=== PATIENT | female | born 1945 | race African-American/Black ===

== ENCOUNTER 2018-03-30 22:26 | Inpatient (IN) | payer MEDICAID, MEDICARE ==
[~2018-03-30] VITALS: Ht 160 cm; Wt 79.9 kg
[~2018-03-30 22:26] MED LIST: ATOR20TA58 PO; CELE200C PO; CITA40TA12 PO; CLON0.2T PO; CLOP75TA PO; COLC0.6T34 PO; FERR325C PO; FLUT1DIS3 IH; FURO20TA3 PO; GABA600T2 PO; LORA1TAB PO; METO25TA4 PO; OMEP40CA5 PO; POTA20TA4 PO; TRIA15CR3 TP; VERA120T5 PO
[2018-03-30] MEDS ORDERED: DEXTROSE ORAL GEL 15 GM TUBE. ONE (23:05)
[2018-03-30] MEDS ORDERED: DEXTROSE 50% 25 GM / 50ML DISP.SYRIN. IV ONE ×2 (23:05→23:30)
--- NOTE | 2018-03-30 23:27 | EKG ---
[facility] [address] [place] [address] Test Date: 2018-03-30 Test Time: 22:57:32 Pat Name: ELMIRA PERZE Department: Room: Gender: F Director Retirement: JONATAN : 1945 Requested By: KARLOS BERNAL Order Number: [id number] Reading MD: Trevor Moore Measurements Intervals [place] Rate: 76 P: -128 [place]: 122 QRS: -46 QRSD: 168 T: 124 QT: 468 QTc: 532 Interpretive Statements SINUS RHYTHM ABNORMAL LEFT AXIS DEVIATION RIGHT BUNDLE BRANCH BLOCK QRS(T) CONTOUR ABNORMALITY CONSISTENT WITH ANTEROLATERAL INFARCT PROBABLY OLD ABNORMAL ECG Electronically Signed On 04-04-2018 11:54:17 CDT by Trevor Moore
[2018-03-30] MEDS ORDERED: DEXTROSE ORAL GEL 15 GM TUBE. PO ONE (23:30)
[2018-03-30] MEDS ORDERED: ONDANSETRON PF 4 MG/2 ML VIAL. IV ONE (23:30)
[2018-03-30] MEDS ORDERED: ASPIRIN 325 MG TABLET PO ONE (23:30)
[2018-03-30] MEDS ORDERED: fentaNYL PF VIAL 100 MCG/2 ML VIAL IV ONE (23:30)
--- NOTE | 2018-03-30 23:31 | PHYS DOC ---
Past Medical History Past Medical History: CHF, Hypertension, GA Additional Past Surgical Histo: pacemaker Alcohol Use: None Drug Use: None Adult General Chief Complaint Chief Complaint: SHORTNESS OF BREATH HPI HPI Patient is a 72 year old female with a pacemaker and a PMH of GA, CHF, and hypertension who presents to the ED with shortness of breath and lethargy. EMS notes that patient reports she has had nausea, vomiting, and diarrhea for the past few days and also reports chest pain. She states the pain is dull and she rates it as an 8/10. She has not received or taken any medication for it. Patient notes that she is usually on O2, but has been without O2 for several days. EMS notes her SaO2 was found to be in the low 80s. Patient denies any recent loss of consciousness or falls. She denies cough or fevers. Review of Systems Review of Systems Constitutional: Notes lethargy; Denies fever or chills Eyes: Denies change in visual acuity, redness, or eye pain HENT: Denies nasal congestion or sore throat Respiratory: Notes shortness of breath; Denies cough Cardiovascular: Notes chest pain; Denies heart palpitations GI: Notes nausea, vomiting, diarrhea; Denies abdominal pain : Denies dysuria or hematuria Musculoskeletal: Denies back pain or joint pain Integument: Denies rash or skin lesions Neurologic: Notes generalized weakness; Denies headache or sensory changes Complete systems were reviewed and found to be within normal limits, except as documented in this note. Family History Family History Noncontributory Current Medications Current Medications Current Medications Medications (Trade) Dose Ordered Sig/[facility] Start Time Stop Time Status Last Admin Dose Admin Aspirin (Karen Aspirin) 325 mg 1X ONCE 03/30/18 23:30 03/30/18 23:31 DC 03/31/18 01:16 325 MG Dextrose (Dextrose 50%-Water Syringe) 12.5 gm PRN Q15MIN PRN 03/31/18 00:45 Fentanyl Citrate (Fentanyl 2ml Vial) 50 mcg 1X ONCE 03/30/18 23:30 03/30/18 23:31 DC Glucose (Insta-Glucose) 15 gm 1X ONCE 03/30/18 23:30 03/30/18 23:31 DC 03/30/18 23:07 15 GM Ondansetron HCl (Zofran) 4 mg PRN Q8HRS PRN 03/31/18 00:45 04/01/18 00:44 Allergies Allergies Allergies Coded Allergies Type Severity Reaction Last Updated Verified iodine Allergy Severe 03/30/18 Yes Sulfa (Sulfonamide Antibiotics) Allergy Intermediate 03/30/18 Yes doxycycline Allergy Intermediate 03/30/18 Yes quinine Allergy Intermediate 03/30/18 Yes Physical Exam Physical Exam Constitutional: Well developed, well nourished, appears lethargic HENT: Normocephalic, atraumatic, oropharynx dry Eyes: PERRL, EOMI, conjunctiva normal, no discharge Neck: Normal range of motion, no tenderness, supple, no meningeal signs Cardiovascular: Heart rate regular rhythm, no murmur Lungs & Thorax: Diffuse wet crackles in bilateral lungs Abdomen: Soft, nontender Skin: Warm, dry, no erythema Back: No tenderness, no CVA tenderness Extremities: No tenderness, ROM intact, BLE 2+ edema Neurologic: Slightly decreased motor function, normal sensory function, alert and oriented x 2 Psychologic: Affect normal, judgement normal, mood normal Current Patient Data Vital Signs Vital Signs Date Time Temp Pulse Resp B/P (MAP) Pulse Ox O2 Delivery O2 Flow Rate FiO2 03/31/18 00:30 80 18 143/85 (104) 92 Nasal Cannula 3.0 03/30/18 22:26 97.9 97.9 Lab Values Laboratory Tests Test 03/30/18 23:04 03/30/18 23:30 03/30/18 23:58 03/31/18 00:04 Glucose (Fingerstick) 26 mg/dL (70-99) *L 93 mg/dL (70-99) 106 mg/dL (70-99) H White Blood Count 5.5 x10^3/uL (4.0-11.0) Red Blood Count 3.20 x10^6/uL (3.50-5.40) L Hemoglobin 9.6 g/dL (12.0-15.5) L Hematocrit 28.8 % (36.0-47.0) L Mean Corpuscular Volume 90 fL (79-100) Mean Corpuscular Hemoglobin 30 pg (25-35) Mean Corpuscular Hemoglobin Concent 34 g/dL (31-37) Red Cell Distribution Width 28.7 % (11.5-14.5) H Platelet Count 149 x10^3/uL (140-400) Neutrophils (%) (Auto) 29 % (31-73) L Lymphocytes (%) (Auto) 68 % (24-48) H Monocytes (%) (Auto) 2 % (0-9) Eosinophils (%) (Auto) 0 % (0-3) Basophils (%) (Auto) 1 % (0-3) Neutrophils # (Auto) 1.6 x10^3uL (1.8-7.7) L Lymphocytes # (Auto) 3.7 x10^3/uL (1.0-4.8) Monocytes # (Auto) 0.1 x10^3/uL (0.0-1.1) Eosinophils # (Auto) 0.0 x10^3/uL (0.0-0.7) Basophils # (Auto) 0.1 x10^3/uL (0.0-0.2) Segmented Neutrophils % 83 % (35-66) H Band Neutrophils % 3 % (0-9) Lymphocytes % 13 % (24-48) L Monocytes % 1 % (0-10) Nucleated Red Blood Cells 2 Platelet Estimate Adequate (ADEQUATE) Polychromasia Slight Anisocytosis Mod Target Cells Mod Jackson Cells Few Crenated Cell Present Prothrombin Time 24.4 SEC (11.7-14.0) H Prothrombin Time INR 2.3 (0.8-1.1) H Sodium Level 141 mmol/L (136-145) Potassium Level 3.9 mmol/L (3.5-5.1) Chloride Level 101 mmol/L (98-107) Carbon Dioxide Level 19 mmol/L (21-32) L Anion Gap 21 (6-14) H Blood Urea Nitrogen 29 mg/dL (7-20) H Creatinine 2.5 mg/dL (0.6-1.0) H Estimated GFR (Cockcroft-Gault) 23.0 BUN/Creatinine Ratio 12 (6-20) Glucose Level 116 mg/dL (70-99) H Lactic Acid Level 8.2 mmol/L (0.4-2.0) *H Calcium Level 9.1 mg/dL (8.5-10.1) Magnesium Level 1.7 mg/dL (1.8-2.4) L Total Bilirubin 2.7 mg/dL (0.2-1.0) H Aspartate Amino Transferase (AST) 72 U/L (15-37) H Alanine Aminotransferase (ALT) 42 U/L (14-59) Alkaline Phosphatase 125 U/L (46-116) H Creatine Kinase 502 U/L (26-192) H Troponin I Quantitative 0.242 ng/mL (0.000-0.055) GK-Urs-Y-Type Natriuretic Peptide > 26588 pg/mL (0-124) H Total Protein 7.7 g/dL (6.4-8.2) Albumin 3.3 g/dL (3.4-5.0) L Albumin/Globulin Ratio 0.8 (1.0-1.7) L Lipase 38 U/L (73-393) L Laboratory Tests 03/30/18 23:58 Laboratory Tests 03/30/18 23:58 EKG EKG @ 22:57, normal sinus rhythm at 76 bpm, appears to be a paced rhythm Interpretation Time: @ 22:59 Radiology/Procedures Radiology/Procedures 1) PROCEDURE: CHEST AP ONLY Indication:difficulty breathing TECHNIQUE:Portable AP chest X-ray COMPARISON:12/27/2012 FINDINGS: Left chest wall cardiac pacer is seen images leads projecting over the heart. Patient is rotated to the left side limiting optimal evaluation. Heart is s moderate to severely enlarged in size. Diffuse bilateral interstitial opacities are seen. Evaluation of bilateral lung bases is limited due to overlapping soft tissue shadows. No pneumothorax. Visualized bony thorax within normal limits. IMPRESSION: 1. Moderate to severe cardiomegaly. 2. Interstitial pulmonary edema. 3. Evaluation of lung bases limited due to overlapping soft tissues. 2) CXR s/p RIJ central line placement (preliminary interpretation by ED physician) Interval RIJ placement with good positioning. NO pneumothorax. Continued interstitial pulmonary edema. Course & Med Decision Making Course & Med Decision Making Patient is a 72 year old female with a pacemaker and a PMH of GA, CHF, and hypertension who presents to the ED with shortness of breath and lethargy. Pertinent labs and imaging studies were obtained and reviewed (see chart for details). Her blood glucose level was found to be 26. She was given IV dextrose as well as dextrose gel. She was also given fentanyl, nitroglycerin , and aspirin for her pain and Zofran for her nausea. Chest x-ray showed moderate to severe cardiomegaly with interstitial pulmonary edema. Patient's BNP was significantly elevated at >[address]31 and her lactic acid was elevated at 8.2. She was given Bumex for diuresis. Highly suspect acute CHF exacerbation. She did not meet any of the requirements for SIRS criteria. Vital signs are stable and her WBC is normal. EKG @ 22:57 showed normal sinus rhythm at 76 bpm and appeared to be a paced rhythm. Troponin elevated at 0.242 likely secondary to heart strain. Patient requiring admission for further evaluation and treatment of her acute CHF exacerbation, hypoglycemia, elevated troponin level, and lactic acidosis. Decision to place SCVO2 central line under bedside ultrasound guidance given patient's critical state. Blood cultures also obtained. Patient tolerated procedure well and without difficulty. Repeat CXR with good positioning of line without signs of pneumothorax. Discussed with Dr. Conte (hospitalist) who is in agreement with admission. Discussed findings and plan with patient, who acknowledges understanding and agreement. Dragon Disclaimer Dragon Disclaimer This electronic medical record was generated, in whole or in part, using a voice recognition dictation system. Departure Departure Impression: Primary Impression: Acute exacerbation of CHF (congestive heart failure) Additional Impressions: Hypoglycemia Elevated troponin I level Lactic acidosis Renal insufficiency Hypoxia Disposition: 09 ADMITTED INPATIENT Condition: GUARDED Referrals: SANDOVAL COLEMAN MD (PCP) Critical Care Time Critical care time was 30 minutes which includes time at bedside, spent in discussion of patient's care with specialists and/or family members, with interpretation of laboratory and/or radiological studies and is exclusive of procedures. Central Line Central Line : Central Line Lumen: triple (SVCO2) Central Line Procedure: sterile drapes applied, sterile dressing applied Central Line Postion: internal jugular (R) Anesthesia: Lidocaine (2% without) cc's of anesthesia: 3 Complications: none Central Line Post Position: sutured, good blood return, position confirmed w / CXR Progress Written consent obtained. Time out performed. ChloraPrep utilized. Hand hygiene and sterile attire utilized. Bedside ultrasound guidance also performed. Patient tolerated procedure well and without difficulty. Problem Qualifiers Primary Impression: Acute exacerbation of CHF (congestive heart failure) Heart failure type: unspecified Qualified Codes: I50.9 - Heart failure, unspecified KARLOS BERNAL DO Mar 30, 2018 23:31
[2018-03-31] VITALS (22 sets, daily range): BP systolic 96–151; BP diastolic 62–92
[2018-03-31 00:14] LABS: BASO # 0.1 x10^3/uL (0.0-0.2); BASO % 1 % (0-3); EOS % 0 % (0-3); HEMATOCRIT 28.8 % (36.0-47.0); HEMOGLOBIN 9.6 g/dL (12.0-15.5); LYMPH # 3.7 x10^3/uL (1.0-4.8); LYMPH % 68 % (24-48); MEAN CORPUSCULAR HEMOGLOBIN 30 pg (25-35); MEAN CORPUSCULAR HGB CONC 34 g/dL (31-37); MEAN CORPUSCULAR VOLUME 90 fL (79-100); MONO # 0.1 x10^3/uL (0.0-1.1); MONO % 2 % (0-9); NEUT # 1.6 x10^3uL (1.8-7.7); NEUT % 29 % (31-73); PLATELET COUNT 149 x10^3/uL (140-400); RED CELL DISTRIBUTION WIDTH 28.7 % (11.5-14.5); WHITE BLOOD COUNT 5.5 x10^3/uL (4.0-11.0)
[2018-03-31 00:22] LABS: CALCIUM 9.1 mg/dL (8.5-10.1); CREATININE 2.5 mg/dL (0.6-1.0); POTASSIUM 3.9 mmol/L (3.5-5.1)
[2018-03-31 00:29] LABS: ALBUMIN 3.3 g/dL (3.4-5.0); ALBUMIN/GLOBULIN RATIO 0.8 (1.0-1.7); MAGNESIUM 1.7 mg/dL (1.8-2.4); TOTAL BILIRUBIN 2.7 mg/dL (0.2-1.0); TOTAL PROTEIN 7.7 g/dL (6.4-8.2)
[2018-03-31 00:31] LABS: PROTHROMBIN TIME PATIENT 24.4 SEC (11.7-14.0)
[2018-03-31] MEDS ORDERED: DEXTROSE 50% 25 GM / 50ML DISP.SYRIN. IV PRN (00:45)
[2018-03-31] MEDS ORDERED: ONDANSETRON PF 4 MG/2 ML VIAL. IV PRN (00:45)
[2018-03-31] MEDS ORDERED: BUMETANIDE 1 MG/4 ML VIAL. IV ONE (01:00)
[2018-03-31] MEDS ORDERED: NITROGLYCERIN OINT 1 GM PACKET. TP ONE (01:00)
--- NOTE | 2018-03-31 01:11 | RAD ---
Indication:difficulty breathing TECHNIQUE:Portable AP chest X-ray COMPARISON:12/27/2012 FINDINGS: Left chest wall cardiac pacer is seen images leads projecting over the heart. Patient is rotated to the left side limiting optimal evaluation. Heart is s moderate to severely enlarged in size. Diffuse bilateral interstitial opacities are seen. Evaluation of bilateral lung bases is limited due to overlapping soft tissue shadows. No pneumothorax. Visualized bony thorax within normal limits. IMPRESSION: 1. Moderate to severe cardiomegaly. 2. Interstitial pulmonary edema. 3. Evaluation of lung bases limited due to overlapping soft tissues. Electronically signed by: Long Tucker DO (03/31/2018 1:07 AM) [facility]
[2018-03-31 02:05] LABS: BILIRUBIN,URINE SMALL (NEG); CLARITY,URINE CLEAR; COLOR,URINE AMBER; NITRITE,URINE NEGATIVE (NEG); PH,URINE 5.5; PROTEIN,URINE 100 mg/dL (NEG-TRACE)
[2018-03-31] MEDS ORDERED: LIDOCAINE 2% PF 2ML VIAL. ONE (02:31)
[2018-03-31] MEDS ORDERED: LIDOCAINE 2% 20 ML VIAL. IJ ONE (03:00)
[2018-03-31 03:32] LABS: AMORPHOUS SEDIMENT,UR PRESENT /HPF; BACTERIA,URINE 0 /HPF (0-FEW); HYALINE CASTS, URINE MODERATE /HPF; RBC,URINE OCC /HPF (0-2); SQUAMOUS EPITHELIAL CELL,UR MOD /LPF; WBC,URINE OCC /HPF (0-4)
[2018-03-31 03:53] LABS: % BANDS 3 % (0-9); % LYMPHS 13 % (24-48); % MONOS 1 % (0-10); % SEGS 83 % (35-66); NUCLEATED RBC 2; PLT ESTIMATE ADEQUATE (ADEQUATE)
[2018-03-31 03:54] LABS: ANISOCYTOSIS MOD; BURR CELLS FEW; POLYCHROMASIA SLIGHT; TARGET CELLS MOD
--- NOTE | 2018-03-31 04:28 | RAD ---
Indication: Line placement TECHNIQUE: Portable AP upright chest x-ray COMPARISON: Study from the same day earlier FINDINGS: Stable position of left chest wall cardiac pacer with its leads projecting over the heart. Interval placement of right IJ catheter with its tip in the SVC. Heart is moderately enlarged in size. Diffuse bilateral patchy opacities are seen without interstitial opacities. No pneumothorax. Visualized bony thorax within normal limits. IMPRESSION: Moderate cardiomegaly with diffuse interstitial and patchy opacities which may be from pulmonary edema or multifocal pneumonia. Electronically signed by: Long Tucker DO (03/31/2018 4:24 AM) [facility]
[2018-03-31 09:23] LABS: ALBUMIN/GLOBULIN RATIO 0.7 (1.0-1.7); CALCIUM 8.4 mg/dL (8.5-10.1); CREATININE 2.3 mg/dL (0.6-1.0); GFR 25.3; MAGNESIUM 1.7 mg/dL (1.8-2.4); POTASSIUM 4.1 mmol/L (3.5-5.1); TOTAL BILIRUBIN 1.9 mg/dL (0.2-1.0); TOTAL PROTEIN 7.1 g/dL (6.4-8.2)
--- NOTE | 2018-03-31 09:23 | PDOC2 ---
MIKE DUNHAM ANGLE BENDER 03/31/18 0923: CARDIAC CONSULT DATE OF CONSULT Date of Consult DATE: 03/31/18 TIME: 09:13 REASON FOR CONSULT Reason for Consult: CHF exacerbation, elevated troponin REFERRING PHYSICIAN Referring Physician: Inés SOURCE Source: Chart review HISTORY OF PRESENT ILLNESS HISTORY OF PRESENT ILLNESS 72 year old female admitted through the ER with reported history of nausea, vomiting, diarrhea and CP as well as hypoxia with SpO2 in the 80s on EMS presentation. Patient is barely arousable and provides no information for this consult. Reason for Visit: CHF, NSTEMI PAST MEDICAL HISTORY Cardiovascular: CHF, HTN, [place] (with reported PCI/stents to unknown targets), Other (PPM - brand unknown as diagnosis) Pulmonary: COPD PAST SURGICAL HISTORY Past Surgical History: Pacemaker FAMILY HISTORY Family History: Family History Unknown SOCIAL HISTORY Smoke: <1 pack per day CURRENT MEDICATIONS CURRENT MEDICATIONS Current Medications Medications (Trade) Dose Ordered Sig/Domitila Route PRN Reason Start Time Stop Time Status Last Admin Dose Admin Aspirin (Karen Aspirin) 325 mg 1X ONCE PO 03/30/18 23:30 03/30/18 23:31 DC 03/31/18 01:16 Dextrose (Dextrose 50%-Water Syringe) 25 gm 1X ONCE IV 03/30/18 23:30 03/30/18 23:31 DC 03/30/18 23:10 Ondansetron HCl (Zofran) 4 mg 1X ONCE IV 03/30/18 23:30 03/30/18 23:31 DC 03/31/18 01:18 Glucose (Insta-Glucose) 15 gm 1X ONCE PO 03/30/18 23:30 03/30/18 23:31 DC 03/30/18 23:07 Nitroglycerin (Nitro-Bid Oint) 1 inch 1X ONCE TP 03/31/18 01:00 03/31/18 01:01 DC 03/31/18 01:19 Bumetanide (Bumex) 0.5 mg 1X ONCE IV 03/31/18 01:00 03/31/18 01:01 DC 03/31/18 01:11 Lidocaine HCl 20 ml 1X ONCE IJ 03/31/18 03:00 03/31/18 03:01 DC 03/31/18 03:00 ALLERGIES ALLERGIES: Coded Allergies: iodine (Verified Allergy, Severe, 03/30/18) Sulfa (Sulfonamide Antibiotics) (Verified Allergy, Intermediate, 03/30/18) doxycycline (Verified Allergy, Intermediate, 03/30/18) metronidazole (Verified Allergy, Intermediate, HIVES, 03/31/18) quinine (Verified Allergy, Intermediate, 03/30/18) ROS Review of System unobtainable PHYSICAL EXAM General: No acute distress, Other (minimally arousable, mumbles) HEENT: Atraumatic Lungs: Other (posterior crackles) Heart: Normal S1, Normal S2 Abdomen: Normal bowel sounds (obese abdomen), Soft Extremities: Other (trace edema) Skin: No rashes Neuro: Other (difficulty awakening patient) Psych/Mental Status: Other (unable to evaluate) MUSCULOSKELETAL: No deformity VITALS VITALS Vital Signs Date Time Temp Pulse Resp B/P (MAP) Pulse Ox O2 Delivery O2 Flow Rate FiO2 03/31/18 08:30 Nasal Cannula 3.0 03/31/18 08:00 88 16 133/85 (101) 96 03/31/18 05:15 98.2 98.2 LABS Lab: Laboratory Tests Test 03/30/18 23:04 03/30/18 23:30 03/30/18 23:58 03/31/18 00:04 Glucose (Fingerstick) 26 mg/dL (70-99) 93 mg/dL (70-99) 106 mg/dL (70-99) White Blood Count 5.5 x10^3/uL (4.0-11.0) Red Blood Count 3.20 x10^6/uL (3.50-5.40) Hemoglobin 9.6 g/dL (12.0-15.5) Hematocrit 28.8 % (36.0-47.0) Mean Corpuscular Volume 90 fL (79-100) Mean Corpuscular Hemoglobin 30 pg (25-35) Mean Corpuscular Hemoglobin Concent 34 g/dL (31-37) Red Cell Distribution Width 28.7 % (11.5-14.5) Platelet Count 149 x10^3/uL (140-400) Neutrophils (%) (Auto) 29 % (31-73) Lymphocytes (%) (Auto) 68 % (24-48) Monocytes (%) (Auto) 2 % (0-9) Eosinophils (%) (Auto) 0 % (0-3) Basophils (%) (Auto) 1 % (0-3) Neutrophils # (Auto) 1.6 x10^3uL (1.8-7.7) Lymphocytes # (Auto) 3.7 x10^3/uL (1.0-4.8) Monocytes # (Auto) 0.1 x10^3/uL (0.0-1.1) Eosinophils # (Auto) 0.0 x10^3/uL (0.0-0.7) Basophils # (Auto) 0.1 x10^3/uL (0.0-0.2) Segmented Neutrophils % 83 % (35-66) Band Neutrophils % 3 % (0-9) Lymphocytes % 13 % (24-48) Monocytes % 1 % (0-10) Nucleated Red Blood Cells 2 Platelet Estimate Adequate (ADEQUATE) Polychromasia Slight Anisocytosis Mod Target Cells Mod Melrose Cells Few Crenated Cell Present Prothrombin Time 24.4 SEC (11.7-14.0) Prothromb Time International Ratio 2.3 (0.8-1.1) Sodium Level 141 mmol/L (136-145) Potassium Level 3.9 mmol/L (3.5-5.1) Chloride Level 101 mmol/L (98-107) Carbon Dioxide Level 19 mmol/L (21-32) Anion Gap 21 (6-14) Blood Urea Nitrogen 29 mg/dL (7-20) Creatinine 2.5 mg/dL (0.6-1.0) Estimated GFR (Cockcroft-Gault) 23.0 BUN/Creatinine Ratio 12 (6-20) Glucose Level 116 mg/dL (70-99) Lactic Acid Level 8.2 mmol/L (0.4-2.0) Calcium Level 9.1 mg/dL (8.5-10.1) Magnesium Level 1.7 mg/dL (1.8-2.4) Total Bilirubin 2.7 mg/dL (0.2-1.0) Aspartate Amino Transf (AST/SGOT) 72 U/L (15-37) Alanine Aminotransferase (ALT/SGPT) 42 U/L (14-59) Alkaline Phosphatase 125 U/L (46-116) Creatine Kinase 502 U/L (26-192) Troponin I Quantitative 0.242 ng/mL (0.000-0.055) TA-Hib-F-Type Natriuretic Peptide > 79462 pg/mL (0-124) Total Protein 7.7 g/dL (6.4-8.2) Albumin 3.3 g/dL (3.4-5.0) Albumin/Globulin Ratio 0.8 (1.0-1.7) Lipase 38 U/L (73-393) Test 03/31/18 01:54 03/31/18 04:10 Urine Collection Type Unknown Urine Color Renay Urine Clarity Clear Urine pH 5.5 Urine Specific [place] 1.015 Urine Protein 100 mg/dL (NEG-TRACE) Urine Glucose (UA) Negative mg/dL (NEG) Urine Ketones (Stick) Negative mg/dL (NEG) Urine Blood Negative (NEG) Urine Nitrite Negative (NEG) Urine Bilirubin Small (NEG) Urine Urobilinogen Dipstick 1.0 mg/dL (0.2 mg/dL) Urine Leukocyte Esterase Negative (NEG) Urine RBC Occ /HPF (0-2) Urine WBC Occ /HPF (0-4) Urine Squamous Epithelial Cells Mod /LPF Urine Amorphous Sediment Present /HPF Urine Bacteria 0 /HPF (0-FEW) Urine Hyaline Casts Moderate /HPF Urine Mucus Mod /LPF Glucose (Fingerstick) 94 mg/dL (70-99) Lactic Acid Level 5.3 mmol/L (0.4-2.0) Troponin I Quantitative 0.250 ng/mL (0.000-0.055) IMAGES IMAGES 03/30/2018: CXR: FINDINGS: Left chest wall cardiac pacer is seen images leads projecting over the heart. Patient is rotated to the left side limiting optimal evaluation. Heart is s moderate to severely enlarged in size. Diffuse bilateral interstitial opacities are seen. Evaluation of bilateral lung bases is limited due to overlapping soft tissue shadows. No pneumothorax. Visualized bony thorax within normal limits. IMPRESSION: 1. Moderate to severe cardiomegaly. 2. Interstitial pulmonary edema. 3. Evaluation of lung bases limited due to overlapping soft tissues. EKG EKG V paced ASSESSMENT/PLAN ASSESSMENT/PLAN 1. acute heart failure --NT-proBNP > 35K --treated with 0.5 mg Bumex in ER --renal function prohibits aggressive diuresis; nephrology consult with fluid /diuretic management per neph --TTE pending to evaluate LVEF and assess for WMA 2. NSTEMI --recent chest pain in the setting of nausea/vomiting --suspect demand mediated in the setting of acute heart and renal failure as well as sepsis --TTE to evaluate for WMA --request records from [facility] to determine previous ischemic evaluation; consider ischemic evaluation if not completed recently 3. JAIDEN --Cr 2.5 --consult to nephrology --unclear if this is new or due to recent nausea, vomiting, dehydration 4. sepsis --defer to ID 5. elevated LFTs --recent nausea/vomiting/diarrhea 6. PPM --will interrogate if brand can be determine 7. HTN --controlled 8. anemia --? of chronic disease 9. hypoglycemia --POA --? DM --defer to primary service MARIANA DANIELS MD 04/01/18 1042: CARDIAC CONSULT ASSESSMENT/PLAN ASSESSMENT/PLAN Patient seen and examined 03/31/18 (late entry). Agree with STONE FABRICATOR's assessment and plan. Continue diuresis for acute on chronic systolic heart failure per nephrology team 2-D echo showed LVEF 20% Slight troponin elevation could be demand ischemia but significant CAD needs to be ruled out if patient has not had any recent ischemic workup We will obtain records from primary bus escort office and make further recommendations We will have her pacemaker interrogated to check function Continue management of sepsis per ID Thank you for your consultation MIKE DUNHAM APRN Mar 31, 2018 09:23 MARIANA DANIELS MD Apr 01, 2018 10:42
[2018-03-31 09:24] LABS: RED BLOOD COUNT 4.35 x10^6/uL (3.50-5.40); RED CELL DISTRIBUTION WIDTH 28.7 % (11.5-14.5); WHITE BLOOD COUNT 6.1 x10^3/uL (4.0-11.0)
[2018-03-31 10:34] LABS: CHOLESTEROL/HDL RATIO 2.3
--- NOTE | 2018-03-31 10:40 | PDOC2 ---
GI CONSULT Reason For Consult: Elevated LFTs HPI: HPI: 72 y/o female. History from chart and staff. Apparently evaluated in ER for dyspnea, chest pain, n/v, and diarrhea. Drowsy in ICU this morning making history challenging, RN present for this. Significant labs: glucose was initially 26, Hgb 9.6 (now 13), RDW 28.7, plt 105 , INR 2.3, bili 2.7 (now 1.9), AST 72 (now 83), ALT 42 (now 44), Alk Phos 125 ( now 119), BUN 29 (now 33), Cr 2.5 (now 2.3). Also elevated troponin, lactic acid, and BNP. Has apparently been to [facility] in the past, cardiology records requested. GI asked to see re: LFTs. She is slow to respond and drifts in and out of sleep. She denies h/o liver problems. Tells me she's been sick for 2 months with a cough. GI-garcia, has had diarrhea after eating, so avoids eating. She had a colonoscopy 2 months ago in [place] (?), reportedly normal. Denies reflux. Dysphagia, vomiting, and abd pain history unclear. Denies hematochezia and melena. Has lost weight. Says s/p cholecystectomy for stones. Unclear if had previous EGD. Denies pancreas history. Med list in chart includes omeprazole, Celebrex, Plavix, and iron. PMH: PMH: per chart - CHF, HTN, MS, CAD w/ stent, pacemaker, COPD, anxiety FH: Family History: Other (unable to obtain) Social History: Smoke: <1 pack per day ROS: Per HPI. Vitals: Vitals: Vital Signs Date Time Temp Pulse Resp B/P (MAP) Pulse Ox O2 Delivery O2 Flow Rate FiO2 03/31/18 09:00 98.3 88 16 130/80 (97) 96 Nasal Cannula 3.0 98.3 Labs: Labs: Laboratory Tests Test 03/30/18 23:04 03/30/18 23:30 03/30/18 23:58 03/31/18 00:04 Glucose (Fingerstick) 26 mg/dL (70-99) 93 mg/dL (70-99) 106 mg/dL (70-99) White Blood Count 5.5 x10^3/uL (4.0-11.0) Red Blood Count 3.20 x10^6/uL (3.50-5.40) Hemoglobin 9.6 g/dL (12.0-15.5) Hematocrit 28.8 % (36.0-47.0) Mean Corpuscular Volume 90 fL (79-100) Mean Corpuscular Hemoglobin 30 pg (25-35) Mean Corpuscular Hemoglobin Concent 34 g/dL (31-37) Red Cell Distribution Width 28.7 % (11.5-14.5) Platelet Count 149 x10^3/uL (140-400) Neutrophils (%) (Auto) 29 % (31-73) Lymphocytes (%) (Auto) 68 % (24-48) Monocytes (%) (Auto) 2 % (0-9) Eosinophils (%) (Auto) 0 % (0-3) Basophils (%) (Auto) 1 % (0-3) Neutrophils # (Auto) 1.6 x10^3uL (1.8-7.7) Lymphocytes # (Auto) 3.7 x10^3/uL (1.0-4.8) Monocytes # (Auto) 0.1 x10^3/uL (0.0-1.1) Eosinophils # (Auto) 0.0 x10^3/uL (0.0-0.7) Basophils # (Auto) 0.1 x10^3/uL (0.0-0.2) Segmented Neutrophils % 83 % (35-66) Band Neutrophils % 3 % (0-9) Lymphocytes % 13 % (24-48) Monocytes % 1 % (0-10) Nucleated Red Blood Cells 2 Platelet Estimate Adequate (ADEQUATE) Polychromasia Slight Anisocytosis Mod Target Cells Mod Keeler Cells Few Crenated Cell Present Prothrombin Time 24.4 SEC (11.7-14.0) Prothromb Time International Ratio 2.3 (0.8-1.1) Sodium Level 141 mmol/L (136-145) Potassium Level 3.9 mmol/L (3.5-5.1) Chloride Level 101 mmol/L (98-107) Carbon Dioxide Level 19 mmol/L (21-32) Anion Gap 21 (6-14) Blood Urea Nitrogen 29 mg/dL (7-20) Creatinine 2.5 mg/dL (0.6-1.0) Estimated GFR (Cockcroft-Gault) 23.0 BUN/Creatinine Ratio 12 (6-20) Glucose Level 116 mg/dL (70-99) Lactic Acid Level 8.2 mmol/L (0.4-2.0) Calcium Level 9.1 mg/dL (8.5-10.1) Magnesium Level 1.7 mg/dL (1.8-2.4) Total Bilirubin 2.7 mg/dL (0.2-1.0) Aspartate Amino Transf (AST/SGOT) 72 U/L (15-37) Alanine Aminotransferase (ALT/SGPT) 42 U/L (14-59) Alkaline Phosphatase 125 U/L (46-116) Creatine Kinase 502 U/L (26-192) Troponin I Quantitative 0.242 ng/mL (0.000-0.055) OL-Whx-F-Type Natriuretic Peptide > 97872 pg/mL (0-124) Total Protein 7.7 g/dL (6.4-8.2) Albumin 3.3 g/dL (3.4-5.0) Albumin/Globulin Ratio 0.8 (1.0-1.7) Lipase 38 U/L (73-393) Test 03/31/18 01:54 03/31/18 04:10 03/31/18 08:35 Urine Collection Type Unknown Urine Color Renay Urine Clarity Clear Urine pH 5.5 Urine Specific [place] 1.015 Urine Protein 100 mg/dL (NEG-TRACE) Urine Glucose (UA) Negative mg/dL (NEG) Urine Ketones (Stick) Negative mg/dL (NEG) Urine Blood Negative (NEG) Urine Nitrite Negative (NEG) Urine Bilirubin Small (NEG) Urine Urobilinogen Dipstick 1.0 mg/dL (0.2 mg/dL) Urine Leukocyte Esterase Negative (NEG) Urine RBC Occ /HPF (0-2) Urine WBC Occ /HPF (0-4) Urine Squamous Epithelial Cells Mod /LPF Urine Amorphous Sediment Present /HPF Urine Bacteria 0 /HPF (0-FEW) Urine Hyaline Casts Moderate /HPF Urine Mucus Mod /LPF Glucose (Fingerstick) 94 mg/dL (70-99) Lactic Acid Level 5.3 mmol/L (0.4-2.0) Troponin I Quantitative 0.250 ng/mL (0.000-0.055) 0.220 ng/mL (0.000-0.055) Triglycerides Level 71 mg/dL (0-150) Cholesterol Level 122 mg/dL (0-200) LDL Cholesterol, Calculated 54 mg/dL (0-100) VLDL Cholesterol, Calculated 14 mg/dL (0-40) Non-HDL Cholesterol Calculated 68 mg/dL (0-129) HDL Cholesterol 54 mg/dL (40-60) Cholesterol/HDL Ratio 2.3 White Blood Count 6.1 x10^3/uL (4.0-11.0) Red Blood Count 4.35 x10^6/uL (3.50-5.40) Hemoglobin 13.0 g/dL (12.0-15.5) Hematocrit 40.0 % (36.0-47.0) Mean Corpuscular Volume 92 fL (79-100) Mean Corpuscular Hemoglobin 30 pg (25-35) Mean Corpuscular Hemoglobin Concent 33 g/dL (31-37) Red Cell Distribution Width 28.7 % (11.5-14.5) Platelet Count 105 x10^3/uL (140-400) Sodium Level 142 mmol/L (136-145) Potassium Level 4.1 mmol/L (3.5-5.1) Chloride Level 102 mmol/L (98-107) Carbon Dioxide Level 20 mmol/L (21-32) Anion Gap 20 (6-14) Blood Urea Nitrogen 33 mg/dL (7-20) Creatinine 2.3 mg/dL (0.6-1.0) Estimated GFR (Cockcroft-Gault) 25.3 BUN/Creatinine Ratio 14 (6-20) Glucose Level 70 mg/dL (70-99) Calcium Level 8.4 mg/dL (8.5-10.1) Magnesium Level 1.7 mg/dL (1.8-2.4) Total Bilirubin 1.9 mg/dL (0.2-1.0) Aspartate Amino Transf (AST/SGOT) 83 U/L (15-37) Alanine Aminotransferase (ALT/SGPT) 44 U/L (14-59) Alkaline Phosphatase 119 U/L (46-116) Creatine Kinase 536 U/L (26-192) Total Protein 7.1 g/dL (6.4-8.2) Albumin 3.0 g/dL (3.4-5.0) Albumin/Globulin Ratio 0.7 (1.0-1.7) Thyroid Stimulating Hormone (TSH) 152.713 uIU/mL (0.358-3.74) Allergies: Coded Allergies: iodine (Verified Allergy, Severe, 03/30/18) Sulfa (Sulfonamide Antibiotics) (Verified Allergy, Intermediate, 03/30/18) doxycycline (Verified Allergy, Intermediate, 03/30/18) metronidazole (Verified Allergy, Intermediate, HIVES, 03/31/18) quinine (Verified Allergy, Intermediate, 03/30/18) Medications: Current Medications Medications (Trade) Dose Ordered Sig/Domitila Route PRN Reason Start Time Stop Time Status Last Admin Dose Admin Aspirin (Karen Aspirin) 325 mg 1X ONCE PO 03/30/18 23:30 03/30/18 23:31 DC 03/31/18 01:16 Dextrose (Dextrose 50%-Water Syringe) 25 gm 1X ONCE IV 03/30/18 23:30 03/30/18 23:31 DC 03/30/18 23:10 Ondansetron HCl (Zofran) 4 mg 1X ONCE IV 03/30/18 23:30 03/30/18 23:31 DC 03/31/18 01:18 Glucose (Insta-Glucose) 15 gm 1X ONCE PO 03/30/18 23:30 03/30/18 23:31 DC 03/30/18 23:07 Nitroglycerin (Nitro-Bid Oint) 1 inch 1X ONCE TP 03/31/18 01:00 03/31/18 01:01 DC 03/31/18 01:19 Bumetanide (Bumex) 0.5 mg 1X ONCE IV 03/31/18 01:00 03/31/18 01:01 DC 03/31/18 01:11 Lidocaine HCl 20 ml 1X ONCE IJ 03/31/18 03:00 03/31/18 03:01 DC 03/31/18 03:00 Imaging: Imaging: CXR 03/31/18 IMPRESSION: Moderate cardiomegaly with diffuse interstitial and patchy opacities which may be from pulmonary edema or multifocal pneumonia. PE: GEN: NAD HEENT: Atraumatic, PERRL LUNGS: diminished, NC HEART: RRR ABD: quiet, soft, non-tender EXTREMITY: trace BLE edema SKIN: No rashes, no jaundice NEURO/PSYCH: very drowsy, speaks slowly, more alert at times and able to answer some questions appropriately A/P: A/P: CHF, NSTEMI, JAIDEN, lactic acidosis, hypoglycemia Elevated LFTs ?anemia (Hgb from 9.6 to 12), thrombocytopenia, coagulopathy CRC screen - reports normal colonoscopy in [place] ~2 months ago S/p cholecystectomy -- History difficult, hopefully can gather more information later. Will request records of previous colonoscopy. Re: LFTs - possible related to heart failure, etc. Monitor labs and check abd US. Monitor for vomiting and diarrhea, check stool studies if indicated. NEEL WILLIAMSON Mar 31, 2018 10:40
--- NOTE | 2018-03-31 10:52 | CARD ---
MR#: [id number] Date of Study: 03/31/2018 Ordering Physician: SEAN PELAEZ, Referring Physician: CLEVELAND VICTOR, Tech: Ashly Mckeon APPROVED REPORT EXAM: Two-dimensional and M-mode echocardiogram with Doppler and color Doppler. Other Information Quality : AverageHR: 90bpm INDICATION Dyspnea Congestive Heart Failure 2D DIMENSIONS RVDd4.0 (2.9-3.5cm)Left Atrium(2D)5.1 (1.6-4.0cm) IVSd1.2 (0.7-1.1cm)Aortic Root(2D)2.9 (2.0-3.7cm) LVDd6.0 (3.9-5.9cm)LVOT Diameter2.1 (1.8-2.4cm) PWd1.1 (0.7-1.1cm)LVDs5.1 (2.5-4.0cm) FS (%) 15.2 %SV56.2 ml Aortic Valve AoV Peak Michael.98.2cm/sAoV VTI13.2cm AO Peak GR.3.9mmHgLVOT VTI 7.39cm AO Mean GR.2mmHgAI P 1/2 [id number] TDI Lateral E' P. V8.37cm/sMedial E' P. V7.31cm/s Tricuspid Valve TR P. [id number] [id number] TR Peak [id number] LEFT VENTRICLE The Left Ventricle is moderately dilated. There is borderline concentric left ventricular hypertrophy . The systolic function is severely impaired. The Ejection Fraction is <20%. There is global hypokine sis of the left ventricle. RIGHT VENTRICLE The right ventricle is moderately dilated. Systolic function is moderately reduced. Possible right he art device lead. ATRIA The left atrium is moderately dilated. The right atrium is moderately dilated. AORTIC VALVE The aortic valve is mildly thickened but opens well. Doppler and Color Flow revealed mild aortic regu rgitation. There is no significant aortic valvular stenosis. MITRAL VALVE The mitral valve is moderately thickened. Mitral annular calcification is moderate.derately thickened . Mitral annular calcification is moderate. Doppler and Color-flow revealed trace mitral regurgitatio n. TRICUSPID VALVE The anterior leaflet is thickened. Doppler and Color Flow revealed mild tricuspid regurgitation. PULMONIC VALVE The pulmonic valve is not well visualized. Doppler and Color Flow revealed mild pulmonic valvular reg urgitation. GREAT VESSELS The aortic root is normal in size. The IVC is dilated and collapses <50% with inspiration. PERICARDIAL EFFUSION There is no evidence of significant pericardial effusion. Critical Notification Critical Value: Yes <Conclusion> The Left Ventricle is moderately dilated. The systolic function is severely impaired. The Ejection Fraction is <20%. There is global hypokinesis of the left ventricle. There is borderline concentric left ventricular hypertrophy. The right ventricle is moderately dilated. Systolic function is moderately reduced. There is no significant aortic valvular stenosis. Doppler and Color Flow revealed mild aortic regurgitation. Doppler and Color-flow revealed trace mitral regurgitation. Doppler and Color Flow revealed mild tricuspid regurgitation. Signed by : Shashank Nick MD Electronically Approved : 03/31/2018 10:50:46
--- NOTE | 2018-03-31 11:14 | PDOC2 ---
CONSULT Date of Consult Date of Consult DATE: 03/31/18 TIME: 11:08 Reason for Consult Reason for Consult: Renal failure Identification/Chief Complaint Chief Complaint Unable top Obtain, sleeping , just mumbles Source Source: Chart review History of Present Illness Reason for Visit: 72 y/o AAF - History from chart and staff as Pt drowsy and not answering She was evaluated in ER for dyspnea, chest pain, n/v, and diarrhea. Pertinent labs- glucose initially 26, Hgb 9.6 (now up to 13), elevated BUN/ Cr . Also elevated troponin, CPK, lactic acid, BNP. Very High TSH Has apparently been to [facility] in the past, records requested. She drifts in and out of sleep. Not answering questions. Has [place] with small amt of Concentrated Urine. CxR cw Pulm edema, she recd Bumex x 1 IV in ER Med list in chart includes omeprazole, Celebrex, Plavix, and iron. Past Medical History Cardiovascular: CHF, HTN, MS (with reported PCI/stents to unknown targets), Other (PPM - brand unknown as diagnosis) Pulmonary: COPD Past Surgical History Past Surgical History: Pacemaker Family History Family History: Family History Unknown Social History <1 pack per day Current Problem List Problem List Problems Medical Problems: (1) Acute exacerbation of CHF (congestive heart failure) Status: Acute (2) Elevated troponin I level Status: Acute (3) Hypoglycemia Status: Acute (4) Hypoxia Status: Acute (5) Lactic acidosis Status: Acute (6) Renal insufficiency Status: Acute Current Medications Current Medications Current Medications Aspirin (Karen Aspirin) 325 mg 1X ONCE PO Last administered on 03/31/18at 01:16 ; Start 03/30/18 at 23:30; Stop 03/30/18 at 23:31; Status DC Fentanyl Citrate (Fentanyl 2ml Vial) 50 mcg 1X ONCE IV ; Start 03/30/18 at 23: 30; Stop 03/30/18 at 23:31; Status DC Dextrose (Dextrose 50%-Water Syringe) 25 gm 1X ONCE IV Last administered on at 23:10; Start 03/30/18 at 23:30; Stop 03/30/18 at 23:31; Status DC Dextrose (Dextrose 50%-Water Syringe) 25 gm STK-MED ONCE IV ; Start 03/30/18 at 23:05; Stop 03/30/18 at 23:06; Status DC Glucose (Insta-Glucose) 15 gm STK-MED ONCE .ROUTE ; Start 03/30/18 at 23:05; Stop 03/30/18 at 23:06; Status DC Ondansetron HCl (Zofran) 4 mg 1X ONCE IV Last administered on 03/31/18at 01:18 ; Start 03/30/18 at 23:30; Stop 03/30/18 at 23:31; Status DC Glucose (Insta-Glucose) 15 gm 1X ONCE PO Last administered on 03/30/18at 23:07 ; Start 03/30/18 at 23:30; Stop 03/30/18 at 23:31; Status DC Nitroglycerin (Nitro-Bid Oint) 1 inch 1X ONCE TP Last administered on at 01:19; Start 03/31/18 at 01:00; Stop 03/31/18 at 01:01; Status DC Bumetanide (Bumex) 0.5 mg 1X ONCE IV Last administered on 03/31/18at 01:11; Start 03/31/18 at 01:00; Stop 03/31/18 at 01:01; Status DC Ondansetron HCl (Zofran) 4 mg PRN Q8HRS PRN IV NAUSEA/VOMITING 1ST CHOICE; Start 03/31/18 at 00:45; Stop 04/01/18 at 00:44 Dextrose (Dextrose 50%-Water Syringe) 12.5 gm PRN Q15MIN PRN IV SEE COMMENTS; Start 03/31/18 at 00:45 Lidocaine HCl 20 ml 1X ONCE IJ Last administered on 03/31/18at 03:00; Start at 03:00; Stop 03/31/18 at 03:01; Status DC Lidocaine HCl (Xylocaine-Mpf 2% Vial) 2 ml STK-MED ONCE .ROUTE ; Start 03/31/18 at 02:31; Stop 03/31/18 at 02:33; Status DC Pantoprazole Sodium (Protonix) 40 mg DAILYAC PO ; Start 03/31/18 at 11:30 Active Scripts Active Reported Triamcinolone Acetonide 0.1% Cream (Triamcinolone Acetonide) 15 Gm Cream..g. 15 Gm TP Celexa (Citalopram Hydrobromide) 40 Mg Tablet 40 Mg PO DAILY Gabapentin 600 Mg Tablet 600 Mg PO TID Atorvastatin Calcium 20 Mg Tablet 20 Mg PO DAILY Celebrex (Celecoxib) 200 Mg Capsule 200 Mg PO BID 30 Days Furosemide 20 Mg Tablet 20 Mg PO DAILY Metoprolol Tartrate 25 Mg Tablet 25 Mg PO BID Omeprazole 40 Mg Capsule.dr 40 Mg PO DAILY Clonidine Hcl 0.2 Mg Tablet 0.2 Mg PO BID Colcrys (Colchicine) 0.6 Mg Tablet 0.6 Mg PO Lorazepam 1 Mg Tablet 1 Mg PO BID Klor-Con M20 (Potassium Chloride) 20 Meq Tab.er.prt 20 Meq PO DAILY Verapamil Hcl 120 Mg Tablet 120 Mg PO BID Advair 250-50 Diskus (Fluticasone/Salmeterol) 1 Each Disk.w.dev 1 Inh IH BID Iron (Ferrous Sulfate) 325 Mg Capsule.er 325 Mg PO Clopidogrel (Clopidogrel Bisulfate) 75 Mg Tablet 75 Mg PO DAILY Allergies Allergies: Coded Allergies: iodine (Verified Allergy, Severe, 03/30/18) Sulfa (Sulfonamide Antibiotics) (Verified Allergy, Intermediate, 03/30/18) doxycycline (Verified Allergy, Intermediate, 03/30/18) metronidazole (Verified Allergy, Intermediate, HIVES, 03/31/18) quinine (Verified Allergy, Intermediate, 03/30/18) ROS Review of System Unable to Obtain Physical Exam Physical Exam General: No acute distress, minimally arousable, just mumbles HEENT: OM moist , On o2 by NC Lungs: Some crackles Heart: Normal S1, Normal S2 Abdomen: Normal bowel sounds , soft, obese Extremities: Trace Bilat edema Skin: No rashes Neuro: minimally arousable, just mumbles - [place] + Vital Signs Vital Signs Date Time Temp Pulse Resp B/P (MAP) Pulse Ox O2 Delivery O2 Flow Rate FiO2 03/31/18 11:00 90 16 119/79 (92) 93 Nasal Cannula 2.0 03/31/18 09:00 98.3 98.3 Assessment & Plan JAIDEN -- Pre-renal/ cardiorenal Unknown baseline Repeat lab this am stable E-Lytes stable, UOP not adequate , 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 Currently Start IV Lasix and Monitor Await records from [facility](baseline renal function if available) US abdomen report pending , UA insignificant Acute heart failure- BNP high , recd Iv Bumex in ER IV lasix Drip , Monitor UOP NSTEMI chest , nausea/vomiting Cardiology on board Elevated LFTs GI following PPM Cardiology following HTN- BP controlled Elevated TSH- 152 No known Hx of Hypothyroidism Primary following Discussed A/P at length with RN , no family at bedside Labs Labs Laboratory Tests Test 03/30/18 23:04 03/30/18 23:30 03/30/18 23:58 03/31/18 00:04 Glucose (Fingerstick) 26 mg/dL (70-99) 93 mg/dL (70-99) 106 mg/dL (70-99) White Blood Count 5.5 x10^3/uL (4.0-11.0) Red Blood Count 3.20 x10^6/uL (3.50-5.40) Hemoglobin 9.6 g/dL (12.0-15.5) Hematocrit 28.8 % (36.0-47.0) Mean Corpuscular Volume 90 fL (79-100) Mean Corpuscular Hemoglobin 30 pg (25-35) Mean Corpuscular Hemoglobin Concent 34 g/dL (31-37) Red Cell Distribution Width 28.7 % (11.5-14.5) Platelet Count 149 x10^3/uL (140-400) Neutrophils (%) (Auto) 29 % (31-73) Lymphocytes (%) (Auto) 68 % (24-48) Monocytes (%) (Auto) 2 % (0-9) Eosinophils (%) (Auto) 0 % (0-3) Basophils (%) (Auto) 1 % (0-3) Neutrophils # (Auto) 1.6 x10^3uL (1.8-7.7) Lymphocytes # (Auto) 3.7 x10^3/uL (1.0-4.8) Monocytes # (Auto) 0.1 x10^3/uL (0.0-1.1) Eosinophils # (Auto) 0.0 x10^3/uL (0.0-0.7) Basophils # (Auto) 0.1 x10^3/uL (0.0-0.2) Segmented Neutrophils % 83 % (35-66) Band Neutrophils % 3 % (0-9) Lymphocytes % 13 % (24-48) Monocytes % 1 % (0-10) Nucleated Red Blood Cells 2 Platelet Estimate Adequate (ADEQUATE) Polychromasia Slight Anisocytosis Mod Target Cells Mod Kamaljit Cells Few Crenated Cell Present Prothrombin Time 24.4 SEC (11.7-14.0) Prothromb Time International Ratio 2.3 (0.8-1.1) Sodium Level 141 mmol/L (136-145) Potassium Level 3.9 mmol/L (3.5-5.1) Chloride Level 101 mmol/L (98-107) Carbon Dioxide Level 19 mmol/L (21-32) Anion Gap 21 (6-14) Blood Urea Nitrogen 29 mg/dL (7-20) Creatinine 2.5 mg/dL (0.6-1.0) Estimated GFR (Cockcroft-Gault) 23.0 BUN/Creatinine Ratio 12 (6-20) Glucose Level 116 mg/dL (70-99) Lactic Acid Level 8.2 mmol/L (0.4-2.0) Calcium Level 9.1 mg/dL (8.5-10.1) Magnesium Level 1.7 mg/dL (1.8-2.4) Total Bilirubin 2.7 mg/dL (0.2-1.0) Aspartate Amino Transf (AST/SGOT) 72 U/L (15-37) Alanine Aminotransferase (ALT/SGPT) 42 U/L (14-59) Alkaline Phosphatase 125 U/L (46-116) Creatine Kinase 502 U/L (26-192) Troponin I Quantitative 0.242 ng/mL (0.000-0.055) NG-Qhn-V-Type Natriuretic Peptide > 60465 pg/mL (0-124) Total Protein 7.7 g/dL (6.4-8.2) Albumin 3.3 g/dL (3.4-5.0) Albumin/Globulin Ratio 0.8 (1.0-1.7) Lipase 38 U/L (73-393) Test 03/31/18 01:54 03/31/18 04:10 03/31/18 08:35 Urine Collection Type Unknown Urine Color Renay Urine Clarity Clear Urine pH 5.5 Urine Specific [place] 1.015 Urine Protein 100 mg/dL (NEG-TRACE) Urine Glucose (UA) Negative mg/dL (NEG) Urine Ketones (Stick) Negative mg/dL (NEG) Urine Blood Negative (NEG) Urine Nitrite Negative (NEG) Urine Bilirubin Small (NEG) Urine Urobilinogen Dipstick 1.0 mg/dL (0.2 mg/dL) Urine Leukocyte Esterase Negative (NEG) Urine RBC Occ /HPF (0-2) Urine WBC Occ /HPF (0-4) Urine Squamous Epithelial Cells Mod /LPF Urine Amorphous Sediment Present /HPF Urine Bacteria 0 /HPF (0-FEW) Urine Hyaline Casts Moderate /HPF Urine Mucus Mod /LPF Glucose (Fingerstick) 94 mg/dL (70-99) Lactic Acid Level 5.3 mmol/L (0.4-2.0) Troponin I Quantitative 0.250 ng/mL (0.000-0.055) 0.220 ng/mL (0.000-0.055) Triglycerides Level 71 mg/dL (0-150) Cholesterol Level 122 mg/dL (0-200) LDL Cholesterol, Calculated 54 mg/dL (0-100) VLDL Cholesterol, Calculated 14 mg/dL (0-40) Non-HDL Cholesterol Calculated 68 mg/dL (0-129) HDL Cholesterol 54 mg/dL (40-60) Cholesterol/HDL Ratio 2.3 White Blood Count 6.1 x10^3/uL (4.0-11.0) Red Blood Count 4.35 x10^6/uL (3.50-5.40) Hemoglobin 13.0 g/dL (12.0-15.5) Hematocrit 40.0 % (36.0-47.0) Mean Corpuscular Volume 92 fL (79-100) Mean Corpuscular Hemoglobin 30 pg (25-35) Mean Corpuscular Hemoglobin Concent 33 g/dL (31-37) Red Cell Distribution Width 28.7 % (11.5-14.5) Platelet Count 105 x10^3/uL (140-400) Sodium Level 142 mmol/L (136-145) Potassium Level 4.1 mmol/L (3.5-5.1) Chloride Level 102 mmol/L (98-107) Carbon Dioxide Level 20 mmol/L (21-32) Anion Gap 20 (6-14) Blood Urea Nitrogen 33 mg/dL (7-20) Creatinine 2.3 mg/dL (0.6-1.0) Estimated GFR (Cockcroft-Gault) 25.3 BUN/Creatinine Ratio 14 (6-20) Glucose Level 70 mg/dL (70-99) Calcium Level 8.4 mg/dL (8.5-10.1) Magnesium Level 1.7 mg/dL (1.8-2.4) Total Bilirubin 1.9 mg/dL (0.2-1.0) Aspartate Amino Transf (AST/SGOT) 83 U/L (15-37) Alanine Aminotransferase (ALT/SGPT) 44 U/L (14-59) Alkaline Phosphatase 119 U/L (46-116) Creatine Kinase 536 U/L (26-192) Total Protein 7.1 g/dL (6.4-8.2) Albumin 3.0 g/dL (3.4-5.0) Albumin/Globulin Ratio 0.7 (1.0-1.7) Thyroid Stimulating Hormone (TSH) 152.713 uIU/mL (0.358-3.74) Laboratory Tests Test 03/30/18 23:04 03/30/18 23:30 03/30/18 23:58 03/31/18 00:04 Glucose (Fingerstick) 26 mg/dL (70-99) 93 mg/dL (70-99) 106 mg/dL (70-99) White Blood Count 5.5 x10^3/uL (4.0-11.0) Red Blood Count 3.20 x10^6/uL (3.50-5.40) Hemoglobin 9.6 g/dL (12.0-15.5) Hematocrit 28.8 % (36.0-47.0) Mean Corpuscular Volume 90 fL (79-100) Mean Corpuscular Hemoglobin 30 pg (25-35) Mean Corpuscular Hemoglobin Concent 34 g/dL (31-37) Red Cell Distribution Width 28.7 % (11.5-14.5) Platelet Count 149 x10^3/uL (140-400) Neutrophils (%) (Auto) 29 % (31-73) Lymphocytes (%) (Auto) 68 % (24-48) Monocytes (%) (Auto) 2 % (0-9) Eosinophils (%) (Auto) 0 % (0-3) Basophils (%) (Auto) 1 % (0-3) Neutrophils # (Auto) 1.6 x10^3uL (1.8-7.7) Lymphocytes # (Auto) 3.7 x10^3/uL (1.0-4.8) Monocytes # (Auto) 0.1 x10^3/uL (0.0-1.1) Eosinophils # (Auto) 0.0 x10^3/uL (0.0-0.7) Basophils # (Auto) 0.1 x10^3/uL (0.0-0.2) Segmented Neutrophils % 83 % (35-66) Band Neutrophils % 3 % (0-9) Lymphocytes % 13 % (24-48) Monocytes % 1 % (0-10) Nucleated Red Blood Cells 2 Platelet Estimate Adequate (ADEQUATE) Polychromasia Slight Anisocytosis Mod Target Cells Mod Kamaljit Cells Few Crenated Cell Present Prothrombin Time 24.4 SEC (11.7-14.0) Prothromb Time International Ratio 2.3 (0.8-1.1) Sodium Level 141 mmol/L (136-145) Potassium Level 3.9 mmol/L (3.5-5.1) Chloride Level 101 mmol/L (98-107) Carbon Dioxide Level 19 mmol/L (21-32) Anion Gap 21 (6-14) Blood Urea Nitrogen 29 mg/dL (7-20) Creatinine 2.5 mg/dL (0.6-1.0) Estimated GFR (Cockcroft-Gault) 23.0 BUN/Creatinine Ratio 12 (6-20) Glucose Level 116 mg/dL (70-99) Lactic Acid Level 8.2 mmol/L (0.4-2.0) Calcium Level 9.1 mg/dL (8.5-10.1) Magnesium Level 1.7 mg/dL (1.8-2.4) Total Bilirubin 2.7 mg/dL (0.2-1.0) Aspartate Amino Transf (AST/SGOT) 72 U/L (15-37) Alanine Aminotransferase (ALT/SGPT) 42 U/L (14-59) Alkaline Phosphatase 125 U/L (46-116) Creatine Kinase 502 U/L (26-192) Troponin I Quantitative 0.242 ng/mL (0.000-0.055) RW-Qsh-E-Type Natriuretic Peptide > 62954 pg/mL (0-124) Total Protein 7.7 g/dL (6.4-8.2) Albumin 3.3 g/dL (3.4-5.0) Albumin/Globulin Ratio 0.8 (1.0-1.7) Lipase 38 U/L (73-393) Test 03/31/18 01:54 03/31/18 04:10 03/31/18 08:35 Urine Collection Type Unknown Urine Color Renay Urine Clarity Clear Urine pH 5.5 Urine Specific [place] 1.015 Urine Protein 100 mg/dL (NEG-TRACE) Urine Glucose (UA) Negative mg/dL (NEG) Urine Ketones (Stick) Negative mg/dL (NEG) Urine Blood Negative (NEG) Urine Nitrite Negative (NEG) Urine Bilirubin Small (NEG) Urine Urobilinogen Dipstick 1.0 mg/dL (0.2 mg/dL) Urine Leukocyte Esterase Negative (NEG) Urine RBC Occ /HPF (0-2) Urine WBC Occ /HPF (0-4) Urine Squamous Epithelial Cells Mod /LPF Urine Amorphous Sediment Present /HPF Urine Bacteria 0 /HPF (0-FEW) Urine Hyaline Casts Moderate /HPF Urine Mucus Mod /LPF Glucose (Fingerstick) 94 mg/dL (70-99) Lactic Acid Level 5.3 mmol/L (0.4-2.0) Troponin I Quantitative 0.250 ng/mL (0.000-0.055) 0.220 ng/mL (0.000-0.055) Triglycerides Level 71 mg/dL (0-150) Cholesterol Level 122 mg/dL (0-200) LDL Cholesterol, Calculated 54 mg/dL (0-100) VLDL Cholesterol, Calculated 14 mg/dL (0-40) Non-HDL Cholesterol Calculated 68 mg/dL (0-129) HDL Cholesterol 54 mg/dL (40-60) Cholesterol/HDL Ratio 2.3 White Blood Count 6.1 x10^3/uL (4.0-11.0) Red Blood Count 4.35 x10^6/uL (3.50-5.40) Hemoglobin 13.0 g/dL (12.0-15.5) Hematocrit 40.0 % (36.0-47.0) Mean Corpuscular Volume 92 fL (79-100) Mean Corpuscular Hemoglobin 30 pg (25-35) Mean Corpuscular Hemoglobin Concent 33 g/dL (31-37) Red Cell Distribution Width 28.7 % (11.5-14.5) Platelet Count 105 x10^3/uL (140-400) Sodium Level 142 mmol/L (136-145) Potassium Level 4.1 mmol/L (3.5-5.1) Chloride Level 102 mmol/L (98-107) Carbon Dioxide Level 20 mmol/L (21-32) Anion Gap 20 (6-14) Blood Urea Nitrogen 33 mg/dL (7-20) Creatinine 2.3 mg/dL (0.6-1.0) Estimated GFR (Cockcroft-Gault) 25.3 BUN/Creatinine Ratio 14 (6-20) Glucose Level 70 mg/dL (70-99) Calcium Level 8.4 mg/dL (8.5-10.1) Magnesium Level 1.7 mg/dL (1.8-2.4) Total Bilirubin 1.9 mg/dL (0.2-1.0) Aspartate Amino Transf (AST/SGOT) 83 U/L (15-37) Alanine Aminotransferase (ALT/SGPT) 44 U/L (14-59) Alkaline Phosphatase 119 U/L (46-116) Creatine Kinase 536 U/L (26-192) Total Protein 7.1 g/dL (6.4-8.2) Albumin 3.0 g/dL (3.4-5.0) Albumin/Globulin Ratio 0.7 (1.0-1.7) Thyroid Stimulating Hormone (TSH) 152.713 uIU/mL (0.358-3.74) Review All relevant outside records, renal labs, imaging studies, telemetry/EKG's were reviewed. Images Images CxR-- Moderate cardiomegaly with diffuse interstitial and patchy opacities which may be from pulmonary edema or multifocal pneumonia. SUNIL OROZCO MD Mar 31, 2018 11:14
[2018-03-31] MEDS ORDERED: FUROSEMIDE INJ 100 MG in IV NORMAL SALINE 100ML 100 ML IV PRN ×2 (11:45→22:30)
--- NOTE | 2018-03-31 12:28 | PDOC ---
Infectious Disease Note Vital Sign Vital Signs Vital Signs Date Time Temp Pulse Resp B/P (MAP) Pulse Ox O2 Delivery O2 Flow Rate FiO2 03/31/18 11:00 90 16 119/79 (92) 93 Nasal Cannula 2.0 03/31/18 09:00 98.3 98.3 Labs Lab Laboratory Tests Test 03/30/18 23:04 03/30/18 23:30 03/30/18 23:58 03/31/18 00:04 Glucose (Fingerstick) 26 mg/dL (70-99) 93 mg/dL (70-99) 106 mg/dL (70-99) White Blood Count 5.5 x10^3/uL (4.0-11.0) Red Blood Count 3.20 x10^6/uL (3.50-5.40) Hemoglobin 9.6 g/dL (12.0-15.5) Hematocrit 28.8 % (36.0-47.0) Mean Corpuscular Volume 90 fL (79-100) Mean Corpuscular Hemoglobin 30 pg (25-35) Mean Corpuscular Hemoglobin Concent 34 g/dL (31-37) Red Cell Distribution Width 28.7 % (11.5-14.5) Platelet Count 149 x10^3/uL (140-400) Neutrophils (%) (Auto) 29 % (31-73) Lymphocytes (%) (Auto) 68 % (24-48) Monocytes (%) (Auto) 2 % (0-9) Eosinophils (%) (Auto) 0 % (0-3) Basophils (%) (Auto) 1 % (0-3) Neutrophils # (Auto) 1.6 x10^3uL (1.8-7.7) Lymphocytes # (Auto) 3.7 x10^3/uL (1.0-4.8) Monocytes # (Auto) 0.1 x10^3/uL (0.0-1.1) Eosinophils # (Auto) 0.0 x10^3/uL (0.0-0.7) Basophils # (Auto) 0.1 x10^3/uL (0.0-0.2) Segmented Neutrophils % 83 % (35-66) Band Neutrophils % 3 % (0-9) Lymphocytes % 13 % (24-48) Monocytes % 1 % (0-10) Nucleated Red Blood Cells 2 Platelet Estimate Adequate (ADEQUATE) Polychromasia Slight Anisocytosis Mod Target Cells Mod [place] Cells Few Crenated Cell Present Prothrombin Time 24.4 SEC (11.7-14.0) Prothromb Time International Ratio 2.3 (0.8-1.1) Sodium Level 141 mmol/L (136-145) Potassium Level 3.9 mmol/L (3.5-5.1) Chloride Level 101 mmol/L (98-107) Carbon Dioxide Level 19 mmol/L (21-32) Anion Gap 21 (6-14) Blood Urea Nitrogen 29 mg/dL (7-20) Creatinine 2.5 mg/dL (0.6-1.0) Estimated GFR (Cockcroft-Gault) 23.0 BUN/Creatinine Ratio 12 (6-20) Glucose Level 116 mg/dL (70-99) Lactic Acid Level 8.2 mmol/L (0.4-2.0) Calcium Level 9.1 mg/dL (8.5-10.1) Magnesium Level 1.7 mg/dL (1.8-2.4) Total Bilirubin 2.7 mg/dL (0.2-1.0) Aspartate Amino Transf (AST/SGOT) 72 U/L (15-37) Alanine Aminotransferase (ALT/SGPT) 42 U/L (14-59) Alkaline Phosphatase 125 U/L (46-116) Creatine Kinase 502 U/L (26-192) Troponin I Quantitative 0.242 ng/mL (0.000-0.055) CJ-Zer-X-Type Natriuretic Peptide > 63537 pg/mL (0-124) Total Protein 7.7 g/dL (6.4-8.2) Albumin 3.3 g/dL (3.4-5.0) Albumin/Globulin Ratio 0.8 (1.0-1.7) Lipase 38 U/L (73-393) Test 03/31/18 01:54 03/31/18 04:10 03/31/18 08:35 Urine Collection Type Unknown Urine Color Renay Urine Clarity Clear Urine pH 5.5 Urine Specific [place] 1.015 Urine Protein 100 mg/dL (NEG-TRACE) Urine Glucose (UA) Negative mg/dL (NEG) Urine Ketones (Stick) Negative mg/dL (NEG) Urine Blood Negative (NEG) Urine Nitrite Negative (NEG) Urine Bilirubin Small (NEG) Urine Urobilinogen Dipstick 1.0 mg/dL (0.2 mg/dL) Urine Leukocyte Esterase Negative (NEG) Urine RBC Occ /HPF (0-2) Urine WBC Occ /HPF (0-4) Urine Squamous Epithelial Cells Mod /LPF Urine Amorphous Sediment Present /HPF Urine Bacteria 0 /HPF (0-FEW) Urine Hyaline Casts Moderate /HPF Urine Mucus Mod /LPF Glucose (Fingerstick) 94 mg/dL (70-99) Lactic Acid Level 5.3 mmol/L (0.4-2.0) Troponin I Quantitative 0.250 ng/mL (0.000-0.055) 0.220 ng/mL (0.000-0.055) Triglycerides Level 71 mg/dL (0-150) Cholesterol Level 122 mg/dL (0-200) LDL Cholesterol, Calculated 54 mg/dL (0-100) VLDL Cholesterol, Calculated 14 mg/dL (0-40) Non-HDL Cholesterol Calculated 68 mg/dL (0-129) HDL Cholesterol 54 mg/dL (40-60) Cholesterol/HDL Ratio 2.3 White Blood Count 6.1 x10^3/uL (4.0-11.0) Red Blood Count 4.35 x10^6/uL (3.50-5.40) Hemoglobin 13.0 g/dL (12.0-15.5) Hematocrit 40.0 % (36.0-47.0) Mean Corpuscular Volume 92 fL (79-100) Mean Corpuscular Hemoglobin 30 pg (25-35) Mean Corpuscular Hemoglobin Concent 33 g/dL (31-37) Red Cell Distribution Width 28.7 % (11.5-14.5) Platelet Count 105 x10^3/uL (140-400) Sodium Level 142 mmol/L (136-145) Potassium Level 4.1 mmol/L (3.5-5.1) Chloride Level 102 mmol/L (98-107) Carbon Dioxide Level 20 mmol/L (21-32) Anion Gap 20 (6-14) Blood Urea Nitrogen 33 mg/dL (7-20) Creatinine 2.3 mg/dL (0.6-1.0) Estimated GFR (Cockcroft-Gault) 25.3 BUN/Creatinine Ratio 14 (6-20) Glucose Level 70 mg/dL (70-99) Calcium Level 8.4 mg/dL (8.5-10.1) Magnesium Level 1.7 mg/dL (1.8-2.4) Total Bilirubin 1.9 mg/dL (0.2-1.0) Aspartate Amino Transf (AST/SGOT) 83 U/L (15-37) Alanine Aminotransferase (ALT/SGPT) 44 U/L (14-59) Alkaline Phosphatase 119 U/L (46-116) Creatine Kinase 536 U/L (26-192) Total Protein 7.1 g/dL (6.4-8.2) Albumin 3.0 g/dL (3.4-5.0) Albumin/Globulin Ratio 0.7 (1.0-1.7) Thyroid Stimulating Hormone (TSH) 152.713 uIU/mL (0.358-3.74) Objective Assessment Encephalopathy ? Pneumonia Abx allergies Lactic acidosis Hypothyroidism Transaminitis JAIDEN Plan Plan of Care dose Rocephin/Azithromycin F/u labs and cults/U/S Chart reviewed Thank you # [id number] ANABEL FOLEY MD Mar 31, 2018 12:28
[2018-03-31] MEDS ORDERED: AZITHROMYCIN 500 MG in IV NORMAL SALINE 250ML 250 ML IV ONE (12:30)
[2018-03-31] MEDS: PANTOPRAZOLE 40 MG TABLET.DR. PO SCH (13:04)
[2018-03-31] MEDS: cefTRIAXone SODIUM 2 GM in IV DEXTROSE 5% 100ML 100 ML IV SCH (14:12)
[2018-03-31] MEDS: NORMAL SALINE IVP SCH (14:15)
[2018-03-31] MEDS: LEVOTHYROXINE SODIUM IVP SCH (14:15)
--- NOTE | 2018-03-31 16:01 | RAD ---
Examination: ABDOMEN COMPLETE History: elevated lft's/vomiting/diarrhea Comparison/Correlation: None Findings: Mild fatty infiltration of the liver is noted with slightly high echotexture. Common bile duct diameter 1.7 cm is present. Gallbladder is not definitely identified. No intrahepatic biliary dilatation. Portal venous flow is unremarkable. Right kidney is obscured by bowel gas. Left kidney measures 9 cm x 5 cm and 4.8 cm. By 4 pancreas is normal. Distal pancreas is obscured by bowel gas. Spleen is normal. Abdominal aorta is not well identified due to overlying bowel gas. Impression: Mild fatty infiltration liver. Electronically signed by: Marbin Marshall MD (03/31/2018 3:57 PM) [facility]
--- NOTE | 2018-03-31 16:20 | HP ---
ADMIT DATE: 03/31/2018 CHIEF COMPLAINT: Shortness of breath. HISTORY OF PRESENT ILLNESS: The patient is a pleasant 72-year-old female who presented to the ER with shortness of breath, rated at 10/10, worse with moving, better with sitting still. It has been occurring for several days. She did have some nausea and vomiting and diarrhea for the past few days. While in the ER, she was noted to be in heart failure and her TSH is 152. I suspect she is not compliant with her thyroid medicine. We are going to admit the patient and get her started on Synthroid and get her into the ICU, consult Cardiology. PAST MEDICAL HISTORY: CHF, hypertension, hypothyroidism, probable noncompliance, pacemaker, myocardial infarction. ALLERGIES: SULFA, DOXYCYCLINE, IODINE, METRONIDAZOLE, AND QUININE. FAMILY HISTORY: Coronary artery disease. SOCIAL HISTORY: She does not drink, smoke or take drugs. I think she lives at a facility. MEDICATIONS: Reviewed, please refer to the MRAD. REVIEW OF SYSTEMS: Unobtainable. The patient is too sleepy. PHYSICAL EXAMINATION: VITAL SIGNS: Temperature 98, pulse 82, respirations 18, blood pressure 144/90. GENERAL: She is sleeping. She barely awakes and goes back to sleep. HEART: Normal S1, S2. LUNGS: Bibasilar crackles. ABDOMEN: Soft. EXTREMITIES: No edema. SKIN: No rashes. ENDOCRINE: No thyromegaly. LYMPHATICS: No cervical nodes. HEMATOPOIETIC: No bruising. LABORATORY DATA: Hematology is normal, but her hemoglobin was 9.6 last night, now is 13. Electrolytes: Sodium 142, potassium 4.1, chloride 102, bicarbonate 20, BUN 33, creatinine 2.3 and glucose is 70. Troponin slightly high at 0.22. TSH 152. Chest x-ray shows vascular congestion. ASSESSMENT AND PLAN: Acute on chronic systolic and diastolic heart failure, acute on chronic renal failure, elevated TSH, I suspect she is noncompliant with her thyroid medicine, hypoglycemia, elevated troponin, lactic acidosis, hypoxia, possible pneumonia and encephalopathy. The patient has been admitted to the ICU. Consult Nephrology, GI, Cardiology and Infectious Disease. ICU monitoring, IV fluids, IV antibiotics. I started Synthroid 50 mcg IV q. day until we can clarify what her dose is. I discussed the case with nurse. We reviewed her chart from other facility. We cannot seem to find that she is on Synthroid, but she does carry a diagnosis of hypothyroidism. Frequent labs. LONG-TERM PROGNOSIS: Guarded. RODRÍGUEZ MARCH DO DR: ROHINI/shira JOB#: [id number] / [id number]
--- NOTE | 2018-03-31 19:15 | CONS ---
DATE OF CONSULTATION: 03/31/2018 LOCATION: The patient is in room ICU 10. REQUESTING PHYSICIAN: Dr. Conte. REASON FOR CONSULTATION: Lactic acidosis, questionable sepsis. HISTORY OF PRESENT ILLNESS: The patient is a 72-year-old -[place] female, who is currently encephalopathic, unable to provide any past medical history, history of present illness and review of systems. According to note, she was brought to the Emergency Room on the evening of secondary to shortness of breath and lethargy. Apparently, she had nausea, vomiting and diarrhea for several days and reported to have some chest pain. The pain was initially rated at 8/10. She has been afebrile. Blood pressure has not been low. White blood cell count was 5.5 at the time of presentation with 68% lymphs initially, with 80 segs, 13 lymphs. AST was 83, ALT 44, alkaline phosphatase was 119. Creatinine kinase was 536. Troponin was elevated at 0.22. TSH today this morning 152.713. Urinalysis without bacteria, occasional wbc's, negative leukocyte esterase and nitrite were negative. Chest x-ray was obtained today, which shows moderate cardiomegaly with diffuse interstitial and patchy opacities with may be from pulmonary edema or multifocal pneumonia. Currently, the patient is lying in bed. She appears comfortable, did open her eyes, but essentially nonverbal. PAST MEDICAL HISTORY: Positive for migraine headaches, hypertension, hyperlipidemia, coronary artery disease, atrial fibrillation, diastolic dysfunction, asthma, abdominal aortic aneurysm, depression, peripheral arterial disease, obesity with previous myocardial infarction, questionable COPD. PAST SURGICAL HISTORY: Positive for coronary artery stents, aorta-fem bypass, aneurysm repair, back surgery, pacemaker placement. REVIEW OF SYSTEMS: Unobtainable. SOCIAL HISTORY: She is an ex-smoker. FAMILY HISTORY: Noncontributory. CURRENT MEDICATIONS: Include Lasix drip, Synthroid, aspirin, Bumex, pantoprazole. Other meds are available and reviewed in the chart. PHYSICAL EXAMINATION: VITAL SIGNS: Temperature 98.3, pulse 90, respirations 16, blood pressure ____/79, 93% on 2 liters. CONSTITUTIONAL: She is arousable. HEENT: Pupils appear to have some early cataracts. She has normal conjunctivae. Oral cavity was dry. Her mouth was open while she came in. NECK: Without JVD. There is no tenderness. HEART: S1, S2. Pacemaker without complications. LUNGS: Decreased in the bases. ABDOMEN: Soft, nontender, no guarding. GENITOURINARY: She has a Montague in place. EXTREMITIES: With trace edema. SKIN: Without signs of rash. NEUROLOGIC: She was arousable only. LABORATORY DATA: White count 6.1, hemoglobin of 13, platelets of 149, creatinine 23, glucose of 70. Other labs and radiology reviewed in history of present illness. IMPRESSION: 1. 1. Encephalopathy. 2. 2. Questionable pneumonia. 3. 3. Antibiotic allergies. 4. 4. Lactic acidosis. 5. 5. Hypothyroidism. 6. 6. Transaminitis. 7. 7. Acute kidney injury. RECOMMENDATIONS: We will dose azithromycin and Rocephin. We will follow up labs, cultures and ultrasound. Chart was reviewed. I did review previous [facility] records from the 2011 as well. Thank you for allowing me to participate in this patient's care. Should you have any further questions, please do not hesitate to contact me. ANABEL FOLEY MD DR: SIMONE/shira JOB#: [id number] / [id number]
[2018-04-01] VITALS (15 sets, daily range): BP systolic 87–119; BP diastolic 50–78
[2018-04-01 06:01] LABS: HEMATOCRIT 26.5 % (36.0-47.0); HEMOGLOBIN 8.8 g/dL (12.0-15.5); RED BLOOD COUNT 2.95 x10^6/uL (3.50-5.40); RED CELL DISTRIBUTION WIDTH 27.9 % (11.5-14.5); WHITE BLOOD COUNT 5.1 x10^3/uL (4.0-11.0)
--- NOTE | 2018-04-01 06:58 | PDOC ---
Infectious Disease Note Subjective Subjective Feels some better this am. States she felt ill prior to admit with F/C/S/sinus congestion/sore throat and cough. Denied ill contacts No N/V/D but did have decreased po intake and urine output ROS ROS o/w neg Vital Sign Vital Signs Vital Signs Date Time Temp Pulse Resp B/P (MAP) Pulse Ox O2 Delivery O2 Flow Rate FiO2 04/01/18 06:00 82 12 109/69 (82) 98 Nasal Cannula 2.0 04/01/18 04:00 98.0 98.0 Physical Exam PHYSICAL EXAM CONSTITUTIONAL: She is alert and in NAD. HEENT: Pupils appear to have some early cataracts. She has normal conjunctivae. Oral cavity was dry. NECK: Without JVD. There is no tenderness. HEART: S1, S2. Pacemaker without complications. LUNGS: Decreased in the bases. ABDOMEN: Soft, nontender, no guarding. GENITOURINARY: She has a Montague in place. EXTREMITIES: With trace edema. SKIN: Without signs of rash. NEUROLOGIC: She is alert and oriented to person/place PSYCH: Affect is appropriate IVs: - RIJ - clean Labs Lab Laboratory Tests Test 03/31/18 08:35 03/31/18 12:57 03/31/18 16:25 03/31/18 17:58 White Blood Count 6.1 x10^3/uL (4.0-11.0) Red Blood Count 4.35 x10^6/uL (3.50-5.40) Hemoglobin 13.0 g/dL (12.0-15.5) Hematocrit 40.0 % (36.0-47.0) Mean Corpuscular Volume 92 fL (79-100) Mean Corpuscular Hemoglobin 30 pg (25-35) Mean Corpuscular Hemoglobin Concent 33 g/dL (31-37) Red Cell Distribution Width 28.7 % (11.5-14.5) Platelet Count 105 x10^3/uL (140-400) Sodium Level 142 mmol/L (136-145) Potassium Level 4.1 mmol/L (3.5-5.1) Chloride Level 102 mmol/L (98-107) Carbon Dioxide Level 20 mmol/L (21-32) Anion Gap 20 (6-14) Blood Urea Nitrogen 33 mg/dL (7-20) Creatinine 2.3 mg/dL (0.6-1.0) Estimated GFR (Cockcroft-Gault) 25.3 BUN/Creatinine Ratio 14 (6-20) Glucose Level 70 mg/dL (70-99) Calcium Level 8.4 mg/dL (8.5-10.1) Magnesium Level 1.7 mg/dL (1.8-2.4) Total Bilirubin 1.9 mg/dL (0.2-1.0) Aspartate Amino Transf (AST/SGOT) 83 U/L (15-37) Alanine Aminotransferase (ALT/SGPT) 44 U/L (14-59) Alkaline Phosphatase 119 U/L (46-116) Creatine Kinase 536 U/L (26-192) Troponin I Quantitative 0.220 ng/mL (0.000-0.055) Total Protein 7.1 g/dL (6.4-8.2) Albumin 3.0 g/dL (3.4-5.0) Albumin/Globulin Ratio 0.7 (1.0-1.7) Thyroid Stimulating Hormone (TSH) 152.713 uIU/mL (0.358-3.74) Glucose (Fingerstick) 78 mg/dL (70-99) 96 mg/dL (70-99) Ammonia 22 mcmol/L (11-34) Test 04/01/18 05:45 White Blood Count 5.1 x10^3/uL (4.0-11.0) Red Blood Count 2.95 x10^6/uL (3.50-5.40) Hemoglobin 8.8 g/dL (12.0-15.5) Hematocrit 26.5 % (36.0-47.0) Mean Corpuscular Volume 90 fL (79-100) Mean Corpuscular Hemoglobin 30 pg (25-35) Mean Corpuscular Hemoglobin Concent 33 g/dL (31-37) Red Cell Distribution Width 27.9 % (11.5-14.5) Platelet Count 122 x10^3/uL (140-400) Sodium Level 139 mmol/L (136-145) Potassium Level 3.8 mmol/L (3.5-5.1) Chloride Level 104 mmol/L (98-107) Carbon Dioxide Level 23 mmol/L (21-32) Anion Gap 12 (6-14) Blood Urea Nitrogen 43 mg/dL (7-20) Creatinine 2.9 mg/dL (0.6-1.0) Estimated GFR (Cockcroft-Gault) 19.4 Glucose Level 75 mg/dL (70-99) Calcium Level 8.1 mg/dL (8.5-10.1) Total Bilirubin 0.9 mg/dL (0.2-1.0) Direct Bilirubin 0.7 mg/dL (0.0-0.2) Aspartate Amino Transf (AST/SGOT) 156 U/L (15-37) Alanine Aminotransferase (ALT/SGPT) 82 U/L (14-59) Alkaline Phosphatase 118 U/L (46-116) Total Protein 6.7 g/dL (6.4-8.2) Albumin 2.8 g/dL (3.4-5.0) Micro Microbiology 03/31/18 Blood Culture - Preliminary, Resulted NO GROWTH AFTER 1 DAY Objective Assessment Encephalopathy - better ? Pneumonia Abx allergies Lactic acidosis Hypothyroidism Transaminitis - mild increase - ? reactive JAIDEN - worse - UA no sign of infection Elevated troponin - NSTEMI Plan Plan of Care Cont Rocephin/Azithromycin for now Repeat Lactic acid F/u labs and cults ANABEL FOLEY MD Apr 01, 2018 06:58
[2018-04-01] MEDS: LEVOTHYROXINE SODIUM IVP SCH (07:59)
[2018-04-01] MEDS: PANTOPRAZOLE 40 MG TABLET.DR. PO SCH (07:59)
[2018-04-01] MEDS: NORMAL SALINE IVP SCH (07:59)
[2018-04-01] MEDS ORDERED: LEVOTHYROXINE SODIUM IVP SCH (09:00)
[2018-04-01] MEDS ORDERED: NORMAL SALINE IVP SCH (09:00)
--- NOTE | 2018-04-01 09:26 | PDOC ---
SUBJECTIVE ROS Alert, talkative, eating Breakfast reports saw a Kidney Doctor in [place]- was advised against Ibuprofen was told her kidneys are shutting down. She Moved from [facility] to on 03/13 She was hospitalized at [place]- records requested OBJECTIVE Vital Signs Vital Signs Date Time Temp Pulse Resp B/P (MAP) Pulse Ox O2 Delivery O2 Flow Rate FiO2 04/01/18 06:00 82 12 109/69 (82) 98 Nasal Cannula 2.0 04/01/18 04:00 98.0 98.0 I & 0 Intake and Output 04/01/18 07:00 Intake Total 888 ml Output Total 522 ml Balance 366 ml Intake Oral 450 ml IV Total 438 ml Output Urine Total 522 ml PHYSICAL EXAM Physical Exam General: No acute distress, awake and alert HEENT: OM moist , On o2 by NC Lungs: CTA ant Heart: Normal S1, Normal S2 Abdomen: Normal bowel sounds , soft, obese Extremities: Trace Bilat edema Skin: No rashes Neuro: AXOX3 - Montague + DIAGNOSIS/ASSESSMENT Assessment & Plan JAIDEN -- Cardiorenal Worsening renal function, On IV lasix Drip- improvement in UOP after Dose Increased last nite Consider titrating down if UOP stays stable Reviewed records from 2012([facility]) Creat Normal at 1.0 Awaiting records from [place] E-Lytes stable, No emergent indication fo powder nipper Currently , US reviewed Acute heart failure- BNP high IV lasix Drip NSTEMI Cardiology on board Elevated LFTs GI following PPM Cardiology following HTN- BP controlled Elevated TSH- 152 No known Hx of Hypothyroidism Primary following Discussed A/P at length with RN , no family at bedside US abdomen - Right kidney is obscured by bowel gas. Left kidney measures 9 cm x 5 cm and 4.8 cm. COMMENT/RELEVANT DATA Meds Current Medications Medications (Trade) Dose Ordered Sig/Domitila Start Time Stop Time Status Last Admin Dose Admin Aspirin (Karen Aspirin) 325 mg 1X ONCE 03/30/18 23:30 03/30/18 23:31 DC 03/31/18 01:16 325 MG Azithromycin 500 mg/Sodium Chloride 250 ml @ 250 mls/hr 1X ONCE 03/31/18 12:30 03/31/18 13:29 DC 03/31/18 13:04 250 MLS/HR Bumetanide (Bumex) 0.5 mg 1X ONCE 03/31/18 01:00 03/31/18 01:01 DC 03/31/18 01:11 0.5 MG Ceftriaxone Sodium 2 gm/ Dextrose 100 ml @ 200 mls/hr Q24H 03/31/18 13:00 03/31/18 14:12 200 MLS/HR Dextrose (Dextrose 50%-Water Syringe) 12.5 gm PRN Q15MIN PRN 03/31/18 00:45 Fentanyl Citrate (Fentanyl 2ml Vial) 50 mcg 1X ONCE 03/30/18 23:30 03/30/18 23:31 DC Furosemide 100 mg/ Sodium Chloride 100 ml @ 0 mls/hr CONT PRN 03/31/18 22:30 04/01/18 01:34 10 MLS/HR Glucose (Insta-Glucose) 15 gm 1X ONCE 03/30/18 23:30 03/30/18 23:31 DC 03/30/18 23:07 15 GM Levothyroxine Sodium 100 mcg/ Sodium Chloride 5 ml @ 100 mls/hr DAILY 04/01/18 09:00 UNV Levothyroxine Sodium 50 mcg/ Sodium Chloride 5 ml @ 100 mls/hr DAILY 03/31/18 14:00 04/01/18 07:59 100 MLS/HR Lidocaine HCl (Xylocaine-Mpf 2% Vial) 2 ml STK-MED ONCE 03/31/18 02:31 03/31/18 02:33 DC Nitroglycerin (Nitro-Bid Oint) 1 inch 1X ONCE 03/31/18 01:00 03/31/18 01:01 DC 03/31/18 01:19 1 INCH Ondansetron HCl (Zofran) 4 mg PRN Q8HRS PRN 03/31/18 00:45 04/01/18 00:44 DC Pantoprazole Sodium (Protonix) 40 mg DAILYAC 03/31/18 11:30 04/01/18 07:59 40 MG Lab Laboratory Tests Test 03/31/18 12:57 03/31/18 16:25 03/31/18 17:58 04/01/18 05:45 Glucose (Fingerstick) 78 mg/dL (70-99) 96 mg/dL (70-99) Ammonia 22 mcmol/L (11-34) White Blood Count 5.1 x10^3/uL (4.0-11.0) Red Blood Count 2.95 x10^6/uL (3.50-5.40) Hemoglobin 8.8 g/dL (12.0-15.5) Hematocrit 26.5 % (36.0-47.0) Mean Corpuscular Volume 90 fL (79-100) Mean Corpuscular Hemoglobin 30 pg (25-35) Mean Corpuscular Hemoglobin Concent 33 g/dL (31-37) Red Cell Distribution Width 27.9 % (11.5-14.5) Platelet Count 122 x10^3/uL (140-400) Sodium Level 139 mmol/L (136-145) Potassium Level 3.8 mmol/L (3.5-5.1) Chloride Level 104 mmol/L (98-107) Carbon Dioxide Level 23 mmol/L (21-32) Anion Gap 12 (6-14) Blood Urea Nitrogen 43 mg/dL (7-20) Creatinine 2.9 mg/dL (0.6-1.0) Estimated GFR (Cockcroft-Gault) 19.4 Glucose Level 75 mg/dL (70-99) Calcium Level 8.1 mg/dL (8.5-10.1) Total Bilirubin 0.9 mg/dL (0.2-1.0) Direct Bilirubin 0.7 mg/dL (0.0-0.2) Aspartate Amino Transf (AST/SGOT) 156 U/L (15-37) Alanine Aminotransferase (ALT/SGPT) 82 U/L (14-59) Alkaline Phosphatase 118 U/L (46-116) Total Protein 6.7 g/dL (6.4-8.2) Albumin 2.8 g/dL (3.4-5.0) Test 04/01/18 08:00 Lactic Acid Level 0.6 mmol/L (0.4-2.0) Results All relevant outside records, renal labs, imaging studies, telemetry/EKG's were reviewed. SUNIL OROZCO MD Apr 01, 2018 09:26
--- NOTE | 2018-04-01 09:40 | PDOC ---
Subjective: Subjective: More awake today. Eating some eggs and potatoes and toast. Might have a little abd pain - can't really describe - also mentions had shingles over the summer (says rash was on right flank). I asked about cholecystectomy - she says "gallstones." Objective: Objective: Reviewed records - EGD and colonoscopy in 2012 @ [facility] (Dr. Campbell). Tolerating PO so far, no stools charted. Vital Signs: Vital Signs Date Time Temp Pulse Resp B/P (MAP) Pulse Ox O2 Delivery O2 Flow Rate FiO2 04/01/18 06:00 82 12 109/69 (82) 98 Nasal Cannula 2.0 04/01/18 04:00 98.0 98.0 Labs: Laboratory Tests Test 03/31/18 12:57 03/31/18 16:25 03/31/18 17:58 04/01/18 05:45 Glucose (Fingerstick) 78 mg/dL 96 mg/dL Ammonia 22 mcmol/L White Blood Count 5.1 x10^3/uL Red Blood Count 2.95 x10^6/uL Hemoglobin 8.8 g/dL Hematocrit 26.5 % Mean Corpuscular Volume 90 fL Mean Corpuscular Hemoglobin 30 pg Mean Corpuscular Hemoglobin Concent 33 g/dL Red Cell Distribution Width 27.9 % Platelet Count 122 x10^3/uL Sodium Level 139 mmol/L Potassium Level 3.8 mmol/L Chloride Level 104 mmol/L Carbon Dioxide Level 23 mmol/L Anion Gap 12 Blood Urea Nitrogen 43 mg/dL Creatinine 2.9 mg/dL Estimated GFR (Cockcroft-Gault) 19.4 Glucose Level 75 mg/dL Calcium Level 8.1 mg/dL Total Bilirubin 0.9 mg/dL Direct Bilirubin 0.7 mg/dL Aspartate Amino Transf (AST/SGOT) 156 U/L Alanine Aminotransferase (ALT/SGPT) 82 U/L Alkaline Phosphatase 118 U/L Total Protein 6.7 g/dL Albumin 2.8 g/dL Test 04/01/18 08:00 Lactic Acid Level 0.6 mmol/L Imaging: Abd US Findings: Mild fatty infiltration of the liver is noted with slightly high echotexture. Common bile duct diameter 1.7 cm is present. Gallbladder is not definitely identified. No intrahepatic biliary dilatation. Portal venous flow is unremarkable. Right kidney is obscured by bowel gas. Left kidney measures 9 cm x 5 cm and 4.8 cm. By 4 pancreas is normal. Distal pancreas is obscured by bowel gas. Spleen is normal. Abdominal aorta is not well identified due to overlying bowel gas. Impression: Mild fatty infiltration liver. PE: GEN: NAD, eating breakfast LUNGS: NC HEART: RRR ABD: S/ND/NT NEURO/PSYCH: more alert today A/P: CHF, NSTEMI JAIDEN, hypothyroidism Encephalopathy - better Elevated LFTs (worse) - hepatic steatosis on imaging, s/p cholecystectomy, CBD 1.7cm H/o Duncan's esophagus and erosive gastritis - on PO PPI here CRC screen, h/o polyps Diverticulosis Anemia -- Monitor LFTs, continue PPI. Will check anemia parameters. NEEL WILLIAMSON Apr 01, 2018 09:40
--- NOTE | 2018-04-01 10:06 | PDOC ---
MIKE DUNHAM TRUST ADVISOR 04/01/18 1005: CARDIO Progress Notes Date and Time Date of Service 04/01/18 Time of Evaluation 0954 Subjective Subjective: No Palpitations, No Dizziness, Other (chest pain through chest cavity) Vitals Vitals Vital Signs Date Time Temp Pulse Resp B/P (MAP) Pulse Ox O2 Delivery O2 Flow Rate FiO2 04/01/18 06:00 82 12 109/69 (82) 98 Nasal Cannula 2.0 04/01/18 04:00 98.0 98.0 Weight Weight [ ] Input and Output Intake and Output Intake and Output 04/01/18 07:00 Intake Total 888 ml Output Total 522 ml Balance 366 ml Intake Oral 450 ml IV Total 438 ml Output Urine Total 522 ml Laboratory Labs Laboratory Tests Test 03/31/18 12:57 03/31/18 16:25 03/31/18 17:58 04/01/18 05:45 Glucose (Fingerstick) 78 mg/dL (70-99) 96 mg/dL (70-99) Ammonia 22 mcmol/L (11-34) White Blood Count 5.1 x10^3/uL (4.0-11.0) Red Blood Count 2.95 x10^6/uL (3.50-5.40) Hemoglobin 8.8 g/dL (12.0-15.5) Hematocrit 26.5 % (36.0-47.0) Mean Corpuscular Volume 90 fL (79-100) Mean Corpuscular Hemoglobin 30 pg (25-35) Mean Corpuscular Hemoglobin Concent 33 g/dL (31-37) Red Cell Distribution Width 27.9 % (11.5-14.5) Platelet Count 122 x10^3/uL (140-400) Sodium Level 139 mmol/L (136-145) Potassium Level 3.8 mmol/L (3.5-5.1) Chloride Level 104 mmol/L (98-107) Carbon Dioxide Level 23 mmol/L (21-32) Anion Gap 12 (6-14) Blood Urea Nitrogen 43 mg/dL (7-20) Creatinine 2.9 mg/dL (0.6-1.0) Estimated GFR (Cockcroft-Gault) 19.4 Glucose Level 75 mg/dL (70-99) Calcium Level 8.1 mg/dL (8.5-10.1) Total Bilirubin 0.9 mg/dL (0.2-1.0) Direct Bilirubin 0.7 mg/dL (0.0-0.2) Aspartate Amino Transf (AST/SGOT) 156 U/L (15-37) Alanine Aminotransferase (ALT/SGPT) 82 U/L (14-59) Alkaline Phosphatase 118 U/L (46-116) Total Protein 6.7 g/dL (6.4-8.2) Albumin 2.8 g/dL (3.4-5.0) Test 04/01/18 08:00 Lactic Acid Level 0.6 mmol/L (0.4-2.0) Microbiology Micro Microbiology 03/31/18 Blood Culture - Preliminary, Resulted NO GROWTH AFTER 1 DAY Physical Exam HEENT: Neck Supple W Full Motion Chest: Symmetric LUNGS: Other (diminished in bases) Heart: RRR Abdomen: Soft N/T Extremities: No Edema Neurology: alert, follow commands Diagnostic Tests Echocardiogram: Other (dilated LV & RV; LVEF 20%; global hypokinesis; moderately reduced RV systolic function; mild AR/TR) Assessment Assessment 1. acute on chronic heart failure, bi-ventricular --NT-proBNP > 35K --TTE with depressed LVEF of 20% with moderately reduced RV systolic function ; global hypokinesis --lasix gtt per nephrology 2. ischemic cardiomyopathy --LVEF ~ 20% --has Medtronic ICD for prevention of SCD --interrogate with few episodes of NSVT; no shock --Optival level trending upward since January 3. NSTEMI --recent chest pain in the setting of nausea/vomiting --suspect demand mediated in the setting of acute heart and renal failure as well as sepsis --TTE with global hypokinesis --records from [facility] indicated CAD history with prior PCI to unknown targets; records from 2011 --now awaiting records from [facility] for her most recent information 3. JAIDEN on CKD --Cr 2.9 --now reporting previous evaluation by nephrology 4. sepsis --defer to ID 5. elevated LFTs --recent nausea/vomiting/diarrhea 6. hypothyroidism --TSH of 152.7 --has been started on replacement therapy 7. HTN --controlled 8. anemia --? of chronic disease MARIANA DANIELS MD 04/01/18 1403: CARDIO Progress Notes Assessment Assessment Patient seen and examined. Agree with KEG FILLER's assessment and plan. Acute on chronic systolic heart failure improving with diuresis 2-D echo showed LVEF 20% ICD interrogation showed normal function with few episodes of NSVT. 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
--- NOTE | 2018-04-01 12:05 | PDOC ---
PROGRESS NOTES Chief Complaint Chief Complaint Acute heart failure NSTEMI JAIDEN Sepsis HTN Anemia Hypoglycemia History of Present Illness History of Present Illness Pt seen and examined in the ICU Dw RN Pt awake but tired Vitals Vitals Vital Signs Date Time Temp Pulse Resp B/P (MAP) Pulse Ox O2 Delivery O2 Flow Rate FiO2 04/01/18 10:00 64 14 110/66 (81) 100 Nasal Cannula 2.0 04/01/18 08:00 97.8 97.8 Physical Exam Physical Exam CONSTITUTIONAL: She is alert and in NAD. HEENT: Pupils appear to have some early cataracts. She has normal conjunctivae. Oral cavity was dry. NECK: Without JVD. There is no tenderness. HEART: S1, S2. Pacemaker without complications. LUNGS: Decreased in the bases. ABDOMEN: Soft, nontender, no guarding. GENITOURINARY: She has a Montague in place. EXTREMITIES: With trace edema. SKIN: Without signs of rash. NEUROLOGIC: She is alert and oriented to person/place PSYCH: Affect is appropriate IVs: - RIJ - clean General: No acute distress, Other (minimally arousable, mumbles) Heart: Normal S1, Normal S2 Abdomen: Normal bowel sounds (obese abdomen), Soft Extremities: No clubbing, Other (trace edema) Skin: No rashes, No significant lesion Labs LABS Laboratory Tests Test 03/31/18 12:57 03/31/18 16:25 03/31/18 17:58 04/01/18 05:45 Glucose (Fingerstick) 78 mg/dL (70-99) 96 mg/dL (70-99) Ammonia 22 mcmol/L (11-34) White Blood Count 5.1 x10^3/uL (4.0-11.0) Red Blood Count 2.95 x10^6/uL (3.50-5.40) Hemoglobin 8.8 g/dL (12.0-15.5) Hematocrit 26.5 % (36.0-47.0) Mean Corpuscular Volume 90 fL (79-100) Mean Corpuscular Hemoglobin 30 pg (25-35) Mean Corpuscular Hemoglobin Concent 33 g/dL (31-37) Red Cell Distribution Width 27.9 % (11.5-14.5) Platelet Count 122 x10^3/uL (140-400) Reticulocyte Count (auto) 2.2 % (0.5-2.5) Sodium Level 139 mmol/L (136-145) Potassium Level 3.8 mmol/L (3.5-5.1) Chloride Level 104 mmol/L (98-107) Carbon Dioxide Level 23 mmol/L (21-32) Anion Gap 12 (6-14) Blood Urea Nitrogen 43 mg/dL (7-20) Creatinine 2.9 mg/dL (0.6-1.0) Estimated GFR (Cockcroft-Gault) 19.4 Glucose Level 75 mg/dL (70-99) Calcium Level 8.1 mg/dL (8.5-10.1) Total Bilirubin 0.9 mg/dL (0.2-1.0) Direct Bilirubin 0.7 mg/dL (0.0-0.2) Aspartate Amino Transf (AST/SGOT) 156 U/L (15-37) Alanine Aminotransferase (ALT/SGPT) 82 U/L (14-59) Alkaline Phosphatase 118 U/L (46-116) Total Protein 6.7 g/dL (6.4-8.2) Albumin 2.8 g/dL (3.4-5.0) Test 04/01/18 08:00 Lactic Acid Level 0.6 mmol/L (0.4-2.0) Review of Systems Review of Systems Tired NAD Assessment and Plan Assessmemt and Plan Assessment: Acute heart failure NSTEMI JAIDEN Sepsis HTN Anemia Hypoglycemia Hypoxia Plan: ICU monitoring Ceftriaxone Furosemide Labs Home meds Comment Review of Relevant I have reviewed the following items madeline (where applicable) has been applied. Labs Laboratory Tests Test 03/30/18 23:04 03/30/18 23:30 03/30/18 23:58 03/31/18 00:04 Glucose (Fingerstick) 26 mg/dL (70-99) 93 mg/dL (70-99) 106 mg/dL (70-99) White Blood Count 5.5 x10^3/uL (4.0-11.0) Red Blood Count 3.20 x10^6/uL (3.50-5.40) Hemoglobin 9.6 g/dL (12.0-15.5) Hematocrit 28.8 % (36.0-47.0) Mean Corpuscular Volume 90 fL (79-100) Mean Corpuscular Hemoglobin 30 pg (25-35) Mean Corpuscular Hemoglobin Concent 34 g/dL (31-37) Red Cell Distribution Width 28.7 % (11.5-14.5) Platelet Count 149 x10^3/uL (140-400) Neutrophils (%) (Auto) 29 % (31-73) Lymphocytes (%) (Auto) 68 % (24-48) Monocytes (%) (Auto) 2 % (0-9) Eosinophils (%) (Auto) 0 % (0-3) Basophils (%) (Auto) 1 % (0-3) Neutrophils # (Auto) 1.6 x10^3uL (1.8-7.7) Lymphocytes # (Auto) 3.7 x10^3/uL (1.0-4.8) Monocytes # (Auto) 0.1 x10^3/uL (0.0-1.1) Eosinophils # (Auto) 0.0 x10^3/uL (0.0-0.7) Basophils # (Auto) 0.1 x10^3/uL (0.0-0.2) Segmented Neutrophils % 83 % (35-66) Band Neutrophils % 3 % (0-9) Lymphocytes % 13 % (24-48) Monocytes % 1 % (0-10) Nucleated Red Blood Cells 2 Platelet Estimate Adequate (ADEQUATE) Polychromasia Slight Anisocytosis Mod Target Cells Mod Kamaljit Cells Few Crenated Cell Present Prothrombin Time 24.4 SEC (11.7-14.0) Prothromb Time International Ratio 2.3 (0.8-1.1) Sodium Level 141 mmol/L (136-145) Potassium Level 3.9 mmol/L (3.5-5.1) Chloride Level 101 mmol/L (98-107) Carbon Dioxide Level 19 mmol/L (21-32) Anion Gap 21 (6-14) Blood Urea Nitrogen 29 mg/dL (7-20) Creatinine 2.5 mg/dL (0.6-1.0) Estimated GFR (Cockcroft-Gault) 23.0 BUN/Creatinine Ratio 12 (6-20) Glucose Level 116 mg/dL (70-99) Lactic Acid Level 8.2 mmol/L (0.4-2.0) Calcium Level 9.1 mg/dL (8.5-10.1) Magnesium Level 1.7 mg/dL (1.8-2.4) Total Bilirubin 2.7 mg/dL (0.2-1.0) Aspartate Amino Transf (AST/SGOT) 72 U/L (15-37) Alanine Aminotransferase (ALT/SGPT) 42 U/L (14-59) Alkaline Phosphatase 125 U/L (46-116) Creatine Kinase 502 U/L (26-192) Troponin I Quantitative 0.242 ng/mL (0.000-0.055) MG-Vcy-E-Type Natriuretic Peptide > 59761 pg/mL (0-124) Total Protein 7.7 g/dL (6.4-8.2) Albumin 3.3 g/dL (3.4-5.0) Albumin/Globulin Ratio 0.8 (1.0-1.7) Lipase 38 U/L (73-393) Test 03/31/18 01:54 03/31/18 04:10 03/31/18 08:35 03/31/18 12:57 Urine Collection Type Unknown Urine Color Renay Urine Clarity Clear Urine pH 5.5 Urine Specific [place] 1.015 Urine Protein 100 mg/dL (NEG-TRACE) Urine Glucose (UA) Negative mg/dL (NEG) Urine Ketones (Stick) Negative mg/dL (NEG) Urine Blood Negative (NEG) Urine Nitrite Negative (NEG) Urine Bilirubin Small (NEG) Urine Urobilinogen Dipstick 1.0 mg/dL (0.2 mg/dL) Urine Leukocyte Esterase Negative (NEG) Urine RBC Occ /HPF (0-2) Urine WBC Occ /HPF (0-4) Urine Squamous Epithelial Cells Mod /LPF Urine Amorphous Sediment Present /HPF Urine Bacteria 0 /HPF (0-FEW) Urine Hyaline Casts Moderate /HPF Urine Mucus Mod /LPF Glucose (Fingerstick) 94 mg/dL (70-99) 78 mg/dL (70-99) Lactic Acid Level 5.3 mmol/L (0.4-2.0) Troponin I Quantitative 0.250 ng/mL (0.000-0.055) 0.220 ng/mL (0.000-0.055) Triglycerides Level 71 mg/dL (0-150) Cholesterol Level 122 mg/dL (0-200) LDL Cholesterol, Calculated 54 mg/dL (0-100) VLDL Cholesterol, Calculated 14 mg/dL (0-40) Non-HDL Cholesterol Calculated 68 mg/dL (0-129) HDL Cholesterol 54 mg/dL (40-60) Cholesterol/HDL Ratio 2.3 White Blood Count 6.1 x10^3/uL (4.0-11.0) Red Blood Count 4.35 x10^6/uL (3.50-5.40) Hemoglobin 13.0 g/dL (12.0-15.5) Hematocrit 40.0 % (36.0-47.0) Mean Corpuscular Volume 92 fL (79-100) Mean Corpuscular Hemoglobin 30 pg (25-35) Mean Corpuscular Hemoglobin Concent 33 g/dL (31-37) Red Cell Distribution Width 28.7 % (11.5-14.5) Platelet Count 105 x10^3/uL (140-400) Sodium Level 142 mmol/L (136-145) Potassium Level 4.1 mmol/L (3.5-5.1) Chloride Level 102 mmol/L (98-107) Carbon Dioxide Level 20 mmol/L (21-32) Anion Gap 20 (6-14) Blood Urea Nitrogen 33 mg/dL (7-20) Creatinine 2.3 mg/dL (0.6-1.0) Estimated GFR (Cockcroft-Gault) 25.3 BUN/Creatinine Ratio 14 (6-20) Glucose Level 70 mg/dL (70-99) Calcium Level 8.4 mg/dL (8.5-10.1) Magnesium Level 1.7 mg/dL (1.8-2.4) Total Bilirubin 1.9 mg/dL (0.2-1.0) Aspartate Amino Transf (AST/SGOT) 83 U/L (15-37) Alanine Aminotransferase (ALT/SGPT) 44 U/L (14-59) Alkaline Phosphatase 119 U/L (46-116) Creatine Kinase 536 U/L (26-192) Total Protein 7.1 g/dL (6.4-8.2) Albumin 3.0 g/dL (3.4-5.0) Albumin/Globulin Ratio 0.7 (1.0-1.7) Thyroid Stimulating Hormone (TSH) 152.713 uIU/mL (0.358-3.74) Test 03/31/18 16:25 03/31/18 17:58 04/01/18 05:45 04/01/18 08:00 Ammonia 22 mcmol/L (11-34) Glucose (Fingerstick) 96 mg/dL (70-99) White Blood Count 5.1 x10^3/uL (4.0-11.0) Red Blood Count 2.95 x10^6/uL (3.50-5.40) Hemoglobin 8.8 g/dL (12.0-15.5) Hematocrit 26.5 % (36.0-47.0) Mean Corpuscular Volume 90 fL (79-100) Mean Corpuscular Hemoglobin 30 pg (25-35) Mean Corpuscular Hemoglobin Concent 33 g/dL (31-37) Red Cell Distribution Width 27.9 % (11.5-14.5) Platelet Count 122 x10^3/uL (140-400) Reticulocyte Count (auto) 2.2 % (0.5-2.5) Sodium Level 139 mmol/L (136-145) Potassium Level 3.8 mmol/L (3.5-5.1) Chloride Level 104 mmol/L (98-107) Carbon Dioxide Level 23 mmol/L (21-32) Anion Gap 12 (6-14) Blood Urea Nitrogen 43 mg/dL (7-20) Creatinine 2.9 mg/dL (0.6-1.0) Estimated GFR (Cockcroft-Gault) 19.4 Glucose Level 75 mg/dL (70-99) Calcium Level 8.1 mg/dL (8.5-10.1) Total Bilirubin 0.9 mg/dL (0.2-1.0) Direct Bilirubin 0.7 mg/dL (0.0-0.2) Aspartate Amino Transf (AST/SGOT) 156 U/L (15-37) Alanine Aminotransferase (ALT/SGPT) 82 U/L (14-59) Alkaline Phosphatase 118 U/L (46-116) Total Protein 6.7 g/dL (6.4-8.2) Albumin 2.8 g/dL (3.4-5.0) Lactic Acid Level 0.6 mmol/L (0.4-2.0) Laboratory Tests Test 03/31/18 12:57 03/31/18 16:25 9/27/18 17:58 04/01/18 05:45 Glucose (Fingerstick) 78 mg/dL (70-99) 96 mg/dL (70-99) Ammonia 22 mcmol/L (11-34) White Blood Count 5.1 x10^3/uL (4.0-11.0) Red Blood Count 2.95 x10^6/uL (3.50-5.40) Hemoglobin 8.8 g/dL (12.0-15.5) Hematocrit 26.5 % (36.0-47.0) Mean Corpuscular Volume 90 fL (79-100) Mean Corpuscular Hemoglobin 30 pg (25-35) Mean Corpuscular Hemoglobin Concent 33 g/dL (31-37) Red Cell Distribution Width 27.9 % (11.5-14.5) Platelet Count 122 x10^3/uL (140-400) Reticulocyte Count (auto) 2.2 % (0.5-2.5) Sodium Level 139 mmol/L (136-145) Potassium Level 3.8 mmol/L (3.5-5.1) Chloride Level 104 mmol/L (98-107) Carbon Dioxide Level 23 mmol/L (21-32) Anion Gap 12 (6-14) Blood Urea Nitrogen 43 mg/dL (7-20) Creatinine 2.9 mg/dL (0.6-1.0) Estimated GFR (Cockcroft-Gault) 19.4 Glucose Level 75 mg/dL (70-99) Calcium Level 8.1 mg/dL (8.5-10.1) Total Bilirubin 0.9 mg/dL (0.2-1.0) Direct Bilirubin 0.7 mg/dL (0.0-0.2) Aspartate Amino Transf (AST/SGOT) 156 U/L (15-37) Alanine Aminotransferase (ALT/SGPT) 82 U/L (14-59) Alkaline Phosphatase 118 U/L (46-116) Total Protein 6.7 g/dL (6.4-8.2) Albumin 2.8 g/dL (3.4-5.0) Test 04/01/18 08:00 Lactic Acid Level 0.6 mmol/L (0.4-2.0) Microbiology 03/31/18 Blood Culture - Preliminary, Resulted NO GROWTH AFTER 1 DAY Medications Current Medications Aspirin (Karen Aspirin) 325 mg 1X ONCE PO Last administered on 03/31/18at 01:16 ; Start 03/30/18 at 23:30; Stop 03/30/18 at 23:31; Status DC Fentanyl Citrate (Fentanyl 2ml Vial) 50 mcg 1X ONCE IV ; Start 03/30/18 at 23: 30; Stop 03/30/18 at 23:31; Status DC Dextrose (Dextrose 50%-Water Syringe) 25 gm 1X ONCE IV Last administered on at 23:10; Start 03/30/18 at 23:30; Stop 03/30/18 at 23:31; Status DC Dextrose (Dextrose 50%-Water Syringe) 25 gm STK-MED ONCE IV ; Start 03/30/18 at 23:05; Stop 03/30/18 at 23:06; Status DC Glucose (Insta-Glucose) 15 gm STK-MED ONCE .ROUTE ; Start 03/30/18 at 23:05; Stop 03/30/18 at 23:06; Status DC Ondansetron HCl (Zofran) 4 mg 1X ONCE IV Last administered on 03/31/18at 01:18 ; Start 03/30/18 at 23:30; Stop 03/30/18 at 23:31; Status DC Glucose (Insta-Glucose) 15 gm 1X ONCE PO Last administered on 03/30/18at 23:07 ; Start 03/30/18 at 23:30; Stop 03/30/18 at 23:31; Status DC Nitroglycerin (Nitro-Bid Oint) 1 inch 1X ONCE TP Last administered on at 01:19; Start 03/31/18 at 01:00; Stop 03/31/18 at 01:01; Status DC Bumetanide (Bumex) 0.5 mg 1X ONCE IV Last administered on 03/31/18at 01:11; Start 03/31/18 at 01:00; Stop 03/31/18 at 01:01; Status DC Ondansetron HCl (Zofran) 4 mg PRN Q8HRS PRN IV NAUSEA/VOMITING 1ST CHOICE; Start 03/31/18 at 00:45; Stop 04/01/18 at 00:44; Status DC Dextrose (Dextrose 50%-Water Syringe) 12.5 gm PRN Q15MIN PRN IV SEE COMMENTS; Start 03/31/18 at 00:45 Lidocaine HCl 20 ml 1X ONCE IJ Last administered on 03/31/18at 03:00; Start at 03:00; Stop 03/31/18 at 03:01; Status DC Lidocaine HCl (Xylocaine-Mpf 2% Vial) 2 ml STK-MED ONCE .ROUTE ; Start 03/31/18 at 02:31; Stop 03/31/18 at 02:33; Status DC Pantoprazole Sodium (Protonix) 40 mg DAILYAC PO Last administered on 04/01/18at 07:59; Start 03/31/18 at 11:30 Levothyroxine Sodium 100 mcg/ Sodium Chloride 5 ml @ 100 mls/hr DAILY IVP ; Start 04/01/18 at 09:00; Status UNV Levothyroxine Sodium 50 mcg/ Sodium Chloride 5 ml @ 100 mls/hr DAILY IVP Last administered on 04/01/18at 07:59; Start 03/31/18 at 14:00 Furosemide 100 mg/ Sodium Chloride 100 ml @ 5 mls/hr CONT PRN IV DIURESIS Last administered on 03/31/18at 12:59; Start 03/31/18 at 11:45; Stop 03/31/18 at 22:16 ; Status DC Ceftriaxone Sodium 2 gm/ Dextrose 100 ml @ 200 mls/hr Q24H IV Last administered on 03/31/18at 14:12; Start 03/31/18 at 13:00 Azithromycin 500 mg/Sodium Chloride 250 ml @ 250 mls/hr 1X ONCE IV Last administered on 03/31/18at 13:04; Start 03/31/18 at 12:30; Stop 03/31/18 at 13:29 ; Status DC Furosemide 100 mg/ Sodium Chloride 100 ml @ 0 mls/hr CONT PRN IV DIURESIS Last administered on 04/01/18at 01:34; Start 03/31/18 at 22:30 Active Scripts Active Reported Triamcinolone Acetonide 0.1% Cream (Triamcinolone Acetonide) 15 Gm Cream..g. 15 Gm TP Celexa (Citalopram Hydrobromide) 40 Mg Tablet 40 Mg PO DAILY Gabapentin 600 Mg Tablet 600 Mg PO TID Atorvastatin Calcium 20 Mg Tablet 20 Mg PO DAILY Celebrex (Celecoxib) 200 Mg Capsule 200 Mg PO BID 30 Days Furosemide 20 Mg Tablet 20 Mg PO DAILY Metoprolol Tartrate 25 Mg Tablet 25 Mg PO BID Omeprazole 40 Mg Capsule.dr 40 Mg PO DAILY Clonidine Hcl 0.2 Mg Tablet 0.2 Mg PO BID Colcrys (Colchicine) 0.6 Mg Tablet 0.6 Mg PO Lorazepam 1 Mg Tablet 1 Mg PO BID Klor-Con M20 (Potassium Chloride) 20 Meq Tab.er.prt 20 Meq PO DAILY Verapamil Hcl 120 Mg Tablet 120 Mg PO BID Advair 250-50 Diskus (Fluticasone/Salmeterol) 1 Each Disk.w.dev 1 Inh IH BID Iron (Ferrous Sulfate) 325 Mg Capsule.er 325 Mg PO Clopidogrel (Clopidogrel Bisulfate) 75 Mg Tablet 75 Mg PO DAILY Vitals/I & O Vital Sign - Last 24 Hours 03/31/18 03/31/18 03/31/18 03/31/18 12:00 12:00 13:00 14:00 Temp 98.1 98.1 Pulse 88 87 95 Resp 14 14 14 B/P (MAP) 128/75 (92) 128/82 (97) 96/67 (77) Pulse Ox 99 100 100 O2 Delivery Nasal Cannula Nasal Cannula Nasal Cannula Nasal Cannula O2 Flow Rate 2.0 2.0 2.0 2.0 03/31/18 03/31/18 03/31/18 03/31/18 15:00 16:00 16:00 17:00 Temp 98.2 98.2 Pulse 92 87 86 Resp 14 14 14 B/P (MAP) 102/70 (81) 105/72 (83) 103/67 (79) Pulse Ox 100 100 100 O2 Delivery Nasal Cannula Nasal Cannula Nasal Cannula Nasal Cannula O2 Flow Rate 2.0 2.0 2.0 2.0 03/31/18 03/31/18 03/31/18 03/31/18 18:00 19:00 19:41 20:00 Temp 97.6 97.6 Pulse 93 89 90 Resp 14 15 11 B/P (MAP) 107/70 (82) 101/66 (78) 102/62 (75) Pulse Ox 100 100 100 O2 Delivery Nasal Cannula Nasal Cannula Nasal Cannula Nasal Cannula O2 Flow Rate 2.0 2.0 2.0 2.0 03/31/18 03/31/18 03/31/18 03/31/18 21:00 22:00 23:00 23:59 Pulse 89 99 86 Resp 14 15 14 B/P (MAP) 109/73 (85) 98/69 (79) 112/77 (89) Pulse Ox 100 100 100 O2 Delivery Nasal Cannula Nasal Cannula Nasal Cannula Nasal Cannula O2 Flow Rate 2.0 2.0 2.0 2.0 04/01/18 04/01/18 04/01/18 04/01/18 00:00 01:00 02:00 03:00 Temp 97.8 97.8 Pulse 80 84 66 72 Resp 13 14 12 13 B/P (MAP) 101/63 (76) 119/78 (92) 102/66 (78) 109/68 (82) Pulse Ox 100 100 100 100 O2 Delivery Nasal Cannula Nasal Cannula Nasal Cannula Nasal Cannula O2 Flow Rate 2.0 2.0 2.0 2.0 04/01/18 04/01/18 04/01/18 04/01/18 04:00 04:00 05:00 06:00 Temp 98.0 98.0 Pulse 66 79 82 Resp 13 14 12 B/P (MAP) 99/65 (76) 107/67 (80) 109/69 (82) Pulse Ox 100 99 98 O2 Delivery Nasal Cannula Nasal Cannula Nasal Cannula Nasal Cannula O2 Flow Rate 2.0 2.0 2.0 2.0 04/01/18 04/01/18 04/01/18 04/01/18 07:00 08:00 08:00 09:00 Temp 97.8 97.8 Pulse 84 64 70 Resp 15 14 16 B/P (MAP) 119/73 (88) 107/64 (78) 119/77 (91) Pulse Ox 98 O2 Delivery Nasal Cannula Nasal Cannula Nasal Cannula Nasal Cannula O2 Flow Rate 2.0 2.0 2.0 2.0 04/01/18 10:00 Pulse 64 Resp 14 B/P (MAP) 110/66 (81) Pulse Ox 100 O2 Delivery Nasal Cannula O2 Flow Rate 2.0 Intake and Output 03/31/18 03/31/18 04/01/18 15:00 23:00 07:00 Intake Total 565 ml 268 ml 55 ml Output Total 152 ml 140 ml 230 ml Balance 413 ml 128 ml -175 ml JOAQUIM,NIAL K III DO Apr 01, 2018 12:05
[2018-04-01] MEDS: cefTRIAXone SODIUM 2 GM in IV DEXTROSE 5% 100ML 100 ML IV SCH (13:00)
[2018-04-01 13:33] LABS: ALBUMIN 2.8 g/dL (3.4-5.0); ALBUMIN/GLOBULIN RATIO 0.7 (1.0-1.7); CALCIUM 8.1 mg/dL (8.5-10.1); CREATININE 2.9 mg/dL (0.6-1.0); GFR 19.4; POTASSIUM 3.9 mmol/L (3.5-5.1); TOTAL BILIRUBIN 0.9 mg/dL (0.2-1.0); TOTAL PROTEIN 6.7 g/dL (6.4-8.2)
[2018-04-01 13:42] LABS: DIRECT BILIRUBIN 0.7 mg/dL (0.0-0.2)
[2018-04-01] MEDS: AZITHROMYCIN 500 MG in IV NORMAL SALINE 250ML 250 ML IV SCH (14:52)
[2018-04-01] MEDS: LACTOBACILLUS RHAMNOSUS GG 1 CAPSULE. PO SCH (21:08)
[2018-04-02] VITALS (19 sets, daily range): BP systolic 69–123; BP diastolic 51–74
[2018-04-02 06:21] LABS: BASO # 0.1 x10^3/uL (0.0-0.2); BASO % 3 % (0-3); EOS % 1 % (0-3); HEMATOCRIT 26.9 % (36.0-47.0); LYMPH # 0.5 x10^3/uL (1.0-4.8); LYMPH % 12 % (24-48); MEAN CORPUSCULAR HEMOGLOBIN 30 pg (25-35); MEAN CORPUSCULAR HGB CONC 34 g/dL (31-37); MEAN CORPUSCULAR VOLUME 91 fL (79-100); MONO # 0.5 x10^3/uL (0.0-1.1); MONO % 11 % (0-9); NEUT # 3.1 x10^3uL (1.8-7.7); NEUT % 73 % (31-73); PLATELET COUNT 107 x10^3/uL (140-400); RED BLOOD COUNT 2.97 x10^6/uL (3.50-5.40); RED CELL DISTRIBUTION WIDTH 28.3 % (11.5-14.5); WHITE BLOOD COUNT 4.3 x10^3/uL (4.0-11.0)
[2018-04-02] MEDS: PANTOPRAZOLE 40 MG TABLET.DR. PO SCH (09:16)
[2018-04-02] MEDS: LACTOBACILLUS RHAMNOSUS GG 1 CAPSULE. PO SCH ×2 (09:16→20:15)
[2018-04-02] MEDS: LEVOTHYROXINE SODIUM IVP SCH (09:17)
[2018-04-02] MEDS: NORMAL SALINE IVP SCH (09:17)
--- NOTE | 2018-04-02 11:19 | PDOC ---
Infectious Disease Note Subjective Subjective Comfortable, sleepy this morning Denies SOA/cough/CP/pain/F/C/N/V/D/SOA ROS ROS per HPI otherwise negative Vital Sign Vital Signs Vital Signs Date Time Temp Pulse Resp B/P (MAP) Pulse Ox O2 Delivery O2 Flow Rate FiO2 04/02/18 08:00 97.9 79 107/57 (74) 96 Nasal Cannula 1.0 97.9 04/02/18 04:03 20 Physical Exam PHYSICAL EXAM GENERAL: Sleeping, arouses easily to voice HEENT: Oral cavity pink and moist LUNGS: Decreased in the bases. HEART: S1, S2. Pacemaker without complications. ABDOMEN: Soft, nontender, no guarding. : Montague in place. EXTREMITIES: With trace edema. SKIN: Without signs of rash. NEUROLOGIC: Responds appropriately RIJ clean Labs Lab Laboratory Tests Test 04/01/18 16:14 04/01/18 22:20 04/01/18 22:42 04/02/18 05:30 Glucose (Fingerstick) 95 mg/dL (70-99) 68 mg/dL (70-99) 76 mg/dL (70-99) White Blood Count 4.3 x10^3/uL (4.0-11.0) Red Blood Count 2.97 x10^6/uL (3.50-5.40) Hemoglobin 9.0 g/dL (12.0-15.5) Hematocrit 26.9 % (36.0-47.0) Mean Corpuscular Volume 91 fL (79-100) Mean Corpuscular Hemoglobin 30 pg (25-35) Mean Corpuscular Hemoglobin Concent 34 g/dL (31-37) Red Cell Distribution Width 28.3 % (11.5-14.5) Platelet Count 107 x10^3/uL (140-400) Neutrophils (%) (Auto) 73 % (31-73) Lymphocytes (%) (Auto) 12 % (24-48) Monocytes (%) (Auto) 11 % (0-9) Eosinophils (%) (Auto) 1 % (0-3) Basophils (%) (Auto) 3 % (0-3) Neutrophils # (Auto) 3.1 x10^3uL (1.8-7.7) Lymphocytes # (Auto) 0.5 x10^3/uL (1.0-4.8) Monocytes # (Auto) 0.5 x10^3/uL (0.0-1.1) Eosinophils # (Auto) 0.0 x10^3/uL (0.0-0.7) Basophils # (Auto) 0.1 x10^3/uL (0.0-0.2) Test 04/02/18 07:51 Glucose (Fingerstick) 109 mg/dL (70-99) Micro Microbiology 03/31/18 Blood Culture - Preliminary, Resulted NO GROWTH AFTER 2 DAYS Objective Assessment Encephalopathy - better ? Pneumonia Abx allergies Lactic acidosis - improved Hypothyroidism Transaminitis - mild increase - ? reactive JAIDEN - worse - UA no sign of infection Elevated troponin - NSTEMI Plan Plan of Care Cont Rocephin/Azithromycin for now NGTD Supportive care Patient seen and examined. Chart reviewed in detail. Case discussed with SENIOR BUSINESS OBJECTS DEVELOPER. I agree with the above Plan EDILSON KENDALL APRN Apr 02, 2018 11:19 KRISTA SYED MD Apr 02, 2018 18:12
[2018-04-02 11:35] LABS: % BANDS 4 % (0-9); % LYMPHS 17 % (24-48); % MONOS 6 % (0-10); % SEGS 72 % (35-66); NUCLEATED RBC 1; PLT ESTIMATE DECREASED (ADEQUATE)
[2018-04-02 11:37] LABS: ANISOCYTOSIS MARKED; POIKILOCYTOSIS MOD
[2018-04-02 11:38] LABS: BURR CELLS PRESENT; OVALOCYTES PRESENT; TARGET CELLS PRESENT
--- NOTE | 2018-04-02 11:43 | PDOC ---
G I PROGRESS NOTE Reason for Follow-up Transaminitis/abd pain Subjective More alert Physical Exam Lungs clear CV S1 S2 ABD +BS, soft, nontender Review of Relevant I have reviewed the following items madeline (where applicable) has been applied. Labs Laboratory Tests Test 03/31/18 12:57 03/31/18 16:25 03/31/18 17:58 04/01/18 05:45 Glucose (Fingerstick) 78 mg/dL (70-99) 96 mg/dL (70-99) Ammonia 22 mcmol/L (11-34) White Blood Count 5.1 x10^3/uL (4.0-11.0) Red Blood Count 2.95 x10^6/uL (3.50-5.40) Hemoglobin 8.8 g/dL (12.0-15.5) Hematocrit 26.5 % (36.0-47.0) Mean Corpuscular Volume 90 fL (79-100) Mean Corpuscular Hemoglobin 30 pg (25-35) Mean Corpuscular Hemoglobin Concent 33 g/dL (31-37) Red Cell Distribution Width 27.9 % (11.5-14.5) Platelet Count 122 x10^3/uL (140-400) Reticulocyte Count (auto) 2.2 % (0.5-2.5) Sodium Level 140 mmol/L (136-145) Potassium Level 3.9 mmol/L (3.5-5.1) Chloride Level 102 mmol/L (98-107) Carbon Dioxide Level 21 mmol/L (21-32) Anion Gap 17 (6-14) Blood Urea Nitrogen 43 mg/dL (7-20) Creatinine 2.9 mg/dL (0.6-1.0) Estimated GFR (Cockcroft-Gault) 19.4 BUN/Creatinine Ratio 15 (6-20) Glucose Level 74 mg/dL (70-99) Calcium Level 8.1 mg/dL (8.5-10.1) Iron Level 32 ug/dL (50-170) Total Iron Binding Capacity 226 ug/dL (250-450) Iron Saturation 14 % (15-34) Total Bilirubin 0.9 mg/dL (0.2-1.0) Direct Bilirubin 0.7 mg/dL (0.0-0.2) Aspartate Amino Transf (AST/SGOT) 156 U/L (15-37) Alanine Aminotransferase (ALT/SGPT) 82 U/L (14-59) Alkaline Phosphatase 118 U/L (46-116) Total Protein 6.7 g/dL (6.4-8.2) Albumin 2.8 g/dL (3.4-5.0) Albumin/Globulin Ratio 0.7 (1.0-1.7) Vitamin B12 Level 849 pg/mL (247-911) Test 04/01/18 08:00 04/01/18 09:00 04/01/18 16:14 04/01/18 22:20 Lactic Acid Level 0.6 mmol/L (0.4-2.0) Nasal Screen MRSA (PCR) Negative (Negative) Glucose (Fingerstick) 95 mg/dL (70-99) 68 mg/dL (70-99) Test 04/01/18 22:42 04/02/18 05:30 04/02/18 07:51 04/02/18 11:18 Glucose (Fingerstick) 76 mg/dL (70-99) 109 mg/dL (70-99) 94 mg/dL (70-99) White Blood Count 4.3 x10^3/uL (4.0-11.0) Red Blood Count 2.97 x10^6/uL (3.50-5.40) Hemoglobin 9.0 g/dL (12.0-15.5) Hematocrit 26.9 % (36.0-47.0) Mean Corpuscular Volume 91 fL (79-100) Mean Corpuscular Hemoglobin 30 pg (25-35) Mean Corpuscular Hemoglobin Concent 34 g/dL (31-37) Red Cell Distribution Width 28.3 % (11.5-14.5) Platelet Count 107 x10^3/uL (140-400) Neutrophils (%) (Auto) 73 % (31-73) Lymphocytes (%) (Auto) 12 % (24-48) Monocytes (%) (Auto) 11 % (0-9) Eosinophils (%) (Auto) 1 % (0-3) Basophils (%) (Auto) 3 % (0-3) Neutrophils # (Auto) 3.1 x10^3uL (1.8-7.7) Lymphocytes # (Auto) 0.5 x10^3/uL (1.0-4.8) Monocytes # (Auto) 0.5 x10^3/uL (0.0-1.1) Eosinophils # (Auto) 0.0 x10^3/uL (0.0-0.7) Basophils # (Auto) 0.1 x10^3/uL (0.0-0.2) Segmented Neutrophils % 72 % (35-66) Band Neutrophils % 4 % (0-9) Lymphocytes % 17 % (24-48) Monocytes % 6 % (0-10) Nucleated Red Blood Cells 1 Platelet Estimate Decreased (ADEQUATE) Poikilocytosis Mod Anisocytosis Marked Target Cells Present Ovalocytes Present [place] Cells Present Laboratory Tests Test 04/01/18 16:14 04/01/18 22:20 04/01/18 22:42 04/02/18 05:30 Glucose (Fingerstick) 95 mg/dL (70-99) 68 mg/dL (70-99) 76 mg/dL (70-99) White Blood Count 4.3 x10^3/uL (4.0-11.0) Red Blood Count 2.97 x10^6/uL (3.50-5.40) Hemoglobin 9.0 g/dL (12.0-15.5) Hematocrit 26.9 % (36.0-47.0) Mean Corpuscular Volume 91 fL (79-100) Mean Corpuscular Hemoglobin 30 pg (25-35) Mean Corpuscular Hemoglobin Concent 34 g/dL (31-37) Red Cell Distribution Width 28.3 % (11.5-14.5) Platelet Count 107 x10^3/uL (140-400) Neutrophils (%) (Auto) 73 % (31-73) Lymphocytes (%) (Auto) 12 % (24-48) Monocytes (%) (Auto) 11 % (0-9) Eosinophils (%) (Auto) 1 % (0-3) Basophils (%) (Auto) 3 % (0-3) Neutrophils # (Auto) 3.1 x10^3uL (1.8-7.7) Lymphocytes # (Auto) 0.5 x10^3/uL (1.0-4.8) Monocytes # (Auto) 0.5 x10^3/uL (0.0-1.1) Eosinophils # (Auto) 0.0 x10^3/uL (0.0-0.7) Basophils # (Auto) 0.1 x10^3/uL (0.0-0.2) Segmented Neutrophils % 72 % (35-66) Band Neutrophils % 4 % (0-9) Lymphocytes % 17 % (24-48) Monocytes % 6 % (0-10) Nucleated Red Blood Cells 1 Platelet Estimate Decreased (ADEQUATE) Poikilocytosis Mod Anisocytosis Marked Target Cells Present Ovalocytes Present [place] Cells Present Test 04/02/18 07:51 04/02/18 11:18 Glucose (Fingerstick) 109 mg/dL (70-99) 94 mg/dL (70-99) Microbiology 03/31/18 Blood Culture - Preliminary, Resulted NO GROWTH AFTER 2 DAYS Medications Current Medications Aspirin (Karen Aspirin) 325 mg 1X ONCE PO Last administered on 03/31/18at 01:16 ; Start 03/30/18 at 23:30; Stop 03/30/18 at 23:31; Status DC Fentanyl Citrate (Fentanyl 2ml Vial) 50 mcg 1X ONCE IV ; Start 03/30/18 at 23: 30; Stop 03/30/18 at 23:31; Status DC Dextrose (Dextrose 50%-Water Syringe) 25 gm 1X ONCE IV Last administered on at 23:10; Start 03/30/18 at 23:30; Stop 03/30/18 at 23:31; Status DC Dextrose (Dextrose 50%-Water Syringe) 25 gm STK-MED ONCE IV ; Start 03/30/18 at 23:05; Stop 03/30/18 at 23:06; Status DC Glucose (Insta-Glucose) 15 gm STK-MED ONCE .ROUTE ; Start 03/30/18 at 23:05; Stop 03/30/18 at 23:06; Status DC Ondansetron HCl (Zofran) 4 mg 1X ONCE IV Last administered on 03/31/18at 01:18 ; Start 03/30/18 at 23:30; Stop 03/30/18 at 23:31; Status DC Glucose (Insta-Glucose) 15 gm 1X ONCE PO Last administered on 03/30/18at 23:07 ; Start 03/30/18 at 23:30; Stop 03/30/18 at 23:31; Status DC Nitroglycerin (Nitro-Bid Oint) 1 inch 1X ONCE TP Last administered on at 01:19; Start 03/31/18 at 01:00; Stop 03/31/18 at 01:01; Status DC Bumetanide (Bumex) 0.5 mg 1X ONCE IV Last administered on 03/31/18at 01:11; Start 03/31/18 at 01:00; Stop 03/31/18 at 01:01; Status DC Ondansetron HCl (Zofran) 4 mg PRN Q8HRS PRN IV NAUSEA/VOMITING 1ST CHOICE; Start 03/31/18 at 00:45; Stop 04/01/18 at 00:44; Status DC Dextrose (Dextrose 50%-Water Syringe) 12.5 gm PRN Q15MIN PRN IV SEE COMMENTS; Start 03/31/18 at 00:45 Lidocaine HCl 20 ml 1X ONCE IJ Last administered on 03/31/18at 03:00; Start at 03:00; Stop 03/31/18 at 03:01; Status DC Lidocaine HCl (Xylocaine-Mpf 2% Vial) 2 ml STK-MED ONCE .ROUTE ; Start 03/31/18 at 02:31; Stop 03/31/18 at 02:33; Status DC Pantoprazole Sodium (Protonix) 40 mg DAILYAC PO Last administered on 04/02/18at 09:16; Start 03/31/18 at 11:30 Levothyroxine Sodium 100 mcg/ Sodium Chloride 5 ml @ 100 mls/hr DAILY IVP ; Start 04/01/18 at 09:00; Status UNV Levothyroxine Sodium 50 mcg/ Sodium Chloride 5 ml @ 100 mls/hr DAILY IVP Last administered on 04/02/18at 09:17; Start 03/31/18 at 14:00 Furosemide 100 mg/ Sodium Chloride 100 ml @ 5 mls/hr CONT PRN IV DIURESIS Last administered on 03/31/18at 12:59; Start 03/31/18 at 11:45; Stop 03/31/18 at 22:16 ; Status DC Ceftriaxone Sodium 2 gm/ Dextrose 100 ml @ 200 mls/hr Q24H IV Last administered on 04/01/18at 13:00; Start 03/31/18 at 13:00 Azithromycin 500 mg/Sodium Chloride 250 ml @ 250 mls/hr 1X ONCE IV Last administered on 03/31/18at 13:04; Start 03/31/18 at 12:30; Stop 03/31/18 at 13:29 ; Status DC Furosemide 100 mg/ Sodium Chloride 100 ml @ 0 mls/hr CONT PRN IV DIURESIS Last administered on 04/01/18at 01:34; Start 03/31/18 at 22:30; Stop 04/01/18 at 12:56 ; Status DC Lactobacillus Rhamnosus (Culturelle) 1 cap BID PO Last administered on at 09:16; Start 04/01/18 at 21:00 Azithromycin 500 mg/Sodium Chloride 250 ml @ 250 mls/hr Q24H IV Last administered on 04/01/18at 14:52; Start 04/01/18 at 14:00 Active Scripts Active Reported Triamcinolone Acetonide 0.1% Cream (Triamcinolone Acetonide) 15 Gm Cream..g. 15 Gm TP Celexa (Citalopram Hydrobromide) 40 Mg Tablet 40 Mg PO DAILY Gabapentin 600 Mg Tablet 600 Mg PO TID Atorvastatin Calcium 20 Mg Tablet 20 Mg PO DAILY Celebrex (Celecoxib) 200 Mg Capsule 200 Mg PO BID 30 Days Furosemide 20 Mg Tablet 20 Mg PO DAILY Metoprolol Tartrate 25 Mg Tablet 25 Mg PO BID Omeprazole 40 Mg Capsule.dr 40 Mg PO DAILY Clonidine Hcl 0.2 Mg Tablet 0.2 Mg PO BID Colcrys (Colchicine) 0.6 Mg Tablet 0.6 Mg PO Lorazepam 1 Mg Tablet 1 Mg PO BID Klor-Con M20 (Potassium Chloride) 20 Meq Tab.er.prt 20 Meq PO DAILY Verapamil Hcl 120 Mg Tablet 120 Mg PO BID Advair 250-50 Diskus (Fluticasone/Salmeterol) 1 Each Disk.w.dev 1 Inh IH BID Iron (Ferrous Sulfate) 325 Mg Capsule.er 325 Mg PO Clopidogrel (Clopidogrel Bisulfate) 75 Mg Tablet 75 Mg PO DAILY Vitals/I & O Vital Sign - Last 24 Hours 04/01/18 04/01/18 04/01/18 04/01/18 12:00 15:00 19:15 20:00 Temp 97.9 97.4 97.7 97.9 97.4 97.7 Pulse 64 75 63 Resp 16 16 22 B/P (MAP) 99/65 (76) 87/61 (70) 92/50 (64) Pulse Ox 98 96 98 O2 Delivery Nasal Cannula Nasal Cannula Nasal Cannula Nasal Cannula O2 Flow Rate 2.0 2.0 1.0 2.0 04/01/18 04/02/18 04/02/18 04/02/18 23:45 04:03 04:04 08:00 Temp 97.9 98.3 97.9 98.3 Pulse 61 73 Resp 18 20 B/P (MAP) 98/58 (71) 104/67 (79) Pulse Ox 96 85 91 O2 Delivery Nasal Cannula Room Air Nasal Cannula Nasal Cannula O2 Flow Rate 1.0 1.0 2.0 04/02/18 08:00 Temp 97.9 97.9 Pulse 79 B/P (MAP) 107/57 (74) Pulse Ox 96 O2 Delivery Nasal Cannula O2 Flow Rate 1.0 Intake and Output 04/01/18 04/01/18 04/02/18 15:00 23:00 07:00 Intake Total 520 ml 600 ml Output Total 250 ml 650 ml 400 ml Balance -250 ml -130 ml 200 ml Problem List Problems Medical Problems: (1) Acute exacerbation of CHF (congestive heart failure) Status: Acute (2) Elevated troponin I level Status: Acute (3) Hypoglycemia Status: Acute (4) Hypoxia Status: Acute (5) Lactic acidosis Status: Acute (6) Renal insufficiency Status: Acute Assessment Transaminitis- with hypothyroidism, medical therapy for CHF and hypothyroidism AURELIO COKER MD Apr 02, 2018 11:43
--- NOTE | 2018-04-02 12:15 | PDOC ---
Provider Note Provider Note Cardiology follow-up no No new events overnight. Patient denies any current chest pain but does continue to feel weak. On examination she is resting comfortable. Heart tones are normal. Lungs demonstrate mild rhonchi. Abdomen is obese but nontender and mildly distended Trace lower extremity edema is noted. Labs reviewed. Current cardiac medications none, Lasix has been discontinued Impression: 1. acute on chronic heart failure, bi-ventricular *May need ionotropic support but for now, re-evaluate cr today. Consider milrinone. *May benefit from RHC, will discuss with Dr. Moore on Wednesday. 2. ischemic cardiomyopathy --LVEF ~ 20% --has [employer] ICD for prevention of SCD --interrogate with few episodes of NSVT; no shock --Optival level trending upward since January 3. NSTEMI --Likely type 2. Supportive care. Poor candidate for anticoagulation due to liver/coagulopathy 3. JAIDEN on CKD --Cr 2.9 --Defer further diuresis for now. Supportive care. 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 Family meeting for goals of care would be appropriate. IMANI VIVAS MD Apr 02, 2018 12:15
[2018-04-02 12:36] LABS: CALCIUM 8.1 mg/dL (8.5-10.1); CREATININE 3.2 mg/dL (0.6-1.0); GFR 17.3; POTASSIUM 3.6 mmol/L (3.5-5.1)
[2018-04-02] MEDS: cefTRIAXone SODIUM 2 GM in IV DEXTROSE 5% 100ML 100 ML IV SCH (13:13)
--- NOTE | 2018-04-02 13:42 | PDOC ---
Renal-Progress Notes Subjective Notes Notes LESS SOB History of Present Illness Hx of present illness STABLE Vitals Vitals Vital Signs Date Time Temp Pulse Resp B/P (MAP) Pulse Ox O2 Delivery O2 Flow Rate FiO2 04/02/18 12:00 98.2 87 113/60 (77) 94 Nasal Cannula 2.0 98.2 04/02/18 04:03 20 Weight Weight [ ] I.O. Intake and Output Intake and Output 04/02/18 07:00 Intake Total 1120 ml Output Total 1300 ml Balance -180 ml Intake Oral 1120 ml Output Urine Total 1300 ml Labs Labs Laboratory Tests Test 04/01/18 16:14 04/01/18 22:20 04/01/18 22:42 04/02/18 05:30 Glucose (Fingerstick) 95 mg/dL (70-99) 68 mg/dL (70-99) 76 mg/dL (70-99) White Blood Count 4.3 x10^3/uL (4.0-11.0) Red Blood Count 2.97 x10^6/uL (3.50-5.40) Hemoglobin 9.0 g/dL (12.0-15.5) Hematocrit 26.9 % (36.0-47.0) Mean Corpuscular Volume 91 fL (79-100) Mean Corpuscular Hemoglobin 30 pg (25-35) Mean Corpuscular Hemoglobin Concent 34 g/dL (31-37) Red Cell Distribution Width 28.3 % (11.5-14.5) Platelet Count 107 x10^3/uL (140-400) Neutrophils (%) (Auto) 73 % (31-73) Lymphocytes (%) (Auto) 12 % (24-48) Monocytes (%) (Auto) 11 % (0-9) Eosinophils (%) (Auto) 1 % (0-3) Basophils (%) (Auto) 3 % (0-3) Neutrophils # (Auto) 3.1 x10^3uL (1.8-7.7) Lymphocytes # (Auto) 0.5 x10^3/uL (1.0-4.8) Monocytes # (Auto) 0.5 x10^3/uL (0.0-1.1) Eosinophils # (Auto) 0.0 x10^3/uL (0.0-0.7) Basophils # (Auto) 0.1 x10^3/uL (0.0-0.2) Segmented Neutrophils % 72 % (35-66) Band Neutrophils % 4 % (0-9) Lymphocytes % 17 % (24-48) Monocytes % 6 % (0-10) Nucleated Red Blood Cells 1 Platelet Estimate Decreased (ADEQUATE) Poikilocytosis Mod Anisocytosis Marked Target Cells Present Ovalocytes Present [place] Cells Present Sodium Level 140 mmol/L (136-145) Potassium Level 3.6 mmol/L (3.5-5.1) Chloride Level 103 mmol/L (98-107) Carbon Dioxide Level 22 mmol/L (21-32) Anion Gap 15 (6-14) Blood Urea Nitrogen 48 mg/dL (7-20) Creatinine 3.2 mg/dL (0.6-1.0) Estimated GFR (Cockcroft-Gault) 17.3 Glucose Level 94 mg/dL (70-99) Calcium Level 8.1 mg/dL (8.5-10.1) Test 04/02/18 07:51 04/02/18 11:18 04/02/18 12:50 Glucose (Fingerstick) 109 mg/dL (70-99) 94 mg/dL (70-99) Mixed Venous Blood pH Mixed Venous Blood PCO2 mmHg Mixed Venous Blood PO2 < 42 mmHg Mixed Venous Blood HCO3 mmol/L Mixed Venous Blood Base Excess mmol/L Mixed Venous Blood O2 Saturation 64 % Micro Micro Microbiology 03/31/18 Blood Culture - Preliminary, Resulted NO GROWTH AFTER 2 DAYS Review of Systems Constitutional: yes: weakness, alert, oriented Ears/Nose/Throat: Yes: no symptom reported Eyes: Yes: no symptom reported Pulmonary: Yes dyspnea Cardiovascular: Yes no symptom reported Gastrointestional: Yes: no symptom reported Musculoskeletal: Yes: no symptom reported Skin: Yes no symptom reported Psychiatric/Neurological: Yes: no symptom reported Physical Exam General Appearance: no apparent distress Skin: warm Respiratory: decreased breath sounds Heart: S1S2 Abdomen: soft, bowel sounds present Genitourinary: bladder flat Extremities: pulses present Neurology: alert, follow commands Assessment Assessment IMP CHF-APPEARS COMPENSATED CKD STAGE 3-BASELINE PROB 2.0 MILD JAIDEN AFTER DIURETICS - CR OF 2.9 PLAN CONT OFF LASIX WILL NEED PO DIURETICS SOON MATIAS FLOWER MD Apr 02, 2018 13:42
[2018-04-02] MEDS: AZITHROMYCIN 500 MG in IV NORMAL SALINE 250ML 250 ML IV SCH (14:16)
[2018-04-02] MEDS: MILRINONE 20MG/100ML PREMIX 100 ML IV PRN (14:40)
[2018-04-02] MEDS ORDERED: ONDANSETRON PF 4 MG/2 ML VIAL. IV PRN (15:45)
--- NOTE | 2018-04-02 21:50 | PDOC ---
PROGRESS NOTES Chief Complaint Chief Complaint Acute heart failure NSTEMI JAIDEN Sepsis HTN Anemia Hypoglycemia Plan: Poss RHC on Wednesday Cefr/Azithro for PNA per ID Vitals Vitals Vital Signs Date Time Temp Pulse Resp B/P (MAP) Pulse Ox O2 Delivery O2 Flow Rate FiO2 04/02/18 19:47 Nasal Cannula 2.0 04/02/18 19:39 97.6 79 21 99/55 (70) 91 97.6 Physical Exam Physical Exam GENERAL: Sleeping, arouses easily to voice HEENT: Oral cavity pink and moist LUNGS: Decreased in the bases. HEART: S1, S2. Pacemaker without complications. ABDOMEN: Soft, nontender, no guarding. : Montague in place. EXTREMITIES: With trace edema. SKIN: Without signs of rash. NEUROLOGIC: Responds appropriately RIJ clean General: No acute distress, Other (minimally arousable, mumbles) Heart: Normal S1, Normal S2 Abdomen: Normal bowel sounds (obese abdomen), Soft Extremities: No clubbing, Other (trace edema) Skin: No rashes, No significant lesion Labs LABS Laboratory Tests Test 04/01/18 22:20 04/01/18 22:42 04/02/18 05:30 04/02/18 07:51 Glucose (Fingerstick) 68 mg/dL (70-99) 76 mg/dL (70-99) 109 mg/dL (70-99) White Blood Count 4.3 x10^3/uL (4.0-11.0) Red Blood Count 2.97 x10^6/uL (3.50-5.40) Hemoglobin 9.0 g/dL (12.0-15.5) Hematocrit 26.9 % (36.0-47.0) Mean Corpuscular Volume 91 fL (79-100) Mean Corpuscular Hemoglobin 30 pg (25-35) Mean Corpuscular Hemoglobin Concent 34 g/dL (31-37) Red Cell Distribution Width 28.3 % (11.5-14.5) Platelet Count 107 x10^3/uL (140-400) Neutrophils (%) (Auto) 73 % (31-73) Lymphocytes (%) (Auto) 12 % (24-48) Monocytes (%) (Auto) 11 % (0-9) Eosinophils (%) (Auto) 1 % (0-3) Basophils (%) (Auto) 3 % (0-3) Neutrophils # (Auto) 3.1 x10^3uL (1.8-7.7) Lymphocytes # (Auto) 0.5 x10^3/uL (1.0-4.8) Monocytes # (Auto) 0.5 x10^3/uL (0.0-1.1) Eosinophils # (Auto) 0.0 x10^3/uL (0.0-0.7) Basophils # (Auto) 0.1 x10^3/uL (0.0-0.2) Segmented Neutrophils % 72 % (35-66) Band Neutrophils % 4 % (0-9) Lymphocytes % 17 % (24-48) Monocytes % 6 % (0-10) Nucleated Red Blood Cells 1 Platelet Estimate Decreased (ADEQUATE) Poikilocytosis Mod Anisocytosis Marked Target Cells Present Ovalocytes Present [place] Cells Present Sodium Level 140 mmol/L (136-145) Potassium Level 3.6 mmol/L (3.5-5.1) Chloride Level 103 mmol/L (98-107) Carbon Dioxide Level 22 mmol/L (21-32) Anion Gap 15 (6-14) Blood Urea Nitrogen 48 mg/dL (7-20) Creatinine 3.2 mg/dL (0.6-1.0) Estimated GFR (Cockcroft-Gault) 17.3 Glucose Level 94 mg/dL (70-99) Calcium Level 8.1 mg/dL (8.5-10.1) Test 04/02/18 11:18 04/02/18 12:50 04/02/18 16:59 04/02/18 20:50 Glucose (Fingerstick) 94 mg/dL (70-99) 90 mg/dL (70-99) 85 mg/dL (70-99) Mixed Venous Blood pH Mixed Venous Blood PCO2 mmHg Mixed Venous Blood PO2 < 42 mmHg Mixed Venous Blood HCO3 mmol/L Mixed Venous Blood Base Excess mmol/L Mixed Venous Blood O2 Saturation 64 % Assessment and Plan Assessmemt and Plan Problems Medical Problems: (1) Acute exacerbation of CHF (congestive heart failure) Status: Acute (2) Elevated troponin I level Status: Acute (3) Hypoglycemia Status: Acute (4) Hypoxia Status: Acute (5) Lactic acidosis Status: Acute (6) Renal insufficiency Status: Acute Comment Review of Relevant I have reviewed the following items madeline (where applicable) has been applied. Labs Laboratory Tests Test 04/01/18 05:45 04/01/18 08:00 04/01/18 09:00 04/01/18 16:14 White Blood Count 5.1 x10^3/uL (4.0-11.0) Red Blood Count 2.95 x10^6/uL (3.50-5.40) Hemoglobin 8.8 g/dL (12.0-15.5) Hematocrit 26.5 % (36.0-47.0) Mean Corpuscular Volume 90 fL (79-100) Mean Corpuscular Hemoglobin 30 pg (25-35) Mean Corpuscular Hemoglobin Concent 33 g/dL (31-37) Red Cell Distribution Width 27.9 % (11.5-14.5) Platelet Count 122 x10^3/uL (140-400) Reticulocyte Count (auto) 2.2 % (0.5-2.5) Sodium Level 140 mmol/L (136-145) Potassium Level 3.9 mmol/L (3.5-5.1) Chloride Level 102 mmol/L (98-107) Carbon Dioxide Level 21 mmol/L (21-32) Anion Gap 17 (6-14) Blood Urea Nitrogen 43 mg/dL (7-20) Creatinine 2.9 mg/dL (0.6-1.0) Estimated GFR (Cockcroft-Gault) 19.4 BUN/Creatinine Ratio 15 (6-20) Glucose Level 74 mg/dL (70-99) Calcium Level 8.1 mg/dL (8.5-10.1) Iron Level 32 ug/dL (50-170) Total Iron Binding Capacity 226 ug/dL (250-450) Iron Saturation 14 % (15-34) Total Bilirubin 0.9 mg/dL (0.2-1.0) Direct Bilirubin 0.7 mg/dL (0.0-0.2) Aspartate Amino Transf (AST/SGOT) 156 U/L (15-37) Alanine Aminotransferase (ALT/SGPT) 82 U/L (14-59) Alkaline Phosphatase 118 U/L (46-116) Total Protein 6.7 g/dL (6.4-8.2) Albumin 2.8 g/dL (3.4-5.0) Albumin/Globulin Ratio 0.7 (1.0-1.7) Vitamin B12 Level 849 pg/mL (247-911) Lactic Acid Level 0.6 mmol/L (0.4-2.0) Nasal Screen MRSA (PCR) Negative (Negative) Glucose (Fingerstick) 95 mg/dL (70-99) Test 04/01/18 22:20 04/01/18 22:42 04/02/18 05:30 04/02/18 07:51 Glucose (Fingerstick) 68 mg/dL (70-99) 76 mg/dL (70-99) 109 mg/dL (70-99) White Blood Count 4.3 x10^3/uL (4.0-11.0) Red Blood Count 2.97 x10^6/uL (3.50-5.40) Hemoglobin 9.0 g/dL (12.0-15.5) Hematocrit 26.9 % (36.0-47.0) Mean Corpuscular Volume 91 fL (79-100) Mean Corpuscular Hemoglobin 30 pg (25-35) Mean Corpuscular Hemoglobin Concent 34 g/dL (31-37) Red Cell Distribution Width 28.3 % (11.5-14.5) Platelet Count 107 x10^3/uL (140-400) Neutrophils (%) (Auto) 73 % (31-73) Lymphocytes (%) (Auto) 12 % (24-48) Monocytes (%) (Auto) 11 % (0-9) Eosinophils (%) (Auto) 1 % (0-3) Basophils (%) (Auto) 3 % (0-3) Neutrophils # (Auto) 3.1 x10^3uL (1.8-7.7) Lymphocytes # (Auto) 0.5 x10^3/uL (1.0-4.8) Monocytes # (Auto) 0.5 x10^3/uL (0.0-1.1) Eosinophils # (Auto) 0.0 x10^3/uL (0.0-0.7) Basophils # (Auto) 0.1 x10^3/uL (0.0-0.2) Segmented Neutrophils % 72 % (35-66) Band Neutrophils % 4 % (0-9) Lymphocytes % 17 % (24-48) Monocytes % 6 % (0-10) Nucleated Red Blood Cells 1 Platelet Estimate Decreased (ADEQUATE) Poikilocytosis Mod Anisocytosis Marked Target Cells Present Ovalocytes Present [place] Cells Present Sodium Level 140 mmol/L (136-145) Potassium Level 3.6 mmol/L (3.5-5.1) Chloride Level 103 mmol/L (98-107) Carbon Dioxide Level 22 mmol/L (21-32) Anion Gap 15 (6-14) Blood Urea Nitrogen 48 mg/dL (7-20) Creatinine 3.2 mg/dL (0.6-1.0) Estimated GFR (Cockcroft-Gault) 17.3 Glucose Level 94 mg/dL (70-99) Calcium Level 8.1 mg/dL (8.5-10.1) Test 04/02/18 11:18 04/02/18 12:50 04/02/18 16:59 04/02/18 20:50 Glucose (Fingerstick) 94 mg/dL (70-99) 90 mg/dL (70-99) 85 mg/dL (70-99) Mixed Venous Blood pH Mixed Venous Blood PCO2 mmHg Mixed Venous Blood PO2 < 42 mmHg Mixed Venous Blood HCO3 mmol/L Mixed Venous Blood Base Excess mmol/L Mixed Venous Blood O2 Saturation 64 % Laboratory Tests Test 04/01/18 22:20 04/01/18 22:42 04/02/18 05:30 04/02/18 07:51 Glucose (Fingerstick) 68 mg/dL (70-99) 76 mg/dL (70-99) 109 mg/dL (70-99) White Blood Count 4.3 x10^3/uL (4.0-11.0) Red Blood Count 2.97 x10^6/uL (3.50-5.40) Hemoglobin 9.0 g/dL (12.0-15.5) Hematocrit 26.9 % (36.0-47.0) Mean Corpuscular Volume 91 fL (79-100) Mean Corpuscular Hemoglobin 30 pg (25-35) Mean Corpuscular Hemoglobin Concent 34 g/dL (31-37) Red Cell Distribution Width 28.3 % (11.5-14.5) Platelet Count 107 x10^3/uL (140-400) Neutrophils (%) (Auto) 73 % (31-73) Lymphocytes (%) (Auto) 12 % (24-48) Monocytes (%) (Auto) 11 % (0-9) Eosinophils (%) (Auto) 1 % (0-3) Basophils (%) (Auto) 3 % (0-3) Neutrophils # (Auto) 3.1 x10^3uL (1.8-7.7) Lymphocytes # (Auto) 0.5 x10^3/uL (1.0-4.8) Monocytes # (Auto) 0.5 x10^3/uL (0.0-1.1) Eosinophils # (Auto) 0.0 x10^3/uL (0.0-0.7) Basophils # (Auto) 0.1 x10^3/uL (0.0-0.2) Segmented Neutrophils % 72 % (35-66) Band Neutrophils % 4 % (0-9) Lymphocytes % 17 % (24-48) Monocytes % 6 % (0-10) Nucleated Red Blood Cells 1 Platelet Estimate Decreased (ADEQUATE) Poikilocytosis Mod Anisocytosis Marked Target Cells Present Ovalocytes Present [place] Cells Present Sodium Level 140 mmol/L (136-145) Potassium Level 3.6 mmol/L (3.5-5.1) Chloride Level 103 mmol/L (98-107) Carbon Dioxide Level 22 mmol/L (21-32) Anion Gap 15 (6-14) Blood Urea Nitrogen 48 mg/dL (7-20) Creatinine 3.2 mg/dL (0.6-1.0) Estimated GFR (Cockcroft-Gault) 17.3 Glucose Level 94 mg/dL (70-99) Calcium Level 8.1 mg/dL (8.5-10.1) Test 04/02/18 11:18 04/02/18 12:50 04/02/18 16:59 04/02/18 20:50 Glucose (Fingerstick) 94 mg/dL (70-99) 90 mg/dL (70-99) 85 mg/dL (70-99) Mixed Venous Blood pH Mixed Venous Blood PCO2 mmHg Mixed Venous Blood PO2 < 42 mmHg Mixed Venous Blood HCO3 mmol/L Mixed Venous Blood Base Excess mmol/L Mixed Venous Blood O2 Saturation 64 % Microbiology 03/31/18 Blood Culture - Preliminary, Resulted NO GROWTH AFTER 2 DAYS Medications Current Medications Aspirin (Karen Aspirin) 325 mg 1X ONCE PO Last administered on 03/31/18at 01:16 ; Start 03/30/18 at 23:30; Stop 03/30/18 at 23:31; Status DC Fentanyl Citrate (Fentanyl 2ml Vial) 50 mcg 1X ONCE IV ; Start 03/30/18 at 23: 30; Stop 03/30/18 at 23:31; Status DC Dextrose (Dextrose 50%-Water Syringe) 25 gm 1X ONCE IV Last administered on at 23:10; Start 03/30/18 at 23:30; Stop 03/30/18 at 23:31; Status DC Dextrose (Dextrose 50%-Water Syringe) 25 gm STK-MED ONCE IV ; Start 03/30/18 at 23:05; Stop 03/30/18 at 23:06; Status DC Glucose (Insta-Glucose) 15 gm STK-MED ONCE .ROUTE ; Start 03/30/18 at 23:05; Stop 03/30/18 at 23:06; Status DC Ondansetron HCl (Zofran) 4 mg 1X ONCE IV Last administered on 03/31/18at 01:18 ; Start 03/30/18 at 23:30; Stop 03/30/18 at 23:31; Status DC Glucose (Insta-Glucose) 15 gm 1X ONCE PO Last administered on 03/30/18at 23:07 ; Start 03/30/18 at 23:30; Stop 03/30/18 at 23:31; Status DC Nitroglycerin (Nitro-Bid Oint) 1 inch 1X ONCE TP Last administered on at 01:19; Start 03/31/18 at 01:00; Stop 03/31/18 at 01:01; Status DC Bumetanide (Bumex) 0.5 mg 1X ONCE IV Last administered on 03/31/18at 01:11; Start 03/31/18 at 01:00; Stop 03/31/18 at 01:01; Status DC Ondansetron HCl (Zofran) 4 mg PRN Q8HRS PRN IV NAUSEA/VOMITING 1ST CHOICE; Start 03/31/18 at 00:45; Stop 04/01/18 at 00:44; Status DC Dextrose (Dextrose 50%-Water Syringe) 12.5 gm PRN Q15MIN PRN IV SEE COMMENTS; Start 03/31/18 at 00:45 Lidocaine HCl 20 ml 1X ONCE IJ Last administered on 03/31/18at 03:00; Start at 03:00; Stop 03/31/18 at 03:01; Status DC Lidocaine HCl (Xylocaine-Mpf 2% Vial) 2 ml STK-MED ONCE .ROUTE ; Start 03/31/18 at 02:31; Stop 03/31/18 at 02:33; Status DC Pantoprazole Sodium (Protonix) 40 mg DAILYAC PO Last administered on 04/02/18at 09:16; Start 03/31/18 at 11:30 Levothyroxine Sodium 100 mcg/ Sodium Chloride 5 ml @ 100 mls/hr DAILY IVP ; Start 04/01/18 at 09:00; Status UNV Levothyroxine Sodium 50 mcg/ Sodium Chloride 5 ml @ 100 mls/hr DAILY IVP Last administered on 04/02/18at 09:17; Start 03/31/18 at 14:00 Furosemide 100 mg/ Sodium Chloride 100 ml @ 5 mls/hr CONT PRN IV DIURESIS Last administered on 03/31/18at 12:59; Start 03/31/18 at 11:45; Stop 03/31/18 at 22:16 ; Status DC Ceftriaxone Sodium 2 gm/ Dextrose 100 ml @ 200 mls/hr Q24H IV Last administered on 04/02/18at 13:13; Start 03/31/18 at 13:00 Azithromycin 500 mg/Sodium Chloride 250 ml @ 250 mls/hr 1X ONCE IV Last administered on 03/31/18at 13:04; Start 03/31/18 at 12:30; Stop 03/31/18 at 13:29 ; Status DC Furosemide 100 mg/ Sodium Chloride 100 ml @ 0 mls/hr CONT PRN IV DIURESIS Last administered on 04/01/18at 01:34; Start 03/31/18 at 22:30; Stop 04/01/18 at 12:56 ; Status DC Lactobacillus Rhamnosus (Culturelle) 1 cap BID PO Last administered on at 20:15; Start 04/01/18 at 21:00 Azithromycin 500 mg/Sodium Chloride 250 ml @ 250 mls/hr Q24H IV Last administered on 04/02/18at 14:16; Start 04/01/18 at 14:00 Milrinone Lactate/ Dextrose 100 ml @ 2.96 mls/hr CONT PRN IV SEE I/O RECORD Last administered on 04/02/18at 14:40; Start 04/02/18 at 13:00 Acetaminophen/ Codeine Phosphate (Tylenol #3) 1 tab PRN Q6HRS PRN PO PAIN; Start 04/02/18 at 13:30 Ondansetron HCl (Zofran) 4 mg PRN Q6HRS PRN IV NAUSEA/VOMITING Last administered on 04/02/18at 15:37; Start 04/02/18 at 15:45 Active Scripts Active Reported Triamcinolone Acetonide 0.1% Cream (Triamcinolone Acetonide) 15 Gm Cream..g. 15 Gm TP Celexa (Citalopram Hydrobromide) 40 Mg Tablet 40 Mg PO DAILY Gabapentin 600 Mg Tablet 600 Mg PO TID Atorvastatin Calcium 20 Mg Tablet 20 Mg PO DAILY Celebrex (Celecoxib) 200 Mg Capsule 200 Mg PO BID 30 Days Furosemide 20 Mg Tablet 20 Mg PO DAILY Metoprolol Tartrate 25 Mg Tablet 25 Mg PO BID Omeprazole 40 Mg Capsule.dr 40 Mg PO DAILY Clonidine Hcl 0.2 Mg Tablet 0.2 Mg PO BID Colcrys (Colchicine) 0.6 Mg Tablet 0.6 Mg PO Lorazepam 1 Mg Tablet 1 Mg PO BID Klor-Con M20 (Potassium Chloride) 20 Meq Tab.er.prt 20 Meq PO DAILY Verapamil Hcl 120 Mg Tablet 120 Mg PO BID Advair 250-50 Diskus (Fluticasone/Salmeterol) 1 Each Disk.w.dev 1 Inh IH BID Iron (Ferrous Sulfate) 325 Mg Capsule.er 325 Mg PO Clopidogrel (Clopidogrel Bisulfate) 75 Mg Tablet 75 Mg PO DAILY Vitals/I & O Vital Sign - Last 24 Hours 04/01/18 04/02/18 04/02/18 04/02/18 23:45 04:03 04:04 08:00 Temp 97.9 98.3 97.9 98.3 Pulse 61 73 Resp 18 20 B/P (MAP) 98/58 (71) 104/67 (79) Pulse Ox 96 85 91 O2 Delivery Nasal Cannula Room Air Nasal Cannula Nasal Cannula O2 Flow Rate 1.0 1.0 2.0 04/02/18 04/02/18 04/02/18 04/02/18 08:00 12:00 14:30 15:00 Temp 97.9 98.2 97.4 97.9 98.2 97.4 Pulse 79 87 82 88 B/P (MAP) 107/57 (74) 113/60 (77) 103/57 (72) 103/63 (76) Pulse Ox 96 94 100 O2 Delivery Nasal Cannula Nasal Cannula Nasal Cannula O2 Flow Rate 1.0 2.0 2.0 04/02/18 04/02/18 04/02/18 04/02/18 15:30 16:00 16:30 17:00 Pulse 94 76 78 78 B/P (MAP) 100/67 (78) 94/55 (68) 84/52 (63) 85/51 (62) 04/02/18 04/02/18 04/02/18 17:30 19:39 19:47 Temp 97.6 97.6 Pulse 80 79 Resp 21 B/P (MAP) 88/54 (65) 99/55 (70) Pulse Ox 91 O2 Delivery Nasal Cannula Nasal Cannula O2 Flow Rate 3.0 2.0 Intake and Output 04/01/18 04/01/18 04/02/18 15:00 23:00 07:00 Intake Total 520 ml 600 ml Output Total 250 ml 650 ml 400 ml Balance -250 ml -130 ml 200 ml COURTNEY PIERCE MD Apr 02, 2018 21:50
[2018-04-03] VITALS (14 sets, daily range): BP systolic 99–125; BP diastolic 55–76
[2018-04-03 04:59] LABS: BASO % 1 % (0-3); EOS % 1 % (0-3); HEMOGLOBIN 8.4 g/dL (12.0-15.5); LYMPH # 0.4 x10^3/uL (1.0-4.8); LYMPH % 11 % (24-48); MEAN CORPUSCULAR HEMOGLOBIN 30 pg (25-35); MEAN CORPUSCULAR HGB CONC 33 g/dL (31-37); MEAN CORPUSCULAR VOLUME 90 fL (79-100); MONO # 0.3 x10^3/uL (0.0-1.1); MONO % 9 % (0-9); NEUT # 2.5 x10^3uL (1.8-7.7); NEUT % 78 % (31-73); PLATELET COUNT 82 x10^3/uL (140-400); RED BLOOD COUNT 2.79 x10^6/uL (3.50-5.40); RED CELL DISTRIBUTION WIDTH 28.2 % (11.5-14.5); WHITE BLOOD COUNT 3.2 x10^3/uL (4.0-11.0)
[2018-04-03 05:20] LABS: CALCIUM 8.4 mg/dL (8.5-10.1); CREATININE 2.8 mg/dL (0.6-1.0); GFR 20.2; POTASSIUM 3.4 mmol/L (3.5-5.1)
[2018-04-03] MEDS: LACTOBACILLUS RHAMNOSUS GG 1 CAPSULE. PO SCH ×2 (07:43→20:37)
[2018-04-03] MEDS: PANTOPRAZOLE 40 MG TABLET.DR. PO SCH (07:43)
[2018-04-03] MEDS: LEVOTHYROXINE SODIUM IVP SCH (08:26)
[2018-04-03] MEDS: NORMAL SALINE IVP SCH (08:26)
--- NOTE | 2018-04-03 10:44 | PDOC ---
Renal-Progress Notes Subjective Notes Notes NO NEW COMPLAINTS History of Present Illness Hx of present illness BETTER Vitals Vitals Vital Signs Date Time Temp Pulse Resp B/P (MAP) Pulse Ox O2 Delivery O2 Flow Rate FiO2 04/03/18 08:00 Nasal Cannula 2.0 04/03/18 07:00 97.7 70 18 114/63 (80) 100 97.7 Weight Weight [ ] I.O. Intake and Output Intake and Output 04/03/18 07:00 Intake Total 250 ml Output Total 1575 ml Balance -1325 ml Intake Oral 250 ml Output Urine Total 1575 ml Labs Labs Laboratory Tests Test 04/02/18 11:18 04/02/18 12:50 04/02/18 16:59 04/02/18 20:50 Glucose (Fingerstick) 94 mg/dL (70-99) 90 mg/dL (70-99) 85 mg/dL (70-99) Mixed Venous Blood pH Mixed Venous Blood PCO2 mmHg Mixed Venous Blood PO2 < 42 mmHg Mixed Venous Blood HCO3 mmol/L Mixed Venous Blood Base Excess mmol/L Mixed Venous Blood O2 Saturation 64 % Test 04/03/18 04:45 04/03/18 07:21 White Blood Count 3.2 x10^3/uL (4.0-11.0) Red Blood Count 2.79 x10^6/uL (3.50-5.40) Hemoglobin 8.4 g/dL (12.0-15.5) Hematocrit 25.0 % (36.0-47.0) Mean Corpuscular Volume 90 fL (79-100) Mean Corpuscular Hemoglobin 30 pg (25-35) Mean Corpuscular Hemoglobin Concent 33 g/dL (31-37) Red Cell Distribution Width 28.2 % (11.5-14.5) Platelet Count 82 x10^3/uL (140-400) Neutrophils (%) (Auto) 78 % (31-73) Lymphocytes (%) (Auto) 11 % (24-48) Monocytes (%) (Auto) 9 % (0-9) Eosinophils (%) (Auto) 1 % (0-3) Basophils (%) (Auto) 1 % (0-3) Neutrophils # (Auto) 2.5 x10^3uL (1.8-7.7) Lymphocytes # (Auto) 0.4 x10^3/uL (1.0-4.8) Monocytes # (Auto) 0.3 x10^3/uL (0.0-1.1) Eosinophils # (Auto) 0.0 x10^3/uL (0.0-0.7) Basophils # (Auto) 0.0 x10^3/uL (0.0-0.2) Sodium Level 142 mmol/L (136-145) Potassium Level 3.4 mmol/L (3.5-5.1) Chloride Level 103 mmol/L (98-107) Carbon Dioxide Level 28 mmol/L (21-32) Anion Gap 11 (6-14) Blood Urea Nitrogen 49 mg/dL (7-20) Creatinine 2.8 mg/dL (0.6-1.0) Estimated GFR (Cockcroft-Gault) 20.2 Glucose Level 77 mg/dL (70-99) Calcium Level 8.4 mg/dL (8.5-10.1) Glucose (Fingerstick) 66 mg/dL (70-99) Micro Micro Microbiology 03/31/18 Blood Culture - Preliminary, Resulted NO GROWTH AFTER 3 DAYS Review of Systems Constitutional: yes: weakness, alert, oriented Ears/Nose/Throat: Yes: no symptom reported Eyes: Yes: no symptom reported Pulmonary: Yes dyspnea Cardiovascular: Yes no symptom reported Gastrointestional: Yes: no symptom reported Musculoskeletal: Yes: no symptom reported Skin: Yes no symptom reported Psychiatric/Neurological: Yes: no symptom reported Physical Exam General Appearance: no apparent distress Skin: warm Respiratory: decreased breath sounds Heart: S1S2 Abdomen: soft, bowel sounds present Genitourinary: bladder flat Extremities: pulses present Neurology: alert, follow commands Assessment Assessment IMP CHF-APPEARS COMPENSATED CKD STAGE 3-BASELINE PROB 2.0 MILD JAIDEN AFTER DIURETICS - CR OF 2.8 LOW K PLAN PO LASIX REPLACE K MATIAS FLOWER MD Apr 03, 2018 10:44
[2018-04-03] MEDS ORDERED: POTASSIUM CHLORIDE 20 MEQ TABLET.ER. PO ONE (11:30)
[2018-04-03] MEDS: FUROSEMIDE 40 MG TABLET. PO SCH (12:17)
--- NOTE | 2018-04-03 12:41 | PDOC ---
CARDIOLOGY PROGRESS NOTE SUBJECTIVE: More alert today. Breathing better. OBJECTIVE: Vital SIgns: Vital Signs Date Time Temp Pulse Resp B/P (MAP) Pulse Ox O2 Delivery O2 Flow Rate FiO2 04/03/18 11:00 97.7 70 18 108/62 (77) 99 Nasal Cannula 2.0 97.7 I & O -1.3 L Objective: a/o x 3. NAD CVS; RRR No edema. Bilateral rales at the bases, improved. soft abd CURRENT MEDICATIONS: milrinone gtt lasix p.o DIAGNOSTIC TESTING: cr 2.8 improved ASSESSMENT: 1. Acute on chronic systolic/diastolic HF PLAN: 1. Continue milrinone for another 24 hours and then in a.m. will plan for initiation of HF regimen if her BP allows. IMANI VIVAS MD Apr 03, 2018 12:41
[2018-04-03 12:56] LABS: % ATYL 1 % (0-0); % BANDS 4 % (0-9); % EOS 1 % (0-5); % LYMPHS 16 % (24-48); % MONOS 7 % (0-10); % SEGS 71 % (35-66); ANISOCYTOSIS MOD; PLT ESTIMATE DECREASED (ADEQUATE)
--- NOTE | 2018-04-03 13:16 | PDOC ---
Infectious Disease Note Subjective Subjective Feeling alright Comfortable, denies pain No F/C/SOA/diarrhea ROS ROS per HPI Vital Sign Vital Signs Vital Signs Date Time Temp Pulse Resp B/P (MAP) Pulse Ox O2 Delivery O2 Flow Rate FiO2 04/03/18 11:00 97.7 70 18 108/62 (77) 99 Nasal Cannula 2.0 97.7 Physical Exam PHYSICAL EXAM GENERAL: Propped up in bed, alert, eating LUNGS: Decreased in the bases. HEART: S1, S2. Pacemaker ABDOMEN: Soft, nontender, no guarding. : Montague in place. EXTREMITIES: No gross edema or cyanosis SKIN: Without signs of rash. NEUROLOGIC: Alert, responds appropriately RIJ clean Labs Lab Laboratory Tests Test 04/02/18 16:59 04/02/18 20:50 04/03/18 04:45 04/03/18 07:21 Glucose (Fingerstick) 90 mg/dL (70-99) 85 mg/dL (70-99) 66 mg/dL (70-99) White Blood Count 3.2 x10^3/uL (4.0-11.0) Red Blood Count 2.79 x10^6/uL (3.50-5.40) Hemoglobin 8.4 g/dL (12.0-15.5) Hematocrit 25.0 % (36.0-47.0) Mean Corpuscular Volume 90 fL (79-100) Mean Corpuscular Hemoglobin 30 pg (25-35) Mean Corpuscular Hemoglobin Concent 33 g/dL (31-37) Red Cell Distribution Width 28.2 % (11.5-14.5) Platelet Count 82 x10^3/uL (140-400) Neutrophils (%) (Auto) 78 % (31-73) Lymphocytes (%) (Auto) 11 % (24-48) Monocytes (%) (Auto) 9 % (0-9) Eosinophils (%) (Auto) 1 % (0-3) Basophils (%) (Auto) 1 % (0-3) Neutrophils # (Auto) 2.5 x10^3uL (1.8-7.7) Lymphocytes # (Auto) 0.4 x10^3/uL (1.0-4.8) Monocytes # (Auto) 0.3 x10^3/uL (0.0-1.1) Eosinophils # (Auto) 0.0 x10^3/uL (0.0-0.7) Basophils # (Auto) 0.0 x10^3/uL (0.0-0.2) Segmented Neutrophils % 71 % (35-66) Band Neutrophils % 4 % (0-9) Lymphocytes % 16 % (24-48) Atypical Lymphocytes % (Manual) 1 % (0-0) Monocytes % 7 % (0-10) Eosinophils % 1 % (0-5) Platelet Estimate Decreased (ADEQUATE) Anisocytosis Mod Sodium Level 142 mmol/L (136-145) Potassium Level 3.4 mmol/L (3.5-5.1) Chloride Level 103 mmol/L (98-107) Carbon Dioxide Level 28 mmol/L (21-32) Anion Gap 11 (6-14) Blood Urea Nitrogen 49 mg/dL (7-20) Creatinine 2.8 mg/dL (0.6-1.0) Estimated GFR (Cockcroft-Gault) 20.2 Glucose Level 77 mg/dL (70-99) Calcium Level 8.4 mg/dL (8.5-10.1) Test 04/03/18 11:05 Glucose (Fingerstick) 86 mg/dL (70-99) Micro Microbiology 03/31/18 Blood Culture - Preliminary, Resulted NO GROWTH AFTER 3 DAYS Objective Assessment Pancytopenia Encephalopathy - better ? Pneumonia Abx allergies Lactic acidosis - improved Hypothyroidism Transaminitis - mild increase - ? reactive JAIDEN. UA no sign of infection NSTEMI Plan Plan of Care Cont Rocephin/Azithromycin for now NGTD Supportive care Repeat labs in am Pt seen and examined. Chart reviewed in detail. Case discussed with [employer]. Agree with above plan EDILSON KENDALL APRN Apr 03, 2018 13:16 KRISTA SYED MD Apr 03, 2018 18:35
[2018-04-03] MEDS: cefTRIAXone SODIUM 2 GM in IV DEXTROSE 5% 100ML 100 ML IV SCH (14:30)
[2018-04-03] MEDS: AZITHROMYCIN 500 MG in IV NORMAL SALINE 250ML 250 ML IV SCH (14:31)
[2018-04-03] MEDS: MILRINONE 20MG/100ML PREMIX 100 ML IV PRN (17:04)
[2018-04-03] MEDS ORDERED: SIMETHICONE 80 MG TAB.CHEW PO PRN (17:45)
--- NOTE | 2018-04-03 19:18 | PDOC ---
PROGRESS NOTES Chief Complaint Chief Complaint Acute heart failure NSTEMI JADIEN Sepsis HTN Anemia Hypoglycemia Plan: Poss RHC on Wednesday - per notes watching for now: " 1. Continue milrinone for another 24 hours and then in a.m. will plan for initiation of HF regimen if her BP allows." Cefr/Azithro for PNA per ID Vitals Vitals Vital Signs Date Time Temp Pulse Resp B/P (MAP) Pulse Ox O2 Delivery O2 Flow Rate FiO2 04/03/18 15:00 97.7 88 18 119/67 (84) 99 Nasal Cannula 2.0 97.7 Physical Exam Physical Exam GENERAL: Propped up in bed, alert, eating LUNGS: Decreased in the bases. HEART: S1, S2. Pacemaker ABDOMEN: Soft, nontender, no guarding. : Mont[place] in place. EXTREMITIES: No gross edema or cyanosis SKIN: Without signs of rash. NEUROLOGIC: Alert, responds appropriately RIJ clean General: No acute distress, Other (minimally arousable, mumbles) Heart: Normal S1, Normal S2 Abdomen: Normal bowel sounds (obese abdomen), Soft Extremities: No clubbing, Other (trace edema) Skin: No rashes, No significant lesion Labs LABS Laboratory Tests Test 04/02/18 20:50 04/03/18 04:45 04/03/18 07:21 04/03/18 11:05 Glucose (Fingerstick) 85 mg/dL (70-99) 66 mg/dL (70-99) 86 mg/dL (70-99) White Blood Count 3.2 x10^3/uL (4.0-11.0) Red Blood Count 2.79 x10^6/uL (3.50-5.40) Hemoglobin 8.4 g/dL (12.0-15.5) Hematocrit 25.0 % (36.0-47.0) Mean Corpuscular Volume 90 fL (79-100) Mean Corpuscular Hemoglobin 30 pg (25-35) Mean Corpuscular Hemoglobin Concent 33 g/dL (31-37) Red Cell Distribution Width 28.2 % (11.5-14.5) Platelet Count 82 x10^3/uL (140-400) Neutrophils (%) (Auto) 78 % (31-73) Lymphocytes (%) (Auto) 11 % (24-48) Monocytes (%) (Auto) 9 % (0-9) Eosinophils (%) (Auto) 1 % (0-3) Basophils (%) (Auto) 1 % (0-3) Neutrophils # (Auto) 2.5 x10^3uL (1.8-7.7) Lymphocytes # (Auto) 0.4 x10^3/uL (1.0-4.8) Monocytes # (Auto) 0.3 x10^3/uL (0.0-1.1) Eosinophils # (Auto) 0.0 x10^3/uL (0.0-0.7) Basophils # (Auto) 0.0 x10^3/uL (0.0-0.2) Segmented Neutrophils % 71 % (35-66) Band Neutrophils % 4 % (0-9) Lymphocytes % 16 % (24-48) Atypical Lymphocytes % (Manual) 1 % (0-0) Monocytes % 7 % (0-10) Eosinophils % 1 % (0-5) Platelet Estimate Decreased (ADEQUATE) Anisocytosis Mod Sodium Level 142 mmol/L (136-145) Potassium Level 3.4 mmol/L (3.5-5.1) Chloride Level 103 mmol/L (98-107) Carbon Dioxide Level 28 mmol/L (21-32) Anion Gap 11 (6-14) Blood Urea Nitrogen 49 mg/dL (7-20) Creatinine 2.8 mg/dL (0.6-1.0) Estimated GFR (Cockcroft-Gault) 20.2 Glucose Level 77 mg/dL (70-99) Calcium Level 8.4 mg/dL (8.5-10.1) Test 04/03/18 17:00 Glucose (Fingerstick) 120 mg/dL (70-99) Assessment and Plan Assessmemt and Plan Problems Medical Problems: (1) Acute exacerbation of CHF (congestive heart failure) Status: Acute (2) Elevated troponin I level Status: Acute (3) Hypoglycemia Status: Acute (4) Hypoxia Status: Acute (5) Lactic acidosis Status: Acute (6) Renal insufficiency Status: Acute Comment Review of Relevant I have reviewed the following items madeline (where applicable) has been applied. Labs Laboratory Tests Test 04/01/18 22:20 04/01/18 22:42 04/02/18 05:30 04/02/18 07:51 Glucose (Fingerstick) 68 mg/dL (70-99) 76 mg/dL (70-99) 109 mg/dL (70-99) White Blood Count 4.3 x10^3/uL (4.0-11.0) Red Blood Count 2.97 x10^6/uL (3.50-5.40) Hemoglobin 9.0 g/dL (12.0-15.5) Hematocrit 26.9 % (36.0-47.0) Mean Corpuscular Volume 91 fL (79-100) Mean Corpuscular Hemoglobin 30 pg (25-35) Mean Corpuscular Hemoglobin Concent 34 g/dL (31-37) Red Cell Distribution Width 28.3 % (11.5-14.5) Platelet Count 107 x10^3/uL (140-400) Neutrophils (%) (Auto) 73 % (31-73) Lymphocytes (%) (Auto) 12 % (24-48) Monocytes (%) (Auto) 11 % (0-9) Eosinophils (%) (Auto) 1 % (0-3) Basophils (%) (Auto) 3 % (0-3) Neutrophils # (Auto) 3.1 x10^3uL (1.8-7.7) Lymphocytes # (Auto) 0.5 x10^3/uL (1.0-4.8) Monocytes # (Auto) 0.5 x10^3/uL (0.0-1.1) Eosinophils # (Auto) 0.0 x10^3/uL (0.0-0.7) Basophils # (Auto) 0.1 x10^3/uL (0.0-0.2) Segmented Neutrophils % 72 % (35-66) Band Neutrophils % 4 % (0-9) Lymphocytes % 17 % (24-48) Monocytes % 6 % (0-10) Nucleated Red Blood Cells 1 Platelet Estimate Decreased (ADEQUATE) Poikilocytosis Mod Anisocytosis Marked Target Cells Present Ovalocytes Present Kamaljit Cells Present Sodium Level 140 mmol/L (136-145) Potassium Level 3.6 mmol/L (3.5-5.1) Chloride Level 103 mmol/L (98-107) Carbon Dioxide Level 22 mmol/L (21-32) Anion Gap 15 (6-14) Blood Urea Nitrogen 48 mg/dL (7-20) Creatinine 3.2 mg/dL (0.6-1.0) Estimated GFR (Cockcroft-Gault) 17.3 Glucose Level 94 mg/dL (70-99) Calcium Level 8.1 mg/dL (8.5-10.1) Test 04/02/18 11:18 04/02/18 12:50 04/02/18 16:59 04/02/18 20:50 Glucose (Fingerstick) 94 mg/dL (70-99) 90 mg/dL (70-99) 85 mg/dL (70-99) Mixed Venous Blood pH Mixed Venous Blood PCO2 mmHg Mixed Venous Blood PO2 < 42 mmHg Mixed Venous Blood HCO3 mmol/L Mixed Venous Blood Base Excess mmol/L Mixed Venous Blood O2 Saturation 64 % Test 04/03/18 04:45 04/03/18 07:21 04/03/18 11:05 04/03/18 17:00 White Blood Count 3.2 x10^3/uL (4.0-11.0) Red Blood Count 2.79 x10^6/uL (3.50-5.40) Hemoglobin 8.4 g/dL (12.0-15.5) Hematocrit 25.0 % (36.0-47.0) Mean Corpuscular Volume 90 fL (79-100) Mean Corpuscular Hemoglobin 30 pg (25-35) Mean Corpuscular Hemoglobin Concent 33 g/dL (31-37) Red Cell Distribution Width 28.2 % (11.5-14.5) Platelet Count 82 x10^3/uL (140-400) Neutrophils (%) (Auto) 78 % (31-73) Lymphocytes (%) (Auto) 11 % (24-48) Monocytes (%) (Auto) 9 % (0-9) Eosinophils (%) (Auto) 1 % (0-3) Basophils (%) (Auto) 1 % (0-3) Neutrophils # (Auto) 2.5 x10^3uL (1.8-7.7) Lymphocytes # (Auto) 0.4 x10^3/uL (1.0-4.8) Monocytes # (Auto) 0.3 x10^3/uL (0.0-1.1) Eosinophils # (Auto) 0.0 x10^3/uL (0.0-0.7) Basophils # (Auto) 0.0 x10^3/uL (0.0-0.2) Segmented Neutrophils % 71 % (35-66) Band Neutrophils % 4 % (0-9) Lymphocytes % 16 % (24-48) Atypical Lymphocytes % (Manual) 1 % (0-0) Monocytes % 7 % (0-10) Eosinophils % 1 % (0-5) Platelet Estimate Decreased (ADEQUATE) Anisocytosis Mod Sodium Level 142 mmol/L (136-145) Potassium Level 3.4 mmol/L (3.5-5.1) Chloride Level 103 mmol/L (98-107) Carbon Dioxide Level 28 mmol/L (21-32) Anion Gap 11 (6-14) Blood Urea Nitrogen 49 mg/dL (7-20) Creatinine 2.8 mg/dL (0.6-1.0) Estimated GFR (Cockcroft-Gault) 20.2 Glucose Level 77 mg/dL (70-99) Calcium Level 8.4 mg/dL (8.5-10.1) Glucose (Fingerstick) 66 mg/dL (70-99) 86 mg/dL (70-99) 120 mg/dL (70-99) Laboratory Tests Test 04/02/18 20:50 04/03/18 04:45 04/03/18 07:21 04/03/18 11:05 Glucose (Fingerstick) 85 mg/dL (70-99) 66 mg/dL (70-99) 86 mg/dL (70-99) White Blood Count 3.2 x10^3/uL (4.0-11.0) Red Blood Count 2.79 x10^6/uL (3.50-5.40) Hemoglobin 8.4 g/dL (12.0-15.5) Hematocrit 25.0 % (36.0-47.0) Mean Corpuscular Volume 90 fL (79-100) Mean Corpuscular Hemoglobin 30 pg (25-35) Mean Corpuscular Hemoglobin Concent 33 g/dL (31-37) Red Cell Distribution Width 28.2 % (11.5-14.5) Platelet Count 82 x10^3/uL (140-400) Neutrophils (%) (Auto) 78 % (31-73) Lymphocytes (%) (Auto) 11 % (24-48) Monocytes (%) (Auto) 9 % (0-9) Eosinophils (%) (Auto) 1 % (0-3) Basophils (%) (Auto) 1 % (0-3) Neutrophils # (Auto) 2.5 x10^3uL (1.8-7.7) Lymphocytes # (Auto) 0.4 x10^3/uL (1.0-4.8) Monocytes # (Auto) 0.3 x10^3/uL (0.0-1.1) Eosinophils # (Auto) 0.0 x10^3/uL (0.0-0.7) Basophils # (Auto) 0.0 x10^3/uL (0.0-0.2) Segmented Neutrophils % 71 % (35-66) Band Neutrophils % 4 % (0-9) Lymphocytes % 16 % (24-48) Atypical Lymphocytes % (Manual) 1 % (0-0) Monocytes % 7 % (0-10) Eosinophils % 1 % (0-5) Platelet Estimate Decreased (ADEQUATE) Anisocytosis Mod Sodium Level 142 mmol/L (136-145) Potassium Level 3.4 mmol/L (3.5-5.1) Chloride Level 103 mmol/L (98-107) Carbon Dioxide Level 28 mmol/L (21-32) Anion Gap 11 (6-14) Blood Urea Nitrogen 49 mg/dL (7-20) Creatinine 2.8 mg/dL (0.6-1.0) Estimated GFR (Cockcroft-Gault) 20.2 Glucose Level 77 mg/dL (70-99) Calcium Level 8.4 mg/dL (8.5-10.1) Test 04/03/18 17:00 Glucose (Fingerstick) 120 mg/dL (70-99) Microbiology 03/31/18 Blood Culture - Preliminary, Resulted NO GROWTH AFTER 3 DAYS Medications Current Medications Aspirin (Karen Aspirin) 325 mg 1X ONCE PO Last administered on 03/31/18at 01:16 ; Start 03/30/18 at 23:30; Stop 03/30/18 at 23:31; Status DC Fentanyl Citrate (Fentanyl 2ml Vial) 50 mcg 1X ONCE IV ; Start 03/30/18 at 23: 30; Stop 03/30/18 at 23:31; Status DC Dextrose (Dextrose 50%-Water Syringe) 25 gm 1X ONCE IV Last administered on at 23:10; Start 03/30/18 at 23:30; Stop 03/30/18 at 23:31; Status DC Dextrose (Dextrose 50%-Water Syringe) 25 gm STK-MED ONCE IV ; Start 03/30/18 at 23:05; Stop 03/30/18 at 23:06; Status DC Glucose (Insta-Glucose) 15 gm STK-MED ONCE .ROUTE ; Start 03/30/18 at 23:05; Stop 03/30/18 at 23:06; Status DC Ondansetron HCl (Zofran) 4 mg 1X ONCE IV Last administered on 03/31/18at 01:18 ; Start 03/30/18 at 23:30; Stop 03/30/18 at 23:31; Status DC Glucose (Insta-Glucose) 15 gm 1X ONCE PO Last administered on 03/30/18at 23:07 ; Start 03/30/18 at 23:30; Stop 03/30/18 at 23:31; Status DC Nitroglycerin (Nitro-Bid Oint) 1 inch 1X ONCE TP Last administered on at 01:19; Start 03/31/18 at 01:00; Stop 03/31/18 at 01:01; Status DC Bumetanide (Bumex) 0.5 mg 1X ONCE IV Last administered on 03/31/18at 01:11; Start 03/31/18 at 01:00; Stop 03/31/18 at 01:01; Status DC Ondansetron HCl (Zofran) 4 mg PRN Q8HRS PRN IV NAUSEA/VOMITING 1ST CHOICE; Start 03/31/18 at 00:45; Stop 04/01/18 at 00:44; Status DC Dextrose (Dextrose 50%-Water Syringe) 12.5 gm PRN Q15MIN PRN IV SEE COMMENTS; Start 03/31/18 at 00:45 Lidocaine HCl 20 ml 1X ONCE IJ Last administered on 03/31/18at 03:00; Start at 03:00; Stop 03/31/18 at 03:01; Status DC Lidocaine HCl (Xylocaine-Mpf 2% Vial) 2 ml STK-MED ONCE .ROUTE ; Start 03/31/18 at 02:31; Stop 03/31/18 at 02:33; Status DC Pantoprazole Sodium (Protonix) 40 mg DAILYAC PO Last administered on 04/03/18 07:43; Start 03/31/18 at 11:30 Levothyroxine Sodium 100 mcg/ Sodium Chloride 5 ml @ 100 mls/hr DAILY IVP ; Start 04/01/18 at 09:00; Status UNV Levothyroxine Sodium 50 mcg/ Sodium Chloride 5 ml @ 100 mls/hr DAILY IVP Last administered on 04/03/18at 08:26; Start 03/31/18 at 14:00 Furosemide 100 mg/ Sodium Chloride 100 ml @ 5 mls/hr CONT PRN IV DIURESIS Last administered on 03/31/18at 12:59; Start 03/31/18 at 11:45; Stop 03/31/18 at 22:16 ; Status DC Ceftriaxone Sodium 2 gm/ Dextrose 100 ml @ 200 mls/hr Q24H IV Last administered on 04/03/18at 14:30; Start 03/31/18 at 13:00 Azithromycin 500 mg/Sodium Chloride 250 ml @ 250 mls/hr 1X ONCE IV Last administered on 03/31/18at 13:04; Start 03/31/18 at 12:30; Stop 03/31/18 at 13:29 ; Status DC Furosemide 100 mg/ Sodium Chloride 100 ml @ 0 mls/hr CONT PRN IV DIURESIS Last administered on 04/01/18at 01:34; Start 03/31/18 at 22:30; Stop 04/01/18 at 12:56 ; Status DC Lactobacillus Rhamnosus (Culturelle) 1 cap BID PO Last administered on at 07:43; Start 04/01/18 at 21:00 Azithromycin 500 mg/Sodium Chloride 250 ml @ 250 mls/hr Q24H IV Last administered on 04/03/18at 14:31; Start 04/01/18 at 14:00 Milrinone Lactate/ Dextrose 100 ml @ 2.96 mls/hr CONT PRN IV SEE I/O RECORD Last administered on 04/03/18at 17:04; Start 04/02/18 at 13:00 Acetaminophen/ Codeine Phosphate (Tylenol #3) 1 tab PRN Q6HRS PRN PO PAIN; Start 04/02/18 at 13:30 Ondansetron HCl (Zofran) 4 mg PRN Q6HRS PRN IV NAUSEA/VOMITING Last administered on 04/02/18at 15:37; Start 04/02/18 at 15:45 Furosemide (Lasix) 40 mg DAILY PO Last administered on 04/03/18at 12:17; Start 04/03/18 at 11:30 Potassium Chloride (Klor-Con) 20 meq 1X ONCE PO Last administered on at 12:17; Start 04/03/18 at 11:30; Stop 04/03/18 at 11:31; Status DC Simethicone (Gas-X) 80 mg PRN AFTMEALHC PRN PO GAS / BLOATING; Start 04/03/18 at 17:45 Active Scripts Active Reported Triamcinolone Acetonide 0.1% Cream (Triamcinolone Acetonide) 15 Gm Cream..g. 15 Gm TP Celexa (Citalopram Hydrobromide) 40 Mg Tablet 40 Mg PO DAILY Gabapentin 600 Mg Tablet 600 Mg PO TID Atorvastatin Calcium 20 Mg Tablet 20 Mg PO DAILY Celebrex (Celecoxib) 200 Mg Capsule 200 Mg PO BID 30 Days Furosemide 20 Mg Tablet 20 Mg PO DAILY Metoprolol Tartrate 25 Mg Tablet 25 Mg PO BID Omeprazole 40 Mg Capsule.dr 40 Mg PO DAILY Clonidine Hcl 0.2 Mg Tablet 0.2 Mg PO BID Colcrys (Colchicine) 0.6 Mg Tablet 0.6 Mg PO Lorazepam 1 Mg Tablet 1 Mg PO BID Klor-Con M20 (Potassium Chloride) 20 Meq Tab.er.prt 20 Meq PO DAILY Verapamil Hcl 120 Mg Tablet 120 Mg PO BID Advair 250-50 Diskus (Fluticasone/Salmeterol) 1 Each Disk.w.dev 1 Inh IH BID Iron (Ferrous Sulfate) 325 Mg Capsule.er 325 Mg PO Clopidogrel (Clopidogrel Bisulfate) 75 Mg Tablet 75 Mg PO DAILY Vitals/I & O Vital Sign - Last 24 Hours 04/02/18 04/02/18 04/02/18 04/02/18 19:39 19:47 20:00 20:30 Temp 97.6 97.6 Pulse 79 78 72 Resp 21 B/P (MAP) 99/55 (70) 100/62 (75) 115/70 (85) Pulse Ox 91 O2 Delivery Nasal Cannula Nasal Cannula O2 Flow Rate 3.0 2.0 04/02/18 04/02/18 04/02/18 04/02/18 21:00 21:30 22:00 22:30 Pulse 72 78 70 68 B/P (MAP) 69/70 (70) 123/74 (90) 103/59 (74) 104/60 (75) 04/02/18 04/02/18 04/02/18 04/03/18 23:00 23:30 23:40 00:01 Temp 97.7 97.7 Pulse 72 68 74 B/P (MAP) 111/63 (79) 107/63 (78) 125/76 (92) Pulse Ox 100 O2 Delivery Nasal Cannula O2 Flow Rate 3.0 04/03/18 04/03/18 04/03/18 04/03/18 00:30 01:00 01:30 02:00 Pulse 70 68 68 68 B/P (MAP) 106/62 (77) 103/58 (73) 106/60 (75) 107/58 (74) 04/03/18 04/03/18 04/03/18 04/03/18 02:30 03:00 03:30 04:00 Temp 97.1 97.1 Pulse 74 66 68 69 Resp 20 B/P (MAP) 120/67 (84) 99/56 (70) 106/62 (77) 99/55 (70) Pulse Ox 97 O2 Delivery Nasal Cannula O2 Flow Rate 2.0 04/03/18 04/03/18 04/03/18 04/03/18 07:00 08:00 11:00 15:00 Temp 97.7 97.7 97.7 97.7 97.7 97.7 Pulse 70 70 88 Resp 18 18 18 B/P (MAP) 114/63 (80) 108/62 (77) 119/67 (84) Pulse Ox 100 99 99 O2 Delivery Nasal Cannula Nasal Cannula Nasal Cannula Nasal Cannula O2 Flow Rate 2.0 2.0 2.0 2.0 Intake and Output 04/02/18 04/02/18 04/03/18 15:00 23:00 07:00 Intake Total 200 ml 50 ml Output Total 800 ml 775 ml Balance 200 ml -750 ml -775 ml COURTNEY PIERCE MD Apr 03, 2018 19:18
[2018-04-04 03:05] VITALS: BP 118/59
[2018-04-04 05:00] LABS: BASO # 0.1 x10^3/uL (0.0-0.2); BASO % 3 % (0-3); EOS % 1 % (0-3); HEMATOCRIT 25.1 % (36.0-47.0); HEMOGLOBIN 8.5 g/dL (12.0-15.5); LYMPH # 0.3 x10^3/uL (1.0-4.8); LYMPH % 9 % (24-48); MEAN CORPUSCULAR HEMOGLOBIN 30 pg (25-35); MEAN CORPUSCULAR HGB CONC 34 g/dL (31-37); MEAN CORPUSCULAR VOLUME 89 fL (79-100); MONO # 0.5 x10^3/uL (0.0-1.1); MONO % 16 % (0-9); NEUT # 2.2 x10^3uL (1.8-7.7); NEUT % 72 % (31-73); PLATELET COUNT 145 x10^3/uL (140-400); RED BLOOD COUNT 2.83 x10^6/uL (3.50-5.40); RED CELL DISTRIBUTION WIDTH 28.8 % (11.5-14.5); WHITE BLOOD COUNT 3.1 x10^3/uL (4.0-11.0)
[2018-04-04 07:04] LABS: CALCIUM 9.3 mg/dL (8.5-10.1); CREATININE 2.4 mg/dL (0.6-1.0); GFR 24.1; MAGNESIUM 1.5 mg/dL (1.8-2.4); POTASSIUM 3.8 mmol/L (3.5-5.1)
[2018-04-04 07:50] VITALS: BP 110/48
[2018-04-04 08:35] LABS: ANISOCYTOSIS PRESENT; OVALOCYTES PRESENT; PLT ESTIMATE ADEQUATE (ADEQUATE); POIKILOCYTOSIS PRESENT; POLYCHROMASIA PRESENT; TARGET CELLS PRESENT
[2018-04-04 08:36] LABS: BURR CELLS FEW; SCHISTOCYTES FEW; TEAR DROP CELLS OCC
--- NOTE | 2018-04-04 08:48 | PDOC ---
Infectious Disease Note Subjective Subjective Feeling alright Comfortable, denies pain No F/C/SOA/diarrhea ROS ROS no n/v/d/sob Vital Sign Vital Signs Vital Signs Date Time Temp Pulse Resp B/P (MAP) Pulse Ox O2 Delivery O2 Flow Rate FiO2 04/04/18 07:50 98.1 83 18 110/48 (68) 99 Nasal Cannula 2.0 98.1 Physical Exam PHYSICAL EXAM GENERAL: Propped up in bed, alert, eating LUNGS: Decreased in the bases. HEART: S1, S2. Pacemaker ABDOMEN: Soft, nontender, no guarding. : [place] in place. EXTREMITIES: No gross edema or cyanosis SKIN: Without signs of rash. NEUROLOGIC: Alert, responds appropriately RIJ clean Labs Lab Laboratory Tests Test 04/03/18 11:05 04/03/18 17:00 04/03/18 21:24 04/04/18 04:50 Glucose (Fingerstick) 86 mg/dL (70-99) 120 mg/dL (70-99) 103 mg/dL (70-99) White Blood Count 3.1 x10^3/uL (4.0-11.0) Red Blood Count 2.83 x10^6/uL (3.50-5.40) Hemoglobin 8.5 g/dL (12.0-15.5) Hematocrit 25.1 % (36.0-47.0) Mean Corpuscular Volume 89 fL (79-100) Mean Corpuscular Hemoglobin 30 pg (25-35) Mean Corpuscular Hemoglobin Concent 34 g/dL (31-37) Red Cell Distribution Width 28.8 % (11.5-14.5) Platelet Count 145 x10^3/uL (140-400) Neutrophils (%) (Auto) 72 % (31-73) Lymphocytes (%) (Auto) 9 % (24-48) Monocytes (%) (Auto) 16 % (0-9) Eosinophils (%) (Auto) 1 % (0-3) Basophils (%) (Auto) 3 % (0-3) Neutrophils # (Auto) 2.2 x10^3uL (1.8-7.7) Lymphocytes # (Auto) 0.3 x10^3/uL (1.0-4.8) Monocytes # (Auto) 0.5 x10^3/uL (0.0-1.1) Eosinophils # (Auto) 0.0 x10^3/uL (0.0-0.7) Basophils # (Auto) 0.1 x10^3/uL (0.0-0.2) Platelet Estimate Adequate (ADEQUATE) Polychromasia Present Poikilocytosis Present Anisocytosis Present Target Cells Present Tear Drop Cells Occ Ovalocytes Present Kamaljit Cells Few Schistocytes Few Test 04/04/18 06:20 04/04/18 07:14 Sodium Level 141 mmol/L (136-145) Potassium Level 3.8 mmol/L (3.5-5.1) Chloride Level 102 mmol/L (98-107) Carbon Dioxide Level 31 mmol/L (21-32) Anion Gap 8 (6-14) Blood Urea Nitrogen 45 mg/dL (7-20) Creatinine 2.4 mg/dL (0.6-1.0) Estimated GFR (Cockcroft-Gault) 24.1 Glucose Level 78 mg/dL (70-99) Calcium Level 9.3 mg/dL (8.5-10.1) Magnesium Level 1.5 mg/dL (1.8-2.4) Glucose (Fingerstick) 71 mg/dL (70-99) Micro Microbiology 03/31/18 Blood Culture - Preliminary, Resulted NO GROWTH AFTER 4 DAYS Objective Assessment Pancytopenia Encephalopathy - better ? Pneumonia Abx allergies Lactic acidosis - improved Hypothyroidism Transaminitis - mild increase - ? reactive JAIDEN. UA no sign of infection NSTEMI Plan Plan of Care d/c Rocephin/Azithromycin BC NGTD Supportive care Repeat labs in am pt/ot ADA LIRIANO MD Apr 04, 2018 08:48
[2018-04-04] MEDS: FUROSEMIDE 40 MG TABLET. PO SCH (08:51)
[2018-04-04] MEDS: PANTOPRAZOLE 40 MG TABLET.DR. PO SCH (08:51)
[2018-04-04] MEDS: LACTOBACILLUS RHAMNOSUS GG 1 CAPSULE. PO SCH ×2 (08:51→21:34)
[2018-04-04] MEDS: NORMAL SALINE IVP SCH (08:52)
[2018-04-04] MEDS: LEVOTHYROXINE SODIUM IVP SCH (08:52)
--- NOTE | 2018-04-04 10:16 | PDOC ---
SUBJECTIVE ROS Stable OBJECTIVE Vital Signs Vital Signs Date Time Temp Pulse Resp B/P (MAP) Pulse Ox O2 Delivery O2 Flow Rate FiO2 04/04/18 09:57 Nasal Cannula 2.0 04/04/18 07:50 98.1 83 18 110/48 (68) 99 98.1 I & 0 Intake and Output 04/04/18 07:00 Intake Total 737 ml Output Total 3325 ml Balance -2588 ml Intake Oral 737 ml Output Urine Total 3325 ml PHYSICAL EXAM Physical Exam General: No acute distress, awake and alert HEENT: OM moist , On o2 by NC Lungs: CTA ant Heart: Normal S1, Normal S2 Abdomen: Normal bowel sounds , soft, obese Extremities: Trace Bilat edema Skin: No rashes Neuro: AXOX3 - Montague + DIAGNOSIS/ASSESSMENT Assessment & Plan JAIDEN -- Cardiorenal Improving Reviewed records from 2011([facility]) Creat Normal at 1.0 In October 2016- Creat 1.8 As per Med list- she is on Celebrex- recommend DC CKD - Baseline 1.8 in October 2016 E- Lytes stable Hypomagnesemia- mild Replace as needed Acute heart failure- Now Compensated Was on IV Lasix drip on admission On milrinone IV and PO lasix, Cardiology following NSTEMI Cardiology on board Elevated LFTs GI following PPM Cardiology following HTN- BP controlled Elevated TSH- On LTHx Discussed A/P with RN US abdomen - Right kidney is obscured by bowel gas. Left kidney measures 9 cm x 5 cm and 4.8 cm. COMMENT/RELEVANT DATA Meds Current Medications Medications (Trade) Dose Ordered Sig/Domitila Start Time Stop Time Status Last Admin Dose Admin Acetaminophen/ Codeine Phosphate (Tylenol #3) 1 tab PRN Q6HRS PRN 04/02/18 13:30 Aspirin (Karen Aspirin) 325 mg 1X ONCE 03/30/18 23:30 03/30/18 23:31 DC 03/31/18 01:16 325 MG Azithromycin 500 mg/Sodium Chloride 250 ml @ 250 mls/hr Q24H 04/01/18 14:00 04/04/18 08:49 DC 04/03/18 14:31 250 MLS/HR Bumetanide (Bumex) 0.5 mg 1X ONCE 03/31/18 01:00 03/31/18 01:01 DC 03/31/18 01:11 0.5 MG Ceftriaxone Sodium 2 gm/ Dextrose 100 ml @ 200 mls/hr Q24H 03/31/18 13:00 04/04/18 08:49 DC 04/03/18 14:30 200 MLS/HR Dextrose (Dextrose 50%-Water Syringe) 12.5 gm PRN Q15MIN PRN 03/31/18 00:45 Fentanyl Citrate (Fentanyl 2ml Vial) 50 mcg 1X ONCE 03/30/18 23:30 03/30/18 23:31 DC Furosemide (Lasix) 40 mg DAILY 04/03/18 11:30 04/04/18 08:51 40 MG Furosemide 100 mg/ Sodium Chloride 100 ml @ 0 mls/hr CONT PRN 03/31/18 22:30 04/01/18 12:56 DC 04/01/18 01:34 10 MLS/HR Glucose (Insta-Glucose) 15 gm 1X ONCE 03/30/18 23:30 03/30/18 23:31 DC 03/30/18 23:07 15 GM Lactobacillus Rhamnosus (Culturelle) 1 cap BID 04/01/18 21:00 04/04/18 08:51 1 CAP Levothyroxine Sodium 100 mcg/ Sodium Chloride 5 ml @ 100 mls/hr DAILY 04/01/18 09:00 UNV Levothyroxine Sodium 50 mcg/ Sodium Chloride 5 ml @ 100 mls/hr DAILY 03/31/18 14:00 04/04/18 08:52 100 MLS/HR Lidocaine HCl (Xylocaine-Mpf 2% Vial) 2 ml STK-MED ONCE 03/31/18 02:31 03/31/18 02:33 DC Milrinone Lactate/ Dextrose 100 ml @ 2.96 mls/hr CONT PRN 04/02/18 13:00 04/03/18 17:04 2.96 MLS/HR Nitroglycerin (Nitro-Bid Oint) 1 inch 1X ONCE 03/31/18 01:00 03/31/18 01:01 DC 03/31/18 01:19 1 INCH Ondansetron HCl (Zofran) 4 mg PRN Q6HRS PRN 04/02/18 15:45 04/02/18 15:37 4 MG Pantoprazole Sodium (Protonix) 40 mg DAILYAC 03/31/18 11:30 04/04/18 08:51 40 MG Potassium Chloride (Klor-Con) 20 meq 1X ONCE 04/03/18 11:30 04/03/18 11:31 DC 04/03/18 12:17 20 MEQ Simethicone (Gas-X) 80 mg PRN AFTMEALHC PRN 04/03/18 17:45 Lab Laboratory Tests Test 04/03/18 11:05 04/03/18 17:00 04/03/18 21:24 04/04/18 04:50 Glucose (Fingerstick) 86 mg/dL (70-99) 120 mg/dL (70-99) 103 mg/dL (70-99) White Blood Count 3.1 x10^3/uL (4.0-11.0) Red Blood Count 2.83 x10^6/uL (3.50-5.40) Hemoglobin 8.5 g/dL (12.0-15.5) Hematocrit 25.1 % (36.0-47.0) Mean Corpuscular Volume 89 fL (79-100) Mean Corpuscular Hemoglobin 30 pg (25-35) Mean Corpuscular Hemoglobin Concent 34 g/dL (31-37) Red Cell Distribution Width 28.8 % (11.5-14.5) Platelet Count 145 x10^3/uL (140-400) Neutrophils (%) (Auto) 72 % (31-73) Lymphocytes (%) (Auto) 9 % (24-48) Monocytes (%) (Auto) 16 % (0-9) Eosinophils (%) (Auto) 1 % (0-3) Basophils (%) (Auto) 3 % (0-3) Neutrophils # (Auto) 2.2 x10^3uL (1.8-7.7) Lymphocytes # (Auto) 0.3 x10^3/uL (1.0-4.8) Monocytes # (Auto) 0.5 x10^3/uL (0.0-1.1) Eosinophils # (Auto) 0.0 x10^3/uL (0.0-0.7) Basophils # (Auto) 0.1 x10^3/uL (0.0-0.2) Platelet Estimate Adequate (ADEQUATE) Polychromasia Present Poikilocytosis Present Anisocytosis Present Target Cells Present Tear Drop Cells Occ Ovalocytes Present Kamaljit Cells Few Schistocytes Few Test 04/04/18 06:20 04/04/18 07:14 Sodium Level 141 mmol/L (136-145) Potassium Level 3.8 mmol/L (3.5-5.1) Chloride Level 102 mmol/L (98-107) Carbon Dioxide Level 31 mmol/L (21-32) Anion Gap 8 (6-14) Blood Urea Nitrogen 45 mg/dL (7-20) Creatinine 2.4 mg/dL (0.6-1.0) Estimated GFR (Cockcroft-Gault) 24.1 Glucose Level 78 mg/dL (70-99) Calcium Level 9.3 mg/dL (8.5-10.1) Magnesium Level 1.5 mg/dL (1.8-2.4) Glucose (Fingerstick) 71 mg/dL (70-99) Results All relevant outside records, renal labs, imaging studies, telemetry/EKG's were reviewed. SUNIL OROZCO MD Apr 04, 2018 10:16
[2018-04-04 11:34] VITALS: BP 123/71
--- NOTE | 2018-04-04 12:00 | PDOC ---
Objective: Objective: Reviewed w/ RN - was more alert this morning, now drowsy. No GI concerns. Vital Signs: Vital Signs Date Time Temp Pulse Resp B/P (MAP) Pulse Ox O2 Delivery O2 Flow Rate FiO2 04/04/18 11:34 98.3 75 20 123/71 (88) 99 Nasal Cannula 2.0 98.3 Labs: Laboratory Tests Test 04/03/18 17:00 04/03/18 21:24 04/04/18 04:50 04/04/18 06:20 Glucose (Fingerstick) 120 mg/dL 103 mg/dL White Blood Count 3.1 x10^3/uL Red Blood Count 2.83 x10^6/uL Hemoglobin 8.5 g/dL Hematocrit 25.1 % Mean Corpuscular Volume 89 fL Mean Corpuscular Hemoglobin 30 pg Mean Corpuscular Hemoglobin Concent 34 g/dL Red Cell Distribution Width 28.8 % Platelet Count 145 x10^3/uL Neutrophils (%) (Auto) 72 % Lymphocytes (%) (Auto) 9 % Monocytes (%) (Auto) 16 % Eosinophils (%) (Auto) 1 % Basophils (%) (Auto) 3 % Neutrophils # (Auto) 2.2 x10^3uL Lymphocytes # (Auto) 0.3 x10^3/uL Monocytes # (Auto) 0.5 x10^3/uL Eosinophils # (Auto) 0.0 x10^3/uL Basophils # (Auto) 0.1 x10^3/uL Platelet Estimate Adequate Polychromasia Present Poikilocytosis Present Anisocytosis Present Target Cells Present Tear Drop Cells Occ Ovalocytes Present Kamaljit Cells Few Schistocytes Few Sodium Level 141 mmol/L Potassium Level 3.8 mmol/L Chloride Level 102 mmol/L Carbon Dioxide Level 31 mmol/L Anion Gap 8 Blood Urea Nitrogen 45 mg/dL Creatinine 2.4 mg/dL Estimated GFR (Cockcroft-Gault) 24.1 Glucose Level 78 mg/dL Calcium Level 9.3 mg/dL Magnesium Level 1.5 mg/dL Test 04/04/18 07:14 04/04/18 11:10 Glucose (Fingerstick) 71 mg/dL 86 mg/dL PE: GEN: NAD LUNGS: room air NEURO/PSYCH: drowsy, therapy present A/P: CHF, CKD, hypothyroidism Elevated LFTs (last check 04/01) - hepatic steatosis on imaging, s/p cholecystectomy, CBD 1.7cm Duncan's esophagus - on PPI ACD - stable -- Recheck LFTs, continue PPI. NEEL WILLIAMSON Apr 04, 2018 12:00
--- NOTE | 2018-04-04 12:45 | PDOC ---
MIKE DUNHAM MARKETING MANAGER 04/04/18 1245: CARDIO Progress Notes Date and Time Date of Service 04/04/2018 Time of Evaluation 1244 Subjective Subjective: No Chest Pain, No shortness of breath, No Palpitations, No Dizziness Vitals Vitals Vital Signs Date Time Temp Pulse Resp B/P (MAP) Pulse Ox O2 Delivery O2 Flow Rate FiO2 04/04/18 11:34 98.3 75 20 123/71 (88) 99 Nasal Cannula 2.0 98.3 Weight Weight [ ] Input and Output Intake and Output Intake and Output 04/04/18 07:00 Intake Total 737 ml Output Total 3325 ml Balance -2588 ml Intake Oral 737 ml Output Urine Total 3325 ml Laboratory Labs Laboratory Tests Test 04/03/18 17:00 04/03/18 21:24 04/04/18 04:50 04/04/18 06:20 Glucose (Fingerstick) 120 mg/dL (70-99) 103 mg/dL (70-99) White Blood Count 3.1 x10^3/uL (4.0-11.0) Red Blood Count 2.83 x10^6/uL (3.50-5.40) Hemoglobin 8.5 g/dL (12.0-15.5) Hematocrit 25.1 % (36.0-47.0) Mean Corpuscular Volume 89 fL (79-100) Mean Corpuscular Hemoglobin 30 pg (25-35) Mean Corpuscular Hemoglobin Concent 34 g/dL (31-37) Red Cell Distribution Width 28.8 % (11.5-14.5) Platelet Count 145 x10^3/uL (140-400) Neutrophils (%) (Auto) 72 % (31-73) Lymphocytes (%) (Auto) 9 % (24-48) Monocytes (%) (Auto) 16 % (0-9) Eosinophils (%) (Auto) 1 % (0-3) Basophils (%) (Auto) 3 % (0-3) Neutrophils # (Auto) 2.2 x10^3uL (1.8-7.7) Lymphocytes # (Auto) 0.3 x10^3/uL (1.0-4.8) Monocytes # (Auto) 0.5 x10^3/uL (0.0-1.1) Eosinophils # (Auto) 0.0 x10^3/uL (0.0-0.7) Basophils # (Auto) 0.1 x10^3/uL (0.0-0.2) Platelet Estimate Adequate (ADEQUATE) Polychromasia Present Poikilocytosis Present Anisocytosis Present Target Cells Present Tear Drop Cells Occ Ovalocytes Present [place] Cells Few Schistocytes Few Sodium Level 141 mmol/L (136-145) Potassium Level 3.8 mmol/L (3.5-5.1) Chloride Level 102 mmol/L (98-107) Carbon Dioxide Level 31 mmol/L (21-32) Anion Gap 8 (6-14) Blood Urea Nitrogen 45 mg/dL (7-20) Creatinine 2.4 mg/dL (0.6-1.0) Estimated GFR (Cockcroft-Gault) 24.1 Glucose Level 78 mg/dL (70-99) Calcium Level 9.3 mg/dL (8.5-10.1) Magnesium Level 1.5 mg/dL (1.8-2.4) Test 04/04/18 07:14 04/04/18 11:10 Glucose (Fingerstick) 71 mg/dL (70-99) 86 mg/dL (70-99) Microbiology Micro Microbiology 03/31/18 Blood Culture - Preliminary, Resulted NO GROWTH AFTER 4 DAYS Review of Systems Constitutional: yes: weakness, alert, oriented Pulmonary: Yes dyspnea Physical Exam HEENT: Neck Supple W Full Motion Chest: Symmetric LUNGS: Other (diminished in bases) Heart: RRR Abdomen: Soft N/T Extremities: No Edema Neurology: alert, follow commands Diagnostic Tests Echocardiogram: Other (dilated LV & RV; LVEF 20%; global hypokinesis; moderately reduced RV systolic function; mild AR/TR) Assessment Assessment 1. acute on chronic heart failure, bi-ventricular --NT-proBNP > 35K --TTE with depressed LVEF of 20% with moderately reduced RV systolic function ; global hypokinesis --off lasix gtt and converted to oral --reasonably compensated at this point 2. ischemic cardiomyopathy --LVEF ~ 20% --has Medtr[employer] ICD for prevention of SCD --interrogated with few episodes of NSVT; no shock --Optival level trending upward since January --needs to have celebrex stopped in setting of cardiac and renal disease --stop short acting metoprolol and convert to carvedilol; no ACEI for now given renal function 3. NSTEMI --recent chest pain in the setting of nausea/vomiting --suspect demand mediated in the setting of acute heart and renal failure as well as sepsis --TTE with global hypokinesis --records from [facility] indicated CAD history with prior PCI to unknown targets; records from 2011; no significant cardiac information in records from [facility] --pharm MPI tomorrow for ischemic evaluation 3. JAIDEN on CKD --Cr 2.9; trending downward 4. sepsis --defer to ID 5. elevated LFTs --recent nausea/vomiting/diarrhea 6. hypothyroidism --TSH of 152.7 --has been started on replacement therapy 7. HTN --controlled 8. anemia --chronic disease MARIANA DANIELS MD 04/04/18 2133: CARDIO Progress Notes Assessment Assessment Patient seen and examined. Agree with [employer]'s assessment and plan. Acute on chronic systolic HF better compensated Agree with Lexiscan MPI to rule out any significant ischemia Nephrology following for ac on chr renal insuff MIKE DUNHAM APRN Apr 04, 2018 12:45 MARIANA DANIELS MD Apr 04, 2018 21:33
[2018-04-04 12:57] LABS: ALBUMIN 2.5 g/dL (3.4-5.0); DIRECT BILIRUBIN 0.3 mg/dL (0.0-0.2); TOTAL BILIRUBIN 0.5 mg/dL (0.2-1.0); TOTAL PROTEIN 6.7 g/dL (6.4-8.2)
[2018-04-04] MEDS: ALBUTEROL SULFATE 2.5 MG/3 ML NEBU. NEB SCH ×3 (13:00→20:26)
[2018-04-04] MEDS ORDERED: MAGNESIUM SULFATE 2GM 50 ML IV ONE (13:00)
[2018-04-04] MEDS ORDERED: METOPROLOL TART IMMED RELEASE 25 MG TABLET. PO SCH (13:00)
[2018-04-04] MEDS ORDERED: CELECOXIB 100 MG CAPSULE. PO SCH (13:00)
[2018-04-04] MEDS: BUDESONIDE 0.5 MG/2 ML NEBU. NEB SCH ×2 (13:00→20:26)
[2018-04-04] MEDS: cloNIDine HCL 0.2 MG TABLET PO SCH ×2 (13:45→21:00)
[2018-04-04] MEDS: GABAPENTIN 300 MG CAPSULE. PO SCH ×2 (13:46→21:32)
[2018-04-04] MEDS: POTASSIUM CHLORIDE 20 MEQ TABLET.ER. PO SCH (13:48)
[2018-04-04] MEDS: CLOPIDOGREL BISULFATE 75 MG TABLET PO SCH (13:49)
[2018-04-04] MEDS: CITALOPRAM 20 MG TABLET. PO SCH (13:49)
[2018-04-04] MEDS: VERAPAMIL SR 120 MG TABLET.ER. PO SCH ×2 (13:50→21:00)
[2018-04-04 14:51] VITALS: BP 124/63
--- NOTE | 2018-04-04 15:05 | PDOC ---
PROGRESS NOTES Chief Complaint Chief Complaint Acute heart failure systolic EF 20% AMS, with hypoglycemia wo dm history, hypothyroidism NSTEMI with chf JAIDEN vasomotor, atn Sepsis? HTN Anemia Hypoglycemia REcent shingles h/o CAD hypomagnesemia ICD Plan: fu with card, MPI tmr on synthroid iv ,check t3, t4, change to po tmr cont current meds pTOT replete Mag dvt ppx EF 20% off lasix drip to 40mg daily now, monitor Cr abx dced as per id History of Present Illness History of Present Illness talkes slow, mild confusion Vitals Vitals Vital Signs Date Time Temp Pulse Resp B/P (MAP) Pulse Ox O2 Delivery O2 Flow Rate FiO2 04/04/18 14:51 98.3 70 20 124/63 (83) 100 Nasal Cannula 2.0 98.3 Physical Exam Physical Exam GENERAL: Propped up in bed, alert, eating LUNGS: Decreased in the bases. HEART: S1, S2. Pacemaker ICD ABDOMEN: Soft, nontender, no guarding. : [place] in place. EXTREMITIES: No gross edema or cyanosis SKIN: Without signs of rash. NEUROLOGIC: Alert, responds appropriately RIJ clean General: No acute distress, Other (minimally arousable, mumbles) Heart: Normal S1, Normal S2 Abdomen: Normal bowel sounds (obese abdomen), Soft Extremities: No clubbing, Other (trace edema) Skin: No rashes, No significant lesion Labs LABS Laboratory Tests Test 04/03/18 17:00 04/03/18 21:24 04/04/18 04:50 04/04/18 06:20 Glucose (Fingerstick) 120 mg/dL (70-99) 103 mg/dL (70-99) White Blood Count 3.1 x10^3/uL (4.0-11.0) Red Blood Count 2.83 x10^6/uL (3.50-5.40) Hemoglobin 8.5 g/dL (12.0-15.5) Hematocrit 25.1 % (36.0-47.0) Mean Corpuscular Volume 89 fL (79-100) Mean Corpuscular Hemoglobin 30 pg (25-35) Mean Corpuscular Hemoglobin Concent 34 g/dL (31-37) Red Cell Distribution Width 28.8 % (11.5-14.5) Platelet Count 145 x10^3/uL (140-400) Neutrophils (%) (Auto) 72 % (31-73) Lymphocytes (%) (Auto) 9 % (24-48) Monocytes (%) (Auto) 16 % (0-9) Eosinophils (%) (Auto) 1 % (0-3) Basophils (%) (Auto) 3 % (0-3) Neutrophils # (Auto) 2.2 x10^3uL (1.8-7.7) Lymphocytes # (Auto) 0.3 x10^3/uL (1.0-4.8) Monocytes # (Auto) 0.5 x10^3/uL (0.0-1.1) Eosinophils # (Auto) 0.0 x10^3/uL (0.0-0.7) Basophils # (Auto) 0.1 x10^3/uL (0.0-0.2) Platelet Estimate Adequate (ADEQUATE) Polychromasia Present Poikilocytosis Present Anisocytosis Present Target Cells Present Tear Drop Cells Occ Ovalocytes Present [place] Cells Few Schistocytes Few Sodium Level 141 mmol/L (136-145) Potassium Level 3.8 mmol/L (3.5-5.1) Chloride Level 102 mmol/L (98-107) Carbon Dioxide Level 31 mmol/L (21-32) Anion Gap 8 (6-14) Blood Urea Nitrogen 45 mg/dL (7-20) Creatinine 2.4 mg/dL (0.6-1.0) Estimated GFR (Cockcroft-Gault) 24.1 Glucose Level 78 mg/dL (70-99) Calcium Level 9.3 mg/dL (8.5-10.1) Magnesium Level 1.5 mg/dL (1.8-2.4) Total Bilirubin 0.5 mg/dL (0.2-1.0) Direct Bilirubin 0.3 mg/dL (0.0-0.2) Aspartate Amino Transf (AST/SGOT) 154 U/L (15-37) Alanine Aminotransferase (ALT/SGPT) 186 U/L (14-59) Alkaline Phosphatase 122 U/L (46-116) Total Protein 6.7 g/dL (6.4-8.2) Albumin 2.5 g/dL (3.4-5.0) Test 04/04/18 07:14 04/04/18 11:10 Glucose (Fingerstick) 71 mg/dL (70-99) 86 mg/dL (70-99) Assessment and Plan Assessmemt and Plan Problems Medical Problems: (1) Acute exacerbation of CHF (congestive heart failure) Status: Acute (2) Elevated troponin I level Status: Acute (3) Hypoglycemia Status: Acute (4) Hypoxia Status: Acute (5) Lactic acidosis Status: Acute (6) Renal insufficiency Status: Acute Comment Review of Relevant I have reviewed the following items madeline (where applicable) has been applied. Labs Laboratory Tests Test 04/02/18 16:59 04/02/18 20:50 04/03/18 04:45 04/03/18 07:21 Glucose (Fingerstick) 90 mg/dL (70-99) 85 mg/dL (70-99) 66 mg/dL (70-99) White Blood Count 3.2 x10^3/uL (4.0-11.0) Red Blood Count 2.79 x10^6/uL (3.50-5.40) Hemoglobin 8.4 g/dL (12.0-15.5) Hematocrit 25.0 % (36.0-47.0) Mean Corpuscular Volume 90 fL (79-100) Mean Corpuscular Hemoglobin 30 pg (25-35) Mean Corpuscular Hemoglobin Concent 33 g/dL (31-37) Red Cell Distribution Width 28.2 % (11.5-14.5) Platelet Count 82 x10^3/uL (140-400) Neutrophils (%) (Auto) 78 % (31-73) Lymphocytes (%) (Auto) 11 % (24-48) Monocytes (%) (Auto) 9 % (0-9) Eosinophils (%) (Auto) 1 % (0-3) Basophils (%) (Auto) 1 % (0-3) Neutrophils # (Auto) 2.5 x10^3uL (1.8-7.7) Lymphocytes # (Auto) 0.4 x10^3/uL (1.0-4.8) Monocytes # (Auto) 0.3 x10^3/uL (0.0-1.1) Eosinophils # (Auto) 0.0 x10^3/uL (0.0-0.7) Basophils # (Auto) 0.0 x10^3/uL (0.0-0.2) Segmented Neutrophils % 71 % (35-66) Band Neutrophils % 4 % (0-9) Lymphocytes % 16 % (24-48) Atypical Lymphocytes % (Manual) 1 % (0-0) Monocytes % 7 % (0-10) Eosinophils % 1 % (0-5) Platelet Estimate Decreased (ADEQUATE) Anisocytosis Mod Sodium Level 142 mmol/L (136-145) Potassium Level 3.4 mmol/L (3.5-5.1) Chloride Level 103 mmol/L (98-107) Carbon Dioxide Level 28 mmol/L (21-32) Anion Gap 11 (6-14) Blood Urea Nitrogen 49 mg/dL (7-20) Creatinine 2.8 mg/dL (0.6-1.0) Estimated GFR (Cockcroft-Gault) 20.2 Glucose Level 77 mg/dL (70-99) Calcium Level 8.4 mg/dL (8.5-10.1) Test 04/03/18 11:05 04/03/18 17:00 04/03/18 21:24 04/04/18 04:50 Glucose (Fingerstick) 86 mg/dL (70-99) 120 mg/dL (70-99) 103 mg/dL (70-99) White Blood Count 3.1 x10^3/uL (4.0-11.0) Red Blood Count 2.83 x10^6/uL (3.50-5.40) Hemoglobin 8.5 g/dL (12.0-15.5) Hematocrit 25.1 % (36.0-47.0) Mean Corpuscular Volume 89 fL (79-100) Mean Corpuscular Hemoglobin 30 pg (25-35) Mean Corpuscular Hemoglobin Concent 34 g/dL (31-37) Red Cell Distribution Width 28.8 % (11.5-14.5) Platelet Count 145 x10^3/uL (140-400) Neutrophils (%) (Auto) 72 % (31-73) Lymphocytes (%) (Auto) 9 % (24-48) Monocytes (%) (Auto) 16 % (0-9) Eosinophils (%) (Auto) 1 % (0-3) Basophils (%) (Auto) 3 % (0-3) Neutrophils # (Auto) 2.2 x10^3uL (1.8-7.7) Lymphocytes # (Auto) 0.3 x10^3/uL (1.0-4.8) Monocytes # (Auto) 0.5 x10^3/uL (0.0-1.1) Eosinophils # (Auto) 0.0 x10^3/uL (0.0-0.7) Basophils # (Auto) 0.1 x10^3/uL (0.0-0.2) Platelet Estimate Adequate (ADEQUATE) Polychromasia Present Poikilocytosis Present Anisocytosis Present Target Cells Present Tear Drop Cells Occ Ovalocytes Present [place] Cells Few Schistocytes Few Test 04/04/18 06:20 04/04/18 07:14 04/04/18 11:10 Sodium Level 141 mmol/L (136-145) Potassium Level 3.8 mmol/L (3.5-5.1) Chloride Level 102 mmol/L (98-107) Carbon Dioxide Level 31 mmol/L (21-32) Anion Gap 8 (6-14) Blood Urea Nitrogen 45 mg/dL (7-20) Creatinine 2.4 mg/dL (0.6-1.0) Estimated GFR (Cockcroft-Gault) 24.1 Glucose Level 78 mg/dL (70-99) Calcium Level 9.3 mg/dL (8.5-10.1) Magnesium Level 1.5 mg/dL (1.8-2.4) Total Bilirubin 0.5 mg/dL (0.2-1.0) Direct Bilirubin 0.3 mg/dL (0.0-0.2) Aspartate Amino Transf (AST/SGOT) 154 U/L (15-37) Alanine Aminotransferase (ALT/SGPT) 186 U/L (14-59) Alkaline Phosphatase 122 U/L (46-116) Total Protein 6.7 g/dL (6.4-8.2) Albumin 2.5 g/dL (3.4-5.0) Glucose (Fingerstick) 71 mg/dL (70-99) 86 mg/dL (70-99) Laboratory Tests Test 04/03/18 17:00 04/03/18 21:24 04/04/18 04:50 04/04/18 06:20 Glucose (Fingerstick) 120 mg/dL (70-99) 103 mg/dL (70-99) White Blood Count 3.1 x10^3/uL (4.0-11.0) Red Blood Count 2.83 x10^6/uL (3.50-5.40) Hemoglobin 8.5 g/dL (12.0-15.5) Hematocrit 25.1 % (36.0-47.0) Mean Corpuscular Volume 89 fL (79-100) Mean Corpuscular Hemoglobin 30 pg (25-35) Mean Corpuscular Hemoglobin Concent 34 g/dL (31-37) Red Cell Distribution Width 28.8 % (11.5-14.5) Platelet Count 145 x10^3/uL (140-400) Neutrophils (%) (Auto) 72 % (31-73) Lymphocytes (%) (Auto) 9 % (24-48) Monocytes (%) (Auto) 16 % (0-9) Eosinophils (%) (Auto) 1 % (0-3) Basophils (%) (Auto) 3 % (0-3) Neutrophils # (Auto) 2.2 x10^3uL (1.8-7.7) Lymphocytes # (Auto) 0.3 x10^3/uL (1.0-4.8) Monocytes # (Auto) 0.5 x10^3/uL (0.0-1.1) Eosinophils # (Auto) 0.0 x10^3/uL (0.0-0.7) Basophils # (Auto) 0.1 x10^3/uL (0.0-0.2) Platelet Estimate Adequate (ADEQUATE) Polychromasia Present Poikilocytosis Present Anisocytosis Present Target Cells Present Tear Drop Cells Occ Ovalocytes Present [place] Cells Few Schistocytes Few Sodium Level 141 mmol/L (136-145) Potassium Level 3.8 mmol/L (3.5-5.1) Chloride Level 102 mmol/L (98-107) Carbon Dioxide Level 31 mmol/L (21-32) Anion Gap 8 (6-14) Blood Urea Nitrogen 45 mg/dL (7-20) Creatinine 2.4 mg/dL (0.6-1.0) Estimated GFR (Cockcroft-Gault) 24.1 Glucose Level 78 mg/dL (70-99) Calcium Level 9.3 mg/dL (8.5-10.1) Magnesium Level 1.5 mg/dL (1.8-2.4) Total Bilirubin 0.5 mg/dL (0.2-1.0) Direct Bilirubin 0.3 mg/dL (0.0-0.2) Aspartate Amino Transf (AST/SGOT) 154 U/L (15-37) Alanine Aminotransferase (ALT/SGPT) 186 U/L (14-59) Alkaline Phosphatase 122 U/L (46-116) Total Protein 6.7 g/dL (6.4-8.2) Albumin 2.5 g/dL (3.4-5.0) Test 04/04/18 07:14 04/04/18 11:10 Glucose (Fingerstick) 71 mg/dL (70-99) 86 mg/dL (70-99) Microbiology 03/31/18 Blood Culture - Preliminary, Resulted NO GROWTH AFTER 4 DAYS Medications Current Medications Aspirin (Karen Aspirin) 325 mg 1X ONCE PO Last administered on 03/31/18at 01:16 ; Start 03/30/18 at 23:30; Stop 03/30/18 at 23:31; Status DC Fentanyl Citrate (Fentanyl 2ml Vial) 50 mcg 1X ONCE IV ; Start 03/30/18 at 23: 30; Stop 03/30/18 at 23:31; Status DC Dextrose (Dextrose 50%-Water Syringe) 25 gm 1X ONCE IV Last administered on at 23:10; Start 03/30/18 at 23:30; Stop 03/30/18 at 23:31; Status DC Dextrose (Dextrose 50%-Water Syringe) 25 gm STK-MED ONCE IV ; Start 03/30/18 at 23:05; Stop 03/30/18 at 23:06; Status DC Glucose (Insta-Glucose) 15 gm STK-MED ONCE .ROUTE ; Start 03/30/18 at 23:05; Stop 03/30/18 at 23:06; Status DC Ondansetron HCl (Zofran) 4 mg 1X ONCE IV Last administered on 03/31/18at 01:18 ; Start 03/30/18 at 23:30; Stop 03/30/18 at 23:31; Status DC Glucose (Insta-Glucose) 15 gm 1X ONCE PO Last administered on 03/30/18at 23:07 ; Start 03/30/18 at 23:30; Stop 03/30/18 at 23:31; Status DC Nitroglycerin (Nitro-Bid Oint) 1 inch 1X ONCE TP Last administered on at 01:19; Start 03/31/18 at 01:00; Stop 03/31/18 at 01:01; Status DC Bumetanide (Bumex) 0.5 mg 1X ONCE IV Last administered on 03/31/18at 01:11; Start 03/31/18 at 01:00; Stop 03/31/18 at 01:01; Status DC Ondansetron HCl (Zofran) 4 mg PRN Q8HRS PRN IV NAUSEA/VOMITING 1ST CHOICE; Start 03/31/18 at 00:45; Stop 04/01/18 at 00:44; Status DC Dextrose (Dextrose 50%-Water Syringe) 12.5 gm PRN Q15MIN PRN IV SEE COMMENTS; Start 03/31/18 at 00:45 Lidocaine HCl 20 ml 1X ONCE IJ Last administered on 03/31/18at 03:00; Start at 03:00; Stop 03/31/18 at 03:01; Status DC Lidocaine HCl (Xylocaine-Mpf 2% Vial) 2 ml STK-MED ONCE .ROUTE ; Start 03/31/18 at 02:31; Stop 03/31/18 at 02:33; Status DC Pantoprazole Sodium (Protonix) 40 mg DAILYAC PO Last administered on 04/04/18at 08:51; Start 03/31/18 at 11:30 Levothyroxine Sodium 100 mcg/ Sodium Chloride 5 ml @ 100 mls/hr DAILY IVP ; Start 04/01/18 at 09:00; Status UNV Levothyroxine Sodium 50 mcg/ Sodium Chloride 5 ml @ 100 mls/hr DAILY IVP Last administered on 04/04/18at 08:52; Start 03/31/18 at 14:00 Furosemide 100 mg/ Sodium Chloride 100 ml @ 5 mls/hr CONT PRN IV DIURESIS Last administered on 03/31/18at 12:59; Start 03/31/18 at 11:45; Stop 03/31/18 at 22:16 ; Status DC Ceftriaxone Sodium 2 gm/ Dextrose 100 ml @ 200 mls/hr Q24H IV Last administered on 04/03/18at 14:30; Start 03/31/18 at 13:00; Stop 04/04/18 at 08:49 ; Status DC Azithromycin 500 mg/Sodium Chloride 250 ml @ 250 mls/hr 1X ONCE IV Last administered on 03/31/18at 13:04; Start 03/31/18 at 12:30; Stop 03/31/18 at 13:29 ; Status DC Furosemide 100 mg/ Sodium Chloride 100 ml @ 0 mls/hr CONT PRN IV DIURESIS Last administered on 04/01/18at 01:34; Start 03/31/18 at 22:30; Stop 04/01/18 at 12:56 ; Status DC Lactobacillus Rhamnosus (Culturelle) 1 cap BID PO Last administered on at 08:51; Start 04/01/18 at 21:00 Azithromycin 500 mg/Sodium Chloride 250 ml @ 250 mls/hr Q24H IV Last administered on 04/03/18at 14:31; Start 04/01/18 at 14:00; Stop 04/04/18 at 08:49 ; Status DC Milrinone Lactate/ Dextrose 100 ml @ 2.96 mls/hr CONT PRN IV SEE I/O RECORD Last administered on 04/03/18at 17:04; Start 04/02/18 at 13:00; Stop 04/04/18 at 12:47; Status DC Acetaminophen/ Codeine Phosphate (Tylenol #3) 1 tab PRN Q6HRS PRN PO PAIN; Start 04/02/18 at 13:30 Ondansetron HCl (Zofran) 4 mg PRN Q6HRS PRN IV NAUSEA/VOMITING Last administered on 04/02/18at 15:37; Start 04/02/18 at 15:45 Furosemide (Lasix) 40 mg DAILY PO Last administered on 04/04/18at 08:51; Start 04/03/18 at 11:30 Potassium Chloride (Klor-Con) 20 meq 1X ONCE PO Last administered on at 12:17; Start 04/03/18 at 11:30; Stop 04/03/18 at 11:31; Status DC Simethicone (Gas-X) 80 mg PRN AFTMEALHC PRN PO GAS / BLOATING; Start 04/03/18 at 17:45 Polyethylene Glycol (miraLAX PACKET) 17 gm PRN DAILY PRN PO CONSTIPATION; Start 04/04/18 at 12:00 Atorvastatin Calcium (Lipitor) 20 mg QHS PO ; Start 04/04/18 at 21:00 Clonidine HCl (Catapres) 0.2 mg BID PO Last administered on 04/04/18at 13:45; Start 04/04/18 at 13:00 Clopidogrel Bisulfate (Plavix) 75 mg DAILY PO Last administered on 04/04/18at 13 :49; Start 04/04/18 at 13:00 Metoprolol Tartrate (Lopressor) 25 mg BID PO Last administered on 04/04/18at 13: 47; Start 04/04/18 at 13:00; Stop 04/04/18 at 13:58; Status DC Potassium Chloride (Klor-Con) 20 meq DAILY PO Last administered on 04/04/18at 13 :48; Start 04/04/18 at 13:00 Celecoxib (CeleBREX) 200 mg BID PO ; Start 04/04/18 at 13:00; Stop 04/04/18 at 13:53; Status DC Citalopram Hydrobromide (CeleXA) 40 mg DAILY PO Last administered on 04/04/18at 13:49; Start 04/04/18 at 13:00 Non-Formulary Medication (Fluticasone/ Salmeterol (Advair 250-50 Diskus)) 1 inh BID IH ; Start 04/04/18 at 21:00; Status UNV Gabapentin (Neurontin) 600 mg TID PO Last administered on 04/04/18at 13:46; Start 04/04/18 at 14:00 Non-Formulary Medication (Omeprazole ) 40 mg DAILY PO ; Start 04/05/18 at 09:00 ; Status UNV Verapamil HCl (Calan Sr) 120 mg BID PO Last administered on 04/04/18at 13:50; Start 04/04/18 at 13:00 Magnesium Sulfate 50 ml @ 25 mls/hr 1X ONCE IV Last administered on 04/04/18at 13:52; Start 04/04/18 at 13:00; Stop 04/04/18 at 14:59 Budesonide (Pulmicort) 0.5 mg RTBID NEB ; Start 04/04/18 at 13:00 Albuterol Sulfate (Ventolin Neb Soln) 2.5 mg RTQID NEB ; Start 04/04/18 at 13:00 Carvedilol (Coreg) 12.5 mg BIDWMEALS PO ; Start 04/04/18 at 17:00 Active Scripts Active Reported Triamcinolone Acetonide 0.1% Cream (Triamcinolone Acetonide) 15 Gm Cream..g. 15 Gm TP Celexa (Citalopram Hydrobromide) 40 Mg Tablet 40 Mg PO DAILY Gabapentin 600 Mg Tablet 600 Mg PO TID Atorvastatin Calcium 20 Mg Tablet 20 Mg PO DAILY Celebrex (Celecoxib) 200 Mg Capsule 200 Mg PO BID 30 Days Furosemide 20 Mg Tablet 20 Mg PO DAILY Metoprolol Tartrate 25 Mg Tablet 25 Mg PO BID Omeprazole 40 Mg Capsule.dr 40 Mg PO DAILY Clonidine Hcl 0.2 Mg Tablet 0.2 Mg PO BID Colcrys (Colchicine) 0.6 Mg Tablet 0.6 Mg PO Lorazepam 1 Mg Tablet 1 Mg PO BID Klor-Con M20 (Potassium Chloride) 20 Meq Tab.er.prt 20 Meq PO DAILY Verapamil Hcl 120 Mg Tablet 120 Mg PO BID Advair 250-50 Diskus (Fluticasone/Salmeterol) 1 Each Disk.w.dev 1 Inh IH BID Iron (Ferrous Sulfate) 325 Mg Capsule.er 325 Mg PO Clopidogrel (Clopidogrel Bisulfate) 75 Mg Tablet 75 Mg PO DAILY Vitals/I & O Vital Sign - Last 24 Hours 04/03/18 04/03/18 04/03/18 04/04/18 19:10 19:35 23:05 03:05 Temp 97.9 97.9 97.8 97.9 97.9 97.8 Pulse 85 81 72 Resp 20 20 18 B/P (MAP) 110/56 (74) 108/56 (73) 118/59 (78) Pulse Ox 99 96 97 O2 Delivery Nasal Cannula Nasal Cannula Nasal Cannula Nasal Cannula O2 Flow Rate 2.0 2.0 2.0 2.0 04/04/18 04/04/18 04/04/18 04/04/18 07:50 08:00 09:51 09:56 Temp 98.1 98.1 Pulse 83 Resp 18 B/P (MAP) 110/48 (68) Pulse Ox 99 O2 Delivery Nasal Cannula Nasal Cannula Nasal Cannula Nasal Cannula O2 Flow Rate 2.0 2.0 2.0 2.0 04/04/18 04/04/18 04/04/18 04/04/18 09:57 11:34 13:45 13:47 Temp 98.3 98.3 Pulse 75 72 74 Resp 20 B/P (MAP) 123/71 (88) 128/60 128/60 Pulse Ox 99 O2 Delivery Nasal Cannula Nasal Cannula O2 Flow Rate 2.0 2.0 04/04/18 04/04/18 13:50 14:51 Temp 98.3 98.3 Pulse 75 70 Resp 20 B/P (MAP) 128/60 124/63 (83) Pulse Ox 100 O2 Delivery Nasal Cannula O2 Flow Rate 2.0 Intake and Output 04/03/18 04/03/18 04/04/18 15:00 23:00 07:00 Intake Total 237 ml 200 ml 300 ml Output Total 900 ml 2425 ml Balance -663 ml 200 ml -2125 ml PETRA WHITLEY MD Apr 04, 2018 15:05
[2018-04-04] MEDS: CARVEDILOL 12.5 MG TABLET. PO SCH (18:13)
[2018-04-04 19:10] VITALS: BP 99/51
[2018-04-04] MEDS ORDERED: NON FORMULARY ITEM (Fluticasone/Salmeterol (Advair 250-50 Diskus) 1 INH) IH SCH (21:00)
[2018-04-04] MEDS: ACETAMINOPHEN/CODEINE 300/30MG TABLET. PO PRN (21:31)
[2018-04-04] MEDS: ATORVASTATIN CALCIUM 20 MG TABLET PO SCH (21:34)
[2018-04-04 22:50] VITALS: BP 95/53
[2018-04-05 03:15] VITALS: BP 92/63
[2018-04-05] MEDS ORDERED: LEVOTHYROXINE 100 MCG TABLET PO SCH (06:00)
[2018-04-05 06:04] LABS: BASO % 1 % (0-3); EOS % 2 % (0-3); HEMATOCRIT 24.3 % (36.0-47.0); HEMOGLOBIN 8.3 g/dL (12.0-15.5); LYMPH # 0.4 x10^3/uL (1.0-4.8); LYMPH % 13 % (24-48); MEAN CORPUSCULAR HEMOGLOBIN 30 pg (25-35); MEAN CORPUSCULAR HGB CONC 34 g/dL (31-37); MEAN CORPUSCULAR VOLUME 90 fL (79-100); MONO # 0.3 x10^3/uL (0.0-1.1); MONO % 12 % (0-9); NEUT % 73 % (31-73); PLATELET COUNT 92 x10^3/uL (140-400); RED BLOOD COUNT 2.72 x10^6/uL (3.50-5.40); RED CELL DISTRIBUTION WIDTH 29.2 % (11.5-14.5); WHITE BLOOD COUNT 2.8 x10^3/uL (4.0-11.0)
[2018-04-05 07:00] VITALS: BP 94/52
[2018-04-05] MEDS: BUDESONIDE 0.5 MG/2 ML NEBU. NEB SCH ×2 (07:49→20:01)
[2018-04-05] MEDS: ALBUTEROL SULFATE 2.5 MG/3 ML NEBU. NEB SCH ×4 (07:49→20:01)
[2018-04-05] MEDS ORDERED: REGADENOSON 0.4 MG/5 ML DISP.SYRIN. IV ONE (08:00)
[2018-04-05] MEDS: CARVEDILOL 12.5 MG TABLET. PO SCH (08:00)
--- NOTE | 2018-04-05 08:52 | PDOC ---
Infectious Disease Note Subjective Subjective Feeling alright Comfortable, denies pain No F/C/SOA/diarrhea Vital Sign Vital Signs Vital Signs Date Time Temp Pulse Resp B/P (MAP) Pulse Ox O2 Delivery O2 Flow Rate FiO2 04/05/18 07:30 98 Room Air 04/05/18 07:00 98.1 60 18 94/52 (66) 2.0 98.1 Physical Exam PHYSICAL EXAM GENERAL: Propped up in bed, alert, eating LUNGS: Decreased in the bases. HEART: S1, S2. Pacemaker ICD ABDOMEN: Soft, nontender, no guarding. : [place] in place. EXTREMITIES: No gross edema or cyanosis SKIN: Without signs of rash. NEUROLOGIC: Alert, responds appropriately RIJ clean Labs Lab Laboratory Tests Test 04/04/18 11:10 04/04/18 16:39 04/05/18 05:30 04/05/18 07:34 Glucose (Fingerstick) 86 mg/dL (70-99) 129 mg/dL (70-99) 70 mg/dL (70-99) White Blood Count 2.8 x10^3/uL (4.0-11.0) Red Blood Count 2.72 x10^6/uL (3.50-5.40) Hemoglobin 8.3 g/dL (12.0-15.5) Hematocrit 24.3 % (36.0-47.0) Mean Corpuscular Volume 90 fL (79-100) Mean Corpuscular Hemoglobin 30 pg (25-35) Mean Corpuscular Hemoglobin Concent 34 g/dL (31-37) Red Cell Distribution Width 29.2 % (11.5-14.5) Platelet Count 92 x10^3/uL (140-400) Neutrophils (%) (Auto) 73 % (31-73) Lymphocytes (%) (Auto) 13 % (24-48) Monocytes (%) (Auto) 12 % (0-9) Eosinophils (%) (Auto) 2 % (0-3) Basophils (%) (Auto) 1 % (0-3) Neutrophils # (Auto) 2.0 x10^3uL (1.8-7.7) Lymphocytes # (Auto) 0.4 x10^3/uL (1.0-4.8) Monocytes # (Auto) 0.3 x10^3/uL (0.0-1.1) Eosinophils # (Auto) 0.0 x10^3/uL (0.0-0.7) Basophils # (Auto) 0.0 x10^3/uL (0.0-0.2) Free Thyroxine 0.40 ng/dL (0.76-1.46) Free Triiodothyronine (T3) pg/mL < 0.50 pg/mL (2.18-3.98) Micro Microbiology 03/31/18 Blood Culture - Preliminary, Resulted NO GROWTH AFTER 4 DAYS Objective Assessment Pancytopenia ? viral vs meds Encephalopathy - better ? Pneumonia Abx allergies Lactic acidosis - improved Hypothyroidism Transaminitis - mild increase - ? reactive JAIDEN. UA no sign of infection NSTEMI Plan Plan of Care off antibiotics BC NGTD Supportive care Repeat labs in am pt/ot ADA LIRIANO MD Apr 05, 2018 08:51
[2018-04-05] MEDS ORDERED: NON FORMULARY ITEM (Omeprazole 40 MG) PO SCH (09:00)
[2018-04-05] MEDS ORDERED: LISI-130 PO (09:11)
[2018-04-05] MEDS ORDERED: FEBU40TA PO (09:11)
[2018-04-05] MEDS ORDERED: PROAIR HFA8.5 GM INH (09:11)
[2018-04-05] MEDS ORDERED: BUDE10.2 IH (09:11)
[2018-04-05] MEDS ORDERED: CITA20TA6 PO (09:11)
[2018-04-05] MEDS ORDERED: MECL25TA3 PO (09:11)
[2018-04-05] MEDS ORDERED: NITR0.4T SL (09:11)
[2018-04-05] MEDS ORDERED: FLUT9.9S NS (09:11)
[2018-04-05] MEDS ORDERED: ASPI325T11 PO (09:11)
[2018-04-05] MEDS ORDERED: LEVO150T PO (09:11)
--- NOTE | 2018-04-05 09:13 | PDOC ---
Objective: Objective: Reviewed w/ RN - eats about 50% of meals, likes Boost. Still sleepy. Plans for stress test today. Reviewed additional records - h/o "GI Bleed" (?on Coumadin) - had EGD and colonoscopy per other notes, also SBCE (in 2011) which showed recent bleeding in ileum but no lesion. Vital Signs: Vital Signs Date Time Temp Pulse Resp B/P (MAP) Pulse Ox O2 Delivery O2 Flow Rate FiO2 04/05/18 07:30 98 Room Air 04/05/18 07:00 98.1 60 18 94/52 (66) 2.0 98.1 Labs: Laboratory Tests Test 04/04/18 11:10 04/04/18 16:39 04/05/18 05:30 04/05/18 07:34 Glucose (Fingerstick) 86 mg/dL 129 mg/dL 70 mg/dL White Blood Count 2.8 x10^3/uL Red Blood Count 2.72 x10^6/uL Hemoglobin 8.3 g/dL Hematocrit 24.3 % Mean Corpuscular Volume 90 fL Mean Corpuscular Hemoglobin 30 pg Mean Corpuscular Hemoglobin Concent 34 g/dL Red Cell Distribution Width 29.2 % Platelet Count 92 x10^3/uL Neutrophils (%) (Auto) 73 % Lymphocytes (%) (Auto) 13 % Monocytes (%) (Auto) 12 % Eosinophils (%) (Auto) 2 % Basophils (%) (Auto) 1 % Neutrophils # (Auto) 2.0 x10^3uL Lymphocytes # (Auto) 0.4 x10^3/uL Monocytes # (Auto) 0.3 x10^3/uL Eosinophils # (Auto) 0.0 x10^3/uL Basophils # (Auto) 0.0 x10^3/uL Free Thyroxine 0.40 ng/dL Free Triiodothyronine (T3) pg/mL < 0.50 pg/mL PE: GEN: NAD LUNGS: clear anteriorly HEART: RRR ABD: S/ND/NT NEURO/PSYCH: drowsy - briefly wakens A/P: CHF, ICM, NSTEMI, CKD, hypothyroidism Pancytopenia, ACD -h/o Duncan's on PPI, EGD and colonoscopy and SBCE in 2011 @ [facility] Elevated LFTs (last check 04/01) -bili remains normal, AST stable, ALT and Alk Phos a little worse -Hep B and C negative -previous US: hepatic steatosis, CBD 1.7cm -reports of cholecystectomy, GB not definitely identified on US -- Note pancytopenia, also LFTs remain a bit elevated - will review additional suggestions w/ Dr. Root. NEEL WILLIAMSON Apr 05, 2018 09:13
[2018-04-05] MEDS ORDERED: HYDR-971 PO (09:22)
[2018-04-05] MEDS ORDERED: MAGN400T22 PO (09:22)
[2018-04-05] MEDS ORDERED: ISOS30TA4 PO (09:22)
[2018-04-05] MEDS ORDERED: ALLO100T PO (09:22)
--- NOTE | 2018-04-05 10:08 | PDOC ---
SUBJECTIVE ROS Stable OBJECTIVE Vital Signs Vital Signs Date Time Temp Pulse Resp B/P (MAP) Pulse Ox O2 Delivery O2 Flow Rate FiO2 04/05/18 07:30 98 Room Air 04/05/18 07:00 98.1 60 18 94/52 (66) 2.0 98.1 I & 0 Intake and Output 04/05/18 07:00 Intake Total 600 ml Output Total 600 ml Balance 0 ml Intake Oral 600 ml Output Urine Total 600 ml PHYSICAL EXAM Physical Exam General: No acute distress, awake and alert HEENT: OM moist , On o2 by NC Lungs: CTA ant Heart: Normal S1, Normal S2 Abdomen: Normal bowel sounds , soft, obese Extremities: Trace Bilat edema Skin: No rashes Neuro: AXOX3 - [place] + DIAGNOSIS/ASSESSMENT Assessment & Plan JAIDEN -- Cardiorenal Improving Reviewed records from 2011([facility]) Creat Normal at 1.0 In October 2016- Creat 1.8 Yasmeen was on current med list- dced CKD - Baseline 1.8 in October 2016 E- Lytes stable Acute heart failure- Now Compensated Was on IV Lasix drip on admission On milrinone IV and PO lasix, Cardiology following NSTEMI Scheduled for MPI Cardiology on board Elevated LFTs GI following PPM Cardiology following HTN- BP controlled Elevated TSH- On LTHx US abdomen - Right kidney is obscured by bowel gas. Left kidney measures 9 cm x 5 cm and 4.8 cm. COMMENT/RELEVANT DATA Meds Current Medications Medications (Trade) Dose Ordered Sig/Domitila Start Time Stop Time Status Last Admin Dose Admin Acetaminophen/ Codeine Phosphate (Tylenol #3) 1 tab PRN Q6HRS PRN 04/02/18 13:30 04/04/18 21:31 1 TAB Albuterol Sulfate (Ventolin Neb Soln) 2.5 mg RTQID 04/04/18 13:00 04/05/18 07:49 2.5 MG Aspirin (Karen Aspirin) 325 mg 1X ONCE 03/30/18 23:30 03/30/18 23:31 DC 03/31/18 01:16 325 MG Atorvastatin Calcium (Lipitor) 20 mg QHS 04/04/18 21:00 04/04/18 21:34 20 MG Azithromycin 500 mg/Sodium Chloride 250 ml @ 250 mls/hr Q24H 04/01/18 14:00 04/04/18 08:49 DC 04/03/18 14:31 250 MLS/HR Budesonide (Pulmicort) 0.5 mg RTBID 04/04/18 13:00 04/05/18 07:49 0.5 MG Bumetanide (Bumex) 0.5 mg 1X ONCE 03/31/18 01:00 03/31/18 01:01 DC 03/31/18 01:11 0.5 MG Carvedilol (Coreg) 12.5 mg BIDWMEALS 04/04/18 17:00 04/04/18 18:13 12.5 MG Ceftriaxone Sodium 2 gm/ Dextrose 100 ml @ 200 mls/hr Q24H 03/31/18 13:00 04/04/18 08:49 DC 04/03/18 14:30 200 MLS/HR Celecoxib (CeleBREX) 200 mg BID 04/04/18 13:00 04/04/18 13:53 DC Citalopram Hydrobromide (CeleXA) 40 mg DAILY 04/04/18 13:00 04/04/18 13:49 40 MG Clonidine HCl (Catapres) 0.2 mg BID 04/04/18 13:00 04/05/18 09:59 DC 04/04/18 13:45 0.2 MG Clopidogrel Bisulfate (Plavix) 75 mg DAILY 04/04/18 13:00 04/04/18 13:49 75 MG Dextrose (Dextrose 50%-Water Syringe) 12.5 gm PRN Q15MIN PRN 03/31/18 00:45 Fentanyl Citrate (Fentanyl 2ml Vial) 50 mcg 1X ONCE 03/30/18 23:30 03/30/18 23:31 DC Furosemide (Lasix) 40 mg DAILY 04/03/18 11:30 04/04/18 08:51 40 MG Furosemide 100 mg/ Sodium Chloride 100 ml @ 0 mls/hr CONT PRN 03/31/18 22:30 04/01/18 12:56 DC 04/01/18 01:34 10 MLS/HR Gabapentin (Neurontin) 600 mg TID 04/04/18 14:00 04/04/18 21:32 600 MG Glucose (Insta-Glucose) 15 gm 1X ONCE 9/26/18 23:30 03/30/18 23:31 DC 03/30/18 23:07 15 GM Lactobacillus Rhamnosus (Culturelle) 1 cap BID 04/01/18 21:00 04/04/18 21:34 1 CAP Levothyroxine Sodium (Synthroid) 100 mcg DAILY06 04/05/18 06:00 04/05/18 05:24 100 MCG Levothyroxine Sodium 100 mcg/ Sodium Chloride 5 ml @ 100 mls/hr DAILY 04/01/18 09:00 UNV Levothyroxine Sodium 50 mcg/ Sodium Chloride 5 ml @ 100 mls/hr DAILY 03/31/18 14:00 04/04/18 16:37 DC 04/04/18 08:52 100 MLS/HR Lidocaine HCl (Xylocaine-Mpf 2% Vial) 2 ml STK-MED ONCE 03/31/18 02:31 03/31/18 02:33 DC Magnesium Sulfate 50 ml @ 25 mls/hr 1X ONCE 04/04/18 13:00 04/04/18 14:59 DC 04/04/18 13:52 25 MLS/HR Metoprolol Tartrate (Lopressor) 25 mg BID 04/04/18 13:00 04/04/18 13:58 DC 04/04/18 13:47 25 MG Milrinone Lactate/ Dextrose 100 ml @ 2.96 mls/hr CONT PRN 04/02/18 13:00 04/04/18 12:47 DC 04/03/18 17:04 2.96 MLS/HR Nitroglycerin (Nitro-Bid Oint) 1 inch 1X ONCE 03/31/18 01:00 03/31/18 01:01 DC 03/31/18 01:19 1 INCH Non-Formulary Medication (Fluticasone/ Salmeterol (Advair 250-50 Diskus)) 1 inh BID 04/04/18 21:00 UNV Non-Formulary Medication (Omeprazole ) 40 mg DAILY 04/05/18 09:00 UNV Ondansetron HCl (Zofran) 4 mg PRN Q6HRS PRN 04/02/18 15:45 04/02/18 15:37 4 MG Pantoprazole Sodium (Protonix) 40 mg DAILYAC 03/31/18 11:30 04/04/18 08:51 40 MG Polyethylene Glycol (miraLAX PACKET) 17 gm PRN DAILY PRN 04/04/18 12:00 Potassium Chloride (Klor-Con) 20 meq DAILY 04/04/18 13:00 04/04/18 13:48 20 MEQ Regadenoson (Lexiscan) 0.4 mg 1X ONCE 04/05/18 08:00 04/05/18 08:11 DC 04/05/18 10:00 0.4 MG Simethicone (Gas-X) 80 mg PRN AFTMEALHC PRN 04/03/18 17:45 Verapamil HCl (Calan Sr) 120 mg BID 04/04/18 13:00 04/04/18 13:50 120 MG Lab Laboratory Tests Test 04/04/18 11:10 04/04/18 16:39 04/05/18 05:30 04/05/18 07:34 Glucose (Fingerstick) 86 mg/dL (70-99) 129 mg/dL (70-99) 70 mg/dL (70-99) White Blood Count 2.8 x10^3/uL (4.0-11.0) Red Blood Count 2.72 x10^6/uL (3.50-5.40) Hemoglobin 8.3 g/dL (12.0-15.5) Hematocrit 24.3 % (36.0-47.0) Mean Corpuscular Volume 90 fL (79-100) Mean Corpuscular Hemoglobin 30 pg (25-35) Mean Corpuscular Hemoglobin Concent 34 g/dL (31-37) Red Cell Distribution Width 29.2 % (11.5-14.5) Platelet Count 92 x10^3/uL (140-400) Neutrophils (%) (Auto) 73 % (31-73) Lymphocytes (%) (Auto) 13 % (24-48) Monocytes (%) (Auto) 12 % (0-9) Eosinophils (%) (Auto) 2 % (0-3) Basophils (%) (Auto) 1 % (0-3) Neutrophils # (Auto) 2.0 x10^3uL (1.8-7.7) Lymphocytes # (Auto) 0.4 x10^3/uL (1.0-4.8) Monocytes # (Auto) 0.3 x10^3/uL (0.0-1.1) Eosinophils # (Auto) 0.0 x10^3/uL (0.0-0.7) Basophils # (Auto) 0.0 x10^3/uL (0.0-0.2) Free Thyroxine 0.40 ng/dL (0.76-1.46) Free Triiodothyronine (T3) pg/mL < 0.50 pg/mL (2.18-3.98) Results All relevant outside records, renal labs, imaging studies, telemetry/EKG's were reviewed. SUNIL OROZCO MD Apr 05, 2018 10:08
[2018-04-05 10:53] LABS: CALCIUM 9.6 mg/dL (8.5-10.1); CREATININE 2.2 mg/dL (0.6-1.0); GFR 26.6; POTASSIUM 4.5 mmol/L (3.5-5.1)
[2018-04-05 11:00] VITALS: BP 91/54
--- NOTE | 2018-04-05 11:19 | PDOC ---
MIKE DUNHAM [employer] 04/05/18 1119: CARDIO Progress Notes Date and Time Date of Service 04/04/2018 Time of Evaluation 1116 Subjective Subjective: No Chest Pain, No shortness of breath, No Palpitations, No Dizziness Vitals Vitals Vital Signs Date Time Temp Pulse Resp B/P (MAP) Pulse Ox O2 Delivery O2 Flow Rate FiO2 04/05/18 11:00 98.3 59 16 91/54 (66) 93 Nasal Cannula 2.0 98.3 Weight Weight [ ] Input and Output Intake and Output Intake and Output 04/05/18 07:00 Intake Total 600 ml Output Total 600 ml Balance 0 ml Intake Oral 600 ml Output Urine Total 600 ml Laboratory Labs Laboratory Tests Test 04/04/18 16:39 04/05/18 05:30 04/05/18 07:34 Glucose (Fingerstick) 129 mg/dL (70-99) 70 mg/dL (70-99) White Blood Count 2.8 x10^3/uL (4.0-11.0) Red Blood Count 2.72 x10^6/uL (3.50-5.40) Hemoglobin 8.3 g/dL (12.0-15.5) Hematocrit 24.3 % (36.0-47.0) Mean Corpuscular Volume 90 fL (79-100) Mean Corpuscular Hemoglobin 30 pg (25-35) Mean Corpuscular Hemoglobin Concent 34 g/dL (31-37) Red Cell Distribution Width 29.2 % (11.5-14.5) Platelet Count 92 x10^3/uL (140-400) Neutrophils (%) (Auto) 73 % (31-73) Lymphocytes (%) (Auto) 13 % (24-48) Monocytes (%) (Auto) 12 % (0-9) Eosinophils (%) (Auto) 2 % (0-3) Basophils (%) (Auto) 1 % (0-3) Neutrophils # (Auto) 2.0 x10^3uL (1.8-7.7) Lymphocytes # (Auto) 0.4 x10^3/uL (1.0-4.8) Monocytes # (Auto) 0.3 x10^3/uL (0.0-1.1) Eosinophils # (Auto) 0.0 x10^3/uL (0.0-0.7) Basophils # (Auto) 0.0 x10^3/uL (0.0-0.2) Sodium Level 143 mmol/L (136-145) Potassium Level 4.5 mmol/L (3.5-5.1) Chloride Level 103 mmol/L (98-107) Carbon Dioxide Level 33 mmol/L (21-32) Anion Gap 7 (6-14) Blood Urea Nitrogen 47 mg/dL (7-20) Creatinine 2.2 mg/dL (0.6-1.0) Estimated GFR (Cockcroft-Gault) 26.6 Glucose Level 87 mg/dL (70-99) Calcium Level 9.6 mg/dL (8.5-10.1) Free Thyroxine 0.40 ng/dL (0.76-1.46) Free Triiodothyronine (T3) pg/mL < 0.50 pg/mL (2.18-3.98) Microbiology Micro Microbiology 03/31/18 Blood Culture - Final, Complete NO GROWTH AFTER 5 DAYS Review of Systems Constitutional: yes: weakness, alert, oriented Pulmonary: Yes dyspnea Physical Exam HEENT: Neck Supple W Full Motion Chest: Symmetric LUNGS: Other (diminished in bases) Heart: RRR Abdomen: Soft N/T Extremities: No Edema Neurology: alert, follow commands Diagnostic Tests Echocardiogram: Other (dilated LV & RV; LVEF 20%; global hypokinesis; moderately reduced RV systolic function; mild AR/TR) Assessment Assessment 1. acute on chronic heart failure, bi-ventricular --NT-proBNP > 35K --TTE with depressed LVEF of 20% with moderately reduced RV systolic function ; global hypokinesis --oral diuretics --reasonably compensated at this point 2. ischemic cardiomyopathy --LVEF ~ 20% --has Medtr[employer] ICD for prevention of SCD --interrogated with few episodes of NSVT; no shock --Optival level trending upward since January --continue BB; hold ACEI/ARB due to renal function 3. NSTEMI --recent chest pain in the setting of nausea/vomiting --suspect demand mediated in the setting of acute heart and renal failure as well as sepsis --TTE with global hypokinesis --records from [facility] indicated CAD history with prior PCI to unknown targets; records from 2011; no significant cardiac information in records from [facility] --MPI in progress 3. JAIDEN on CKD --Cr 2.9; trending downward 4. sepsis --defer to ID 5. HTN --controlled MARIANA DANIELS MD 04/05/18 1631: CARDIO Progress Notes Assessment Assessment Patient seen and examined. Agree with PRINTER HELPER's assessment and plan. Acute on chronic systolic heart failure better compensated Lexiscan nuclear stress test did not show any significant amount of ischemia Continue current medical regimen MIKE DUNHAM APRN Apr 05, 2018 11:19 MARIANA DANIELS MD Apr 05, 2018 16:31
[2018-04-05] MEDS: POLYETHYLENE GLYCOL 3350 17 GM PACKET. PO PRN (12:38)
[2018-04-05] MEDS: CITALOPRAM 20 MG TABLET. PO SCH (12:39)
[2018-04-05] MEDS: LACTOBACILLUS RHAMNOSUS GG 1 CAPSULE. PO SCH ×2 (12:39→20:43)
[2018-04-05] MEDS: GABAPENTIN 300 MG CAPSULE. PO SCH ×3 (12:39→20:43)
[2018-04-05] MEDS: FUROSEMIDE 40 MG TABLET. PO SCH (12:39)
[2018-04-05] MEDS: LIOTHYRONINE 5 MCG TABLET. PO SCH (12:40)
[2018-04-05] MEDS: POTASSIUM CHLORIDE 20 MEQ TABLET.ER. PO SCH (12:40)
[2018-04-05] MEDS: PANTOPRAZOLE 40 MG TABLET.DR. PO SCH (12:40)
[2018-04-05] MEDS: CLOPIDOGREL BISULFATE 75 MG TABLET PO SCH (12:40)
--- NOTE | 2018-04-05 12:43 | RAD ---
MR#: [id number] Date of Study: 04/05/2018 Ordering Physician: MIKE DUNHAM, Referring Physician: CHERIE AYALA Tech: YUNI Anne APPROVED REPORT Test Type: Pharmacological Stress Nurse/Tech: Kamari Voss RN Test Indications: nonstemi Cardiac History: bradycardia, asthma, COPD, See Electronic Medical Record Medications: See Electronic Medical Record Medical History: See Electronic Medical Record Resting ECG: A paced Resting Heart Rate: 70 bpm Resting Blood Pressure: 100/55mmHg Pretest Chest Pain: None Nurse/Tech Notes Lungs CTA Consent: The procedure was explained to the patient in lay terms. Informed consent was witnessed. Sameer eout was entered into Sighter. History and Stress Test performed by Kamari Voss RN Pharm. Details Pharmacologic stress testing was performed using 0.4mg per 5ml of regadenoson given intravenously ove r 7-10 seconds. Stress Symptoms No chest pain or symptoms. POST EXERCISE Reason for Termination: Infusion complete Max HR: 81 bpm Max Blood Pressure: 103/51mmHg Blood Pressure response to exercise: Normal blood pressure response during stress. Heart Rate response to exercise: normal response Chest Pain: No. Arrhythmia: Yes. PAC ST Change: No. INTERPRETATION Stress EKG Conclusion: Baseline EKG showed paced rhythm. Nondiagnostic changes at peak stress. No sig nificant arrhythmias. Imaging Protocol IMAGE PROTOCOL: Rest Tc-99m/stress Tc-99m 1 day Rest: Stress: Viability: Radiopharm.Tc99m [id number] Sestamibi Dose11.3mCi 33.5mCi Duration 17min. 13min. Img Date 04/05/2018 04/05/2018 Inj-Img Erlx13foc. 90min. Rest Admin Site:IV - Central LineAdministrator:YUNI Anne Stress Admin Site: IV - Central LineAdministrator: NANCY GarzaB, ARRT (R)(N) STRESS DATA End Diast. Vol.206.0mlEnd Syst. Vol.112.0ml Myocardial Rbat446.0gEject. Iodxxxsg32.0% Stress Scores Regional WT2.00Summed WT34.00 Regional WM0.00Summed WM10.00 LV Perfusion Scintigraphic images showed a large predominantly fixed defect involving the inferior, inferolateral and lateral light consistent with previous myocardial infarction with very small amount of reversibil ity consistent with ubaldo-infarct ischemia. Wall Motion Abnormal septal wall motion probably from paced rhythm. The left ventricle ejection fraction was calc ulated at 46%. LV Perf. Quant 17 Seg. SSS22.00 17 Seg. SRS23.00 17 Seg. SDS3.00 Stress Defect Extent (% LAD)0.00Rest Defect Extent (% LAD)10.00Rev. Defect Extent (% LAD)0.00 Stress Defect Extent (% LCX) 100.00Rest Defect Extent (% LCX)93.80Rev. Defect Extent (% LCX)16.3 0 Stress Defect Extent (% RCA)34.40Rest Defect Extent (% RCA)64.40Rev. Defect Extent (% RCA)4.40 Stress Defect Extent (% OLIMPIA)34.60Rest Defect Extent (% OLIMPIA)44.60Rev. Defect Extent (% OLIMPIA)6.50 Conclusion 1. Regadenoson cardioisotope stress test showed large infarct involving the inferior, inferolateral a nd lateral light with very small amount of ubaldo-infarct ischemia. 2. Abnormal septal wall motion probably from paced rhythm. The left ventricle ejection fraction was c alculated at 46%. 3. Intermediate risk for cardiac events based on diminished left ventricle systolic function . Signed by : Trevor Moore, Electronically Approved : 04/05/2018 12:41:23
--- NOTE | 2018-04-05 13:06 | PDOC ---
Provider Note Provider Note Hem/Onc 1. Anemia of chronic disease 2. 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 I do not suspect primary bone marrow disorder. see dictation [id number]. CLAY ARTEAGA MD Apr 05, 2018 13:06
--- NOTE | 2018-04-05 13:35 | PDOC ---
PROGRESS NOTES Chief Complaint Chief Complaint Acute heart failure systolic EF 20% AMS, with hypoglycemia wo dm history, hypothyroidism NSTEMI with chf JAIDEN vasomotor, atn Sepsis? HTN Anemia Hypoglycemia REcent shingles h/o CAD hypomagnesemia ICD NON COMpliance? pancytopenia with splemegaly with CHF? h/o DVT, PE, off AC with h/o gib h/o aortic bypass Plan: fu with card, MPI intermediate risk increase synthroid to 150mcg daily, add t3, repeat labs every 2 ds cont current meds, on coreg, lasix daily, plavix, dc clonidine given low BP pTOT replete Mag dvt ppx EF 20% abx dced as per id onco consult SW for snf History of Present Illness History of Present Illness talkes slow, mild confusion MPI today Vitals Vitals Vital Signs Date Time Temp Pulse Resp B/P (MAP) Pulse Ox O2 Delivery O2 Flow Rate FiO2 04/05/18 11:00 98.3 59 16 91/54 (66) 93 Nasal Cannula 2.0 98.3 Physical Exam Physical Exam GENERAL: Propped up in bed, alert, eating LUNGS: Decreased in the bases. HEART: S1, S2. Pacemaker ICD ABDOMEN: Soft, nontender, no guarding. : [place] in place. EXTREMITIES: No gross edema or cyanosis SKIN: Without signs of rash. NEUROLOGIC: Alert, responds appropriately RIJ clean General: No acute distress, Other (minimally arousable, mumbles) Heart: Normal S1, Normal S2 Abdomen: Normal bowel sounds (obese abdomen), Soft Extremities: No clubbing, Normal pulses, Other (trace edema) Skin: No rashes, No significant lesion Labs LABS Laboratory Tests Test 04/04/18 16:39 04/05/18 05:30 04/05/18 07:34 04/05/18 12:14 Glucose (Fingerstick) 129 mg/dL (70-99) 70 mg/dL (70-99) 116 mg/dL (70-99) White Blood Count 2.8 x10^3/uL (4.0-11.0) Red Blood Count 2.72 x10^6/uL (3.50-5.40) Hemoglobin 8.3 g/dL (12.0-15.5) Hematocrit 24.3 % (36.0-47.0) Mean Corpuscular Volume 90 fL (79-100) Mean Corpuscular Hemoglobin 30 pg (25-35) Mean Corpuscular Hemoglobin Concent 34 g/dL (31-37) Red Cell Distribution Width 29.2 % (11.5-14.5) Platelet Count 92 x10^3/uL (140-400) Neutrophils (%) (Auto) 73 % (31-73) Lymphocytes (%) (Auto) 13 % (24-48) Monocytes (%) (Auto) 12 % (0-9) Eosinophils (%) (Auto) 2 % (0-3) Basophils (%) (Auto) 1 % (0-3) Neutrophils # (Auto) 2.0 x10^3uL (1.8-7.7) Lymphocytes # (Auto) 0.4 x10^3/uL (1.0-4.8) Monocytes # (Auto) 0.3 x10^3/uL (0.0-1.1) Eosinophils # (Auto) 0.0 x10^3/uL (0.0-0.7) Basophils # (Auto) 0.0 x10^3/uL (0.0-0.2) Sodium Level 143 mmol/L (136-145) Potassium Level 4.5 mmol/L (3.5-5.1) Chloride Level 103 mmol/L (98-107) Carbon Dioxide Level 33 mmol/L (21-32) Anion Gap 7 (6-14) Blood Urea Nitrogen 47 mg/dL (7-20) Creatinine 2.2 mg/dL (0.6-1.0) Estimated GFR (Cockcroft-Gault) 26.6 Glucose Level 87 mg/dL (70-99) Calcium Level 9.6 mg/dL (8.5-10.1) Free Thyroxine 0.40 ng/dL (0.76-1.46) Free Triiodothyronine (T3) pg/mL < 0.50 pg/mL (2.18-3.98) Assessment and Plan Assessmemt and Plan Problems Medical Problems: (1) Acute exacerbation of CHF (congestive heart failure) Status: Acute (2) Elevated troponin I level Status: Acute (3) Hypoglycemia Status: Acute (4) Hypoxia Status: Acute (5) Lactic acidosis Status: Acute (6) Renal insufficiency Status: Acute Comment Review of Relevant I have reviewed the following items madeline (where applicable) has been applied. Labs Laboratory Tests Test 04/03/18 17:00 04/03/18 21:24 04/04/18 04:50 04/04/18 06:20 Glucose (Fingerstick) 120 mg/dL (70-99) 103 mg/dL (70-99) White Blood Count 3.1 x10^3/uL (4.0-11.0) Red Blood Count 2.83 x10^6/uL (3.50-5.40) Hemoglobin 8.5 g/dL (12.0-15.5) Hematocrit 25.1 % (36.0-47.0) Mean Corpuscular Volume 89 fL (79-100) Mean Corpuscular Hemoglobin 30 pg (25-35) Mean Corpuscular Hemoglobin Concent 34 g/dL (31-37) Red Cell Distribution Width 28.8 % (11.5-14.5) Platelet Count 145 x10^3/uL (140-400) Neutrophils (%) (Auto) 72 % (31-73) Lymphocytes (%) (Auto) 9 % (24-48) Monocytes (%) (Auto) 16 % (0-9) Eosinophils (%) (Auto) 1 % (0-3) Basophils (%) (Auto) 3 % (0-3) Neutrophils # (Auto) 2.2 x10^3uL (1.8-7.7) Lymphocytes # (Auto) 0.3 x10^3/uL (1.0-4.8) Monocytes # (Auto) 0.5 x10^3/uL (0.0-1.1) Eosinophils # (Auto) 0.0 x10^3/uL (0.0-0.7) Basophils # (Auto) 0.1 x10^3/uL (0.0-0.2) Platelet Estimate Adequate (ADEQUATE) Polychromasia Present Poikilocytosis Present Anisocytosis Present Target Cells Present Tear Drop Cells Occ Ovalocytes Present Kamaljit Cells Few Schistocytes Few Hepatitis B Surface Antigen Nonreactive (Nonreactive) Hepatitis C IgG Antibody Nonreactive (Nonreactive) Sodium Level 141 mmol/L (136-145) Potassium Level 3.8 mmol/L (3.5-5.1) Chloride Level 102 mmol/L (98-107) Carbon Dioxide Level 31 mmol/L (21-32) Anion Gap 8 (6-14) Blood Urea Nitrogen 45 mg/dL (7-20) Creatinine 2.4 mg/dL (0.6-1.0) Estimated GFR (Cockcroft-Gault) 24.1 Glucose Level 78 mg/dL (70-99) Calcium Level 9.3 mg/dL (8.5-10.1) Magnesium Level 1.5 mg/dL (1.8-2.4) Total Bilirubin 0.5 mg/dL (0.2-1.0) Direct Bilirubin 0.3 mg/dL (0.0-0.2) Aspartate Amino Transf (AST/SGOT) 154 U/L (15-37) Alanine Aminotransferase (ALT/SGPT) 186 U/L (14-59) Alkaline Phosphatase 122 U/L (46-116) Total Protein 6.7 g/dL (6.4-8.2) Albumin 2.5 g/dL (3.4-5.0) Test 04/04/18 07:14 04/04/18 11:10 04/04/18 16:39 04/05/18 05:30 Glucose (Fingerstick) 71 mg/dL (70-99) 86 mg/dL (70-99) 129 mg/dL (70-99) White Blood Count 2.8 x10^3/uL (4.0-11.0) Red Blood Count 2.72 x10^6/uL (3.50-5.40) Hemoglobin 8.3 g/dL (12.0-15.5) Hematocrit 24.3 % (36.0-47.0) Mean Corpuscular Volume 90 fL (79-100) Mean Corpuscular Hemoglobin 30 pg (25-35) Mean Corpuscular Hemoglobin Concent 34 g/dL (31-37) Red Cell Distribution Width 29.2 % (11.5-14.5) Platelet Count 92 x10^3/uL (140-400) Neutrophils (%) (Auto) 73 % (31-73) Lymphocytes (%) (Auto) 13 % (24-48) Monocytes (%) (Auto) 12 % (0-9) Eosinophils (%) (Auto) 2 % (0-3) Basophils (%) (Auto) 1 % (0-3) Neutrophils # (Auto) 2.0 x10^3uL (1.8-7.7) Lymphocytes # (Auto) 0.4 x10^3/uL (1.0-4.8) Monocytes # (Auto) 0.3 x10^3/uL (0.0-1.1) Eosinophils # (Auto) 0.0 x10^3/uL (0.0-0.7) Basophils # (Auto) 0.0 x10^3/uL (0.0-0.2) Sodium Level 143 mmol/L (136-145) Potassium Level 4.5 mmol/L (3.5-5.1) Chloride Level 103 mmol/L (98-107) Carbon Dioxide Level 33 mmol/L (21-32) Anion Gap 7 (6-14) Blood Urea Nitrogen 47 mg/dL (7-20) Creatinine 2.2 mg/dL (0.6-1.0) Estimated GFR (Cockcroft-Gault) 26.6 Glucose Level 87 mg/dL (70-99) Calcium Level 9.6 mg/dL (8.5-10.1) Free Thyroxine 0.40 ng/dL (0.76-1.46) Free Triiodothyronine (T3) pg/mL < 0.50 pg/mL (2.18-3.98) Test 04/05/18 07:34 04/05/18 12:14 Glucose (Fingerstick) 70 mg/dL (70-99) 116 mg/dL (70-99) Laboratory Tests Test 04/04/18 16:39 04/05/18 05:30 04/05/18 07:34 04/05/18 12:14 Glucose (Fingerstick) 129 mg/dL (70-99) 70 mg/dL (70-99) 116 mg/dL (70-99) White Blood Count 2.8 x10^3/uL (4.0-11.0) Red Blood Count 2.72 x10^6/uL (3.50-5.40) Hemoglobin 8.3 g/dL (12.0-15.5) Hematocrit 24.3 % (36.0-47.0) Mean Corpuscular Volume 90 fL (79-100) Mean Corpuscular Hemoglobin 30 pg (25-35) Mean Corpuscular Hemoglobin Concent 34 g/dL (31-37) Red Cell Distribution Width 29.2 % (11.5-14.5) Platelet Count 92 x10^3/uL (140-400) Neutrophils (%) (Auto) 73 % (31-73) Lymphocytes (%) (Auto) 13 % (24-48) Monocytes (%) (Auto) 12 % (0-9) Eosinophils (%) (Auto) 2 % (0-3) Basophils (%) (Auto) 1 % (0-3) Neutrophils # (Auto) 2.0 x10^3uL (1.8-7.7) Lymphocytes # (Auto) 0.4 x10^3/uL (1.0-4.8) Monocytes # (Auto) 0.3 x10^3/uL (0.0-1.1) Eosinophils # (Auto) 0.0 x10^3/uL (0.0-0.7) Basophils # (Auto) 0.0 x10^3/uL (0.0-0.2) Sodium Level 143 mmol/L (136-145) Potassium Level 4.5 mmol/L (3.5-5.1) Chloride Level 103 mmol/L (98-107) Carbon Dioxide Level 33 mmol/L (21-32) Anion Gap 7 (6-14) Blood Urea Nitrogen 47 mg/dL (7-20) Creatinine 2.2 mg/dL (0.6-1.0) Estimated GFR (Cockcroft-Gault) 26.6 Glucose Level 87 mg/dL (70-99) Calcium Level 9.6 mg/dL (8.5-10.1) Free Thyroxine 0.40 ng/dL (0.76-1.46) Free Triiodothyronine (T3) pg/mL < 0.50 pg/mL (2.18-3.98) Microbiology 03/31/18 Blood Culture - Final, Complete NO GROWTH AFTER 5 DAYS Medications Current Medications Aspirin (Karen Aspirin) 325 mg 1X ONCE PO Last administered on 03/31/18at 01:16 ; Start 03/30/18 at 23:30; Stop 03/30/18 at 23:31; Status DC Fentanyl Citrate (Fentanyl 2ml Vial) 50 mcg 1X ONCE IV ; Start 03/30/18 at 23: 30; Stop 03/30/18 at 23:31; Status DC Dextrose (Dextrose 50%-Water Syringe) 25 gm 1X ONCE IV Last administered on at 23:10; Start 03/30/18 at 23:30; Stop 03/30/18 at 23:31; Status DC Dextrose (Dextrose 50%-Water Syringe) 25 gm STK-MED ONCE IV ; Start 03/30/18 at 23:05; Stop 03/30/18 at 23:06; Status DC Glucose (Insta-Glucose) 15 gm STK-MED ONCE .ROUTE ; Start 03/30/18 at 23:05; Stop 03/30/18 at 23:06; Status DC Ondansetron HCl (Zofran) 4 mg 1X ONCE IV Last administered on 03/31/18at 01:18 ; Start 03/30/18 at 23:30; Stop 03/30/18 at 23:31; Status DC Glucose (Insta-Glucose) 15 gm 1X ONCE PO Last administered on 03/30/18at 23:07 ; Start 03/30/18 at 23:30; Stop 03/30/18 at 23:31; Status DC Nitroglycerin (Nitro-Bid Oint) 1 inch 1X ONCE TP Last administered on at 01:19; Start 03/31/18 at 01:00; Stop 03/31/18 at 01:01; Status DC Bumetanide (Bumex) 0.5 mg 1X ONCE IV Last administered on 03/31/18at 01:11; Start 03/31/18 at 01:00; Stop 03/31/18 at 01:01; Status DC Ondansetron HCl (Zofran) 4 mg PRN Q8HRS PRN IV NAUSEA/VOMITING 1ST CHOICE; Start 03/31/18 at 00:45; Stop 04/01/18 at 00:44; Status DC Dextrose (Dextrose 50%-Water Syringe) 12.5 gm PRN Q15MIN PRN IV SEE COMMENTS; Start 03/31/18 at 00:45 Lidocaine HCl 20 ml 1X ONCE IJ Last administered on 03/31/18at 03:00; Start at 03:00; Stop 03/31/18 at 03:01; Status DC Lidocaine HCl (Xylocaine-Mpf 2% Vial) 2 ml STK-MED ONCE .ROUTE ; Start 03/31/18 at 02:31; Stop 03/31/18 at 02:33; Status DC Pantoprazole Sodium (Protonix) 40 mg DAILYAC PO Last administered on 04/05/18at 12:40; Start 03/31/18 at 11:30 Levothyroxine Sodium 100 mcg/ Sodium Chloride 5 ml @ 100 mls/hr DAILY IVP ; Start 04/01/18 at 09:00; Status UNV Levothyroxine Sodium 50 mcg/ Sodium Chloride 5 ml @ 100 mls/hr DAILY IVP Last administered on 04/04/18at 08:52; Start 03/31/18 at 14:00; Stop 04/04/18 at 16:37 ; Status DC Furosemide 100 mg/ Sodium Chloride 100 ml @ 5 mls/hr CONT PRN IV DIURESIS Last administered on 03/31/18at 12:59; Start 03/31/18 at 11:45; Stop 03/31/18 at 22:16 ; Status DC Ceftriaxone Sodium 2 gm/ Dextrose 100 ml @ 200 mls/hr Q24H IV Last administered on 04/03/18at 14:30; Start 03/31/18 at 13:00; Stop 04/04/18 at 08:49 ; Status DC Azithromycin 500 mg/Sodium Chloride 250 ml @ 250 mls/hr 1X ONCE IV Last administered on 03/31/18at 13:04; Start 03/31/18 at 12:30; Stop 03/31/18 at 13:29 ; Status DC Furosemide 100 mg/ Sodium Chloride 100 ml @ 0 mls/hr CONT PRN IV DIURESIS Last administered on 04/01/18at 01:34; Start 03/31/18 at 22:30; Stop 04/01/18 at 12:56 ; Status DC Lactobacillus Rhamnosus (Culturelle) 1 cap BID PO Last administered on at 12:39; Start 04/01/18 at 21:00 Azithromycin 500 mg/Sodium Chloride 250 ml @ 250 mls/hr Q24H IV Last administered on 04/03/18at 14:31; Start 04/01/18 at 14:00; Stop 04/04/18 at 08:49 ; Status DC Milrinone Lactate/ Dextrose 100 ml @ 2.96 mls/hr CONT PRN IV SEE I/O RECORD Last administered on 04/03/18at 17:04; Start 04/02/18 at 13:00; Stop 04/04/18 at 12:47; Status DC Acetaminophen/ Codeine Phosphate (Tylenol #3) 1 tab PRN Q6HRS PRN PO PAIN Last administered on 04/04/18at 21:31; Start 04/02/18 at 13:30 Ondansetron HCl (Zofran) 4 mg PRN Q6HRS PRN IV NAUSEA/VOMITING Last administered on 04/02/18at 15:37; Start 04/02/18 at 15:45 Furosemide (Lasix) 40 mg DAILY PO Last administered on 04/05/18at 12:39; Start 04/03/18 at 11:30 Potassium Chloride (Klor-Con) 20 meq 1X ONCE PO Last administered on at 12:17; Start 04/03/18 at 11:30; Stop 04/03/18 at 11:31; Status DC Simethicone (Gas-X) 80 mg PRN AFTMEALHC PRN PO GAS / BLOATING; Start 04/03/18 at 17:45 Polyethylene Glycol (miraLAX PACKET) 17 gm PRN DAILY PRN PO CONSTIPATION Last administered on 04/05/18at 12:38; Start 04/04/18 at 12:00 Atorvastatin Calcium (Lipitor) 20 mg QHS PO Last administered on 04/04/18at 21: 34; Start 04/04/18 at 21:00 Clonidine HCl (Catapres) 0.2 mg BID PO Last administered on 04/04/18at 13:45; Start 04/04/18 at 13:00; Stop 04/05/18 at 09:59; Status DC Clopidogrel Bisulfate (Plavix) 75 mg DAILY PO Last administered on 04/05/18at 12 :40; Start 04/04/18 at 13:00 Metoprolol Tartrate (Lopressor) 25 mg BID PO Last administered on 04/04/18at 13: 47; Start 04/04/18 at 13:00; Stop 04/04/18 at 13:58; Status DC Potassium Chloride (Klor-Con) 20 meq DAILY PO Last administered on 04/05/18at 12 :40; Start 04/04/18 at 13:00 Celecoxib (CeleBREX) 200 mg BID PO ; Start 04/04/18 at 13:00; Stop 04/04/18 at 13:53; Status DC Citalopram Hydrobromide (CeleXA) 40 mg DAILY PO Last administered on 04/05/18at 12:39; Start 04/04/18 at 13:00 Non-Formulary Medication (Fluticasone/ Salmeterol (Advair 250-50 Diskus)) 1 inh BID IH ; Start 04/04/18 at 21:00; Status UNV Gabapentin (Neurontin) 600 mg TID PO Last administered on 04/05/18at 12:39; Start 04/04/18 at 14:00 Non-Formulary Medication (Omeprazole ) 40 mg DAILY PO ; Start 04/05/18 at 09:00 ; Status UNV Verapamil HCl (Calan Sr) 120 mg BID PO Last administered on 04/04/18at 13:50; Start 04/04/18 at 13:00; Stop 04/05/18 at 10:47; Status DC Magnesium Sulfate 50 ml @ 25 mls/hr 1X ONCE IV Last administered on 04/04/18at 13:52; Start 04/04/18 at 13:00; Stop 04/04/18 at 14:59; Status DC Budesonide (Pulmicort) 0.5 mg RTBID NEB Last administered on 04/05/18at 07:49; Start 04/04/18 at 13:00 Albuterol Sulfate (Ventolin Neb Soln) 2.5 mg RTQID NEB Last administered on 04/05/18at 07:49; Start 04/04/18 at 13:00 Carvedilol (Coreg) 12.5 mg BIDWMEALS PO Last administered on 04/04/18at 18:13; Start 04/04/18 at 17:00 Levothyroxine Sodium (Synthroid) 100 mcg DAILY06 PO Last administered on at 05:24; Start 04/05/18 at 06:00; Stop 04/05/18 at 10:47; Status DC Regadenoson (Lexiscan) 0.4 mg 1X ONCE IV Last administered on 04/05/18at 10:00 ; Start 04/05/18 at 08:00; Stop 04/05/18 at 08:11; Status DC Levothyroxine Sodium (Synthroid) 150 mcg DAILY06 PO ; Start 04/06/18 at 06:00 Liothyronine Sodium (Cytomel) 10 mcg DAILY PO Last administered on 04/05/18at 12 :40; Start 04/05/18 at 11:00 Active Scripts Active Reported Allopurinol 100 Mg Tablet 1 Tab PO DAILY Mag-Oxide (Magnesium Oxide) 400 Mg Tablet 400 Mg PO TID [place] 5-325 Tablet (Acetaminophen/Hydrocodone Bitart) 1 Each Tablet 1 Tab PO PRN Q6HRS PRN Isosorbide Mononitrate Er (Isosorbide Mononitrate) 30 Mg Tab.er.24h 1 Tab PO DAILY Uloric (Febuxostat) 40 Mg Tablet 1 Tab PO DAILY Meclizine Hcl 25 Mg Tablet 1 Tab PO PRN TID PRN Synthroid (Levothyroxine Sodium) 150 Mcg Tablet 1 Tab PO DAILY Lisinopril 40 Mg Tablet 1 Tab PO DAILY Symbicort 160-4.5 Mcg Inhaler (Budesonide/Formoterol Fumarate) 10.2 Gm Hfa.aer.ad 2 Puff IH BID Citalopram Hbr (Citalopram Hydrobromide) 20 Mg Tablet 1 Tab PO DAILY Aspirin Ec (Aspirin) 325 Mg Tablet.dr 1 Tab PO DAILY Nitrostat (Nitroglycerin) 0.4 Mg Tab.subl 0.4 Mg SL PRN Q5MIN PRN Flonase Allergy Relief (Fluticasone Propionate) 9.9 Ml White.susp 2 Sprays NS DAILY Proair Hfa Inhaler (Albuterol Sulfate) 8.5 Gm Hfa.aer.ad 2 Puff INH PRN Q4-6HRS PRN Triamcinolone Acetonide 0.1% Cream (Triamcinolone Acetonide) 15 Gm Cream..g. 15 Gm TP Celexa (Citalopram Hydrobromide) 40 Mg Tablet 40 Mg PO DAILY Gabapentin 600 Mg Tablet 600 Mg PO BID Atorvastatin Calcium 20 Mg Tablet 20 Mg PO QHS Celebrex (Celecoxib) 200 Mg Capsule 200 Mg PO BID 30 Days Furosemide 20 Mg Tablet 40 Mg PO BID Metoprolol Tartrate 25 Mg Tablet 50 Mg PO BID Omeprazole 40 Mg Capsule.dr 40 Mg PO DAILY Clonidine Hcl 0.2 Mg Tablet 0.2 Mg PO BID Colcrys (Colchicine) 0.6 Mg Tablet 0.6 Mg PO BID Lorazepam 1 Mg Tablet 1 Mg PO BID Klor-Con M20 (Potassium Chloride) 20 Meq Tab.er.prt 10 Meq PO DAILY Verapamil Hcl 120 Mg Tablet 120 Mg PO BID Advair 250-50 Diskus (Fluticasone/Salmeterol) 1 Each Disk.w.dev 1 Inh IH BID Iron (Ferrous Sulfate) 325 Mg Capsule.er 325 Mg PO Clopidogrel (Clopidogrel Bisulfate) 75 Mg Tablet 75 Mg PO DAILY Vitals/I & O Vital Sign - Last 24 Hours 04/04/18 04/04/18 04/04/18 04/04/18 13:45 13:47 13:50 14:51 Temp 98.3 98.3 Pulse 72 74 75 70 Resp 20 B/P (MAP) 128/60 128/60 128/60 124/63 (83) Pulse Ox 100 O2 Delivery Nasal Cannula O2 Flow Rate 2.0 04/04/18 04/04/18 04/04/18 04/04/18 16:03 18:13 19:10 19:36 Temp 98.1 98.1 Pulse 71 66 Resp 20 B/P (MAP) 99/51 (67) Pulse Ox 97 98 O2 Delivery Room Air Nasal Cannula Nasal Cannula O2 Flow Rate 2.0 2.0 04/04/18 04/04/18 04/04/18 04/04/18 20:30 21:31 22:31 22:50 Temp 98.3 98.3 Pulse 61 Resp 20 18 B/P (MAP) 95/53 (67) Pulse Ox 98 98 100 O2 Delivery Room Air Nasal Cannula Nasal Cannula Nasal Cannula O2 Flow Rate 2.0 2.0 2.0 04/05/18 04/05/18 04/05/18 04/05/18 03:15 07:00 07:30 08:00 Temp 98.3 98.1 98.3 98.1 Pulse 59 60 59 Resp 20 18 B/P (MAP) 92/63 (73) 94/52 (66) Pulse Ox 97 94 98 O2 Delivery Nasal Cannula Nasal Cannula Room Air O2 Flow Rate 3.0 2.0 04/05/18 04/05/18 08:00 11:00 Temp 98.3 98.3 Pulse 59 Resp 16 B/P (MAP) 91/54 (66) Pulse Ox 93 O2 Delivery Nasal Cannula Nasal Cannula O2 Flow Rate 2.0 2.0 Intake and Output 04/04/18 04/04/18 04/05/18 15:00 23:00 07:00 Intake Total 600 ml Output Total 250 ml 350 ml Balance -250 ml 250 ml PETRA WHITLEY MD Apr 05, 2018 13:35
[2018-04-05 15:00] VITALS: BP 93/55
[2018-04-05] MEDS ORDERED: traMADol 50 MG TABLET PO PRN (15:15)
[2018-04-05] MEDS: CARVEDILOL 6.25 MG TABLET. PO SCH (17:00)
[2018-04-05 18:32] VITALS: BP 91/53
[2018-04-05] MEDS: ATORVASTATIN CALCIUM 20 MG TABLET PO SCH (20:43)
[2018-04-05 23:00] VITALS: BP 95/52
[2018-04-06] VITALS (9 sets, daily range): BP systolic 87–107; BP diastolic 42–61
--- NOTE | 2018-04-06 | CONS ---
DATE OF CONSULTATION: 04/05/2018 REQUESTING PHYSICIAN: Dr. Sammie Conte. REASON FOR CONSULTATION: Pancytopenia. HISTORY OF PRESENT ILLNESS: The patient is a 72-year-old -[place] female who was admitted to [facility] on 03/31/2018 with complaints of dyspnea, chest pain, nausea, vomiting and diarrhea. The patient was very drowsy and lethargic at that time and she was admitted to the ICU. Her glucose was only 26. Her hemoglobin on 03/30/2018 was 9.6 with WBC of 5.5 and a platelet count of 149. There was evidence of 3% bands, but no immature cells. Her creatinine was 2.5. Her B12 level was 849 with an iron of 32, TIBC 226, iron saturation of 14%. There was also evidence of elevated liver function tests with a total bilirubin of 2.7, AST of 72 and alkaline phosphatase of 125. BNP was more than 35,000. She underwent ultrasound of the abdomen on 03/31/2018 that revealed mild fatty infiltration of the liver and the spleen was normal. Infectious Disease was also consulted for lactic acidosis and probable sepsis. Chest x-ray revealed moderate cardiomegaly with diffuse interstitial and patchy opacities, which may be from pulmonary edema or multifocal pneumonia. She developed leukopenia and thrombocytopenia with a platelet count of 92,000 on 04/05/2018 and WBC of 2.8 on 04/05/2018 and hence I was consulted. PAST MEDICAL HISTORY: She has history of anemia, arthritis, GI bleed, atrial fibrillation, history of Coumadin in the past that was discontinued due to GI bleed, hypothyroidism, GERD, knee surgery, low back surgery, CABG, cardiac stent placement, rotator cuff repair. FAMILY HISTORY: Maternal aunt had breast cancer. SOCIAL HISTORY: She has a 25-ghgq-mbre smoking history. No alcohol abuse. REVIEW OF SYSTEMS: A 12-point review of system was performed. Pertinent positives are mentioned in the history of present illness. Rest of the system review is negative. PHYSICAL EXAMINATION: GENERAL APPEARANCE: The patient is a 72-year-old -[place] female who is in no acute cardiorespiratory distress. VITAL SIGNS: Blood pressure 91/54, temperature 98.3. HEENT: Head atraumatic, normocephalic. Eyes, no icterus. NECK: Supple. CHEST: Bilaterally symmetrical. No crepitations or rhonchi heard. HEART: S1, S2 normal. ABDOMEN: Soft, nontender. No hepatosplenomegaly. CENTRAL NERVOUS SYSTEM: No focal deficits. LYMPHATICS: No lymphadenopathy. SKIN: No rashes. PSYCHOLOGIC: Mood and affect are appropriate. LABORATORY DATA: CBC on 04/05/2018 revealed a WBC of 2.8, hemoglobin 8.3, platelet count 92. Reticulocyte count on 04/01/2018 was 2.2. Liver function tests at the time of admission revealed elevated total bilirubin. She subsequently had elevated AST, ALT, alkaline phosphatase. She also has evidence of [id number] kidney disease. BNP more than 3500. B12 849. Iron 32, TIBC 226, iron saturation 14. IMPRESSION AND PLAN: 1. Normochromic normocytic anemia. Peripheral smear does not reveal any evidence of immature white cells. Reticulocyte count is 2.2. I do not suspect hemolysis. There is no evidence of bleeding. I suspect that the etiology of anemia is chronic kidney disease. Iron studies are suggestive of anemia due to chronic disease and B12 level is normal. I will continue to monitor. 2. Leukopenia. She had a normal WBC count at the time of admission and worsening WBC count later on. I suspect that this is due to splenic congestion/hypersplenism due to congestive heart failure. I would expect the WBC count to improve and I will continue to monitor. Peripheral smear does not reveal any evidence of immature white cells and hence I do not suspect leukemia. 3. 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 I will continue to monitor. Platelet count was normal on 04/04/2018 at 145. It is unlikely that she has a primary bone marrow disorder and I will continue to monitor. 4. Chronic kidney disease. Management per Nephrology. 5. [id number] congestive heart failure, biventricular with the left ventricular ejection fraction of only 20% and BNP more than 35,000. Appreciate Cardiology management. CLAY ARTEAGA MD DR: ROCHELLE/shira JOB#: [id number] / [id number]
[2018-04-06 05:23] LABS: BASO % 1 % (0-3); EOS # 0.1 x10^3/uL (0.0-0.7); EOS % 2 % (0-3); HEMATOCRIT 25.9 % (36.0-47.0); HEMOGLOBIN 8.9 g/dL (12.0-15.5); LYMPH # 1.7 x10^3/uL (1.0-4.8); LYMPH % 49 % (24-48); MEAN CORPUSCULAR HEMOGLOBIN 31 pg (25-35); MEAN CORPUSCULAR HGB CONC 34 g/dL (31-37); MEAN CORPUSCULAR VOLUME 89 fL (79-100); MONO # 0.3 x10^3/uL (0.0-1.1); MONO % 8 % (0-9); NEUT # 1.4 x10^3uL (1.8-7.7); NEUT % 40 % (31-73); PLATELET COUNT 108 x10^3/uL (140-400); RED CELL DISTRIBUTION WIDTH 29.4 % (11.5-14.5); WHITE BLOOD COUNT 3.4 x10^3/uL (4.0-11.0)
[2018-04-06 05:41] LABS: ALBUMIN 2.3 g/dL (3.4-5.0); GFR 29.7; PHOSPHORUS 3.5 mg/dL (2.6-4.7); POTASSIUM 4.8 mmol/L (3.5-5.1)
[2018-04-06] MEDS: LEVOTHYROXINE 150 MCG TABLET PO SCH (06:23)
[2018-04-06] MEDS: ALBUTEROL SULFATE 2.5 MG/3 ML NEBU. NEB SCH ×4 (07:41→20:00)
[2018-04-06] MEDS: BUDESONIDE 0.5 MG/2 ML NEBU. NEB SCH ×2 (07:41→20:00)
[2018-04-06] MEDS: CARVEDILOL 6.25 MG TABLET. PO SCH ×2 (09:07→17:00)
[2018-04-06] MEDS: PANTOPRAZOLE 40 MG TABLET.DR. PO SCH (09:07)
[2018-04-06] MEDS: LACTOBACILLUS RHAMNOSUS GG 1 CAPSULE. PO SCH ×2 (09:07→20:44)
[2018-04-06] MEDS: POTASSIUM CHLORIDE 20 MEQ TABLET.ER. PO SCH (09:08)
[2018-04-06] MEDS: LIOTHYRONINE 5 MCG TABLET. PO SCH (09:08)
[2018-04-06] MEDS: CITALOPRAM 20 MG TABLET. PO SCH (09:08)
[2018-04-06] MEDS: CLOPIDOGREL BISULFATE 75 MG TABLET PO SCH (09:08)
[2018-04-06] MEDS: GABAPENTIN 300 MG CAPSULE. PO SCH ×3 (09:08→20:44)
[2018-04-06] MEDS: FUROSEMIDE 40 MG TABLET. PO SCH (09:08)
--- NOTE | 2018-04-06 10:55 | PDOC ---
SUBJECTIVE ROS Stable OBJECTIVE Vital Signs Vital Signs Date Time Temp Pulse Resp B/P (MAP) Pulse Ox O2 Delivery O2 Flow Rate FiO2 04/06/18 09:07 65 103/57 04/06/18 08:00 Nasal Cannula 2.0 04/06/18 07:43 100 04/06/18 07:00 97.6 18 97.6 I & 0 Intake and Output 04/06/18 07:00 Intake Total 450 ml Output Total 2050 ml Balance -1600 ml Intake Oral 450 ml Output Urine Total 2050 ml PHYSICAL EXAM Physical Exam General: No acute distress, awake and alert HEENT: OM moist , On o2 by NC Lungs: CTA ant Heart: Normal S1, Normal S2 Abdomen: Normal bowel sounds , soft, obese Extremities: Trace Bilat edema Skin: No rashes Neuro: AXOX3 - Montague + DIAGNOSIS/ASSESSMENT Assessment & Plan JAIDEN -- Cardiorenal Improving Reviewed records from 2011([facility]) Creat Normal at 1.0 In October 2016- Creat 1.8 Celebrex was on current med list- dced CKD - Baseline 1.8 in October 2016 E- Lytes stable Acute heart failure- Now Compensated Was on IV Lasix drip on admission On milrinone IV and PO lasix, Cardiology following NSTEMI Global Hypokinesis Cardiology on board Elevated LFTs GI following PPM Cardiology following HTN- BP controlled Elevated TSH- On LTHx US abdomen - Right kidney is obscured by bowel gas. Left kidney measures 9 cm x 5 cm and 4.8 cm. COMMENT/RELEVANT DATA Meds Current Medications Medications (Trade) Dose Ordered Sig/Domitila Start Time Stop Time Status Last Admin Dose Admin Acetaminophen/ Codeine Phosphate (Tylenol #3) 1 tab PRN Q6HRS PRN 04/02/18 13:30 04/04/18 21:31 1 TAB Albuterol Sulfate (Ventolin Neb Soln) 2.5 mg RTQID 04/04/18 13:00 04/06/18 07:41 2.5 MG Aspirin (Karen Aspirin) 325 mg 1X ONCE 03/30/18 23:30 03/30/18 23:31 DC 03/31/18 01:16 325 MG Atorvastatin Calcium (Lipitor) 20 mg QHS 04/04/18 21:00 04/05/18 20:43 20 MG Azithromycin 500 mg/Sodium Chloride 250 ml @ 250 mls/hr Q24H 04/01/18 14:00 04/04/18 08:49 DC 04/03/18 14:31 250 MLS/HR Budesonide (Pulmicort) 0.5 mg RTBID 04/04/18 13:00 04/06/18 07:41 0.5 MG Bumetanide (Bumex) 0.5 mg 1X ONCE 03/31/18 01:00 03/31/18 01:01 DC 03/31/18 01:11 0.5 MG Carvedilol (Coreg) 6.25 mg BIDWMEALS 04/05/18 17:00 04/06/18 09:07 6.25 MG Ceftriaxone Sodium 2 gm/ Dextrose 100 ml @ 200 mls/hr Q24H 03/31/18 13:00 04/04/18 08:49 DC 04/03/18 14:30 200 MLS/HR Celecoxib (CeleBREX) 200 mg BID 04/04/18 13:00 04/04/18 13:53 DC Citalopram Hydrobromide (CeleXA) 40 mg DAILY 04/04/18 13:00 04/06/18 09:08 40 MG Clonidine HCl (Catapres) 0.2 mg BID 04/04/18 13:00 04/05/18 09:59 DC 04/04/18 13:45 0.2 MG Clopidogrel Bisulfate (Plavix) 75 mg DAILY 04/04/18 13:00 04/06/18 09:08 75 MG Dextrose (Dextrose 50%-Water Syringe) 12.5 gm PRN Q15MIN PRN 03/31/18 00:45 Fentanyl Citrate (Fentanyl 2ml Vial) 50 mcg 1X ONCE 03/30/18 23:30 03/30/18 23:31 DC Furosemide (Lasix) 40 mg DAILY 04/03/18 11:30 04/06/18 09:08 40 MG Furosemide 100 mg/ Sodium Chloride 100 ml @ 0 mls/hr CONT PRN 03/31/18 22:30 04/01/18 12:56 DC 04/01/18 01:34 10 MLS/HR Gabapentin (Neurontin) 600 mg TID 04/04/18 14:00 04/06/18 09:08 600 MG Glucose (Insta-Glucose) 15 gm 1X ONCE 03/30/18 23:30 03/30/18 23:31 DC 03/30/18 23:07 15 GM Lactobacillus Rhamnosus (Culturelle) 1 cap BID 04/01/18 21:00 04/06/18 09:07 1 CAP Levothyroxine Sodium (Synthroid) 150 mcg DAILY06 04/06/18 06:00 04/06/18 06:23 150 MCG Levothyroxine Sodium 100 mcg/ Sodium Chloride 5 ml @ 100 mls/hr DAILY 04/01/18 09:00 UNV Levothyroxine Sodium 50 mcg/ Sodium Chloride 5 ml @ 100 mls/hr DAILY 03/31/18 14:00 04/04/18 16:37 DC 04/04/18 08:52 100 MLS/HR Lidocaine HCl (Xylocaine-Mpf 2% Vial) 2 ml STK-MED ONCE 03/31/18 02:31 03/31/18 02:33 DC Liothyronine Sodium (Cytomel) 10 mcg DAILY 04/05/18 11:00 04/06/18 09:08 10 MCG Magnesium Sulfate 50 ml @ 25 mls/hr 1X ONCE 04/04/18 13:00 04/04/18 14:59 DC 04/04/18 13:52 25 MLS/HR Metoprolol Tartrate (Lopressor) 25 mg BID 04/04/18 13:00 04/04/18 13:58 DC 04/04/18 13:47 25 MG Milrinone Lactate/ Dextrose 100 ml @ 2.96 mls/hr CONT PRN 04/02/18 13:00 04/04/18 12:47 DC 04/03/18 17:04 2.96 MLS/HR Nitroglycerin (Nitro-Bid Oint) 1 inch 1X ONCE 03/31/18 01:00 03/31/18 01:01 DC 03/31/18 01:19 1 INCH Non-Formulary Medication (Fluticasone/ Salmeterol (Advair 250-50 Diskus)) 1 inh BID 04/04/18 21:00 UNV Non-Formulary Medication (Omeprazole ) 40 mg DAILY 04/05/18 09:00 UNV Ondansetron HCl (Zofran) 4 mg PRN Q6HRS PRN 04/02/18 15:45 04/02/18 15:37 4 MG Pantoprazole Sodium (Protonix) 40 mg DAILYAC 03/31/18 11:30 04/06/18 09:07 40 MG Polyethylene Glycol (miraLAX PACKET) 17 gm PRN DAILY PRN 04/04/18 12:00 04/05/18 12:38 17 GM Potassium Chloride (Klor-Con) 20 meq DAILY 04/04/18 13:00 04/06/18 09:08 20 MEQ Regadenoson (Lexiscan) 0.4 mg 1X ONCE 04/05/18 08:00 04/05/18 08:11 DC 04/05/18 10:00 0.4 MG Simethicone (Gas-X) 80 mg PRN AFTMEALHC PRN 04/03/18 17:45 Tramadol HCl (Ultram) 50 mg PRN Q6HRS PRN 04/05/18 15:15 Verapamil HCl (Calan Sr) 120 mg BID 04/04/18 13:00 04/05/18 10:47 DC 04/04/18 13:50 120 MG Lab Laboratory Tests Test 04/05/18 12:14 04/05/18 16:59 04/05/18 20:45 04/06/18 05:00 Glucose (Fingerstick) 116 mg/dL (70-99) 84 mg/dL (70-99) 91 mg/dL (70-99) White Blood Count 3.4 x10^3/uL (4.0-11.0) Red Blood Count 2.90 x10^6/uL (3.50-5.40) Hemoglobin 8.9 g/dL (12.0-15.5) Hematocrit 25.9 % (36.0-47.0) Mean Corpuscular Volume 89 fL (79-100) Mean Corpuscular Hemoglobin 31 pg (25-35) Mean Corpuscular Hemoglobin Concent 34 g/dL (31-37) Red Cell Distribution Width 29.4 % (11.5-14.5) Platelet Count 108 x10^3/uL (140-400) Neutrophils (%) (Auto) 40 % (31-73) Lymphocytes (%) (Auto) 49 % (24-48) Monocytes (%) (Auto) 8 % (0-9) Eosinophils (%) (Auto) 2 % (0-3) Basophils (%) (Auto) 1 % (0-3) Neutrophils # (Auto) 1.4 x10^3uL (1.8-7.7) Lymphocytes # (Auto) 1.7 x10^3/uL (1.0-4.8) Monocytes # (Auto) 0.3 x10^3/uL (0.0-1.1) Eosinophils # (Auto) 0.1 x10^3/uL (0.0-0.7) Basophils # (Auto) 0.0 x10^3/uL (0.0-0.2) Sodium Level 141 mmol/L (136-145) Potassium Level 4.8 mmol/L (3.5-5.1) Chloride Level 100 mmol/L (98-107) Carbon Dioxide Level 35 mmol/L (21-32) Anion Gap 6 (6-14) Blood Urea Nitrogen 44 mg/dL (7-20) Creatinine 2.0 mg/dL (0.6-1.0) Estimated GFR (Cockcroft-Gault) 29.7 Glucose Level 72 mg/dL (70-99) Calcium Level 9.0 mg/dL (8.5-10.1) Phosphorus Level 3.5 mg/dL (2.6-4.7) Albumin 2.3 g/dL (3.4-5.0) Test 04/06/18 07:12 Glucose (Fingerstick) 66 mg/dL (70-99) Results All relevant outside records, renal labs, imaging studies, telemetry/EKG's were reviewed. SUNIL OROZCO MD Apr 06, 2018 10:54
--- NOTE | 2018-04-06 12:26 | PDOC ---
Infectious Disease Note Subjective Subjective Feeling alright Comfortable, denies pain No F/C/SOA/diarrhea ROS ROS no n/v/d/sob Vital Sign Vital Signs Vital Signs Date Time Temp Pulse Resp B/P (MAP) Pulse Ox O2 Delivery O2 Flow Rate FiO2 04/06/18 11:00 97.9 72 16 96/51 (66) 97 Nasal Cannula 2.0 97.9 Physical Exam PHYSICAL EXAM GENERAL: Propped up in bed, alert, eating LUNGS: Decreased in the bases. HEART: S1, S2. Pacemaker ICD ABDOMEN: Soft, nontender, no guarding. : [place] in place. EXTREMITIES: No gross edema or cyanosis SKIN: Without signs of rash. NEUROLOGIC: Alert, responds appropriately RIJ clean Labs Lab Laboratory Tests Test 04/05/18 16:59 04/05/18 20:45 04/06/18 05:00 04/06/18 07:12 Glucose (Fingerstick) 84 mg/dL (70-99) 91 mg/dL (70-99) 66 mg/dL (70-99) White Blood Count 3.4 x10^3/uL (4.0-11.0) Red Blood Count 2.90 x10^6/uL (3.50-5.40) Hemoglobin 8.9 g/dL (12.0-15.5) Hematocrit 25.9 % (36.0-47.0) Mean Corpuscular Volume 89 fL (79-100) Mean Corpuscular Hemoglobin 31 pg (25-35) Mean Corpuscular Hemoglobin Concent 34 g/dL (31-37) Red Cell Distribution Width 29.4 % (11.5-14.5) Platelet Count 108 x10^3/uL (140-400) Neutrophils (%) (Auto) 40 % (31-73) Lymphocytes (%) (Auto) 49 % (24-48) Monocytes (%) (Auto) 8 % (0-9) Eosinophils (%) (Auto) 2 % (0-3) Basophils (%) (Auto) 1 % (0-3) Neutrophils # (Auto) 1.4 x10^3uL (1.8-7.7) Lymphocytes # (Auto) 1.7 x10^3/uL (1.0-4.8) Monocytes # (Auto) 0.3 x10^3/uL (0.0-1.1) Eosinophils # (Auto) 0.1 x10^3/uL (0.0-0.7) Basophils # (Auto) 0.0 x10^3/uL (0.0-0.2) Sodium Level 141 mmol/L (136-145) Potassium Level 4.8 mmol/L (3.5-5.1) Chloride Level 100 mmol/L (98-107) Carbon Dioxide Level 35 mmol/L (21-32) Anion Gap 6 (6-14) Blood Urea Nitrogen 44 mg/dL (7-20) Creatinine 2.0 mg/dL (0.6-1.0) Estimated GFR (Cockcroft-Gault) 29.7 Glucose Level 72 mg/dL (70-99) Calcium Level 9.0 mg/dL (8.5-10.1) Phosphorus Level 3.5 mg/dL (2.6-4.7) Albumin 2.3 g/dL (3.4-5.0) Test 04/06/18 11:45 Glucose (Fingerstick) 135 mg/dL (70-99) Micro Microbiology 03/31/18 Blood Culture - Preliminary, Resulted NO GROWTH AFTER 4 DAYS Objective Assessment Pancytopenia ? viral vs meds Encephalopathy - better ? Pneumonia Abx allergies Lactic acidosis - improved Hypothyroidism Transaminitis - mild increase - ? reactive JAIDEN. UA no sign of infection NSTEMI Plan Plan of Care off antibiotics BC NGTD Supportive care Repeat labs in am pt/ot ADA LIRIANO MD Apr 06, 2018 12:26
--- NOTE | 2018-04-06 13:16 | PDOC ---
Subjective: Subjective: Doing okay, doesn't like the cookies. Says she stooled and it smelled bad. Objective: Objective: Reviewed w/ RN - no GI concerns, eating well - is confused. Vital Signs: Vital Signs Date Time Temp Pulse Resp B/P (MAP) Pulse Ox O2 Delivery O2 Flow Rate FiO2 04/06/18 11:00 97.9 72 16 96/51 (66) 97 Nasal Cannula 2.0 97.9 Labs: Laboratory Tests Test 04/05/18 16:59 04/05/18 20:45 04/06/18 05:00 04/06/18 07:12 Glucose (Fingerstick) 84 mg/dL 91 mg/dL 66 mg/dL White Blood Count 3.4 x10^3/uL Red Blood Count 2.90 x10^6/uL Hemoglobin 8.9 g/dL Hematocrit 25.9 % Mean Corpuscular Volume 89 fL Mean Corpuscular Hemoglobin 31 pg Mean Corpuscular Hemoglobin Concent 34 g/dL Red Cell Distribution Width 29.4 % Platelet Count 108 x10^3/uL Neutrophils (%) (Auto) 40 % Lymphocytes (%) (Auto) 49 % Monocytes (%) (Auto) 8 % Eosinophils (%) (Auto) 2 % Basophils (%) (Auto) 1 % Neutrophils # (Auto) 1.4 x10^3uL Lymphocytes # (Auto) 1.7 x10^3/uL Monocytes # (Auto) 0.3 x10^3/uL Eosinophils # (Auto) 0.1 x10^3/uL Basophils # (Auto) 0.0 x10^3/uL Sodium Level 141 mmol/L Potassium Level 4.8 mmol/L Chloride Level 100 mmol/L Carbon Dioxide Level 35 mmol/L Anion Gap 6 Blood Urea Nitrogen 44 mg/dL Creatinine 2.0 mg/dL Estimated GFR (Cockcroft-Gault) 29.7 Glucose Level 72 mg/dL Calcium Level 9.0 mg/dL Phosphorus Level 3.5 mg/dL Albumin 2.3 g/dL Test 04/06/18 11:45 Glucose (Fingerstick) 135 mg/dL PE: GEN: NAD, up to chair eating lunch LUNGS: CTAB anteriorly HEART: RRR ABD: S/ND/NT NEURO/PSYCH: confused A/P: Pancytopenia - ACD/CHF -h/o Duncan's on PPI, last EGD and colonoscopy and SBCE in 2011 Elevated LFTs -hepatic steatosis, CBD 1.7cm, s/p jil Hypothyroidism -- Supportive care per GI, monitor LFTs. NEEL WILLIAMSON Apr 06, 2018 13:16
--- NOTE | 2018-04-06 13:31 | PDOC ---
PROGRESS NOTES Chief Complaint Chief Complaint Acute heart failure systolic EF 20% AMS, with hypoglycemia wo dm history, hypothyroidism NSTEMI with chf JAIDEN vasomotor, atn Sepsis? HTN Anemia Hypoglycemia REcent shingles h/o CAD hypomagnesemia ICD NON COMpliance? pancytopenia with splemegaly with CHF? h/o DVT, PE, off AC with h/o gib h/o aortic bypass Plan: fu with card, MPI intermediate risk increase synthroid to 150mcg daily, add t3, repeat labs every 2 ds cont current meds, on coreg 6.25mg bid, lasix daily, plavix, dc clonidine given low BP pTOT replete Mag dvt ppx EF 20% abx dced as per id onco consulted SW for snf remove doll, repeat all labs tmr ,check cortisol History of Present Illness History of Present Illness talkes slow, mild confusion hypoglycemia sometime, eats ok, no dm2 severe hypothyroidism, but pt said she is taking home meds Vitals Vitals Vital Signs Date Time Temp Pulse Resp B/P (MAP) Pulse Ox O2 Delivery O2 Flow Rate FiO2 04/06/18 11:00 97.9 72 16 96/51 (66) 97 Nasal Cannula 2.0 97.9 Physical Exam Physical Exam GENERAL: Propped up in bed, alert, eating LUNGS: Decreased in the bases. HEART: S1, S2. Pacemaker ICD ABDOMEN: Soft, nontender, no guarding. : Doll in place. EXTREMITIES: No gross edema or cyanosis SKIN: Without signs of rash. NEUROLOGIC: Alert, responds appropriately RIJ clean General: No acute distress, Other (minimally arousable, mumbles) Heart: Normal S1, Normal S2 Abdomen: Normal bowel sounds (obese abdomen), Soft Extremities: No clubbing, Normal pulses, Other (trace edema) Skin: No rashes, No significant lesion Labs LABS Laboratory Tests Test 04/05/18 16:59 04/05/18 20:45 04/06/18 05:00 04/06/18 07:12 Glucose (Fingerstick) 84 mg/dL (70-99) 91 mg/dL (70-99) 66 mg/dL (70-99) White Blood Count 3.4 x10^3/uL (4.0-11.0) Red Blood Count 2.90 x10^6/uL (3.50-5.40) Hemoglobin 8.9 g/dL (12.0-15.5) Hematocrit 25.9 % (36.0-47.0) Mean Corpuscular Volume 89 fL (79-100) Mean Corpuscular Hemoglobin 31 pg (25-35) Mean Corpuscular Hemoglobin Concent 34 g/dL (31-37) Red Cell Distribution Width 29.4 % (11.5-14.5) Platelet Count 108 x10^3/uL (140-400) Neutrophils (%) (Auto) 40 % (31-73) Lymphocytes (%) (Auto) 49 % (24-48) Monocytes (%) (Auto) 8 % (0-9) Eosinophils (%) (Auto) 2 % (0-3) Basophils (%) (Auto) 1 % (0-3) Neutrophils # (Auto) 1.4 x10^3uL (1.8-7.7) Lymphocytes # (Auto) 1.7 x10^3/uL (1.0-4.8) Monocytes # (Auto) 0.3 x10^3/uL (0.0-1.1) Eosinophils # (Auto) 0.1 x10^3/uL (0.0-0.7) Basophils # (Auto) 0.0 x10^3/uL (0.0-0.2) Sodium Level 141 mmol/L (136-145) Potassium Level 4.8 mmol/L (3.5-5.1) Chloride Level 100 mmol/L (98-107) Carbon Dioxide Level 35 mmol/L (21-32) Anion Gap 6 (6-14) Blood Urea Nitrogen 44 mg/dL (7-20) Creatinine 2.0 mg/dL (0.6-1.0) Estimated GFR (Cockcroft-Gault) 29.7 Glucose Level 72 mg/dL (70-99) Calcium Level 9.0 mg/dL (8.5-10.1) Phosphorus Level 3.5 mg/dL (2.6-4.7) Albumin 2.3 g/dL (3.4-5.0) Test 04/06/18 11:45 Glucose (Fingerstick) 135 mg/dL (70-99) Assessment and Plan Assessmemt and Plan Problems Medical Problems: (1) Acute exacerbation of CHF (congestive heart failure) Status: Acute (2) Elevated troponin I level Status: Acute (3) Hypoglycemia Status: Acute (4) Hypoxia Status: Acute (5) Lactic acidosis Status: Acute (6) Renal insufficiency Status: Acute Comment Review of Relevant I have reviewed the following items madeline (where applicable) has been applied. Labs Laboratory Tests Test 04/04/18 16:39 04/05/18 05:30 04/05/18 07:34 04/05/18 12:14 Glucose (Fingerstick) 129 mg/dL (70-99) 70 mg/dL (70-99) 116 mg/dL (70-99) White Blood Count 2.8 x10^3/uL (4.0-11.0) Red Blood Count 2.72 x10^6/uL (3.50-5.40) Hemoglobin 8.3 g/dL (12.0-15.5) Hematocrit 24.3 % (36.0-47.0) Mean Corpuscular Volume 90 fL (79-100) Mean Corpuscular Hemoglobin 30 pg (25-35) Mean Corpuscular Hemoglobin Concent 34 g/dL (31-37) Red Cell Distribution Width 29.2 % (11.5-14.5) Platelet Count 92 x10^3/uL (140-400) Neutrophils (%) (Auto) 73 % (31-73) Lymphocytes (%) (Auto) 13 % (24-48) Monocytes (%) (Auto) 12 % (0-9) Eosinophils (%) (Auto) 2 % (0-3) Basophils (%) (Auto) 1 % (0-3) Neutrophils # (Auto) 2.0 x10^3uL (1.8-7.7) Lymphocytes # (Auto) 0.4 x10^3/uL (1.0-4.8) Monocytes # (Auto) 0.3 x10^3/uL (0.0-1.1) Eosinophils # (Auto) 0.0 x10^3/uL (0.0-0.7) Basophils # (Auto) 0.0 x10^3/uL (0.0-0.2) Sodium Level 143 mmol/L (136-145) Potassium Level 4.5 mmol/L (3.5-5.1) Chloride Level 103 mmol/L (98-107) Carbon Dioxide Level 33 mmol/L (21-32) Anion Gap 7 (6-14) Blood Urea Nitrogen 47 mg/dL (7-20) Creatinine 2.2 mg/dL (0.6-1.0) Estimated GFR (Cockcroft-Gault) 26.6 Glucose Level 87 mg/dL (70-99) Calcium Level 9.6 mg/dL (8.5-10.1) Free Thyroxine 0.40 ng/dL (0.76-1.46) Free Triiodothyronine (T3) pg/mL < 0.50 pg/mL (2.18-3.98) Test 04/05/18 16:59 04/05/18 20:45 04/06/18 05:00 04/06/18 07:12 Glucose (Fingerstick) 84 mg/dL (70-99) 91 mg/dL (70-99) 66 mg/dL (70-99) White Blood Count 3.4 x10^3/uL (4.0-11.0) Red Blood Count 2.90 x10^6/uL (3.50-5.40) Hemoglobin 8.9 g/dL (12.0-15.5) Hematocrit 25.9 % (36.0-47.0) Mean Corpuscular Volume 89 fL (79-100) Mean Corpuscular Hemoglobin 31 pg (25-35) Mean Corpuscular Hemoglobin Concent 34 g/dL (31-37) Red Cell Distribution Width 29.4 % (11.5-14.5) Platelet Count 108 x10^3/uL (140-400) Neutrophils (%) (Auto) 40 % (31-73) Lymphocytes (%) (Auto) 49 % (24-48) Monocytes (%) (Auto) 8 % (0-9) Eosinophils (%) (Auto) 2 % (0-3) Basophils (%) (Auto) 1 % (0-3) Neutrophils # (Auto) 1.4 x10^3uL (1.8-7.7) Lymphocytes # (Auto) 1.7 x10^3/uL (1.0-4.8) Monocytes # (Auto) 0.3 x10^3/uL (0.0-1.1) Eosinophils # (Auto) 0.1 x10^3/uL (0.0-0.7) Basophils # (Auto) 0.0 x10^3/uL (0.0-0.2) Sodium Level 141 mmol/L (136-145) Potassium Level 4.8 mmol/L (3.5-5.1) Chloride Level 100 mmol/L (98-107) Carbon Dioxide Level 35 mmol/L (21-32) Anion Gap 6 (6-14) Blood Urea Nitrogen 44 mg/dL (7-20) Creatinine 2.0 mg/dL (0.6-1.0) Estimated GFR (Cockcroft-Gault) 29.7 Glucose Level 72 mg/dL (70-99) Calcium Level 9.0 mg/dL (8.5-10.1) Phosphorus Level 3.5 mg/dL (2.6-4.7) Albumin 2.3 g/dL (3.4-5.0) Test 04/06/18 11:45 Glucose (Fingerstick) 135 mg/dL (70-99) Laboratory Tests Test 04/05/18 16:59 04/05/18 20:45 04/06/18 05:00 04/06/18 07:12 Glucose (Fingerstick) 84 mg/dL (70-99) 91 mg/dL (70-99) 66 mg/dL (70-99) White Blood Count 3.4 x10^3/uL (4.0-11.0) Red Blood Count 2.90 x10^6/uL (3.50-5.40) Hemoglobin 8.9 g/dL (12.0-15.5) Hematocrit 25.9 % (36.0-47.0) Mean Corpuscular Volume 89 fL (79-100) Mean Corpuscular Hemoglobin 31 pg (25-35) Mean Corpuscular Hemoglobin Concent 34 g/dL (31-37) Red Cell Distribution Width 29.4 % (11.5-14.5) Platelet Count 108 x10^3/uL (140-400) Neutrophils (%) (Auto) 40 % (31-73) Lymphocytes (%) (Auto) 49 % (24-48) Monocytes (%) (Auto) 8 % (0-9) Eosinophils (%) (Auto) 2 % (0-3) Basophils (%) (Auto) 1 % (0-3) Neutrophils # (Auto) 1.4 x10^3uL (1.8-7.7) Lymphocytes # (Auto) 1.7 x10^3/uL (1.0-4.8) Monocytes # (Auto) 0.3 x10^3/uL (0.0-1.1) Eosinophils # (Auto) 0.1 x10^3/uL (0.0-0.7) Basophils # (Auto) 0.0 x10^3/uL (0.0-0.2) Sodium Level 141 mmol/L (136-145) Potassium Level 4.8 mmol/L (3.5-5.1) Chloride Level 100 mmol/L (98-107) Carbon Dioxide Level 35 mmol/L (21-32) Anion Gap 6 (6-14) Blood Urea Nitrogen 44 mg/dL (7-20) Creatinine 2.0 mg/dL (0.6-1.0) Estimated GFR (Cockcroft-Gault) 29.7 Glucose Level 72 mg/dL (70-99) Calcium Level 9.0 mg/dL (8.5-10.1) Phosphorus Level 3.5 mg/dL (2.6-4.7) Albumin 2.3 g/dL (3.4-5.0) Test 04/06/18 11:45 Glucose (Fingerstick) 135 mg/dL (70-99) Microbiology 03/31/18 Blood Culture - Final, Complete NO GROWTH AFTER 5 DAYS Medications Current Medications Aspirin (Kraen Aspirin) 325 mg 1X ONCE PO Last administered on 03/31/18at 01:16 ; Start 03/30/18 at 23:30; Stop 03/30/18 at 23:31; Status DC Fentanyl Citrate (Fentanyl 2ml Vial) 50 mcg 1X ONCE IV ; Start 03/30/18 at 23: 30; Stop 03/30/18 at 23:31; Status DC Dextrose (Dextrose 50%-Water Syringe) 25 gm 1X ONCE IV Last administered on at 23:10; Start 03/30/18 at 23:30; Stop 03/30/18 at 23:31; Status DC Dextrose (Dextrose 50%-Water Syringe) 25 gm STK-MED ONCE IV ; Start 03/30/18 at 23:05; Stop 03/30/18 at 23:06; Status DC Glucose (Insta-Glucose) 15 gm STK-MED ONCE .ROUTE ; Start 03/30/18 at 23:05; Stop 03/30/18 at 23:06; Status DC Ondansetron HCl (Zofran) 4 mg 1X ONCE IV Last administered on 03/31/18at 01:18 ; Start 03/30/18 at 23:30; Stop 03/30/18 at 23:31; Status DC Glucose (Insta-Glucose) 15 gm 1X ONCE PO Last administered on 03/30/18at 23:07 ; Start 03/30/18 at 23:30; Stop 03/30/18 at 23:31; Status DC Nitroglycerin (Nitro-Bid Oint) 1 inch 1X ONCE TP Last administered on at 01:19; Start 03/31/18 at 01:00; Stop 03/31/18 at 01:01; Status DC Bumetanide (Bumex) 0.5 mg 1X ONCE IV Last administered on 03/31/18at 01:11; Start 03/31/18 at 01:00; Stop 03/31/18 at 01:01; Status DC Ondansetron HCl (Zofran) 4 mg PRN Q8HRS PRN IV NAUSEA/VOMITING 1ST CHOICE; Start 03/31/18 at 00:45; Stop 04/01/18 at 00:44; Status DC Dextrose (Dextrose 50%-Water Syringe) 12.5 gm PRN Q15MIN PRN IV SEE COMMENTS; Start 03/31/18 at 00:45 Lidocaine HCl 20 ml 1X ONCE IJ Last administered on 03/31/18at 03:00; Start at 03:00; Stop 03/31/18 at 03:01; Status DC Lidocaine HCl (Xylocaine-Mpf 2% Vial) 2 ml STK-MED ONCE .ROUTE ; Start 03/31/18 at 02:31; Stop 03/31/18 at 02:33; Status DC Pantoprazole Sodium (Protonix) 40 mg DAILYAC PO Last administered on 04/06/18at 09:07; Start 03/31/18 at 11:30 Levothyroxine Sodium 100 mcg/ Sodium Chloride 5 ml @ 100 mls/hr DAILY IVP ; Start 04/01/18 at 09:00; Status UNV Levothyroxine Sodium 50 mcg/ Sodium Chloride 5 ml @ 100 mls/hr DAILY IVP Last administered on 04/04/18at 08:52; Start 03/31/18 at 14:00; Stop 04/04/18 at 16:37 ; Status DC Furosemide 100 mg/ Sodium Chloride 100 ml @ 5 mls/hr CONT PRN IV DIURESIS Last administered on 03/31/18at 12:59; Start 03/31/18 at 11:45; Stop 03/31/18 at 22:16 ; Status DC Ceftriaxone Sodium 2 gm/ Dextrose 100 ml @ 200 mls/hr Q24H IV Last administered on 04/03/18at 14:30; Start 03/31/18 at 13:00; Stop 04/04/18 at 08:49 ; Status DC Azithromycin 500 mg/Sodium Chloride 250 ml @ 250 mls/hr 1X ONCE IV Last administered on 03/31/18at 13:04; Start 03/31/18 at 12:30; Stop 03/31/18 at 13:29 ; Status DC Furosemide 100 mg/ Sodium Chloride 100 ml @ 0 mls/hr CONT PRN IV DIURESIS Last administered on 04/01/18at 01:34; Start 03/31/18 at 22:30; Stop 04/01/18 at 12:56 ; Status DC Lactobacillus Rhamnosus (Culturelle) 1 cap BID PO Last administered on at 09:07; Start 04/01/18 at 21:00 Azithromycin 500 mg/Sodium Chloride 250 ml @ 250 mls/hr Q24H IV Last administered on 04/03/18at 14:31; Start 04/01/18 at 14:00; Stop 04/04/18 at 08:49 ; Status DC Milrinone Lactate/ Dextrose 100 ml @ 2.96 mls/hr CONT PRN IV SEE I/O RECORD Last administered on 04/03/18at 17:04; Start 04/02/18 at 13:00; Stop 04/04/18 at 12:47; Status DC Acetaminophen/ Codeine Phosphate (Tylenol #3) 1 tab PRN Q6HRS PRN PO PAIN Last administered on 04/04/18at 21:31; Start 04/02/18 at 13:30 Ondansetron HCl (Zofran) 4 mg PRN Q6HRS PRN IV NAUSEA/VOMITING Last administered on 04/02/18at 15:37; Start 04/02/18 at 15:45 Furosemide (Lasix) 40 mg DAILY PO Last administered on 04/06/18 09:08; Start 04/03/18 at 11:30 Potassium Chloride (Klor-Con) 20 meq 1X ONCE PO Last administered on at 12:17; Start 04/03/18 at 11:30; Stop 04/03/18 at 11:31; Status DC Simethicone (Gas-X) 80 mg PRN AFTMEALHC PRN PO GAS / BLOATING; Start 04/03/18 at 17:45 Polyethylene Glycol (miraLAX PACKET) 17 gm PRN DAILY PRN PO CONSTIPATION Last administered on 04/05/18 12:38; Start 04/04/18 at 12:00 Atorvastatin Calcium (Lipitor) 20 mg QHS PO Last administered on 04/05/18 20: 43; Start 04/04/18 at 21:00 Clonidine HCl (Catapres) 0.2 mg BID PO Last administered on 04/04/18at 13:45; Start 04/04/18 at 13:00; Stop 04/05/18 at 09:59; Status DC Clopidogrel Bisulfate (Plavix) 75 mg DAILY PO Last administered on 04/06/18 09 :08; Start 04/04/18 at 13:00 Metoprolol Tartrate (Lopressor) 25 mg BID PO Last administered on 04/04/18at 13: 47; Start 04/04/18 at 13:00; Stop 04/04/18 at 13:58; Status DC Potassium Chloride (Klor-Con) 20 meq DAILY PO Last administered on 04/06/18 09 :08; Start 04/04/18 at 13:00 Celecoxib (CeleBREX) 200 mg BID PO ; Start 04/04/18 at 13:00; Stop 04/04/18 at 13:53; Status DC Citalopram Hydrobromide (CeleXA) 40 mg DAILY PO Last administered on 04/06/18at 09:08; Start 04/04/18 at 13:00 Non-Formulary Medication (Fluticasone/ Salmeterol (Advair 250-50 Diskus)) 1 inh BID IH ; Start 04/04/18 at 21:00; Status UNV Gabapentin (Neurontin) 600 mg TID PO Last administered on 04/06/18at 09:08; Start 04/04/18 at 14:00 Non-Formulary Medication (Omeprazole ) 40 mg DAILY PO ; Start 04/05/18 at 09:00 ; Status UNV Verapamil HCl (Calan Sr) 120 mg BID PO Last administered on 04/04/18at 13:50; Start 04/04/18 at 13:00; Stop 04/05/18 at 10:47; Status DC Magnesium Sulfate 50 ml @ 25 mls/hr 1X ONCE IV Last administered on 04/04/18at 13:52; Start 04/04/18 at 13:00; Stop 04/04/18 at 14:59; Status DC Budesonide (Pulmicort) 0.5 mg RTBID NEB Last administered on 04/06/18at 07:41; Start 04/04/18 at 13:00 Albuterol Sulfate (Ventolin Neb Soln) 2.5 mg RTQID NEB Last administered on 04/06/18at 10:51; Start 04/04/18 at 13:00 Carvedilol (Coreg) 12.5 mg BIDWMEALS PO Last administered on 04/04/18at 18:13; Start 04/04/18 at 17:00; Stop 04/05/18 at 14:57; Status DC Levothyroxine Sodium (Synthroid) 100 mcg DAILY06 PO Last administered on at 05:24; Start 04/05/18 at 06:00; Stop 04/05/18 at 10:47; Status DC Regadenoson (Lexiscan) 0.4 mg 1X ONCE IV Last administered on 04/05/18at 10:00 ; Start 04/05/18 at 08:00; Stop 04/05/18 at 08:11; Status DC Levothyroxine Sodium (Synthroid) 150 mcg DAILY06 PO Last administered on at 06:23; Start 04/06/18 at 06:00 Liothyronine Sodium (Cytomel) 10 mcg DAILY PO Last administered on 04/06/18at 09 :08; Start 04/05/18 at 11:00 Carvedilol (Coreg) 6.25 mg BIDWMEALS PO Last administered on 04/06/18at 09:07; Start 04/05/18 at 17:00 Tramadol HCl (Ultram) 50 mg PRN Q6HRS PRN PO PAIN; Start 04/05/18 at 15:15 Active Scripts Active Reported Allopurinol 100 Mg Tablet 1 Tab PO DAILY Mag-Oxide (Magnesium Oxide) 400 Mg Tablet 400 Mg PO TID Hart 5-325 Tablet (Acetaminophen/Hydrocodone Bitart) 1 Each Tablet 1 Tab PO PRN Q6HRS PRN Isosorbide Mononitrate Er (Isosorbide Mononitrate) 30 Mg Tab.er.24h 1 Tab PO DAILY Uloric (Febuxostat) 40 Mg Tablet 1 Tab PO DAILY Meclizine Hcl 25 Mg Tablet 1 Tab PO PRN TID PRN Synthroid (Levothyroxine Sodium) 150 Mcg Tablet 1 Tab PO DAILY Lisinopril 40 Mg Tablet 1 Tab PO DAILY Symbicort 160-4.5 Mcg Inhaler (Budesonide/Formoterol Fumarate) 10.2 Gm Hfa.aer.ad 2 Puff IH BID Citalopram Hbr (Citalopram Hydrobromide) 20 Mg Tablet 1 Tab PO DAILY Aspirin Ec (Aspirin) 325 Mg Tablet.dr 1 Tab PO DAILY Nitrostat (Nitroglycerin) 0.4 Mg Tab.subl 0.4 Mg SL PRN Q5MIN PRN Flonase Allergy Relief (Fluticasone Propionate) 9.9 Ml [place].susp 2 Sprays NS DAILY Proair Hfa Inhaler (Albuterol Sulfate) 8.5 Gm Hfa.aer.ad 2 Puff INH PRN Q4-6HRS PRN Triamcinolone Acetonide 0.1% Cream (Triamcinolone Acetonide) 15 Gm Cream..g. 15 Gm TP Celexa (Citalopram Hydrobromide) 40 Mg Tablet 40 Mg PO DAILY Gabapentin 600 Mg Tablet 600 Mg PO BID Atorvastatin Calcium 20 Mg Tablet 20 Mg PO QHS Celebrex (Celecoxib) 200 Mg Capsule 200 Mg PO BID 30 Days Furosemide 20 Mg Tablet 40 Mg PO BID Metoprolol Tartrate 25 Mg Tablet 50 Mg PO BID Omeprazole 40 Mg Capsule.dr 40 Mg PO DAILY Clonidine Hcl 0.2 Mg Tablet 0.2 Mg PO BID Colcrys (Colchicine) 0.6 Mg Tablet 0.6 Mg PO BID Lorazepam 1 Mg Tablet 1 Mg PO BID Klor-Con M20 (Potassium Chloride) 20 Meq Tab.er.prt 10 Meq PO DAILY Verapamil Hcl 120 Mg Tablet 120 Mg PO BID Advair 250-50 Diskus (Fluticasone/Salmeterol) 1 Each Disk.w.dev 1 Inh IH BID Iron (Ferrous Sulfate) 325 Mg Capsule.er 325 Mg PO Clopidogrel (Clopidogrel Bisulfate) 75 Mg Tablet 75 Mg PO DAILY Vitals/I & O Vital Sign - Last 24 Hours 04/05/18 04/05/18 04/05/18 04/05/18 15:00 18:32 19:30 19:45 Temp 97.4 97.4 97.4 97.4 Pulse 59 60 Resp 18 18 B/P (MAP) 93/55 (68) 91/53 (66) Pulse Ox 100 100 96 O2 Delivery Nasal Cannula Nasal Cannula Nasal Cannula Nasal Cannula O2 Flow Rate 2.0 2.0 2.0 2.0 04/05/18 04/06/18 04/06/18 04/06/18 23:00 03:06 07:00 07:43 Temp 97.9 97.7 97.6 97.9 97.7 97.6 Pulse 59 64 65 Resp 18 16 18 B/P (MAP) 95/52 (66) 87/48 (61) 103/57 (72) Pulse Ox 100 100 100 100 O2 Delivery Nasal Cannula Nasal Cannula Nasal Cannula Nasal Cannula O2 Flow Rate 2.0 2.0 2.0 2.0 04/06/18 04/06/18 04/06/18 04/06/18 08:00 09:07 10:52 11:00 Temp 97.9 97.9 Pulse 65 72 Resp 16 B/P (MAP) 103/57 96/51 (66) Pulse Ox 97 O2 Delivery Nasal Cannula Nasal Cannula Nasal Cannula O2 Flow Rate 2.0 2.0 2.0 Intake and Output 04/05/18 04/05/18 04/06/18 15:00 23:00 07:00 Intake Total 250 ml 200 ml Output Total 750 ml 1300 ml Balance -500 ml -1100 ml PETRA WHITLEY MD Apr 06, 2018 13:31
[2018-04-06] MEDS: ATORVASTATIN CALCIUM 20 MG TABLET PO SCH (20:44)
[2018-04-07 03:06] VITALS: BP 89/44
[2018-04-07 04:17] LABS: BASO # 0.1 x10^3/uL (0.0-0.2); BASO % 2 % (0-3); EOS # 0.1 x10^3/uL (0.0-0.7); EOS % 2 % (0-3); HEMATOCRIT 25.6 % (36.0-47.0); HEMOGLOBIN 8.9 g/dL (12.0-15.5); LYMPH # 0.4 x10^3/uL (1.0-4.8); LYMPH % 10 % (24-48); MEAN CORPUSCULAR HEMOGLOBIN 31 pg (25-35); MEAN CORPUSCULAR HGB CONC 35 g/dL (31-37); MEAN CORPUSCULAR VOLUME 90 fL (79-100); MONO # 0.5 x10^3/uL (0.0-1.1); MONO % 14 % (0-9); NEUT # 2.7 x10^3uL (1.8-7.7); NEUT % 72 % (31-73); PLATELET COUNT 125 x10^3/uL (140-400); RED BLOOD COUNT 2.84 x10^6/uL (3.50-5.40); RED CELL DISTRIBUTION WIDTH 29.4 % (11.5-14.5); WHITE BLOOD COUNT 3.7 x10^3/uL (4.0-11.0)
[2018-04-07 05:23] LABS: ALBUMIN 2.5 g/dL (3.4-5.0); CALCIUM 9.3 mg/dL (8.5-10.1); CREATININE 1.7 mg/dL (0.6-1.0); DIRECT BILIRUBIN 0.3 mg/dL (0.0-0.2); GFR 35.9; POTASSIUM 5.2 mmol/L (3.5-5.1); TOTAL BILIRUBIN 0.5 mg/dL (0.2-1.0); TOTAL PROTEIN 6.6 g/dL (6.4-8.2)
[2018-04-07 05:46] LABS: FREE T4 0.51 ng/dL (0.76-1.46)
[2018-04-07 06:40] LABS: THYROID STIM HORMONE (TSH) 170.437 uIU/mL (0.358-3.74)
[2018-04-07] MEDS: LEVOTHYROXINE 150 MCG TABLET PO SCH (06:49)
[2018-04-07] MEDS: PANTOPRAZOLE 40 MG TABLET.DR. PO SCH (06:49)
[2018-04-07] MEDS: ALBUTEROL SULFATE 2.5 MG/3 ML NEBU. NEB SCH ×4 (06:58→20:03)
[2018-04-07] MEDS: BUDESONIDE 0.5 MG/2 ML NEBU. NEB SCH ×2 (06:58→20:03)
[2018-04-07 07:00] VITALS: BP 102/57
[2018-04-07] MEDS: LIOTHYRONINE 5 MCG TABLET. PO SCH (08:37)
[2018-04-07] MEDS: CLOPIDOGREL BISULFATE 75 MG TABLET PO SCH (08:38)
[2018-04-07] MEDS: CARVEDILOL 6.25 MG TABLET. PO SCH ×2 (08:38→17:00)
[2018-04-07] MEDS: GABAPENTIN 300 MG CAPSULE. PO SCH ×3 (08:38→20:50)
[2018-04-07] MEDS: CITALOPRAM 20 MG TABLET. PO SCH (08:38)
[2018-04-07] MEDS: FUROSEMIDE 40 MG TABLET. PO SCH (08:38)
[2018-04-07] MEDS: LACTOBACILLUS RHAMNOSUS GG 1 CAPSULE. PO SCH ×2 (08:38→20:50)
[2018-04-07] MEDS: POTASSIUM CHLORIDE 20 MEQ TABLET.ER. PO SCH (08:39)
--- NOTE | 2018-04-07 08:47 | PDOC ---
Infectious Disease Note Subjective Subjective Feeling alright Comfortable, denies pain No F/C/SOA/diarrhea Vital Sign Vital Signs Vital Signs Date Time Temp Pulse Resp B/P (MAP) Pulse Ox O2 Delivery O2 Flow Rate FiO2 04/07/18 08:38 70 102/57 04/07/18 08:10 Nasal Cannula 2.0 04/07/18 07:00 97.9 20 99 97.9 Physical Exam PHYSICAL EXAM GENERAL: Propped up in bed, alert, eating LUNGS: Decreased in the bases. HEART: S1, S2. Pacemaker ICD ABDOMEN: Soft, nontender, no guarding. : [place] in place. EXTREMITIES: No gross edema or cyanosis SKIN: Without signs of rash. NEUROLOGIC: Alert, responds appropriately RIJ clean Labs Lab Laboratory Tests Test 04/06/18 11:45 04/06/18 17:08 04/06/18 21:16 04/07/18 03:40 Glucose (Fingerstick) 135 mg/dL (70-99) 99 mg/dL (70-99) 132 mg/dL (70-99) White Blood Count 3.7 x10^3/uL (4.0-11.0) Red Blood Count 2.84 x10^6/uL (3.50-5.40) Hemoglobin 8.9 g/dL (12.0-15.5) Hematocrit 25.6 % (36.0-47.0) Mean Corpuscular Volume 90 fL (79-100) Mean Corpuscular Hemoglobin 31 pg (25-35) Mean Corpuscular Hemoglobin Concent 35 g/dL (31-37) Red Cell Distribution Width 29.4 % (11.5-14.5) Platelet Count 125 x10^3/uL (140-400) Neutrophils (%) (Auto) 72 % (31-73) Lymphocytes (%) (Auto) 10 % (24-48) Monocytes (%) (Auto) 14 % (0-9) Eosinophils (%) (Auto) 2 % (0-3) Basophils (%) (Auto) 2 % (0-3) Neutrophils # (Auto) 2.7 x10^3uL (1.8-7.7) Lymphocytes # (Auto) 0.4 x10^3/uL (1.0-4.8) Monocytes # (Auto) 0.5 x10^3/uL (0.0-1.1) Eosinophils # (Auto) 0.1 x10^3/uL (0.0-0.7) Basophils # (Auto) 0.1 x10^3/uL (0.0-0.2) Sodium Level 140 mmol/L (136-145) Potassium Level 5.2 mmol/L (3.5-5.1) Chloride Level 98 mmol/L (98-107) Carbon Dioxide Level 37 mmol/L (21-32) Anion Gap 5 (6-14) Blood Urea Nitrogen 48 mg/dL (7-20) Creatinine 1.7 mg/dL (0.6-1.0) Estimated GFR (Cockcroft-Gault) 35.9 Glucose Level 85 mg/dL (70-99) Calcium Level 9.3 mg/dL (8.5-10.1) Ferritin 78 ng/mL (8-252) Total Bilirubin 0.5 mg/dL (0.2-1.0) Direct Bilirubin 0.3 mg/dL (0.0-0.2) Aspartate Amino Transf (AST/SGOT) 68 U/L (15-37) Alanine Aminotransferase (ALT/SGPT) 101 U/L (14-59) Alkaline Phosphatase 110 U/L (46-116) Total Protein 6.6 g/dL (6.4-8.2) Albumin 2.5 g/dL (3.4-5.0) Thyroid Stimulating Hormone (TSH) 170.437 uIU/mL (0.358-3.74) Free Thyroxine 0.51 ng/dL (0.76-1.46) Free Triiodothyronine (T3) pg/mL 1.21 pg/mL (2.18-3.98) Test 04/07/18 07:28 Glucose (Fingerstick) 67 mg/dL (70-99) Micro Microbiology 03/31/18 Blood Culture - Preliminary, Resulted NO GROWTH AFTER 4 DAYS Objective Assessment Pancytopenia ? viral vs meds Encephalopathy - better ? Pneumonia Abx allergies Lactic acidosis - improved Hypothyroidism Transaminitis - mild increase - ? reactive JAIDEN. UA no sign of infection NSTEMI Plan Plan of Care off antibiotics BC NGTD Supportive care Repeat labs in am pt/ot ADA LIRIANO MD Apr 07, 2018 08:47
--- NOTE | 2018-04-07 09:01 | PDOC ---
PROGRESS NOTES Subjective Subjective HPI -f/u of pancytopenia ROS - dyspnea improved Objective Objective Vital Signs Date Time Temp Pulse Resp B/P (MAP) Pulse Ox O2 Delivery O2 Flow Rate FiO2 04/07/18 08:38 70 102/57 04/07/18 08:10 Nasal Cannula 2.0 04/07/18 07:00 97.9 20 99 97.9 Intake and Output 04/07/18 07:00 Intake Total 780 ml Output Total 760 ml Balance 20 ml Intake Oral 780 ml Output Urine Total 760 ml # Voids 2 Physical Exam Heart: Normal S1, Normal S2 General: Alert, Oriented X3 Lungs: Clear to auscultation Neuro: Normal speech Psych/Mental Status: Mental status NL Assessment Assessment Problems Medical Problems: (1) Acute exacerbation of CHF (congestive heart failure) Status: Acute (2) Elevated troponin I level Status: Acute (3) Hypoglycemia Status: Acute (4) Hypoxia Status: Acute (5) Lactic acidosis Status: Acute (6) Renal insufficiency Status: Acute IMPRESSION AND PLAN: 1. Normochromic normocytic anemia. Peripheral smear does not reveal any evidence of immature white cells. Reticulocyte count is 2.2. I do not suspect hemolysis. There is no evidence of bleeding. I suspect that the etiology of anemia is chronic kidney disease. Iron studies are suggestive of anemia due to chronic disease and B12 level is normal. I will continue to monitor. Hb stable at 8.9 2. Leukopenia. She had a normal WBC count at the time of admission and worsening WBC count later on. I suspect that this is due to splenic congestion/hypersplenism due to congestive heart failure. I would expect the WBC count to improve and I will continue to monitor. Peripheral smear does not reveal any evidence of immature white cells and hence I do not suspect leukemia. WBC now 3.7 3. 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 I will continue to monitor. Platelet count was normal on 04/04/2018 at 145. It is unlikely that she has a primary bone marrow disorder and I will continue to monitor. Plt now 125 4. Chronic kidney disease. Management per Nephrology. 5. [id number] congestive heart failure, biventricular with the left ventricular ejection fraction of only 20% and BNP more than 35,000. Appreciate Cardiology management. Comment Review of Relevant I have reviewed the following items madeline (where applicable) has been applied. Labs Laboratory Tests Test 04/05/18 12:14 04/05/18 16:59 04/05/18 20:45 04/06/18 05:00 Glucose (Fingerstick) 116 mg/dL (70-99) 84 mg/dL (70-99) 91 mg/dL (70-99) White Blood Count 3.4 x10^3/uL (4.0-11.0) Red Blood Count 2.90 x10^6/uL (3.50-5.40) Hemoglobin 8.9 g/dL (12.0-15.5) Hematocrit 25.9 % (36.0-47.0) Mean Corpuscular Volume 89 fL (79-100) Mean Corpuscular Hemoglobin 31 pg (25-35) Mean Corpuscular Hemoglobin Concent 34 g/dL (31-37) Red Cell Distribution Width 29.4 % (11.5-14.5) Platelet Count 108 x10^3/uL (140-400) Neutrophils (%) (Auto) 40 % (31-73) Lymphocytes (%) (Auto) 49 % (24-48) Monocytes (%) (Auto) 8 % (0-9) Eosinophils (%) (Auto) 2 % (0-3) Basophils (%) (Auto) 1 % (0-3) Neutrophils # (Auto) 1.4 x10^3uL (1.8-7.7) Lymphocytes # (Auto) 1.7 x10^3/uL (1.0-4.8) Monocytes # (Auto) 0.3 x10^3/uL (0.0-1.1) Eosinophils # (Auto) 0.1 x10^3/uL (0.0-0.7) Basophils # (Auto) 0.0 x10^3/uL (0.0-0.2) Sodium Level 141 mmol/L (136-145) Potassium Level 4.8 mmol/L (3.5-5.1) Chloride Level 100 mmol/L (98-107) Carbon Dioxide Level 35 mmol/L (21-32) Anion Gap 6 (6-14) Blood Urea Nitrogen 44 mg/dL (7-20) Creatinine 2.0 mg/dL (0.6-1.0) Estimated GFR (Cockcroft-Gault) 29.7 Glucose Level 72 mg/dL (70-99) Calcium Level 9.0 mg/dL (8.5-10.1) Phosphorus Level 3.5 mg/dL (2.6-4.7) Albumin 2.3 g/dL (3.4-5.0) Test 04/06/18 07:12 04/06/18 11:45 04/06/18 17:08 04/06/18 21:16 Glucose (Fingerstick) 66 mg/dL (70-99) 135 mg/dL (70-99) 99 mg/dL (70-99) 132 mg/dL (70-99) Test 04/07/18 03:40 04/07/18 07:28 White Blood Count 3.7 x10^3/uL (4.0-11.0) Red Blood Count 2.84 x10^6/uL (3.50-5.40) Hemoglobin 8.9 g/dL (12.0-15.5) Hematocrit 25.6 % (36.0-47.0) Mean Corpuscular Volume 90 fL (79-100) Mean Corpuscular Hemoglobin 31 pg (25-35) Mean Corpuscular Hemoglobin Concent 35 g/dL (31-37) Red Cell Distribution Width 29.4 % (11.5-14.5) Platelet Count 125 x10^3/uL (140-400) Neutrophils (%) (Auto) 72 % (31-73) Lymphocytes (%) (Auto) 10 % (24-48) Monocytes (%) (Auto) 14 % (0-9) Eosinophils (%) (Auto) 2 % (0-3) Basophils (%) (Auto) 2 % (0-3) Neutrophils # (Auto) 2.7 x10^3uL (1.8-7.7) Lymphocytes # (Auto) 0.4 x10^3/uL (1.0-4.8) Monocytes # (Auto) 0.5 x10^3/uL (0.0-1.1) Eosinophils # (Auto) 0.1 x10^3/uL (0.0-0.7) Basophils # (Auto) 0.1 x10^3/uL (0.0-0.2) Sodium Level 140 mmol/L (136-145) Potassium Level 5.2 mmol/L (3.5-5.1) Chloride Level 98 mmol/L (98-107) Carbon Dioxide Level 37 mmol/L (21-32) Anion Gap 5 (6-14) Blood Urea Nitrogen 48 mg/dL (7-20) Creatinine 1.7 mg/dL (0.6-1.0) Estimated GFR (Cockcroft-Gault) 35.9 Glucose Level 85 mg/dL (70-99) Calcium Level 9.3 mg/dL (8.5-10.1) Ferritin 78 ng/mL (8-252) Total Bilirubin 0.5 mg/dL (0.2-1.0) Direct Bilirubin 0.3 mg/dL (0.0-0.2) Aspartate Amino Transf (AST/SGOT) 68 U/L (15-37) Alanine Aminotransferase (ALT/SGPT) 101 U/L (14-59) Alkaline Phosphatase 110 U/L (46-116) Total Protein 6.6 g/dL (6.4-8.2) Albumin 2.5 g/dL (3.4-5.0) Thyroid Stimulating Hormone (TSH) 170.437 uIU/mL (0.358-3.74) Free Thyroxine 0.51 ng/dL (0.76-1.46) Free Triiodothyronine (T3) pg/mL 1.21 pg/mL (2.18-3.98) Glucose (Fingerstick) 67 mg/dL (70-99) Laboratory Tests Test 04/06/18 11:45 04/06/18 17:08 04/06/18 21:16 04/07/18 03:40 Glucose (Fingerstick) 135 mg/dL (70-99) 99 mg/dL (70-99) 132 mg/dL (70-99) White Blood Count 3.7 x10^3/uL (4.0-11.0) Red Blood Count 2.84 x10^6/uL (3.50-5.40) Hemoglobin 8.9 g/dL (12.0-15.5) Hematocrit 25.6 % (36.0-47.0) Mean Corpuscular Volume 90 fL (79-100) Mean Corpuscular Hemoglobin 31 pg (25-35) Mean Corpuscular Hemoglobin Concent 35 g/dL (31-37) Red Cell Distribution Width 29.4 % (11.5-14.5) Platelet Count 125 x10^3/uL (140-400) Neutrophils (%) (Auto) 72 % (31-73) Lymphocytes (%) (Auto) 10 % (24-48) Monocytes (%) (Auto) 14 % (0-9) Eosinophils (%) (Auto) 2 % (0-3) Basophils (%) (Auto) 2 % (0-3) Neutrophils # (Auto) 2.7 x10^3uL (1.8-7.7) Lymphocytes # (Auto) 0.4 x10^3/uL (1.0-4.8) Monocytes # (Auto) 0.5 x10^3/uL (0.0-1.1) Eosinophils # (Auto) 0.1 x10^3/uL (0.0-0.7) Basophils # (Auto) 0.1 x10^3/uL (0.0-0.2) Sodium Level 140 mmol/L (136-145) Potassium Level 5.2 mmol/L (3.5-5.1) Chloride Level 98 mmol/L (98-107) Carbon Dioxide Level 37 mmol/L (21-32) Anion Gap 5 (6-14) Blood Urea Nitrogen 48 mg/dL (7-20) Creatinine 1.7 mg/dL (0.6-1.0) Estimated GFR (Cockcroft-Gault) 35.9 Glucose Level 85 mg/dL (70-99) Calcium Level 9.3 mg/dL (8.5-10.1) Ferritin 78 ng/mL (8-252) Total Bilirubin 0.5 mg/dL (0.2-1.0) Direct Bilirubin 0.3 mg/dL (0.0-0.2) Aspartate Amino Transf (AST/SGOT) 68 U/L (15-37) Alanine Aminotransferase (ALT/SGPT) 101 U/L (14-59) Alkaline Phosphatase 110 U/L (46-116) Total Protein 6.6 g/dL (6.4-8.2) Albumin 2.5 g/dL (3.4-5.0) Thyroid Stimulating Hormone (TSH) 170.437 uIU/mL (0.358-3.74) Free Thyroxine 0.51 ng/dL (0.76-1.46) Free Triiodothyronine (T3) pg/mL 1.21 pg/mL (2.18-3.98) Test 04/07/18 07:28 Glucose (Fingerstick) 67 mg/dL (70-99) Microbiology 03/31/18 Blood Culture - Final, Complete NO GROWTH AFTER 5 DAYS Medications Current Medications Aspirin (Karen Aspirin) 325 mg 1X ONCE PO Last administered on 03/31/18at 01:16 ; Start 03/30/18 at 23:30; Stop 03/30/18 at 23:31; Status DC Fentanyl Citrate (Fentanyl 2ml Vial) 50 mcg 1X ONCE IV ; Start 03/30/18 at 23: 30; Stop 03/30/18 at 23:31; Status DC Dextrose (Dextrose 50%-Water Syringe) 25 gm 1X ONCE IV Last administered on at 23:10; Start 03/30/18 at 23:30; Stop 03/30/18 at 23:31; Status DC Dextrose (Dextrose 50%-Water Syringe) 25 gm STK-MED ONCE IV ; Start 03/30/18 at 23:05; Stop 03/30/18 at 23:06; Status DC Glucose (Insta-Glucose) 15 gm STK-MED ONCE .ROUTE ; Start 03/30/18 at 23:05; Stop 03/30/18 at 23:06; Status DC Ondansetron HCl (Zofran) 4 mg 1X ONCE IV Last administered on 03/31/18at 01:18 ; Start 03/30/18 at 23:30; Stop 03/30/18 at 23:31; Status DC Glucose (Insta-Glucose) 15 gm 1X ONCE PO Last administered on 03/30/18at 23:07 ; Start 03/30/18 at 23:30; Stop 03/30/18 at 23:31; Status DC Nitroglycerin (Nitro-Bid Oint) 1 inch 1X ONCE TP Last administered on at 01:19; Start 03/31/18 at 01:00; Stop 03/31/18 at 01:01; Status DC Bumetanide (Bumex) 0.5 mg 1X ONCE IV Last administered on 03/31/18at 01:11; Start 03/31/18 at 01:00; Stop 03/31/18 at 01:01; Status DC Ondansetron HCl (Zofran) 4 mg PRN Q8HRS PRN IV NAUSEA/VOMITING 1ST CHOICE; Start 03/31/18 at 00:45; Stop 04/01/18 at 00:44; Status DC Dextrose (Dextrose 50%-Water Syringe) 12.5 gm PRN Q15MIN PRN IV SEE COMMENTS; Start 03/31/18 at 00:45 Lidocaine HCl 20 ml 1X ONCE IJ Last administered on 03/31/18at 03:00; Start at 03:00; Stop 03/31/18 at 03:01; Status DC Lidocaine HCl (Xylocaine-Mpf 2% Vial) 2 ml STK-MED ONCE .ROUTE ; Start 03/31/18 at 02:31; Stop 03/31/18 at 02:33; Status DC Pantoprazole Sodium (Protonix) 40 mg DAILYAC PO Last administered on 04/07/18at 06:49; Start 03/31/18 at 11:30 Levothyroxine Sodium 100 mcg/ Sodium Chloride 5 ml @ 100 mls/hr DAILY IVP ; Start 04/01/18 at 09:00; Status UNV Levothyroxine Sodium 50 mcg/ Sodium Chloride 5 ml @ 100 mls/hr DAILY IVP Last administered on 04/04/18at 08:52; Start 03/31/18 at 14:00; Stop 04/04/18 at 16:37 ; Status DC Furosemide 100 mg/ Sodium Chloride 100 ml @ 5 mls/hr CONT PRN IV DIURESIS Last administered on 03/31/18at 12:59; Start 03/31/18 at 11:45; Stop 03/31/18 at 22:16 ; Status DC Ceftriaxone Sodium 2 gm/ Dextrose 100 ml @ 200 mls/hr Q24H IV Last administered on 04/03/18at 14:30; Start 03/31/18 at 13:00; Stop 04/04/18 at 08:49 ; Status DC Azithromycin 500 mg/Sodium Chloride 250 ml @ 250 mls/hr 1X ONCE IV Last administered on 03/31/18at 13:04; Start 03/31/18 at 12:30; Stop 03/31/18 at 13:29 ; Status DC Furosemide 100 mg/ Sodium Chloride 100 ml @ 0 mls/hr CONT PRN IV DIURESIS Last administered on 04/01/18 01:34; Start 03/31/18 at 22:30; Stop 04/01/18 at 12:56 ; Status DC Lactobacillus Rhamnosus (Culturelle) 1 cap BID PO Last administered on 08:38; Start 04/01/18 at 21:00 Azithromycin 500 mg/Sodium Chloride 250 ml @ 250 mls/hr Q24H IV Last administered on 04/03/18 14:31; Start 04/01/18 at 14:00; Stop 04/04/18 at 08:49 ; Status DC Milrinone Lactate/ Dextrose 100 ml @ 2.96 mls/hr CONT PRN IV SEE I/O RECORD Last administered on 04/03/18 17:04; Start 04/02/18 at 13:00; Stop 04/04/18 at 12:47; Status DC Acetaminophen/ Codeine Phosphate (Tylenol #3) 1 tab PRN Q6HRS PRN PO MODERATE PAIN Last administered on 04/04/18 21:31; Start 04/02/18 at 13:30 Ondansetron HCl (Zofran) 4 mg PRN Q6HRS PRN IV NAUSEA/VOMITING Last administered on 04/02/18 15:37; Start 04/02/18 at 15:45 Furosemide (Lasix) 40 mg DAILY PO Last administered on 04/07/18 08:38; Start 04/03/18 at 11:30 Potassium Chloride (Klor-Con) 20 meq 1X ONCE PO Last administered on 12:17; Start 04/03/18 at 11:30; Stop 04/03/18 at 11:31; Status DC Simethicone (Gas-X) 80 mg PRN AFTMEALHC PRN PO GAS / BLOATING; Start 04/03/18 at 17:45 Polyethylene Glycol (miraLAX PACKET) 17 gm PRN DAILY PRN PO CONSTIPATION Last administered on 04/05/18 12:38; Start 04/04/18 at 12:00 Atorvastatin Calcium (Lipitor) 20 mg QHS PO Last administered on 04/06/18 20: 44; Start 04/04/18 at 21:00 Clonidine HCl (Catapres) 0.2 mg BID PO Last administered on 04/04/18 13:45; Start 04/04/18 at 13:00; Stop 04/05/18 at 09:59; Status DC Clopidogrel Bisulfate (Plavix) 75 mg DAILY PO Last administered on 04/07/18at 08 :38; Start 04/04/18 at 13:00 Metoprolol Tartrate (Lopressor) 25 mg BID PO Last administered on 04/04/18at 13: 47; Start 04/04/18 at 13:00; Stop 04/04/18 at 13:58; Status DC Potassium Chloride (Klor-Con) 20 meq DAILY PO Last administered on 04/07/18at 08 :39; Start 04/04/18 at 13:00 Celecoxib (CeleBREX) 200 mg BID PO ; Start 04/04/18 at 13:00; Stop 04/04/18 at 13:53; Status DC Citalopram Hydrobromide (CeleXA) 40 mg DAILY PO Last administered on 04/07/18at 08:38; Start 04/04/18 at 13:00 Non-Formulary Medication (Fluticasone/ Salmeterol (Advair 250-50 Diskus)) 1 inh BID IH ; Start 04/04/18 at 21:00; Status UNV Gabapentin (Neurontin) 600 mg TID PO Last administered on 04/07/18at 08:38; Start 04/04/18 at 14:00 Non-Formulary Medication (Omeprazole ) 40 mg DAILY PO ; Start 04/05/18 at 09:00 ; Status UNV Verapamil HCl (Calan Sr) 120 mg BID PO Last administered on 04/04/18at 13:50; Start 04/04/18 at 13:00; Stop 04/05/18 at 10:47; Status DC Magnesium Sulfate 50 ml @ 25 mls/hr 1X ONCE IV Last administered on 04/04/18at 13:52; Start 04/04/18 at 13:00; Stop 04/04/18 at 14:59; Status DC Budesonide (Pulmicort) 0.5 mg RTBID NEB Last administered on 04/07/18at 06:58; Start 04/04/18 at 13:00 Albuterol Sulfate (Ventolin Neb Soln) 2.5 mg RTQID NEB Last administered on 04/07/18at 06:58; Start 04/04/18 at 13:00 Carvedilol (Coreg) 12.5 mg BIDWMEALS PO Last administered on 04/04/18at 18:13; Start 04/04/18 at 17:00; Stop 04/05/18 at 14:57; Status DC Levothyroxine Sodium (Synthroid) 100 mcg DAILY06 PO Last administered on at 05:24; Start 04/05/18 at 06:00; Stop 04/05/18 at 10:47; Status DC Regadenoson (Lexiscan) 0.4 mg 1X ONCE IV Last administered on 04/05/18at 10:00 ; Start 04/05/18 at 08:00; Stop 04/05/18 at 08:11; Status DC Levothyroxine Sodium (Synthroid) 150 mcg DAILY06 PO Last administered on at 06:49; Start 04/06/18 at 06:00 Liothyronine Sodium (Cytomel) 10 mcg DAILY PO Last administered on 04/07/18at 08 :37; Start 04/05/18 at 11:00 Carvedilol (Coreg) 6.25 mg BIDWMEALS PO Last administered on 04/07/18at 08:38; Start 04/05/18 at 17:00 Tramadol HCl (Ultram) 50 mg PRN Q6HRS PRN PO MILD PAIN Last administered on 04/06/18at 20:47; Start 04/05/18 at 15:15 Active Scripts Active Reported Allopurinol 100 Mg Tablet 1 Tab PO DAILY Mag-Oxide (Magnesium Oxide) 400 Mg Tablet 400 Mg PO TID [place] 5-325 Tablet (Acetaminophen/Hydrocodone Bitart) 1 Each Tablet 1 Tab PO PRN Q6HRS PRN Isosorbide Mononitrate Er (Isosorbide Mononitrate) 30 Mg Tab.er.24h 1 Tab PO DAILY Uloric (Febuxostat) 40 Mg Tablet 1 Tab PO DAILY Meclizine Hcl 25 Mg Tablet 1 Tab PO PRN TID PRN Synthroid (Levothyroxine Sodium) 150 Mcg Tablet 1 Tab PO DAILY Lisinopril 40 Mg Tablet 1 Tab PO DAILY Symbicort 160-4.5 Mcg Inhaler (Budesonide/Formoterol Fumarate) 10.2 Gm Hfa.aer.ad 2 Puff IH BID Citalopram Hbr (Citalopram Hydrobromide) 20 Mg Tablet 1 Tab PO DAILY Aspirin Ec (Aspirin) 325 Mg Tablet.dr 1 Tab PO DAILY Nitrostat (Nitroglycerin) 0.4 Mg Tab.subl 0.4 Mg SL PRN Q5MIN PRN Flonase Allergy Relief (Fluticasone Propionate) 9.9 Ml [place].susp 2 Sprays NS DAILY Proair Hfa Inhaler (Albuterol Sulfate) 8.5 Gm Hfa.aer.ad 2 Puff INH PRN Q4-6HRS PRN Triamcinolone Acetonide 0.1% Cream (Triamcinolone Acetonide) 15 Gm Cream..g. 15 Gm TP Celexa (Citalopram Hydrobromide) 40 Mg Tablet 40 Mg PO DAILY Gabapentin 600 Mg Tablet 600 Mg PO BID Atorvastatin Calcium 20 Mg Tablet 20 Mg PO QHS Celebrex (Celecoxib) 200 Mg Capsule 200 Mg PO BID 30 Days Furosemide 20 Mg Tablet 40 Mg PO BID Metoprolol Tartrate 25 Mg Tablet 50 Mg PO BID Omeprazole 40 Mg Capsule.dr 40 Mg PO DAILY Clonidine Hcl 0.2 Mg Tablet 0.2 Mg PO BID Colcrys (Colchicine) 0.6 Mg Tablet 0.6 Mg PO BID Lorazepam 1 Mg Tablet 1 Mg PO BID Klor-Con M20 (Potassium Chloride) 20 Meq Tab.er.prt 10 Meq PO DAILY Verapamil Hcl 120 Mg Tablet 120 Mg PO BID Advair 250-50 Diskus (Fluticasone/Salmeterol) 1 Each Disk.w.dev 1 Inh IH BID Iron (Ferrous Sulfate) 325 Mg Capsule.er 325 Mg PO Clopidogrel (Clopidogrel Bisulfate) 75 Mg Tablet 75 Mg PO DAILY Vitals/I & O Vital Sign - Last 24 Hours 04/06/18 04/06/18 04/06/18 04/06/18 09:07 10:52 11:00 15:41 Temp 97.9 98.0 97.9 98.0 Pulse 65 72 76 Resp 16 16 B/P (MAP) 103/57 96/51 (66) 92/42 (59) Pulse Ox 97 90 O2 Delivery Nasal Cannula Nasal Cannula Nasal Cannula O2 Flow Rate 2.0 2.0 04/06/18 04/06/18 04/06/18 04/06/18 15:42 19:00 19:22 20:00 Temp 97.9 98.4 97.9 98.4 Pulse 94 67 Resp 20 16 B/P (MAP) 97/59 (72) 107/61 (76) Pulse Ox 93 99 O2 Delivery Room Air Nasal Cannula Room Air Nasal Cannula O2 Flow Rate 2.0 2.0 04/06/18 04/06/18 04/06/18 04/06/18 20:47 20:50 21:47 23:00 Temp 98.4 98.4 98.4 98.4 Pulse 99 77 Resp 16 16 16 B/P (MAP) 107/61 (76) 99/55 (70) Pulse Ox 99 99 99 95 O2 Delivery Nasal Cannula Nasal Cannula Nasal Cannula Nasal Cannula O2 Flow Rate 2.0 2.0 2.0 2.0 04/06/18 04/07/18 04/07/18 04/07/18 23:16 03:06 07:00 07:00 Temp 98.4 98.6 97.9 98.4 98.6 97.9 Pulse 99 61 70 Resp 16 20 B/P (MAP) 107/61 (76) 89/44 (59) 102/57 (72) Pulse Ox 99 99 99 O2 Delivery Nasal Cannula Nasal Cannula Nasal Cannula Nasal Cannula O2 Flow Rate 2.0 2.0 2.0 2.0 04/07/18 04/07/18 08:10 08:38 Pulse 70 B/P (MAP) 102/57 O2 Delivery Nasal Cannula O2 Flow Rate 2.0 Intake and Output 04/06/18 04/06/18 04/07/18 15:00 23:00 07:00 Intake Total 680 ml 100 ml Output Total 560 ml 200 ml Balance 120 ml -100 ml CLAY ARTEAGA MD Apr 07, 2018 09:01
--- NOTE | 2018-04-07 10:32 | PDOC ---
Subjective: Subjective: No meaningful history from pt. Objective: Objective: No GI concerns per RN. Has [place] Medicaid. Vital Signs: Vital Signs Date Time Temp Pulse Resp B/P (MAP) Pulse Ox O2 Delivery O2 Flow Rate FiO2 04/07/18 08:38 70 102/57 04/07/18 08:10 Nasal Cannula 2.0 04/07/18 07:00 97.9 20 99 97.9 Labs: Laboratory Tests Test 04/06/18 11:45 04/06/18 17:08 04/06/18 21:16 04/07/18 03:40 Glucose (Fingerstick) 135 mg/dL 99 mg/dL 132 mg/dL White Blood Count 3.7 x10^3/uL Red Blood Count 2.84 x10^6/uL Hemoglobin 8.9 g/dL Hematocrit 25.6 % Mean Corpuscular Volume 90 fL Mean Corpuscular Hemoglobin 31 pg Mean Corpuscular Hemoglobin Concent 35 g/dL Red Cell Distribution Width 29.4 % Platelet Count 125 x10^3/uL Neutrophils (%) (Auto) 72 % Lymphocytes (%) (Auto) 10 % Monocytes (%) (Auto) 14 % Eosinophils (%) (Auto) 2 % Basophils (%) (Auto) 2 % Neutrophils # (Auto) 2.7 x10^3uL Lymphocytes # (Auto) 0.4 x10^3/uL Monocytes # (Auto) 0.5 x10^3/uL Eosinophils # (Auto) 0.1 x10^3/uL Basophils # (Auto) 0.1 x10^3/uL Sodium Level 140 mmol/L Potassium Level 5.2 mmol/L Chloride Level 98 mmol/L Carbon Dioxide Level 37 mmol/L Anion Gap 5 Blood Urea Nitrogen 48 mg/dL Creatinine 1.7 mg/dL Estimated GFR (Cockcroft-Gault) 35.9 Glucose Level 85 mg/dL Calcium Level 9.3 mg/dL Ferritin 78 ng/mL Total Bilirubin 0.5 mg/dL Direct Bilirubin 0.3 mg/dL Aspartate Amino Transf (AST/SGOT) 68 U/L Alanine Aminotransferase (ALT/SGPT) 101 U/L Alkaline Phosphatase 110 U/L Total Protein 6.6 g/dL Albumin 2.5 g/dL Thyroid Stimulating Hormone (TSH) 170.437 uIU/mL Free Thyroxine 0.51 ng/dL Free Triiodothyronine (T3) pg/mL 1.21 pg/mL Test 04/07/18 07:28 Glucose (Fingerstick) 67 mg/dL PE: GEN: up to chair brushing teeth LUNGS: NC HEART: RRR ABD: soft, non-tender NEURO/PSYCH: confused A/P: Pancytopenia - stable/better, likely ACD/CHF Elevated LFTs - better Hypothyroidism -- Continue same per GI, await DC plans. NEEL WILLIAMSON Apr 07, 2018 10:32
--- NOTE | 2018-04-07 10:54 | PDOC ---
SUBJECTIVE ROS Stable OBJECTIVE Vital Signs Vital Signs Date Time Temp Pulse Resp B/P (MAP) Pulse Ox O2 Delivery O2 Flow Rate FiO2 04/07/18 08:38 70 102/57 04/07/18 08:10 Nasal Cannula 2.0 04/07/18 07:00 97.9 20 99 97.9 I & 0 Intake and Output 04/07/18 07:00 Intake Total 780 ml Output Total 760 ml Balance 20 ml Intake Oral 780 ml Output Urine Total 760 ml # Voids 2 PHYSICAL EXAM Physical Exam General: No acute distress, awake and alert HEENT: OM moist , On o2 by NC Lungs: CTA ant Heart: Normal S1, Normal S2 Abdomen: Normal bowel sounds , soft, obese Extremities: no edema Skin: No rashes Neuro: AXOX3 - [place] + DIAGNOSIS/ASSESSMENT Assessment & Plan JAIDEN -- Cardiorenal Improving Reviewed records from 2011([facility]) Creat Normal at 1.0 In October 2016- Creat 1.8 CKD - Baseline 1.8 in October 2016 E- Lytes stable Acute heart failure- Now Compensated Was on IV Lasix drip on admission Cardiology following NSTEMI Global Hypokinesis Cardiology on board PPM Cardiology following HTN- BP controlled Elevated TSH- On LTHx US abdomen - Right kidney is obscured by bowel gas. Left kidney measures 9 cm x 5 cm and 4.8 cm. COMMENT/RELEVANT DATA Meds Current Medications Medications (Trade) Dose Ordered Sig/Domitila Start Time Stop Time Status Last Admin Dose Admin Acetaminophen (Tylenol) 650 mg PRN Q6HRS PRN 04/07/18 10:45 Acetaminophen/ Codeine Phosphate (Tylenol #3) 1 tab PRN Q6HRS PRN 04/02/18 13:30 04/04/18 21:31 1 TAB Albuterol Sulfate (Ventolin Neb Soln) 2.5 mg RTQID 04/04/18 13:00 04/07/18 06:58 2.5 MG Aspirin (Karen Aspirin) 325 mg 1X ONCE 03/30/18 23:30 03/30/18 23:31 DC 03/31/18 01:16 325 MG Atorvastatin Calcium (Lipitor) 20 mg QHS 04/04/18 21:00 04/06/18 20:44 20 MG Azithromycin 500 mg/Sodium Chloride 250 ml @ 250 mls/hr Q24H 04/01/18 14:00 04/04/18 08:49 DC 04/03/18 14:31 250 MLS/HR Budesonide (Pulmicort) 0.5 mg RTBID 04/04/18 13:00 04/07/18 06:58 0.5 MG Bumetanide (Bumex) 0.5 mg 1X ONCE 03/31/18 01:00 03/31/18 01:01 DC 03/31/18 01:11 0.5 MG Carvedilol (Coreg) 6.25 mg BIDWMEALS 04/05/18 17:00 04/07/18 08:38 6.25 MG Ceftriaxone Sodium 2 gm/ Dextrose 100 ml @ 200 mls/hr Q24H 03/31/18 13:00 04/04/18 08:49 DC 04/03/18 14:30 200 MLS/HR Celecoxib (CeleBREX) 200 mg BID 04/04/18 13:00 04/04/18 13:53 DC Citalopram Hydrobromide (CeleXA) 40 mg DAILY 04/04/18 13:00 04/07/18 08:38 40 MG Clonidine HCl (Catapres) 0.2 mg BID 04/04/18 13:00 04/05/18 09:59 DC 04/04/18 13:45 0.2 MG Clopidogrel Bisulfate (Plavix) 75 mg DAILY 04/04/18 13:00 04/07/18 08:38 75 MG Dextrose (Dextrose 50%-Water Syringe) 12.5 gm PRN Q15MIN PRN 03/31/18 00:45 Fentanyl Citrate (Fentanyl 2ml Vial) 50 mcg 1X ONCE 03/30/18 23:30 03/30/18 23:31 DC Furosemide (Lasix) 40 mg DAILY 04/03/18 11:30 04/07/18 08:38 40 MG Furosemide 100 mg/ Sodium Chloride 100 ml @ 0 mls/hr CONT PRN 03/31/18 22:30 04/01/18 12:56 DC 04/01/18 01:34 10 MLS/HR Gabapentin (Neurontin) 600 mg TID 04/04/18 14:00 04/07/18 08:38 600 MG Glucose (Insta-Glucose) 15 gm 1X ONCE 03/30/18 23:30 9/26/18 23:31 DC 03/30/18 23:07 15 GM Lactobacillus Rhamnosus (Culturelle) 1 cap BID 04/01/18 21:00 04/07/18 08:38 1 CAP Levothyroxine Sodium (Synthroid) 150 mcg DAILY06 04/06/18 06:00 04/07/18 06:49 150 MCG Levothyroxine Sodium 100 mcg/ Sodium Chloride 5 ml @ 100 mls/hr DAILY 04/01/18 09:00 UNV Levothyroxine Sodium 50 mcg/ Sodium Chloride 5 ml @ 100 mls/hr DAILY 03/31/18 14:00 04/04/18 16:37 DC 04/04/18 08:52 100 MLS/HR Lidocaine HCl (Xylocaine-Mpf 2% Vial) 2 ml STK-MED ONCE 03/31/18 02:31 03/31/18 02:33 DC Liothyronine Sodium (Cytomel) 10 mcg DAILY 04/05/18 11:00 04/07/18 08:37 10 MCG Magnesium Sulfate 50 ml @ 25 mls/hr 1X ONCE 04/04/18 13:00 04/04/18 14:59 DC 04/04/18 13:52 25 MLS/HR Metoprolol Tartrate (Lopressor) 25 mg BID 04/04/18 13:00 04/04/18 13:58 DC 04/04/18 13:47 25 MG Milrinone Lactate/ Dextrose 100 ml @ 2.96 mls/hr CONT PRN 04/02/18 13:00 04/04/18 12:47 DC 04/03/18 17:04 2.96 MLS/HR Nitroglycerin (Nitro-Bid Oint) 1 inch 1X ONCE 03/31/18 01:00 03/31/18 01:01 DC 03/31/18 01:19 1 INCH Non-Formulary Medication (Fluticasone/ Salmeterol (Advair 250-50 Diskus)) 1 inh BID 04/04/18 21:00 UNV Non-Formulary Medication (Omeprazole ) 40 mg DAILY 04/05/18 09:00 UNV Ondansetron HCl (Zofran) 4 mg PRN Q6HRS PRN 04/02/18 15:45 04/02/18 15:37 4 MG Pantoprazole Sodium (Protonix) 40 mg DAILYAC 03/31/18 11:30 04/07/18 06:49 40 MG Polyethylene Glycol (miraLAX PACKET) 17 gm PRN DAILY PRN 04/04/18 12:00 04/05/18 12:38 17 GM Potassium Chloride (Klor-Con) 20 meq DAILY 04/04/18 13:00 04/07/18 08:39 20 MEQ Regadenoson (Lexiscan) 0.4 mg 1X ONCE 04/05/18 08:00 04/05/18 08:11 DC 04/05/18 10:00 0.4 MG Simethicone (Gas-X) 80 mg PRN AFTMEALHC PRN 04/03/18 17:45 Tramadol HCl (Ultram) 50 mg PRN Q6HRS PRN 04/05/18 15:15 04/06/18 20:47 50 MG Verapamil HCl (Calan Sr) 120 mg BID 04/04/18 13:00 04/05/18 10:47 DC 04/04/18 13:50 120 MG Lab Laboratory Tests Test 04/06/18 11:45 04/06/18 17:08 04/06/18 21:16 04/07/18 03:40 Glucose (Fingerstick) 135 mg/dL (70-99) 99 mg/dL (70-99) 132 mg/dL (70-99) White Blood Count 3.7 x10^3/uL (4.0-11.0) Red Blood Count 2.84 x10^6/uL (3.50-5.40) Hemoglobin 8.9 g/dL (12.0-15.5) Hematocrit 25.6 % (36.0-47.0) Mean Corpuscular Volume 90 fL (79-100) Mean Corpuscular Hemoglobin 31 pg (25-35) Mean Corpuscular Hemoglobin Concent 35 g/dL (31-37) Red Cell Distribution Width 29.4 % (11.5-14.5) Platelet Count 125 x10^3/uL (140-400) Neutrophils (%) (Auto) 72 % (31-73) Lymphocytes (%) (Auto) 10 % (24-48) Monocytes (%) (Auto) 14 % (0-9) Eosinophils (%) (Auto) 2 % (0-3) Basophils (%) (Auto) 2 % (0-3) Neutrophils # (Auto) 2.7 x10^3uL (1.8-7.7) Lymphocytes # (Auto) 0.4 x10^3/uL (1.0-4.8) Monocytes # (Auto) 0.5 x10^3/uL (0.0-1.1) Eosinophils # (Auto) 0.1 x10^3/uL (0.0-0.7) Basophils # (Auto) 0.1 x10^3/uL (0.0-0.2) Sodium Level 140 mmol/L (136-145) Potassium Level 5.2 mmol/L (3.5-5.1) Chloride Level 98 mmol/L (98-107) Carbon Dioxide Level 37 mmol/L (21-32) Anion Gap 5 (6-14) Blood Urea Nitrogen 48 mg/dL (7-20) Creatinine 1.7 mg/dL (0.6-1.0) Estimated GFR (Cockcroft-Gault) 35.9 Glucose Level 85 mg/dL (70-99) Calcium Level 9.3 mg/dL (8.5-10.1) Ferritin 78 ng/mL (8-252) Total Bilirubin 0.5 mg/dL (0.2-1.0) Direct Bilirubin 0.3 mg/dL (0.0-0.2) Aspartate Amino Transf (AST/SGOT) 68 U/L (15-37) Alanine Aminotransferase (ALT/SGPT) 101 U/L (14-59) Alkaline Phosphatase 110 U/L (46-116) Total Protein 6.6 g/dL (6.4-8.2) Albumin 2.5 g/dL (3.4-5.0) Thyroid Stimulating Hormone (TSH) 170.437 uIU/mL (0.358-3.74) Free Thyroxine 0.51 ng/dL (0.76-1.46) Free Triiodothyronine (T3) pg/mL 1.21 pg/mL (2.18-3.98) Test 04/07/18 07:28 Glucose (Fingerstick) 67 mg/dL (70-99) Results All relevant outside records, renal labs, imaging studies, telemetry/EKG's were reviewed. SUNIL OROZCO MD Apr 07, 2018 10:54
[2018-04-07 11:00] VITALS: BP 94/49
[2018-04-07] MEDS: ACETAMINOPHEN 325 MG TABLET. PO PRN (11:03)
[2018-04-07] MEDS ORDERED: LACTULOSE 20 GM/30 ML SOLUTION. PO PRN (11:45)
[2018-04-07] MEDS ORDERED: BISACODYL 10 MG SUPP.RECT. PR PRN (11:45)
[2018-04-07] MEDS ORDERED: MAGNESIUM HYDROXIDE 2,400 MG/30 ML ORAL.SUSP. PO PRN (11:45)
--- NOTE | 2018-04-07 14:57 | PDOC ---
PROGRESS NOTES Chief Complaint Chief Complaint Acute heart failure systolic EF 20% AMS, with hypoglycemia wo dm history, hypothyroidism NSTEMI with chf JAIDEN vasomotor, atn Sepsis? HTN Anemia Hypoglycemia REcent shingles h/o CAD hypomagnesemia ICD NON COMpliance? pancytopenia with splemegaly with CHF? h/o DVT, PE, off AC with h/o gib h/o aortic bypass abd pain 2/2 constipation possibly Plan: fu with card, MPI intermediate risk increase synthroid to 150mcg daily, add t3, repeat labs every 2 ds cont current meds, on coreg 6.25mg bid, lasix daily, plavix, dc clonidine given low BP pTOT replete Mag dvt ppx EF 20% abx dced as per id onco consulted SW for snf, but pt has [place] medicaid, but pt said has medicare too remove doll, repeat all labs tmr ,check cortisol normal. given pt has no insurance here, no pcp [place], not safe to dc given still low t3, t4. will talk to sw again about her medicare, hope find a rehab to dc. History of Present Illness History of Present Illness talkes slow, mild confusion hypoglycemia sometime, eats ok, no dm2 severe hypothyroidism, but pt said she is taking home meds c/o abd pain. gi on board Vitals Vitals Vital Signs Date Time Temp Pulse Resp B/P (MAP) Pulse Ox O2 Delivery O2 Flow Rate FiO2 04/07/18 12:13 Nasal Cannula 1.0 04/07/18 11:00 98.1 71 16 94/49 (64) 100 98.1 Physical Exam Physical Exam GENERAL: Propped up in bed, alert, eating LUNGS: Decreased in the bases. HEART: S1, S2. Pacemaker ICD ABDOMEN: Soft, nontender, no guarding. : Doll in place. EXTREMITIES: No gross edema or cyanosis SKIN: Without signs of rash. NEUROLOGIC: Alert, responds appropriately RIJ clean General: Alert, Oriented X3 Heart: Normal S1, Normal S2 Abdomen: Normal bowel sounds (obese abdomen), Soft Extremities: No clubbing, Normal pulses, Other (trace edema) Skin: No rashes, No significant lesion Labs LABS Laboratory Tests Test 04/06/18 17:08 04/06/18 21:16 04/07/18 03:40 04/07/18 07:28 Glucose (Fingerstick) 99 mg/dL (70-99) 132 mg/dL (70-99) 67 mg/dL (70-99) White Blood Count 3.7 x10^3/uL (4.0-11.0) Red Blood Count 2.84 x10^6/uL (3.50-5.40) Hemoglobin 8.9 g/dL (12.0-15.5) Hematocrit 25.6 % (36.0-47.0) Mean Corpuscular Volume 90 fL (79-100) Mean Corpuscular Hemoglobin 31 pg (25-35) Mean Corpuscular Hemoglobin Concent 35 g/dL (31-37) Red Cell Distribution Width 29.4 % (11.5-14.5) Platelet Count 125 x10^3/uL (140-400) Neutrophils (%) (Auto) 72 % (31-73) Lymphocytes (%) (Auto) 10 % (24-48) Monocytes (%) (Auto) 14 % (0-9) Eosinophils (%) (Auto) 2 % (0-3) Basophils (%) (Auto) 2 % (0-3) Neutrophils # (Auto) 2.7 x10^3uL (1.8-7.7) Lymphocytes # (Auto) 0.4 x10^3/uL (1.0-4.8) Monocytes # (Auto) 0.5 x10^3/uL (0.0-1.1) Eosinophils # (Auto) 0.1 x10^3/uL (0.0-0.7) Basophils # (Auto) 0.1 x10^3/uL (0.0-0.2) Sodium Level 140 mmol/L (136-145) Potassium Level 5.2 mmol/L (3.5-5.1) Chloride Level 98 mmol/L (98-107) Carbon Dioxide Level 37 mmol/L (21-32) Anion Gap 5 (6-14) Blood Urea Nitrogen 48 mg/dL (7-20) Creatinine 1.7 mg/dL (0.6-1.0) Estimated GFR (Cockcroft-Gault) 35.9 Glucose Level 85 mg/dL (70-99) Calcium Level 9.3 mg/dL (8.5-10.1) Ferritin 78 ng/mL (8-252) Total Bilirubin 0.5 mg/dL (0.2-1.0) Direct Bilirubin 0.3 mg/dL (0.0-0.2) Aspartate Amino Transf (AST/SGOT) 68 U/L (15-37) Alanine Aminotransferase (ALT/SGPT) 101 U/L (14-59) Alkaline Phosphatase 110 U/L (46-116) Total Protein 6.6 g/dL (6.4-8.2) Albumin 2.5 g/dL (3.4-5.0) Thyroid Stimulating Hormone (TSH) 170.437 uIU/mL (0.358-3.74) Free Thyroxine 0.51 ng/dL (0.76-1.46) Free Triiodothyronine (T3) pg/mL 1.21 pg/mL (2.18-3.98) Cortisol AM Sample 7.7 ug/dL (4.3-22.4) Test 04/07/18 11:05 Glucose (Fingerstick) 112 mg/dL (70-99) Assessment and Plan Assessmemt and Plan Problems Medical Problems: (1) Acute exacerbation of CHF (congestive heart failure) Status: Acute (2) Elevated troponin I level Status: Acute (3) Hypoglycemia Status: Acute (4) Hypoxia Status: Acute (5) Lactic acidosis Status: Acute (6) Renal insufficiency Status: Acute Comment Review of Relevant I have reviewed the following items madeline (where applicable) has been applied. Labs Laboratory Tests Test 04/05/18 16:59 04/05/18 20:45 04/06/18 05:00 04/06/18 07:12 Glucose (Fingerstick) 84 mg/dL (70-99) 91 mg/dL (70-99) 66 mg/dL (70-99) White Blood Count 3.4 x10^3/uL (4.0-11.0) Red Blood Count 2.90 x10^6/uL (3.50-5.40) Hemoglobin 8.9 g/dL (12.0-15.5) Hematocrit 25.9 % (36.0-47.0) Mean Corpuscular Volume 89 fL (79-100) Mean Corpuscular Hemoglobin 31 pg (25-35) Mean Corpuscular Hemoglobin Concent 34 g/dL (31-37) Red Cell Distribution Width 29.4 % (11.5-14.5) Platelet Count 108 x10^3/uL (140-400) Neutrophils (%) (Auto) 40 % (31-73) Lymphocytes (%) (Auto) 49 % (24-48) Monocytes (%) (Auto) 8 % (0-9) Eosinophils (%) (Auto) 2 % (0-3) Basophils (%) (Auto) 1 % (0-3) Neutrophils # (Auto) 1.4 x10^3uL (1.8-7.7) Lymphocytes # (Auto) 1.7 x10^3/uL (1.0-4.8) Monocytes # (Auto) 0.3 x10^3/uL (0.0-1.1) Eosinophils # (Auto) 0.1 x10^3/uL (0.0-0.7) Basophils # (Auto) 0.0 x10^3/uL (0.0-0.2) Sodium Level 141 mmol/L (136-145) Potassium Level 4.8 mmol/L (3.5-5.1) Chloride Level 100 mmol/L (98-107) Carbon Dioxide Level 35 mmol/L (21-32) Anion Gap 6 (6-14) Blood Urea Nitrogen 44 mg/dL (7-20) Creatinine 2.0 mg/dL (0.6-1.0) Estimated GFR (Cockcroft-Gault) 29.7 Glucose Level 72 mg/dL (70-99) Calcium Level 9.0 mg/dL (8.5-10.1) Phosphorus Level 3.5 mg/dL (2.6-4.7) Albumin 2.3 g/dL (3.4-5.0) Test 04/06/18 11:45 04/06/18 17:08 04/06/18 21:16 04/07/18 03:40 Glucose (Fingerstick) 135 mg/dL (70-99) 99 mg/dL (70-99) 132 mg/dL (70-99) White Blood Count 3.7 x10^3/uL (4.0-11.0) Red Blood Count 2.84 x10^6/uL (3.50-5.40) Hemoglobin 8.9 g/dL (12.0-15.5) Hematocrit 25.6 % (36.0-47.0) Mean Corpuscular Volume 90 fL (79-100) Mean Corpuscular Hemoglobin 31 pg (25-35) Mean Corpuscular Hemoglobin Concent 35 g/dL (31-37) Red Cell Distribution Width 29.4 % (11.5-14.5) Platelet Count 125 x10^3/uL (140-400) Neutrophils (%) (Auto) 72 % (31-73) Lymphocytes (%) (Auto) 10 % (24-48) Monocytes (%) (Auto) 14 % (0-9) Eosinophils (%) (Auto) 2 % (0-3) Basophils (%) (Auto) 2 % (0-3) Neutrophils # (Auto) 2.7 x10^3uL (1.8-7.7) Lymphocytes # (Auto) 0.4 x10^3/uL (1.0-4.8) Monocytes # (Auto) 0.5 x10^3/uL (0.0-1.1) Eosinophils # (Auto) 0.1 x10^3/uL (0.0-0.7) Basophils # (Auto) 0.1 x10^3/uL (0.0-0.2) Sodium Level 140 mmol/L (136-145) Potassium Level 5.2 mmol/L (3.5-5.1) Chloride Level 98 mmol/L (98-107) Carbon Dioxide Level 37 mmol/L (21-32) Anion Gap 5 (6-14) Blood Urea Nitrogen 48 mg/dL (7-20) Creatinine 1.7 mg/dL (0.6-1.0) Estimated GFR (Cockcroft-Gault) 35.9 Glucose Level 85 mg/dL (70-99) Calcium Level 9.3 mg/dL (8.5-10.1) Ferritin 78 ng/mL (8-252) Total Bilirubin 0.5 mg/dL (0.2-1.0) Direct Bilirubin 0.3 mg/dL (0.0-0.2) Aspartate Amino Transf (AST/SGOT) 68 U/L (15-37) Alanine Aminotransferase (ALT/SGPT) 101 U/L (14-59) Alkaline Phosphatase 110 U/L (46-116) Total Protein 6.6 g/dL (6.4-8.2) Albumin 2.5 g/dL (3.4-5.0) Thyroid Stimulating Hormone (TSH) 170.437 uIU/mL (0.358-3.74) Free Thyroxine 0.51 ng/dL (0.76-1.46) Free Triiodothyronine (T3) pg/mL 1.21 pg/mL (2.18-3.98) Cortisol AM Sample 7.7 ug/dL (4.3-22.4) Test 04/07/18 07:28 04/07/18 11:05 Glucose (Fingerstick) 67 mg/dL (70-99) 112 mg/dL (70-99) Laboratory Tests Test 04/06/18 17:08 04/06/18 21:16 04/07/18 03:40 04/07/18 07:28 Glucose (Fingerstick) 99 mg/dL (70-99) 132 mg/dL (70-99) 67 mg/dL (70-99) White Blood Count 3.7 x10^3/uL (4.0-11.0) Red Blood Count 2.84 x10^6/uL (3.50-5.40) Hemoglobin 8.9 g/dL (12.0-15.5) Hematocrit 25.6 % (36.0-47.0) Mean Corpuscular Volume 90 fL (79-100) Mean Corpuscular Hemoglobin 31 pg (25-35) Mean Corpuscular Hemoglobin Concent 35 g/dL (31-37) Red Cell Distribution Width 29.4 % (11.5-14.5) Platelet Count 125 x10^3/uL (140-400) Neutrophils (%) (Auto) 72 % (31-73) Lymphocytes (%) (Auto) 10 % (24-48) Monocytes (%) (Auto) 14 % (0-9) Eosinophils (%) (Auto) 2 % (0-3) Basophils (%) (Auto) 2 % (0-3) Neutrophils # (Auto) 2.7 x10^3uL (1.8-7.7) Lymphocytes # (Auto) 0.4 x10^3/uL (1.0-4.8) Monocytes # (Auto) 0.5 x10^3/uL (0.0-1.1) Eosinophils # (Auto) 0.1 x10^3/uL (0.0-0.7) Basophils # (Auto) 0.1 x10^3/uL (0.0-0.2) Sodium Level 140 mmol/L (136-145) Potassium Level 5.2 mmol/L (3.5-5.1) Chloride Level 98 mmol/L (98-107) Carbon Dioxide Level 37 mmol/L (21-32) Anion Gap 5 (6-14) Blood Urea Nitrogen 48 mg/dL (7-20) Creatinine 1.7 mg/dL (0.6-1.0) Estimated GFR (Cockcroft-Gault) 35.9 Glucose Level 85 mg/dL (70-99) Calcium Level 9.3 mg/dL (8.5-10.1) Ferritin 78 ng/mL (8-252) Total Bilirubin 0.5 mg/dL (0.2-1.0) Direct Bilirubin 0.3 mg/dL (0.0-0.2) Aspartate Amino Transf (AST/SGOT) 68 U/L (15-37) Alanine Aminotransferase (ALT/SGPT) 101 U/L (14-59) Alkaline Phosphatase 110 U/L (46-116) Total Protein 6.6 g/dL (6.4-8.2) Albumin 2.5 g/dL (3.4-5.0) Thyroid Stimulating Hormone (TSH) 170.437 uIU/mL (0.358-3.74) Free Thyroxine 0.51 ng/dL (0.76-1.46) Free Triiodothyronine (T3) pg/mL 1.21 pg/mL (2.18-3.98) Cortisol AM Sample 7.7 ug/dL (4.3-22.4) Test 04/07/18 11:05 Glucose (Fingerstick) 112 mg/dL (70-99) Microbiology 03/31/18 Blood Culture - Final, Complete NO GROWTH AFTER 5 DAYS Medications Current Medications Aspirin (Karen Aspirin) 325 mg 1X ONCE PO Last administered on 03/31/18at 01:16 ; Start 03/30/18 at 23:30; Stop 03/30/18 at 23:31; Status DC Fentanyl Citrate (Fentanyl 2ml Vial) 50 mcg 1X ONCE IV ; Start 03/30/18 at 23: 30; Stop 03/30/18 at 23:31; Status DC Dextrose (Dextrose 50%-Water Syringe) 25 gm 1X ONCE IV Last administered on at 23:10; Start 03/30/18 at 23:30; Stop 03/30/18 at 23:31; Status DC Dextrose (Dextrose 50%-Water Syringe) 25 gm STK-MED ONCE IV ; Start 03/30/18 at 23:05; Stop 03/30/18 at 23:06; Status DC Glucose (Insta-Glucose) 15 gm STK-MED ONCE .ROUTE ; Start 03/30/18 at 23:05; Stop 03/30/18 at 23:06; Status DC Ondansetron HCl (Zofran) 4 mg 1X ONCE IV Last administered on 03/31/18at 01:18 ; Start 03/30/18 at 23:30; Stop 03/30/18 at 23:31; Status DC Glucose (Insta-Glucose) 15 gm 1X ONCE PO Last administered on 03/30/18at 23:07 ; Start 03/30/18 at 23:30; Stop 03/30/18 at 23:31; Status DC Nitroglycerin (Nitro-Bid Oint) 1 inch 1X ONCE TP Last administered on at 01:19; Start 03/31/18 at 01:00; Stop 03/31/18 at 01:01; Status DC Bumetanide (Bumex) 0.5 mg 1X ONCE IV Last administered on 03/31/18at 01:11; Start 03/31/18 at 01:00; Stop 03/31/18 at 01:01; Status DC Ondansetron HCl (Zofran) 4 mg PRN Q8HRS PRN IV NAUSEA/VOMITING 1ST CHOICE; Start 03/31/18 at 00:45; Stop 04/01/18 at 00:44; Status DC Dextrose (Dextrose 50%-Water Syringe) 12.5 gm PRN Q15MIN PRN IV SEE COMMENTS; Start 03/31/18 at 00:45 Lidocaine HCl 20 ml 1X ONCE IJ Last administered on 03/31/18at 03:00; Start at 03:00; Stop 03/31/18 at 03:01; Status DC Lidocaine HCl (Xylocaine-Mpf 2% Vial) 2 ml STK-MED ONCE .ROUTE ; Start 03/31/18 at 02:31; Stop 03/31/18 at 02:33; Status DC Pantoprazole Sodium (Protonix) 40 mg DAILYAC PO Last administered on 04/07/18at 06:49; Start 03/31/18 at 11:30 Levothyroxine Sodium 100 mcg/ Sodium Chloride 5 ml @ 100 mls/hr DAILY IVP ; Start 04/01/18 at 09:00; Status UNV Levothyroxine Sodium 50 mcg/ Sodium Chloride 5 ml @ 100 mls/hr DAILY IVP Last administered on 04/04/18at 08:52; Start 03/31/18 at 14:00; Stop 04/04/18 at 16:37 ; Status DC Furosemide 100 mg/ Sodium Chloride 100 ml @ 5 mls/hr CONT PRN IV DIURESIS Last administered on 03/31/18at 12:59; Start 03/31/18 at 11:45; Stop 03/31/18 at 22:16 ; Status DC Ceftriaxone Sodium 2 gm/ Dextrose 100 ml @ 200 mls/hr Q24H IV Last administered on 04/03/18at 14:30; Start 03/31/18 at 13:00; Stop 04/04/18 at 08:49 ; Status DC Azithromycin 500 mg/Sodium Chloride 250 ml @ 250 mls/hr 1X ONCE IV Last administered on 03/31/18at 13:04; Start 03/31/18 at 12:30; Stop 03/31/18 at 13:29 ; Status DC Furosemide 100 mg/ Sodium Chloride 100 ml @ 0 mls/hr CONT PRN IV DIURESIS Last administered on 04/01/18at 01:34; Start 03/31/18 at 22:30; Stop 04/01/18 at 12:56 ; Status DC Lactobacillus Rhamnosus (Culturelle) 1 cap BID PO Last administered on at 08:38; Start 04/01/18 at 21:00 Azithromycin 500 mg/Sodium Chloride 250 ml @ 250 mls/hr Q24H IV Last administered on 04/03/18at 14:31; Start 04/01/18 at 14:00; Stop 04/04/18 at 08:49 ; Status DC Milrinone Lactate/ Dextrose 100 ml @ 2.96 mls/hr CONT PRN IV SEE I/O RECORD Last administered on 04/03/18at 17:04; Start 04/02/18 at 13:00; Stop 04/04/18 at 12:47; Status DC Acetaminophen/ Codeine Phosphate (Tylenol #3) 1 tab PRN Q6HRS PRN PO MODERATE PAIN Last administered on 04/04/18at 21:31; Start 04/02/18 at 13:30 Ondansetron HCl (Zofran) 4 mg PRN Q6HRS PRN IV NAUSEA/VOMITING Last administered on 04/02/18at 15:37; Start 04/02/18 at 15:45 Furosemide (Lasix) 40 mg DAILY PO Last administered on 04/07/18 08:38; Start 04/03/18 at 11:30 Potassium Chloride (Klor-Con) 20 meq 1X ONCE PO Last administered on at 12:17; Start 04/03/18 at 11:30; Stop 04/03/18 at 11:31; Status DC Simethicone (Gas-X) 80 mg PRN AFTMEALHC PRN PO GAS / BLOATING; Start 04/03/18 at 17:45 Polyethylene Glycol (miraLAX PACKET) 17 gm PRN DAILY PRN PO CONSTIPATION Last administered on 04/05/18 12:38; Start 04/04/18 at 12:00 Atorvastatin Calcium (Lipitor) 20 mg QHS PO Last administered on 04/06/18at 20: 44; Start 04/04/18 at 21:00 Clonidine HCl (Catapres) 0.2 mg BID PO Last administered on 04/04/18at 13:45; Start 04/04/18 at 13:00; Stop 04/05/18 at 09:59; Status DC Clopidogrel Bisulfate (Plavix) 75 mg DAILY PO Last administered on 04/07/18at 08 :38; Start 04/04/18 at 13:00 Metoprolol Tartrate (Lopressor) 25 mg BID PO Last administered on 04/04/18at 13: 47; Start 04/04/18 at 13:00; Stop 04/04/18 at 13:58; Status DC Potassium Chloride (Klor-Con) 20 meq DAILY PO Last administered on 04/07/18at 08 :39; Start 04/04/18 at 13:00 Celecoxib (CeleBREX) 200 mg BID PO ; Start 04/04/18 at 13:00; Stop 04/04/18 at 13:53; Status DC Citalopram Hydrobromide (CeleXA) 40 mg DAILY PO Last administered on 04/07/18at 08:38; Start 04/04/18 at 13:00 Non-Formulary Medication (Fluticasone/ Salmeterol (Advair 250-50 Diskus)) 1 inh BID IH ; Start 04/04/18 at 21:00; Status UNV Gabapentin (Neurontin) 600 mg TID PO Last administered on 04/07/18at 08:38; Start 04/04/18 at 14:00 Non-Formulary Medication (Omeprazole ) 40 mg DAILY PO ; Start 04/05/18 at 09:00 ; Status UNV Verapamil HCl (Calan Sr) 120 mg BID PO Last administered on 04/04/18at 13:50; Start 04/04/18 at 13:00; Stop 04/05/18 at 10:47; Status DC Magnesium Sulfate 50 ml @ 25 mls/hr 1X ONCE IV Last administered on 04/04/18at 13:52; Start 04/04/18 at 13:00; Stop 04/04/18 at 14:59; Status DC Budesonide (Pulmicort) 0.5 mg RTBID NEB Last administered on 04/07/18at 06:58; Start 04/04/18 at 13:00 Albuterol Sulfate (Ventolin Neb Soln) 2.5 mg RTQID NEB Last administered on 04/07/18at 12:12; Start 04/04/18 at 13:00 Carvedilol (Coreg) 12.5 mg BIDWMEALS PO Last administered on 04/04/18at 18:13; Start 04/04/18 at 17:00; Stop 04/05/18 at 14:57; Status DC Levothyroxine Sodium (Synthroid) 100 mcg DAILY06 PO Last administered on at 05:24; Start 04/05/18 at 06:00; Stop 04/05/18 at 10:47; Status DC Regadenoson (Lexiscan) 0.4 mg 1X ONCE IV Last administered on 04/05/18at 10:00 ; Start 04/05/18 at 08:00; Stop 04/05/18 at 08:11; Status DC Levothyroxine Sodium (Synthroid) 150 mcg DAILY06 PO Last administered on at 06:49; Start 04/06/18 at 06:00 Liothyronine Sodium (Cytomel) 10 mcg DAILY PO Last administered on 04/07/18at 08 :37; Start 04/05/18 at 11:00 Carvedilol (Coreg) 6.25 mg BIDWMEALS PO Last administered on 04/07/18at 08:38; Start 04/05/18 at 17:00 Tramadol HCl (Ultram) 50 mg PRN Q6HRS PRN PO MILD PAIN Last administered on 04/06/18at 20:47; Start 04/05/18 at 15:15 Acetaminophen (Tylenol) 650 mg PRN Q6HRS PRN PO HEADACHE Last administered on 04/07/18at 11:03; Start 04/07/18 at 10:45 Senna/Docusate Sodium (Senna Plus) 1 tab BID PO ; Start 04/07/18 at 21:00 Docusate Sodium (Colace) 100 mg BID PO ; Start 04/07/18 at 21:00 Magnesium Hydroxide (Milk Of Magnesia) 2,400 mg PRN Q12HR PRN PO CONSTIPATION; Start 04/07/18 at 11:45 Lactulose (Lactulose) 20 gm PRN Q12HR PRN PO CONSTIPATION; Start 04/07/18 at 11 :45 Bisacodyl (Dulcolax Supp) 10 mg PRN DAILY PRN [place] CONSTIPATION; Start 04/07/18 at 11:45 Active Scripts Active Reported Allopurinol 100 Mg Tablet 1 Tab PO DAILY Mag-Oxide (Magnesium Oxide) 400 Mg Tablet 400 Mg PO TID Mcroberts 5-325 Tablet (Acetaminophen/Hydrocodone Bitart) 1 Each Tablet 1 Tab PO PRN Q6HRS PRN Isosorbide Mononitrate Er (Isosorbide Mononitrate) 30 Mg Tab.er.24h 1 Tab PO DAILY Uloric (Febuxostat) 40 Mg Tablet 1 Tab PO DAILY Meclizine Hcl 25 Mg Tablet 1 Tab PO PRN TID PRN Synthroid (Levothyroxine Sodium) 150 Mcg Tablet 1 Tab PO DAILY Lisinopril 40 Mg Tablet 1 Tab PO DAILY Symbicort 160-4.5 Mcg Inhaler (Budesonide/Formoterol Fumarate) 10.2 Gm Hfa.aer.ad 2 Puff IH BID Citalopram Hbr (Citalopram Hydrobromide) 20 Mg Tablet 1 Tab PO DAILY Aspirin Ec (Aspirin) 325 Mg Tablet.dr 1 Tab PO DAILY Nitrostat (Nitroglycerin) 0.4 Mg Tab.subl 0.4 Mg SL PRN Q5MIN PRN Flonase Allergy Relief (Fluticasone Propionate) 9.9 Ml Roland.susp 2 Sprays NS DAILY Proair Hfa Inhaler (Albuterol Sulfate) 8.5 Gm Hfa.aer.ad 2 Puff INH PRN Q4-6HRS PRN Triamcinolone Acetonide 0.1% Cream (Triamcinolone Acetonide) 15 Gm Cream..g. 15 Gm TP Celexa (Citalopram Hydrobromide) 40 Mg Tablet 40 Mg PO DAILY Gabapentin 600 Mg Tablet 600 Mg PO BID Atorvastatin Calcium 20 Mg Tablet 20 Mg PO QHS Celebrex (Celecoxib) 200 Mg Capsule 200 Mg PO BID 30 Days Furosemide 20 Mg Tablet 40 Mg PO BID Metoprolol Tartrate 25 Mg Tablet 50 Mg PO BID Omeprazole 40 Mg Capsule.dr 40 Mg PO DAILY Clonidine Hcl 0.2 Mg Tablet 0.2 Mg PO BID Colcrys (Colchicine) 0.6 Mg Tablet 0.6 Mg PO BID Lorazepam 1 Mg Tablet 1 Mg PO BID Klor-Con M20 (Potassium Chloride) 20 Meq Tab.er.prt 10 Meq PO DAILY Verapamil Hcl 120 Mg Tablet 120 Mg PO BID Advair 250-50 Diskus (Fluticasone/Salmeterol) 1 Each Disk.w.dev 1 Inh IH BID Iron (Ferrous Sulfate) 325 Mg Capsule.er 325 Mg PO Clopidogrel (Clopidogrel Bisulfate) 75 Mg Tablet 75 Mg PO DAILY Vitals/I & O Vital Sign - Last 24 Hours 04/06/18 04/06/18 04/06/18 04/06/18 15:41 15:42 19:00 19:22 Temp 98.0 97.9 98.4 98.0 97.9 98.4 Pulse 76 94 67 Resp 16 20 16 B/P (MAP) 92/42 (59) 97/59 (72) 107/61 (76) Pulse Ox 90 93 99 O2 Delivery Nasal Cannula Room Air Nasal Cannula Room Air O2 Flow Rate 2.0 04/06/18 04/06/18 04/06/18 04/06/18 20:00 20:47 20:50 21:47 Temp 98.4 98.4 Pulse 99 Resp 16 16 16 B/P (MAP) 107/61 (76) Pulse Ox 99 99 99 O2 Delivery Nasal Cannula Nasal Cannula Nasal Cannula Nasal Cannula O2 Flow Rate 2.0 2.0 2.0 2.0 04/06/18 04/06/18 04/07/18 04/07/18 23:00 23:16 03:06 07:00 Temp 98.4 98.4 98.6 98.4 98.4 98.6 Pulse 77 99 61 Resp 16 B/P (MAP) 99/55 (70) 107/61 (76) 89/44 (59) Pulse Ox 95 99 99 O2 Delivery Nasal Cannula Nasal Cannula Nasal Cannula Nasal Cannula O2 Flow Rate 2.0 2.0 2.0 2.0 04/07/18 04/07/18 04/07/18 04/07/18 07:00 08:10 08:38 11:00 Temp 97.9 98.1 97.9 98.1 Pulse 70 70 71 Resp 20 16 B/P (MAP) 102/57 (72) 102/57 94/49 (64) Pulse Ox 99 100 O2 Delivery Nasal Cannula Nasal Cannula Nasal Cannula O2 Flow Rate 2.0 2.0 2.0 04/07/18 12:13 O2 Delivery Nasal Cannula O2 Flow Rate 1.0 Intake and Output 04/06/18 04/06/18 04/07/18 15:00 23:00 07:00 Intake Total 680 ml 100 ml Output Total 560 ml 200 ml Balance 120 ml -100 ml PETRA WHITLEY MD Apr 07, 2018 14:57
[2018-04-07 15:00] VITALS: BP 92/48
[2018-04-07] MEDS ORDERED: SODIUM POLYSTYRENE SULFONATE 15 GM/60 ML ORAL.SUSP. PO ONE (15:00)
--- NOTE | 2018-04-07 15:48 | RAD ---
CON, 04/07/2018: HISTORY: Constipation There is a moderate amount of gas and stool scattered throughout the colon. There is no evidence organomegaly. An inferior vena cava filter is present at the L3-4 level. There are surgical clips in the abdomen and at both groin levels. Moderate multilevel degenerative change is present in the spine. IMPRESSION: Increased gas and stool throughout the colon compatible with the history of constipation. Electronically signed by: Kishan Maldonado MD (04/07/2018 3:45 PM) [facility]
[2018-04-07 19:30] VITALS: BP 83/50
[2018-04-07] MEDS: DOCUSATE SODIUM 100 MG CAPSULE. PO SCH (20:49)
[2018-04-07] MEDS: SENNOSIDES/DOCUSATE 8.6/50MG TABLET. PO SCH (20:49)
[2018-04-07] MEDS: ATORVASTATIN CALCIUM 20 MG TABLET PO SCH (20:50)
[2018-04-07] MEDS: ACETAMINOPHEN/CODEINE 300/30MG TABLET. PO PRN (20:51)
[2018-04-07 22:57] VITALS: BP 97/52
[2018-04-08] VITALS (7 sets, daily range): BP systolic 92–126; BP diastolic 53–63
[2018-04-08] MEDS: ACETAMINOPHEN 325 MG TABLET. PO PRN ×2 (03:28→20:39)
[2018-04-08 05:24] LABS: BASO # 0.1 x10^3/uL (0.0-0.2); BASO % 2 % (0-3); EOS # 0.1 x10^3/uL (0.0-0.7); EOS % 2 % (0-3); HEMATOCRIT 25.8 % (36.0-47.0); HEMOGLOBIN 8.8 g/dL (12.0-15.5); LYMPH # 0.4 x10^3/uL (1.0-4.8); LYMPH % 11 % (24-48); MEAN CORPUSCULAR HEMOGLOBIN 31 pg (25-35); MEAN CORPUSCULAR HGB CONC 34 g/dL (31-37); MEAN CORPUSCULAR VOLUME 91 fL (79-100); MONO # 0.7 x10^3/uL (0.0-1.1); MONO % 18 % (0-9); NEUT # 2.6 x10^3uL (1.8-7.7); NEUT % 68 % (31-73); PLATELET COUNT 103 x10^3/uL (140-400); RED BLOOD COUNT 2.84 x10^6/uL (3.50-5.40); RED CELL DISTRIBUTION WIDTH 29.5 % (11.5-14.5); WHITE BLOOD COUNT 3.8 x10^3/uL (4.0-11.0)
[2018-04-08 05:43] LABS: CALCIUM 9.5 mg/dL (8.5-10.1); CREATININE 1.8 mg/dL (0.6-1.0); GFR 33.6; POTASSIUM 5.6 mmol/L (3.5-5.1)
[2018-04-08] MEDS: LEVOTHYROXINE 150 MCG TABLET PO SCH (06:08)
[2018-04-08] MEDS: POTASSIUM CHLORIDE 20 MEQ TABLET.ER. PO SCH (07:30)
[2018-04-08] MEDS: ALBUTEROL SULFATE 2.5 MG/3 ML NEBU. NEB SCH ×4 (07:57→19:47)
[2018-04-08] MEDS: BUDESONIDE 0.5 MG/2 ML NEBU. NEB SCH ×2 (07:57→19:47)
--- NOTE | 2018-04-08 08:52 | PDOC ---
PROGRESS NOTES Subjective Subjective HPI - f/u of pancytopenia ROS - no CP Objective Objective Vital Signs Date Time Temp Pulse Resp B/P (MAP) Pulse Ox O2 Delivery O2 Flow Rate FiO2 04/08/18 08:39 98.3 98 Nasal Cannula 2.0 98.3 04/08/18 07:42 72 99/55 (70) 04/07/18 15:00 16 Intake and Output 04/08/18 07:00 Intake Total 1150 ml Output Total 3 ml Balance 1147 ml Intake Oral 1150 ml Stool Total 3 ml # Voids 2 Physical Exam Heart: Normal S1, Normal S2 General: Alert, Oriented X3 Lungs: Normal air movement Neuro: Normal speech Psych/Mental Status: Mental status NL Assessment Assessment Problems Medical Problems: (1) Acute exacerbation of CHF (congestive heart failure) Status: Acute (2) Elevated troponin I level Status: Acute (3) Hypoglycemia Status: Acute (4) Hypoxia Status: Acute (5) Lactic acidosis Status: Acute (6) Renal insufficiency Status: Acute IMPRESSION AND PLAN: 1. Normochromic normocytic anemia. Peripheral smear does not reveal any evidence of immature white cells. Reticulocyte count is 2.2. I do not suspect hemolysis. There is no evidence of bleeding. I suspect that the etiology of anemia is chronic kidney disease. Iron studies are suggestive of anemia due to chronic disease and B12 level is normal. I will continue to monitor. Hb stable at 8.8 2. Leukopenia. She had a normal WBC count at the time of admission and worsening WBC count later on. I suspect that this is due to splenic congestion/hypersplenism due to congestive heart failure. I would expect the WBC count to improve and I will continue to monitor. Peripheral smear does not reveal any evidence of immature white cells and hence I do not suspect leukemia. WBC now 3.8 3. 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 I will continue to monitor. Platelet count was normal on 04/04/2018 at 145. It is unlikely that she has a primary bone marrow disorder and I will continue to monitor. Plt now 103 4. Chronic kidney disease. Management per Nephrology. 5. [id number] congestive heart failure, biventricular with the left ventricular ejection fraction of only 20% and BNP more than 35,000. Appreciate Cardiology management. Comment Review of Relevant I have reviewed the following items madeline (where applicable) has been applied. Labs Laboratory Tests Test 04/06/18 11:45 04/06/18 17:08 04/06/18 21:16 04/07/18 03:40 Glucose (Fingerstick) 135 mg/dL (70-99) 99 mg/dL (70-99) 132 mg/dL (70-99) White Blood Count 3.7 x10^3/uL (4.0-11.0) Red Blood Count 2.84 x10^6/uL (3.50-5.40) Hemoglobin 8.9 g/dL (12.0-15.5) Hematocrit 25.6 % (36.0-47.0) Mean Corpuscular Volume 90 fL (79-100) Mean Corpuscular Hemoglobin 31 pg (25-35) Mean Corpuscular Hemoglobin Concent 35 g/dL (31-37) Red Cell Distribution Width 29.4 % (11.5-14.5) Platelet Count 125 x10^3/uL (140-400) Neutrophils (%) (Auto) 72 % (31-73) Lymphocytes (%) (Auto) 10 % (24-48) Monocytes (%) (Auto) 14 % (0-9) Eosinophils (%) (Auto) 2 % (0-3) Basophils (%) (Auto) 2 % (0-3) Neutrophils # (Auto) 2.7 x10^3uL (1.8-7.7) Lymphocytes # (Auto) 0.4 x10^3/uL (1.0-4.8) Monocytes # (Auto) 0.5 x10^3/uL (0.0-1.1) Eosinophils # (Auto) 0.1 x10^3/uL (0.0-0.7) Basophils # (Auto) 0.1 x10^3/uL (0.0-0.2) Sodium Level 140 mmol/L (136-145) Potassium Level 5.2 mmol/L (3.5-5.1) Chloride Level 98 mmol/L (98-107) Carbon Dioxide Level 37 mmol/L (21-32) Anion Gap 5 (6-14) Blood Urea Nitrogen 48 mg/dL (7-20) Creatinine 1.7 mg/dL (0.6-1.0) Estimated GFR (Cockcroft-Gault) 35.9 Glucose Level 85 mg/dL (70-99) Calcium Level 9.3 mg/dL (8.5-10.1) Ferritin 78 ng/mL (8-252) Total Bilirubin 0.5 mg/dL (0.2-1.0) Direct Bilirubin 0.3 mg/dL (0.0-0.2) Aspartate Amino Transf (AST/SGOT) 68 U/L (15-37) Alanine Aminotransferase (ALT/SGPT) 101 U/L (14-59) Alkaline Phosphatase 110 U/L (46-116) Total Protein 6.6 g/dL (6.4-8.2) Albumin 2.5 g/dL (3.4-5.0) Thyroid Stimulating Hormone (TSH) 170.437 uIU/mL (0.358-3.74) Free Thyroxine 0.51 ng/dL (0.76-1.46) Free Triiodothyronine (T3) pg/mL 1.21 pg/mL (2.18-3.98) Cortisol AM Sample 7.7 ug/dL (4.3-22.4) Test 04/07/18 07:28 04/07/18 11:05 04/07/18 19:58 04/08/18 04:30 Glucose (Fingerstick) 67 mg/dL (70-99) 112 mg/dL (70-99) 119 mg/dL (70-99) White Blood Count 3.8 x10^3/uL (4.0-11.0) Red Blood Count 2.84 x10^6/uL (3.50-5.40) Hemoglobin 8.8 g/dL (12.0-15.5) Hematocrit 25.8 % (36.0-47.0) Mean Corpuscular Volume 91 fL (79-100) Mean Corpuscular Hemoglobin 31 pg (25-35) Mean Corpuscular Hemoglobin Concent 34 g/dL (31-37) Red Cell Distribution Width 29.5 % (11.5-14.5) Platelet Count 103 x10^3/uL (140-400) Neutrophils (%) (Auto) 68 % (31-73) Lymphocytes (%) (Auto) 11 % (24-48) Monocytes (%) (Auto) 18 % (0-9) Eosinophils (%) (Auto) 2 % (0-3) Basophils (%) (Auto) 2 % (0-3) Neutrophils # (Auto) 2.6 x10^3uL (1.8-7.7) Lymphocytes # (Auto) 0.4 x10^3/uL (1.0-4.8) Monocytes # (Auto) 0.7 x10^3/uL (0.0-1.1) Eosinophils # (Auto) 0.1 x10^3/uL (0.0-0.7) Basophils # (Auto) 0.1 x10^3/uL (0.0-0.2) Sodium Level 136 mmol/L (136-145) Potassium Level 5.6 mmol/L (3.5-5.1) Chloride Level 97 mmol/L (98-107) Carbon Dioxide Level 32 mmol/L (21-32) Anion Gap 7 (6-14) Blood Urea Nitrogen 50 mg/dL (7-20) Creatinine 1.8 mg/dL (0.6-1.0) Estimated GFR (Cockcroft-Gault) 33.6 Glucose Level 105 mg/dL (70-99) Calcium Level 9.5 mg/dL (8.5-10.1) Test 04/08/18 08:14 Glucose (Fingerstick) 80 mg/dL (70-99) Laboratory Tests Test 04/07/18 11:05 04/07/18 19:58 04/08/18 04:30 04/08/18 08:14 Glucose (Fingerstick) 112 mg/dL (70-99) 119 mg/dL (70-99) 80 mg/dL (70-99) White Blood Count 3.8 x10^3/uL (4.0-11.0) Red Blood Count 2.84 x10^6/uL (3.50-5.40) Hemoglobin 8.8 g/dL (12.0-15.5) Hematocrit 25.8 % (36.0-47.0) Mean Corpuscular Volume 91 fL (79-100) Mean Corpuscular Hemoglobin 31 pg (25-35) Mean Corpuscular Hemoglobin Concent 34 g/dL (31-37) Red Cell Distribution Width 29.5 % (11.5-14.5) Platelet Count 103 x10^3/uL (140-400) Neutrophils (%) (Auto) 68 % (31-73) Lymphocytes (%) (Auto) 11 % (24-48) Monocytes (%) (Auto) 18 % (0-9) Eosinophils (%) (Auto) 2 % (0-3) Basophils (%) (Auto) 2 % (0-3) Neutrophils # (Auto) 2.6 x10^3uL (1.8-7.7) Lymphocytes # (Auto) 0.4 x10^3/uL (1.0-4.8) Monocytes # (Auto) 0.7 x10^3/uL (0.0-1.1) Eosinophils # (Auto) 0.1 x10^3/uL (0.0-0.7) Basophils # (Auto) 0.1 x10^3/uL (0.0-0.2) Sodium Level 136 mmol/L (136-145) Potassium Level 5.6 mmol/L (3.5-5.1) Chloride Level 97 mmol/L (98-107) Carbon Dioxide Level 32 mmol/L (21-32) Anion Gap 7 (6-14) Blood Urea Nitrogen 50 mg/dL (7-20) Creatinine 1.8 mg/dL (0.6-1.0) Estimated GFR (Cockcroft-Gault) 33.6 Glucose Level 105 mg/dL (70-99) Calcium Level 9.5 mg/dL (8.5-10.1) Microbiology 03/31/18 Blood Culture - Final, Complete NO GROWTH AFTER 5 DAYS Medications Current Medications Aspirin (Karen Aspirin) 325 mg 1X ONCE PO Last administered on 03/31/18at 01:16 ; Start 03/30/18 at 23:30; Stop 03/30/18 at 23:31; Status DC Fentanyl Citrate (Fentanyl 2ml Vial) 50 mcg 1X ONCE IV ; Start 03/30/18 at 23: 30; Stop 03/30/18 at 23:31; Status DC Dextrose (Dextrose 50%-Water Syringe) 25 gm 1X ONCE IV Last administered on at 23:10; Start 03/30/18 at 23:30; Stop 03/30/18 at 23:31; Status DC Dextrose (Dextrose 50%-Water Syringe) 25 gm STK-MED ONCE IV ; Start 03/30/18 at 23:05; Stop 03/30/18 at 23:06; Status DC Glucose (Insta-Glucose) 15 gm STK-MED ONCE .ROUTE ; Start 03/30/18 at 23:05; Stop 03/30/18 at 23:06; Status DC Ondansetron HCl (Zofran) 4 mg 1X ONCE IV Last administered on 03/31/18at 01:18 ; Start 03/30/18 at 23:30; Stop 03/30/18 at 23:31; Status DC Glucose (Insta-Glucose) 15 gm 1X ONCE PO Last administered on 03/30/18at 23:07 ; Start 03/30/18 at 23:30; Stop 03/30/18 at 23:31; Status DC Nitroglycerin (Nitro-Bid Oint) 1 inch 1X ONCE TP Last administered on at 01:19; Start 03/31/18 at 01:00; Stop 03/31/18 at 01:01; Status DC Bumetanide (Bumex) 0.5 mg 1X ONCE IV Last administered on 03/31/18at 01:11; Start 03/31/18 at 01:00; Stop 03/31/18 at 01:01; Status DC Ondansetron HCl (Zofran) 4 mg PRN Q8HRS PRN IV NAUSEA/VOMITING 1ST CHOICE; Start 03/31/18 at 00:45; Stop 04/01/18 at 00:44; Status DC Dextrose (Dextrose 50%-Water Syringe) 12.5 gm PRN Q15MIN PRN IV SEE COMMENTS; Start 03/31/18 at 00:45 Lidocaine HCl 20 ml 1X ONCE IJ Last administered on 03/31/18at 03:00; Start at 03:00; Stop 03/31/18 at 03:01; Status DC Lidocaine HCl (Xylocaine-Mpf 2% Vial) 2 ml STK-MED ONCE .ROUTE ; Start 03/31/18 at 02:31; Stop 03/31/18 at 02:33; Status DC Pantoprazole Sodium (Protonix) 40 mg DAILYAC PO Last administered on 04/07/18at 06:49; Start 03/31/18 at 11:30 Levothyroxine Sodium 100 mcg/ Sodium Chloride 5 ml @ 100 mls/hr DAILY IVP ; Start 04/01/18 at 09:00; Status UNV Levothyroxine Sodium 50 mcg/ Sodium Chloride 5 ml @ 100 mls/hr DAILY IVP Last administered on 04/04/18at 08:52; Start 03/31/18 at 14:00; Stop 04/04/18 at 16:37 ; Status DC Furosemide 100 mg/ Sodium Chloride 100 ml @ 5 mls/hr CONT PRN IV DIURESIS Last administered on 03/31/18at 12:59; Start 03/31/18 at 11:45; Stop 03/31/18 at 22:16 ; Status DC Ceftriaxone Sodium 2 gm/ Dextrose 100 ml @ 200 mls/hr Q24H IV Last administered on 04/03/18at 14:30; Start 03/31/18 at 13:00; Stop 04/04/18 at 08:49 ; Status DC Azithromycin 500 mg/Sodium Chloride 250 ml @ 250 mls/hr 1X ONCE IV Last administered on 03/31/18at 13:04; Start 03/31/18 at 12:30; Stop 03/31/18 at 13:29 ; Status DC Furosemide 100 mg/ Sodium Chloride 100 ml @ 0 mls/hr CONT PRN IV DIURESIS Last administered on 04/01/18at 01:34; Start 03/31/18 at 22:30; Stop 04/01/18 at 12:56 ; Status DC Lactobacillus Rhamnosus (Culturelle) 1 cap BID PO Last administered on at 20:50; Start 04/01/18 at 21:00 Azithromycin 500 mg/Sodium Chloride 250 ml @ 250 mls/hr Q24H IV Last administered on 04/03/18at 14:31; Start 04/01/18 at 14:00; Stop 04/04/18 at 08:49 ; Status DC Milrinone Lactate/ Dextrose 100 ml @ 2.96 mls/hr CONT PRN IV SEE I/O RECORD Last administered on 04/03/18at 17:04; Start 04/02/18 at 13:00; Stop 04/04/18 at 12:47; Status DC Acetaminophen/ Codeine Phosphate (Tylenol #3) 1 tab PRN Q6HRS PRN PO MODERATE PAIN Last administered on 04/07/18at 20:51; Start 04/02/18 at 13:30 Ondansetron HCl (Zofran) 4 mg PRN Q6HRS PRN IV NAUSEA/VOMITING Last administered on 04/02/18at 15:37; Start 04/02/18 at 15:45 Furosemide (Lasix) 40 mg DAILY PO Last administered on 04/07/18 08:38; Start 04/03/18 at 11:30 Potassium Chloride (Klor-Con) 20 meq 1X ONCE PO Last administered on at 12:17; Start 04/03/18 at 11:30; Stop 04/03/18 at 11:31; Status DC Simethicone (Gas-X) 80 mg PRN AFTMEALHC PRN PO GAS / BLOATING; Start 04/03/18 at 17:45 Polyethylene Glycol (miraLAX PACKET) 17 gm PRN DAILY PRN PO CONSTIPATION Last administered on 04/05/18 12:38; Start 04/04/18 at 12:00 Atorvastatin Calcium (Lipitor) 20 mg QHS PO Last administered on 04/07/18at 20: 50; Start 04/04/18 at 21:00 Clonidine HCl (Catapres) 0.2 mg BID PO Last administered on 04/04/18at 13:45; Start 04/04/18 at 13:00; Stop 04/05/18 at 09:59; Status DC Clopidogrel Bisulfate (Plavix) 75 mg DAILY PO Last administered on 04/07/18 08 :38; Start 04/04/18 at 13:00 Metoprolol Tartrate (Lopressor) 25 mg BID PO Last administered on 04/04/18at 13: 47; Start 04/04/18 at 13:00; Stop 04/04/18 at 13:58; Status DC Potassium Chloride (Klor-Con) 20 meq DAILY PO Last administered on 04/07/18at 08 :39; Start 04/04/18 at 13:00 Celecoxib (CeleBREX) 200 mg BID PO ; Start 04/04/18 at 13:00; Stop 04/04/18 at 13:53; Status DC Citalopram Hydrobromide (CeleXA) 40 mg DAILY PO Last administered on 04/07/18at 08:38; Start 04/04/18 at 13:00 Non-Formulary Medication (Fluticasone/ Salmeterol (Advair 250-50 Diskus)) 1 inh BID IH ; Start 04/04/18 at 21:00; Status UNV Gabapentin (Neurontin) 600 mg TID PO Last administered on 04/07/18at 20:50; Start 04/04/18 at 14:00 Non-Formulary Medication (Omeprazole ) 40 mg DAILY PO ; Start 04/05/18 at 09:00 ; Status UNV Verapamil HCl (Calan Sr) 120 mg BID PO Last administered on 04/04/18at 13:50; Start 04/04/18 at 13:00; Stop 04/05/18 at 10:47; Status DC Magnesium Sulfate 50 ml @ 25 mls/hr 1X ONCE IV Last administered on 04/04/18at 13:52; Start 04/04/18 at 13:00; Stop 04/04/18 at 14:59; Status DC Budesonide (Pulmicort) 0.5 mg RTBID NEB Last administered on 04/08/18at 07:57; Start 04/04/18 at 13:00 Albuterol Sulfate (Ventolin Neb Soln) 2.5 mg RTQID NEB Last administered on 04/08/18at 07:57; Start 04/04/18 at 13:00 Carvedilol (Coreg) 12.5 mg BIDWMEALS PO Last administered on 04/04/18at 18:13; Start 04/04/18 at 17:00; Stop 04/05/18 at 14:57; Status DC Levothyroxine Sodium (Synthroid) 100 mcg DAILY06 PO Last administered on at 05:24; Start 04/05/18 at 06:00; Stop 04/05/18 at 10:47; Status DC Regadenoson (Lexiscan) 0.4 mg 1X ONCE IV Last administered on 04/05/18at 10:00 ; Start 04/05/18 at 08:00; Stop 04/05/18 at 08:11; Status DC Levothyroxine Sodium (Synthroid) 150 mcg DAILY06 PO Last administered on at 06:08; Start 04/06/18 at 06:00 Liothyronine Sodium (Cytomel) 10 mcg DAILY PO Last administered on 04/07/18at 08 :37; Start 04/05/18 at 11:00 Carvedilol (Coreg) 6.25 mg BIDWMEALS PO Last administered on 04/07/18at 08:38; Start 04/05/18 at 17:00 Tramadol HCl (Ultram) 50 mg PRN Q6HRS PRN PO MILD PAIN Last administered on 04/06/18at 20:47; Start 04/05/18 at 15:15 Acetaminophen (Tylenol) 650 mg PRN Q6HRS PRN PO HEADACHE Last administered on 04/08/18 03:28; Start 04/07/18 at 10:45 Senna/Docusate Sodium (Senna Plus) 1 tab BID PO Last administered on 04/07/18at 20:49; Start 04/07/18 at 21:00 Docusate Sodium (Colace) 100 mg BID PO Last administered on 04/07/18 20:49; Start 04/07/18 at 21:00 Magnesium Hydroxide (Milk Of Magnesia) 2,400 mg PRN Q12HR PRN PO CONSTIPATION; Start 04/07/18 at 11:45 Lactulose (Lactulose) 20 gm PRN Q12HR PRN PO CONSTIPATION; Start 04/07/18 at 11 :45 Bisacodyl (Dulcolax Supp) 10 mg PRN DAILY PRN DC CONSTIPATION; Start 04/07/18 at 11:45 Sodium Polystyrene Sulfonate (Kayexalate) 15 gm 1X ONCE PO Last administered on 04/07/18at 15:15; Start 04/07/18 at 15:00; Stop 04/07/18 at 15:01; Status DC Active Scripts Active Reported Allopurinol 100 Mg Tablet 1 Tab PO DAILY Mag-Oxide (Magnesium Oxide) 400 Mg Tablet 400 Mg PO TID Page 5-325 Tablet (Acetaminophen/Hydrocodone Bitart) 1 Each Tablet 1 Tab PO PRN Q6HRS PRN Isosorbide Mononitrate Er (Isosorbide Mononitrate) 30 Mg Tab.er.24h 1 Tab PO DAILY Uloric (Febuxostat) 40 Mg Tablet 1 Tab PO DAILY Meclizine Hcl 25 Mg Tablet 1 Tab PO PRN TID PRN Synthroid (Levothyroxine Sodium) 150 Mcg Tablet 1 Tab PO DAILY Lisinopril 40 Mg Tablet 1 Tab PO DAILY Symbicort 160-4.5 Mcg Inhaler (Budesonide/Formoterol Fumarate) 10.2 Gm Hfa.aer.ad 2 Puff IH BID Citalopram Hbr (Citalopram Hydrobromide) 20 Mg Tablet 1 Tab PO DAILY Aspirin Ec (Aspirin) 325 Mg Tablet.dr 1 Tab PO DAILY Nitrostat (Nitroglycerin) 0.4 Mg Tab.subl 0.4 Mg SL PRN Q5MIN PRN Flonase Allergy Relief (Fluticasone Propionate) 9.9 Ml [place].susp 2 Sprays NS DAILY Proair Hfa Inhaler (Albuterol Sulfate) 8.5 Gm Hfa.aer.ad 2 Puff INH PRN Q4-6HRS PRN Triamcinolone Acetonide 0.1% Cream (Triamcinolone Acetonide) 15 Gm Cream..g. 15 Gm TP Celexa (Citalopram Hydrobromide) 40 Mg Tablet 40 Mg PO DAILY Gabapentin 600 Mg Tablet 600 Mg PO BID Atorvastatin Calcium 20 Mg Tablet 20 Mg PO QHS Celebrex (Celecoxib) 200 Mg Capsule 200 Mg PO BID 30 Days Furosemide 20 Mg Tablet 40 Mg PO BID Metoprolol Tartrate 25 Mg Tablet 50 Mg PO BID Omeprazole 40 Mg Capsule.dr 40 Mg PO DAILY Clonidine Hcl 0.2 Mg Tablet 0.2 Mg PO BID Colcrys (Colchicine) 0.6 Mg Tablet 0.6 Mg PO BID Lorazepam 1 Mg Tablet 1 Mg PO BID Klor-Con M20 (Potassium Chloride) 20 Meq Tab.er.prt 10 Meq PO DAILY Verapamil Hcl 120 Mg Tablet 120 Mg PO BID Advair 250-50 Diskus (Fluticasone/Salmeterol) 1 Each Disk.w.dev 1 Inh IH BID Iron (Ferrous Sulfate) 325 Mg Capsule.er 325 Mg PO Clopidogrel (Clopidogrel Bisulfate) 75 Mg Tablet 75 Mg PO DAILY Vitals/I & O Vital Sign - Last 24 Hours 04/07/18 04/07/18 04/07/18 04/07/18 11:00 12:13 15:00 15:38 Temp 98.1 97.6 98.1 97.6 Pulse 71 64 Resp 16 16 B/P (MAP) 94/49 (64) 92/48 (63) Pulse Ox 100 98 O2 Delivery Nasal Cannula Nasal Cannula Nasal Cannula Nasal Cannula O2 Flow Rate 2.0 1.0 2.0 1.0 04/07/18 04/07/18 04/07/18 04/07/18 17:00 19:30 20:04 20:04 Temp 97.6 97.6 Pulse 64 75 B/P (MAP) 92/48 83/50 (61) Pulse Ox 99 O2 Delivery Nasal Cannula Nasal Cannula Nasal Cannula O2 Flow Rate 1.0 1.0 1.0 04/07/18 04/07/18 04/07/18 04/07/18 20:11 20:51 22:37 22:57 Temp 97.8 97.8 Pulse 67 B/P (MAP) 97/52 (67) Pulse Ox 99 99 98 O2 Delivery Nasal Cannula Nasal Cannula Nasal Cannula Nasal Cannula O2 Flow Rate 1.0 1.0 1.0 1.0 04/08/18 04/08/18 04/08/18 04/08/18 03:39 07:42 07:59 08:39 Temp 97.7 98.3 97.7 98.3 Pulse 66 72 B/P (MAP) 92/53 (66) 99/55 (70) Pulse Ox 99 99 98 O2 Delivery Nasal Cannula Nasal Cannula Nasal Cannula O2 Flow Rate 1.0 1.0 2.0 Intake and Output 04/07/18 04/07/18 04/08/18 15:00 23:00 07:00 Intake Total 600 ml 550 ml Output Total 3 ml Balance 597 ml 550 ml CLAY ARTEAGA MD Apr 08, 2018 08:52
[2018-04-08] MEDS: DOCUSATE SODIUM 100 MG CAPSULE. PO SCH ×2 (09:46→20:39)
[2018-04-08] MEDS: CLOPIDOGREL BISULFATE 75 MG TABLET PO SCH (09:47)
[2018-04-08] MEDS: LIOTHYRONINE 5 MCG TABLET. PO SCH (09:47)
[2018-04-08] MEDS: LACTOBACILLUS RHAMNOSUS GG 1 CAPSULE. PO SCH ×2 (09:47→20:39)
[2018-04-08] MEDS: PANTOPRAZOLE 40 MG TABLET.DR. PO SCH (09:47)
[2018-04-08] MEDS: SENNOSIDES/DOCUSATE 8.6/50MG TABLET. PO SCH ×2 (09:48→20:39)
[2018-04-08] MEDS: CARVEDILOL 6.25 MG TABLET. PO SCH ×2 (09:48→18:10)
[2018-04-08] MEDS: GABAPENTIN 300 MG CAPSULE. PO SCH ×3 (09:48→20:43)
[2018-04-08] MEDS: CITALOPRAM 20 MG TABLET. PO SCH (09:48)
[2018-04-08] MEDS: POLYETHYLENE GLYCOL 3350 17 GM PACKET. PO PRN (09:49)
[2018-04-08] MEDS: FUROSEMIDE 40 MG TABLET. PO SCH (10:03)
[2018-04-08] MEDS ORDERED: SODIUM POLYSTYRENE SULFONATE 15 GM/60 ML ORAL.SUSP. PO ONE (11:00)
--- NOTE | 2018-04-08 11:13 | PDOC ---
SUBJECTIVE ROS Stable OBJECTIVE Vital Signs Vital Signs Date Time Temp Pulse Resp B/P (MAP) Pulse Ox O2 Delivery O2 Flow Rate FiO2 04/08/18 09:48 75 04/08/18 08:39 98.3 98 Nasal Cannula 2.0 98.3 04/08/18 07:42 99/55 (70) 04/07/18 15:00 16 I & 0 Intake and Output 04/08/18 07:01 Intake Total 1150 ml Output Total 3 ml Balance 1147 ml Intake Oral 1150 ml Stool Total 3 ml # Voids 2 PHYSICAL EXAM Physical Exam General: No acute distress, awake and alert HEENT: OM moist , On o2 by NC Lungs: CTA ant Heart: Normal S1, Normal S2 Abdomen: Normal bowel sounds , soft, obese Extremities: no edema Skin: No rashes Neuro: AXOX3 - [place] + DIAGNOSIS/ASSESSMENT Assessment & Plan JAIDEN -- Cardiorenal Improved , stable, at baseline In 2011([facility]) Creat 1.0 In October 2016- Creat 1.8 CKD - Baseline 1.8 in October 2016 E- Lytes stable Acute heart failure-compensated Now Compensated Cardiology following NSTEMI Global Hypokinesis Cardiology on board PPM Cardiology following HTN- BP controlled Elevated TSH- On LTHx US abdomen - Right kidney is obscured by bowel gas. Left kidney measures 9 cm x 5 cm and 4.8 cm. COMMENT/RELEVANT DATA Meds Current Medications Medications (Trade) Dose Ordered Sig/Domitila Start Time Stop Time Status Last Admin Dose Admin Acetaminophen (Tylenol) 650 mg PRN Q6HRS PRN 04/07/18 10:45 04/08/18 03:28 650 MG Acetaminophen/ Codeine Phosphate (Tylenol #3) 1 tab PRN Q6HRS PRN 04/02/18 13:30 04/07/18 20:51 1 TAB Albuterol Sulfate (Ventolin Neb Soln) 2.5 mg RTQID 04/04/18 13:00 04/08/18 07:57 2.5 MG Aspirin (Karen Aspirin) 325 mg 1X ONCE 03/30/18 23:30 03/30/18 23:31 DC 03/31/18 01:16 325 MG Atorvastatin Calcium (Lipitor) 20 mg QHS 04/04/18 21:00 04/07/18 20:50 20 MG Azithromycin 500 mg/Sodium Chloride 250 ml @ 250 mls/hr Q24H 04/01/18 14:00 04/04/18 08:49 DC 04/03/18 14:31 250 MLS/HR Bisacodyl (Dulcolax Supp) 10 mg PRN DAILY PRN 04/07/18 11:45 Budesonide (Pulmicort) 0.5 mg RTBID 04/04/18 13:00 04/08/18 07:57 0.5 MG Bumetanide (Bumex) 0.5 mg 1X ONCE 03/31/18 01:00 03/31/18 01:01 DC 03/31/18 01:11 0.5 MG Carvedilol (Coreg) 6.25 mg BIDWMEALS 04/05/18 17:00 04/08/18 09:48 6.25 MG Ceftriaxone Sodium 2 gm/ Dextrose 100 ml @ 200 mls/hr Q24H 03/31/18 13:00 04/04/18 08:49 DC 04/03/18 14:30 200 MLS/HR Celecoxib (CeleBREX) 200 mg BID 04/04/18 13:00 04/04/18 13:53 DC Citalopram Hydrobromide (CeleXA) 40 mg DAILY 04/04/18 13:00 04/08/18 09:48 40 MG Clonidine HCl (Catapres) 0.2 mg BID 04/04/18 13:00 04/05/18 09:59 DC 04/04/18 13:45 0.2 MG Clopidogrel Bisulfate (Plavix) 75 mg DAILY 04/04/18 13:00 04/08/18 09:47 75 MG Dextrose (Dextrose 50%-Water Syringe) 12.5 gm PRN Q15MIN PRN 03/31/18 00:45 Docusate Sodium (Colace) 100 mg BID 04/07/18 21:00 04/08/18 09:46 100 MG Fentanyl Citrate (Fentanyl 2ml Vial) 50 mcg 1X ONCE 03/30/18 23:30 03/30/18 23:31 DC Furosemide (Lasix) 40 mg DAILY 04/03/18 11:30 04/08/18 10:03 40 MG Furosemide 100 mg/ Sodium Chloride 100 ml @ 0 mls/hr CONT PRN 03/31/18 22:30 04/01/18 12:56 DC 04/01/18 01:34 10 MLS/HR Gabapentin (Neurontin) 600 mg TID 04/04/18 14:00 04/08/18 09:48 600 MG Glucose (Insta-Glucose) 15 gm 1X ONCE 03/30/18 23:30 03/30/18 23:31 DC 03/30/18 23:07 15 GM Lactobacillus Rhamnosus (Culturelle) 1 cap BID 04/01/18 21:00 04/08/18 09:47 1 CAP Lactulose (Lactulose) 20 gm PRN Q12HR PRN 04/07/18 11:45 Levothyroxine Sodium (Synthroid) 150 mcg DAILY06 04/06/18 06:00 04/08/18 06:08 150 MCG Levothyroxine Sodium 100 mcg/ Sodium Chloride 5 ml @ 100 mls/hr DAILY 04/01/18 09:00 UNV Levothyroxine Sodium 50 mcg/ Sodium Chloride 5 ml @ 100 mls/hr DAILY 03/31/18 14:00 04/04/18 16:37 DC 04/04/18 08:52 100 MLS/HR Lidocaine HCl (Xylocaine-Mpf 2% Vial) 2 ml STK-MED ONCE 03/31/18 02:31 03/31/18 02:33 DC Liothyronine Sodium (Cytomel) 10 mcg DAILY 04/05/18 11:00 04/08/18 09:47 10 MCG Magnesium Hydroxide (Milk Of Magnesia) 2,400 mg PRN Q12HR PRN 04/07/18 11:45 Magnesium Sulfate 50 ml @ 25 mls/hr 1X ONCE 04/04/18 13:00 04/04/18 14:59 DC 04/04/18 13:52 25 MLS/HR Metoprolol Tartrate (Lopressor) 25 mg BID 04/04/18 13:00 04/04/18 13:58 DC 04/04/18 13:47 25 MG Milrinone Lactate/ Dextrose 100 ml @ 2.96 mls/hr CONT PRN 04/02/18 13:00 04/04/18 12:47 DC 04/03/18 17:04 2.96 MLS/HR Nitroglycerin (Nitro-Bid Oint) 1 inch 1X ONCE 03/31/18 01:00 03/31/18 01:01 DC 03/31/18 01:19 1 INCH Non-Formulary Medication (Fluticasone/ Salmeterol (Advair 250-50 Diskus)) 1 inh BID 04/04/18 21:00 UNV Non-Formulary Medication (Omeprazole ) 40 mg DAILY 04/05/18 09:00 UNV Ondansetron HCl (Zofran) 4 mg PRN Q6HRS PRN 04/02/18 15:45 04/02/18 15:37 4 MG Pantoprazole Sodium (Protonix) 40 mg DAILYAC 03/31/18 11:30 04/08/18 09:47 40 MG Polyethylene Glycol (miraLAX PACKET) 17 gm PRN DAILY PRN 04/04/18 12:00 04/08/18 09:49 17 GM Potassium Chloride (Klor-Con) 20 meq DAILY 04/04/18 13:00 04/08/18 10:27 DC 04/07/18 08:39 20 MEQ Regadenoson (Lexiscan) 0.4 mg 1X ONCE 04/05/18 08:00 04/05/18 08:11 DC 04/05/18 10:00 0.4 MG Senna/Docusate Sodium (Senna Plus) 1 tab BID 04/07/18 21:00 04/08/18 09:48 1 TAB Simethicone (Gas-X) 80 mg PRN AFTMEALHC PRN 04/03/18 17:45 Sodium Polystyrene Sulfonate (Kayexalate) 15 gm 1X ONCE 04/08/18 11:00 04/08/18 11:01 DC Tramadol HCl (Ultram) 50 mg PRN Q6HRS PRN 04/05/18 15:15 04/06/18 20:47 50 MG Verapamil HCl (Calan Sr) 120 mg BID 04/04/18 13:00 04/05/18 10:47 DC 04/04/18 13:50 120 MG Lab Laboratory Tests Test 04/07/18 19:58 04/08/18 04:30 04/08/18 08:14 Glucose (Fingerstick) 119 mg/dL (70-99) 80 mg/dL (70-99) White Blood Count 3.8 x10^3/uL (4.0-11.0) Red Blood Count 2.84 x10^6/uL (3.50-5.40) Hemoglobin 8.8 g/dL (12.0-15.5) Hematocrit 25.8 % (36.0-47.0) Mean Corpuscular Volume 91 fL (79-100) Mean Corpuscular Hemoglobin 31 pg (25-35) Mean Corpuscular Hemoglobin Concent 34 g/dL (31-37) Red Cell Distribution Width 29.5 % (11.5-14.5) Platelet Count 103 x10^3/uL (140-400) Neutrophils (%) (Auto) 68 % (31-73) Lymphocytes (%) (Auto) 11 % (24-48) Monocytes (%) (Auto) 18 % (0-9) Eosinophils (%) (Auto) 2 % (0-3) Basophils (%) (Auto) 2 % (0-3) Neutrophils # (Auto) 2.6 x10^3uL (1.8-7.7) Lymphocytes # (Auto) 0.4 x10^3/uL (1.0-4.8) Monocytes # (Auto) 0.7 x10^3/uL (0.0-1.1) Eosinophils # (Auto) 0.1 x10^3/uL (0.0-0.7) Basophils # (Auto) 0.1 x10^3/uL (0.0-0.2) Sodium Level 136 mmol/L (136-145) Potassium Level 5.6 mmol/L (3.5-5.1) Chloride Level 97 mmol/L (98-107) Carbon Dioxide Level 32 mmol/L (21-32) Anion Gap 7 (6-14) Blood Urea Nitrogen 50 mg/dL (7-20) Creatinine 1.8 mg/dL (0.6-1.0) Estimated GFR (Cockcroft-Gault) 33.6 Glucose Level 105 mg/dL (70-99) Calcium Level 9.5 mg/dL (8.5-10.1) Results All relevant outside records, renal labs, imaging studies, telemetry/EKG's were reviewed. SUNIL OROZCO MD Apr 08, 2018 11:13
--- NOTE | 2018-04-08 13:01 | PDOC ---
PROGRESS NOTES Chief Complaint Chief Complaint Acute heart failure systolic EF 20% AMS, with hypoglycemia wo dm history, hypothyroidism NSTEMI with chf JAIDEN vasomotor, atn Sepsis? HTN Anemia Hypoglycemia REcent shingles h/o CAD hypomagnesemia ICD NON COMpliance? pancytopenia with splemegaly with CHF? h/o DVT, PE, off AC with h/o gib h/o aortic bypass abd pain 2/2 constipation possibly hyperkalemia Plan: fu with card, MPI intermediate risk increase synthroid to 150mcg daily, add t3, repeat labs every 2 ds cont current meds, on coreg 6.25mg bid, lasix daily, plavix, dc clonidine given low BP pTOT recommend SNF dvt ppx EF 20% abx dced as per id onco consulted SW for snf, but pt has [place] medicaid, but pt said has medicare too, asked SW to double check remove doll, repeat all labs tmr ,check cortisol normal. given pt has no insurance here, no pcp TO [facility], not safe to dc given still low t3, t4. dc K, add kayexalate today. on lasix daily History of Present Illness History of Present Illness talkes slow, mild confusion hypoglycemia sometime, eats ok, no dm2 severe hypothyroidism, but pt said she is taking home meds c/o abd pain. gi on board high K today Vitals Vitals Vital Signs Date Time Temp Pulse Resp B/P (MAP) Pulse Ox O2 Delivery O2 Flow Rate FiO2 04/08/18 11:00 98.2 73 16 100/55 (70) 99 Nasal Cannula 1.0 98.2 Physical Exam Physical Exam GENERAL: Propped up in bed, alert, eating LUNGS: Decreased in the bases. HEART: S1, S2. Pacemaker ICD ABDOMEN: Soft, nontender, no guarding. : Doll in place. EXTREMITIES: No gross edema or cyanosis SKIN: Without signs of rash. NEUROLOGIC: Alert, responds appropriately RIJ clean General: Alert, Oriented X3 Heart: Normal S1, Normal S2 Abdomen: Normal bowel sounds (obese abdomen), Soft Extremities: No clubbing, Normal pulses, Other (trace edema) Skin: No rashes, No significant lesion Labs LABS Laboratory Tests Test 04/07/18 19:58 04/08/18 04:30 04/08/18 08:14 04/08/18 12:16 Glucose (Fingerstick) 119 mg/dL (70-99) 80 mg/dL (70-99) 103 mg/dL (70-99) White Blood Count 3.8 x10^3/uL (4.0-11.0) Red Blood Count 2.84 x10^6/uL (3.50-5.40) Hemoglobin 8.8 g/dL (12.0-15.5) Hematocrit 25.8 % (36.0-47.0) Mean Corpuscular Volume 91 fL (79-100) Mean Corpuscular Hemoglobin 31 pg (25-35) Mean Corpuscular Hemoglobin Concent 34 g/dL (31-37) Red Cell Distribution Width 29.5 % (11.5-14.5) Platelet Count 103 x10^3/uL (140-400) Neutrophils (%) (Auto) 68 % (31-73) Lymphocytes (%) (Auto) 11 % (24-48) Monocytes (%) (Auto) 18 % (0-9) Eosinophils (%) (Auto) 2 % (0-3) Basophils (%) (Auto) 2 % (0-3) Neutrophils # (Auto) 2.6 x10^3uL (1.8-7.7) Lymphocytes # (Auto) 0.4 x10^3/uL (1.0-4.8) Monocytes # (Auto) 0.7 x10^3/uL (0.0-1.1) Eosinophils # (Auto) 0.1 x10^3/uL (0.0-0.7) Basophils # (Auto) 0.1 x10^3/uL (0.0-0.2) Sodium Level 136 mmol/L (136-145) Potassium Level 5.6 mmol/L (3.5-5.1) Chloride Level 97 mmol/L (98-107) Carbon Dioxide Level 32 mmol/L (21-32) Anion Gap 7 (6-14) Blood Urea Nitrogen 50 mg/dL (7-20) Creatinine 1.8 mg/dL (0.6-1.0) Estimated GFR (Cockcroft-Gault) 33.6 Glucose Level 105 mg/dL (70-99) Calcium Level 9.5 mg/dL (8.5-10.1) Assessment and Plan Assessmemt and Plan Problems Medical Problems: (1) Acute exacerbation of CHF (congestive heart failure) Status: Acute (2) Elevated troponin I level Status: Acute (3) Hypoglycemia Status: Acute (4) Hypoxia Status: Acute (5) Lactic acidosis Status: Acute (6) Renal insufficiency Status: Acute Comment Review of Relevant I have reviewed the following items madeline (where applicable) has been applied. Labs Laboratory Tests Test 04/06/18 17:08 04/06/18 21:16 04/07/18 03:40 04/07/18 07:28 Glucose (Fingerstick) 99 mg/dL (70-99) 132 mg/dL (70-99) 67 mg/dL (70-99) White Blood Count 3.7 x10^3/uL (4.0-11.0) Red Blood Count 2.84 x10^6/uL (3.50-5.40) Hemoglobin 8.9 g/dL (12.0-15.5) Hematocrit 25.6 % (36.0-47.0) Mean Corpuscular Volume 90 fL (79-100) Mean Corpuscular Hemoglobin 31 pg (25-35) Mean Corpuscular Hemoglobin Concent 35 g/dL (31-37) Red Cell Distribution Width 29.4 % (11.5-14.5) Platelet Count 125 x10^3/uL (140-400) Neutrophils (%) (Auto) 72 % (31-73) Lymphocytes (%) (Auto) 10 % (24-48) Monocytes (%) (Auto) 14 % (0-9) Eosinophils (%) (Auto) 2 % (0-3) Basophils (%) (Auto) 2 % (0-3) Neutrophils # (Auto) 2.7 x10^3uL (1.8-7.7) Lymphocytes # (Auto) 0.4 x10^3/uL (1.0-4.8) Monocytes # (Auto) 0.5 x10^3/uL (0.0-1.1) Eosinophils # (Auto) 0.1 x10^3/uL (0.0-0.7) Basophils # (Auto) 0.1 x10^3/uL (0.0-0.2) Sodium Level 140 mmol/L (136-145) Potassium Level 5.2 mmol/L (3.5-5.1) Chloride Level 98 mmol/L (98-107) Carbon Dioxide Level 37 mmol/L (21-32) Anion Gap 5 (6-14) Blood Urea Nitrogen 48 mg/dL (7-20) Creatinine 1.7 mg/dL (0.6-1.0) Estimated GFR (Cockcroft-Gault) 35.9 Glucose Level 85 mg/dL (70-99) Calcium Level 9.3 mg/dL (8.5-10.1) Ferritin 78 ng/mL (8-252) Total Bilirubin 0.5 mg/dL (0.2-1.0) Direct Bilirubin 0.3 mg/dL (0.0-0.2) Aspartate Amino Transf (AST/SGOT) 68 U/L (15-37) Alanine Aminotransferase (ALT/SGPT) 101 U/L (14-59) Alkaline Phosphatase 110 U/L (46-116) Total Protein 6.6 g/dL (6.4-8.2) Albumin 2.5 g/dL (3.4-5.0) Thyroid Stimulating Hormone (TSH) 170.437 uIU/mL (0.358-3.74) Free Thyroxine 0.51 ng/dL (0.76-1.46) Free Triiodothyronine (T3) pg/mL 1.21 pg/mL (2.18-3.98) Cortisol AM Sample 7.7 ug/dL (4.3-22.4) Test 04/07/18 11:05 04/07/18 19:58 04/08/18 04:30 04/08/18 08:14 Glucose (Fingerstick) 112 mg/dL (70-99) 119 mg/dL (70-99) 80 mg/dL (70-99) White Blood Count 3.8 x10^3/uL (4.0-11.0) Red Blood Count 2.84 x10^6/uL (3.50-5.40) Hemoglobin 8.8 g/dL (12.0-15.5) Hematocrit 25.8 % (36.0-47.0) Mean Corpuscular Volume 91 fL (79-100) Mean Corpuscular Hemoglobin 31 pg (25-35) Mean Corpuscular Hemoglobin Concent 34 g/dL (31-37) Red Cell Distribution Width 29.5 % (11.5-14.5) Platelet Count 103 x10^3/uL (140-400) Neutrophils (%) (Auto) 68 % (31-73) Lymphocytes (%) (Auto) 11 % (24-48) Monocytes (%) (Auto) 18 % (0-9) Eosinophils (%) (Auto) 2 % (0-3) Basophils (%) (Auto) 2 % (0-3) Neutrophils # (Auto) 2.6 x10^3uL (1.8-7.7) Lymphocytes # (Auto) 0.4 x10^3/uL (1.0-4.8) Monocytes # (Auto) 0.7 x10^3/uL (0.0-1.1) Eosinophils # (Auto) 0.1 x10^3/uL (0.0-0.7) Basophils # (Auto) 0.1 x10^3/uL (0.0-0.2) Sodium Level 136 mmol/L (136-145) Potassium Level 5.6 mmol/L (3.5-5.1) Chloride Level 97 mmol/L (98-107) Carbon Dioxide Level 32 mmol/L (21-32) Anion Gap 7 (6-14) Blood Urea Nitrogen 50 mg/dL (7-20) Creatinine 1.8 mg/dL (0.6-1.0) Estimated GFR (Cockcroft-Gault) 33.6 Glucose Level 105 mg/dL (70-99) Calcium Level 9.5 mg/dL (8.5-10.1) Test 04/08/18 12:16 Glucose (Fingerstick) 103 mg/dL (70-99) Laboratory Tests Test 04/07/18 19:58 04/08/18 04:30 04/08/18 08:14 04/08/18 12:16 Glucose (Fingerstick) 119 mg/dL (70-99) 80 mg/dL (70-99) 103 mg/dL (70-99) White Blood Count 3.8 x10^3/uL (4.0-11.0) Red Blood Count 2.84 x10^6/uL (3.50-5.40) Hemoglobin 8.8 g/dL (12.0-15.5) Hematocrit 25.8 % (36.0-47.0) Mean Corpuscular Volume 91 fL (79-100) Mean Corpuscular Hemoglobin 31 pg (25-35) Mean Corpuscular Hemoglobin Concent 34 g/dL (31-37) Red Cell Distribution Width 29.5 % (11.5-14.5) Platelet Count 103 x10^3/uL (140-400) Neutrophils (%) (Auto) 68 % (31-73) Lymphocytes (%) (Auto) 11 % (24-48) Monocytes (%) (Auto) 18 % (0-9) Eosinophils (%) (Auto) 2 % (0-3) Basophils (%) (Auto) 2 % (0-3) Neutrophils # (Auto) 2.6 x10^3uL (1.8-7.7) Lymphocytes # (Auto) 0.4 x10^3/uL (1.0-4.8) Monocytes # (Auto) 0.7 x10^3/uL (0.0-1.1) Eosinophils # (Auto) 0.1 x10^3/uL (0.0-0.7) Basophils # (Auto) 0.1 x10^3/uL (0.0-0.2) Sodium Level 136 mmol/L (136-145) Potassium Level 5.6 mmol/L (3.5-5.1) Chloride Level 97 mmol/L (98-107) Carbon Dioxide Level 32 mmol/L (21-32) Anion Gap 7 (6-14) Blood Urea Nitrogen 50 mg/dL (7-20) Creatinine 1.8 mg/dL (0.6-1.0) Estimated GFR (Cockcroft-Gault) 33.6 Glucose Level 105 mg/dL (70-99) Calcium Level 9.5 mg/dL (8.5-10.1) Microbiology 03/31/18 Blood Culture - Final, Complete NO GROWTH AFTER 5 DAYS Medications Current Medications Aspirin (Karen Aspirin) 325 mg 1X ONCE PO Last administered on 03/31/18at 01:16 ; Start 03/30/18 at 23:30; Stop 03/30/18 at 23:31; Status DC Fentanyl Citrate (Fentanyl 2ml Vial) 50 mcg 1X ONCE IV ; Start 03/30/18 at 23: 30; Stop 03/30/18 at 23:31; Status DC Dextrose (Dextrose 50%-Water Syringe) 25 gm 1X ONCE IV Last administered on at 23:10; Start 03/30/18 at 23:30; Stop 03/30/18 at 23:31; Status DC Dextrose (Dextrose 50%-Water Syringe) 25 gm STK-MED ONCE IV ; Start 03/30/18 at 23:05; Stop 03/30/18 at 23:06; Status DC Glucose (Insta-Glucose) 15 gm STK-MED ONCE .ROUTE ; Start 03/30/18 at 23:05; Stop 03/30/18 at 23:06; Status DC Ondansetron HCl (Zofran) 4 mg 1X ONCE IV Last administered on 03/31/18at 01:18 ; Start 03/30/18 at 23:30; Stop 03/30/18 at 23:31; Status DC Glucose (Insta-Glucose) 15 gm 1X ONCE PO Last administered on 03/30/18at 23:07 ; Start 03/30/18 at 23:30; Stop 03/30/18 at 23:31; Status DC Nitroglycerin (Nitro-Bid Oint) 1 inch 1X ONCE TP Last administered on at 01:19; Start 03/31/18 at 01:00; Stop 03/31/18 at 01:01; Status DC Bumetanide (Bumex) 0.5 mg 1X ONCE IV Last administered on 03/31/18at 01:11; Start 03/31/18 at 01:00; Stop 03/31/18 at 01:01; Status DC Ondansetron HCl (Zofran) 4 mg PRN Q8HRS PRN IV NAUSEA/VOMITING 1ST CHOICE; Start 03/31/18 at 00:45; Stop 04/01/18 at 00:44; Status DC Dextrose (Dextrose 50%-Water Syringe) 12.5 gm PRN Q15MIN PRN IV SEE COMMENTS; Start 03/31/18 at 00:45 Lidocaine HCl 20 ml 1X ONCE IJ Last administered on 03/31/18at 03:00; Start at 03:00; Stop 03/31/18 at 03:01; Status DC Lidocaine HCl (Xylocaine-Mpf 2% Vial) 2 ml STK-MED ONCE .ROUTE ; Start 03/31/18 at 02:31; Stop 03/31/18 at 02:33; Status DC Pantoprazole Sodium (Protonix) 40 mg DAILYAC PO Last administered on 04/08/18at 09:47; Start 03/31/18 at 11:30 Levothyroxine Sodium 100 mcg/ Sodium Chloride 5 ml @ 100 mls/hr DAILY IVP ; Start 04/01/18 at 09:00; Status UNV Levothyroxine Sodium 50 mcg/ Sodium Chloride 5 ml @ 100 mls/hr DAILY IVP Last administered on 04/04/18at 08:52; Start 03/31/18 at 14:00; Stop 04/04/18 at 16:37 ; Status DC Furosemide 100 mg/ Sodium Chloride 100 ml @ 5 mls/hr CONT PRN IV DIURESIS Last administered on 03/31/18at 12:59; Start 03/31/18 at 11:45; Stop 03/31/18 at 22:16 ; Status DC Ceftriaxone Sodium 2 gm/ Dextrose 100 ml @ 200 mls/hr Q24H IV Last administered on 04/03/18at 14:30; Start 03/31/18 at 13:00; Stop 04/04/18 at 08:49 ; Status DC Azithromycin 500 mg/Sodium Chloride 250 ml @ 250 mls/hr 1X ONCE IV Last administered on 03/31/18at 13:04; Start 03/31/18 at 12:30; Stop 03/31/18 at 13:29 ; Status DC Furosemide 100 mg/ Sodium Chloride 100 ml @ 0 mls/hr CONT PRN IV DIURESIS Last administered on 04/01/18at 01:34; Start 03/31/18 at 22:30; Stop 04/01/18 at 12:56 ; Status DC Lactobacillus Rhamnosus (Culturelle) 1 cap BID PO Last administered on at 09:47; Start 04/01/18 at 21:00 Azithromycin 500 mg/Sodium Chloride 250 ml @ 250 mls/hr Q24H IV Last administered on 04/03/18at 14:31; Start 04/01/18 at 14:00; Stop 04/04/18 at 08:49 ; Status DC Milrinone Lactate/ Dextrose 100 ml @ 2.96 mls/hr CONT PRN IV SEE I/O RECORD Last administered on 04/03/18at 17:04; Start 04/02/18 at 13:00; Stop 04/04/18 at 12:47; Status DC Acetaminophen/ Codeine Phosphate (Tylenol #3) 1 tab PRN Q6HRS PRN PO MODERATE PAIN Last administered on 04/07/18 20:51; Start 04/02/18 at 13:30 Ondansetron HCl (Zofran) 4 mg PRN Q6HRS PRN IV NAUSEA/VOMITING Last administered on 04/02/18 15:37; Start 04/02/18 at 15:45 Furosemide (Lasix) 40 mg DAILY PO Last administered on 04/08/18 10:03; Start 04/03/18 at 11:30 Potassium Chloride (Klor-Con) 20 meq 1X ONCE PO Last administered on 12:17; Start 04/03/18 at 11:30; Stop 04/03/18 at 11:31; Status DC Simethicone (Gas-X) 80 mg PRN AFTMEALHC PRN PO GAS / BLOATING; Start 04/03/18 at 17:45 Polyethylene Glycol (miraLAX PACKET) 17 gm PRN DAILY PRN PO CONSTIPATION Last administered on 04/08/18 09:49; Start 04/04/18 at 12:00 Atorvastatin Calcium (Lipitor) 20 mg QHS PO Last administered on 04/07/18 20: 50; Start 04/04/18 at 21:00 Clonidine HCl (Catapres) 0.2 mg BID PO Last administered on 04/04/18 13:45; Start 04/04/18 at 13:00; Stop 04/05/18 at 09:59; Status DC Clopidogrel Bisulfate (Plavix) 75 mg DAILY PO Last administered on 04/08/18 09 :47; Start 04/04/18 at 13:00 Metoprolol Tartrate (Lopressor) 25 mg BID PO Last administered on 04/04/18 13: 47; Start 04/04/18 at 13:00; Stop 04/04/18 at 13:58; Status DC Potassium Chloride (Klor-Con) 20 meq DAILY PO Last administered on 04/07/18 08 :39; Start 04/04/18 at 13:00; Stop 04/08/18 at 10:27; Status DC Celecoxib (CeleBREX) 200 mg BID PO ; Start 04/04/18 at 13:00; Stop 04/04/18 at 13:53; Status DC Citalopram Hydrobromide (CeleXA) 40 mg DAILY PO Last administered on 04/08/18at 09:48; Start 04/04/18 at 13:00 Non-Formulary Medication (Fluticasone/ Salmeterol (Advair 250-50 Diskus)) 1 inh BID IH ; Start 04/04/18 at 21:00; Status UNV Gabapentin (Neurontin) 600 mg TID PO Last administered on 04/08/18at 09:48; Start 04/04/18 at 14:00 Non-Formulary Medication (Omeprazole ) 40 mg DAILY PO ; Start 04/05/18 at 09:00 ; Status UNV Verapamil HCl (Calan Sr) 120 mg BID PO Last administered on 04/04/18at 13:50; Start 04/04/18 at 13:00; Stop 04/05/18 at 10:47; Status DC Magnesium Sulfate 50 ml @ 25 mls/hr 1X ONCE IV Last administered on 04/04/18at 13:52; Start 04/04/18 at 13:00; Stop 04/04/18 at 14:59; Status DC Budesonide (Pulmicort) 0.5 mg RTBID NEB Last administered on 04/08/18at 07:57; Start 04/04/18 at 13:00 Albuterol Sulfate (Ventolin Neb Soln) 2.5 mg RTQID NEB Last administered on 04/08/18at 07:57; Start 04/04/18 at 13:00 Carvedilol (Coreg) 12.5 mg BIDWMEALS PO Last administered on 04/04/18at 18:13; Start 04/04/18 at 17:00; Stop 04/05/18 at 14:57; Status DC Levothyroxine Sodium (Synthroid) 100 mcg DAILY06 PO Last administered on at 05:24; Start 04/05/18 at 06:00; Stop 04/05/18 at 10:47; Status DC Regadenoson (Lexiscan) 0.4 mg 1X ONCE IV Last administered on 04/05/18at 10:00 ; Start 04/05/18 at 08:00; Stop 04/05/18 at 08:11; Status DC Levothyroxine Sodium (Synthroid) 150 mcg DAILY06 PO Last administered on 06:08; Start 04/06/18 at 06:00 Liothyronine Sodium (Cytomel) 10 mcg DAILY PO Last administered on 04/08/18 09 :47; Start 04/05/18 at 11:00 Carvedilol (Coreg) 6.25 mg BIDWMEALS PO Last administered on 04/08/18 09:48; Start 04/05/18 at 17:00 Tramadol HCl (Ultram) 50 mg PRN Q6HRS PRN PO MILD PAIN Last administered on 20:47; Start 04/05/18 at 15:15 Acetaminophen (Tylenol) 650 mg PRN Q6HRS PRN PO HEADACHE Last administered on 04/08/18 03:28; Start 04/07/18 at 10:45 Senna/Docusate Sodium (Senna Plus) 1 tab BID PO Last administered on 04/08/18 09:48; Start 04/07/18 at 21:00 Docusate Sodium (Colace) 100 mg BID PO Last administered on 04/08/18 09:46; Start 04/07/18 at 21:00 Magnesium Hydroxide (Milk Of Magnesia) 2,400 mg PRN Q12HR PRN PO CONSTIPATION; Start 04/07/18 at 11:45 Lactulose (Lactulose) 20 gm PRN Q12HR PRN PO CONSTIPATION; Start 04/07/18 at 11 :45 Bisacodyl (Dulcolax Supp) 10 mg PRN DAILY PRN [place] CONSTIPATION; Start 04/07/18 at 11:45 Sodium Polystyrene Sulfonate (Kayexalate) 15 gm 1X ONCE PO Last administered on 04/07/18at 15:15; Start 04/07/18 at 15:00; Stop 04/07/18 at 15:01; Status DC Sodium Polystyrene Sulfonate (Kayexalate) 15 gm 1X ONCE PO ; Start 04/08/18 at 11:00; Stop 04/08/18 at 11:01; Status DC Active Scripts Active Reported Allopurinol 100 Mg Tablet 1 Tab PO DAILY Mag-Oxide (Magnesium Oxide) 400 Mg Tablet 400 Mg PO TID [place] 5-325 Tablet (Acetaminophen/Hydrocodone Bitart) 1 Each Tablet 1 Tab PO PRN Q6HRS PRN Isosorbide Mononitrate Er (Isosorbide Mononitrate) 30 Mg Tab.er.24h 1 Tab PO DAILY Uloric (Febuxostat) 40 Mg Tablet 1 Tab PO DAILY Meclizine Hcl 25 Mg Tablet 1 Tab PO PRN TID PRN Synthroid (Levothyroxine Sodium) 150 Mcg Tablet 1 Tab PO DAILY Lisinopril 40 Mg Tablet 1 Tab PO DAILY Symbicort 160-4.5 Mcg Inhaler (Budesonide/Formoterol Fumarate) 10.2 Gm Hfa.aer.ad 2 Puff IH BID Citalopram Hbr (Citalopram Hydrobromide) 20 Mg Tablet 1 Tab PO DAILY Aspirin Ec (Aspirin) 325 Mg Tablet.dr 1 Tab PO DAILY Nitrostat (Nitroglycerin) 0.4 Mg Tab.subl 0.4 Mg SL PRN Q5MIN PRN Flonase Allergy Relief (Fluticasone Propionate) 9.9 Ml [place].susp 2 Sprays NS DAILY Proair Hfa Inhaler (Albuterol Sulfate) 8.5 Gm Hfa.aer.ad 2 Puff INH PRN Q4-6HRS PRN Triamcinolone Acetonide 0.1% Cream (Triamcinolone Acetonide) 15 Gm Cream..g. 15 Gm TP Celexa (Citalopram Hydrobromide) 40 Mg Tablet 40 Mg PO DAILY Gabapentin 600 Mg Tablet 600 Mg PO BID Atorvastatin Calcium 20 Mg Tablet 20 Mg PO QHS Celebrex (Celecoxib) 200 Mg Capsule 200 Mg PO BID 30 Days Furosemide 20 Mg Tablet 40 Mg PO BID Metoprolol Tartrate 25 Mg Tablet 50 Mg PO BID Omeprazole 40 Mg Capsule.dr 40 Mg PO DAILY Clonidine Hcl 0.2 Mg Tablet 0.2 Mg PO BID Colcrys (Colchicine) 0.6 Mg Tablet 0.6 Mg PO BID Lorazepam 1 Mg Tablet 1 Mg PO BID Klor-Con M20 (Potassium Chloride) 20 Meq Tab.er.prt 10 Meq PO DAILY Verapamil Hcl 120 Mg Tablet 120 Mg PO BID Advair 250-50 Diskus (Fluticasone/Salmeterol) 1 Each Disk.w.dev 1 Inh IH BID Iron (Ferrous Sulfate) 325 Mg Capsule.er 325 Mg PO Clopidogrel (Clopidogrel Bisulfate) 75 Mg Tablet 75 Mg PO DAILY Vitals/I & O Vital Sign - Last 24 Hours 04/07/18 04/07/18 04/07/18 04/07/18 15:00 15:38 17:00 19:30 Temp 97.6 97.6 97.6 97.6 Pulse 64 64 75 Resp 16 B/P (MAP) 92/48 (63) 92/48 83/50 (61) Pulse Ox 98 99 O2 Delivery Nasal Cannula Nasal Cannula Nasal Cannula O2 Flow Rate 2.0 1.0 1.0 04/07/18 04/07/18 04/07/18 04/07/18 20:04 20:04 20:11 20:51 Pulse Ox 99 O2 Delivery Nasal Cannula Nasal Cannula Nasal Cannula Nasal Cannula O2 Flow Rate 1.0 1.0 1.0 1.0 04/07/18 04/07/18 04/08/18 04/08/18 22:37 22:57 03:39 07:42 Temp 97.8 97.7 97.8 97.7 Pulse 67 66 72 B/P (MAP) 97/52 (67) 92/53 (66) 99/55 (70) Pulse Ox 99 98 99 O2 Delivery Nasal Cannula Nasal Cannula Nasal Cannula O2 Flow Rate 1.0 1.0 1.0 04/08/18 04/08/18 04/08/18 04/08/18 07:59 08:10 08:39 09:48 Temp 98.3 98.3 Pulse 75 Pulse Ox 99 98 O2 Delivery Nasal Cannula Nasal Cannula Nasal Cannula O2 Flow Rate 1.0 1.0 2.0 04/08/18 11:00 Temp 98.2 98.2 Pulse 73 Resp 16 B/P (MAP) 100/55 (70) Pulse Ox 99 O2 Delivery Nasal Cannula O2 Flow Rate 1.0 Intake and Output 04/07/18 04/07/18 04/08/18 15:00 23:00 07:00 Intake Total 600 ml 550 ml Output Total 3 ml Balance 597 ml 550 ml PETRA WHITLEY MD Apr 08, 2018 13:01
--- NOTE | 2018-04-08 13:38 | PDOC ---
Objective: Objective: No GI concerns per RN. Vital Signs: Vital Signs Date Time Temp Pulse Resp B/P (MAP) Pulse Ox O2 Delivery O2 Flow Rate FiO2 04/08/18 13:17 Nasal Cannula 1.0 04/08/18 11:00 98.2 73 16 100/55 (70) 99 98.2 Labs: Laboratory Tests Test 04/07/18 19:58 04/08/18 04:30 04/08/18 08:14 04/08/18 12:16 Glucose (Fingerstick) 119 mg/dL 80 mg/dL 103 mg/dL White Blood Count 3.8 x10^3/uL Red Blood Count 2.84 x10^6/uL Hemoglobin 8.8 g/dL Hematocrit 25.8 % Mean Corpuscular Volume 91 fL Mean Corpuscular Hemoglobin 31 pg Mean Corpuscular Hemoglobin Concent 34 g/dL Red Cell Distribution Width 29.5 % Platelet Count 103 x10^3/uL Neutrophils (%) (Auto) 68 % Lymphocytes (%) (Auto) 11 % Monocytes (%) (Auto) 18 % Eosinophils (%) (Auto) 2 % Basophils (%) (Auto) 2 % Neutrophils # (Auto) 2.6 x10^3uL Lymphocytes # (Auto) 0.4 x10^3/uL Monocytes # (Auto) 0.7 x10^3/uL Eosinophils # (Auto) 0.1 x10^3/uL Basophils # (Auto) 0.1 x10^3/uL Sodium Level 136 mmol/L Potassium Level 5.6 mmol/L Chloride Level 97 mmol/L Carbon Dioxide Level 32 mmol/L Anion Gap 7 Blood Urea Nitrogen 50 mg/dL Creatinine 1.8 mg/dL Estimated GFR (Cockcroft-Gault) 33.6 Glucose Level 105 mg/dL Calcium Level 9.5 mg/dL Imaging: KUB IMPRESSION: Increased gas and stool throughout the colon compatible with the history of constipation. PE: GEN: NAD NEURO/PSYCH: confused A/P: Pancytopenia - stable Elevated LFTs - better Hypothyroidism Constipation -- Note meds added for constipation, await results. NEEL WILLIAMSON Apr 08, 2018 13:38
[2018-04-08] MEDS: POLYETHYLENE GLYCOL 3350 17 GM PACKET. PO SCH (20:40)
[2018-04-08] MEDS: ATORVASTATIN CALCIUM 20 MG TABLET PO SCH (20:40)
[2018-04-09 03:29] VITALS: BP 103/58
[2018-04-09 04:59] LABS: BASO % 1 % (0-3); EOS # 0.1 x10^3/uL (0.0-0.7); EOS % 1 % (0-3); HEMATOCRIT 26.1 % (36.0-47.0); HEMOGLOBIN 8.8 g/dL (12.0-15.5); LYMPH # 2.2 x10^3/uL (1.0-4.8); LYMPH % 44 % (24-48); MEAN CORPUSCULAR HEMOGLOBIN 31 pg (25-35); MEAN CORPUSCULAR HGB CONC 34 g/dL (31-37); MEAN CORPUSCULAR VOLUME 91 fL (79-100); MONO # 0.5 x10^3/uL (0.0-1.1); MONO % 9 % (0-9); NEUT # 2.3 x10^3uL (1.8-7.7); NEUT % 45 % (31-73); PLATELET COUNT 121 x10^3/uL (140-400); RED BLOOD COUNT 2.87 x10^6/uL (3.50-5.40)
[2018-04-09 05:37] LABS: CALCIUM 9.2 mg/dL (8.5-10.1); CREATININE 1.7 mg/dL (0.6-1.0); GFR 35.9; POTASSIUM 4.8 mmol/L (3.5-5.1)
[2018-04-09 06:01] LABS: FREE T4 0.61 ng/dL (0.76-1.46)
[2018-04-09] MEDS: LEVOTHYROXINE 150 MCG TABLET PO SCH (06:39)
[2018-04-09 07:00] VITALS: BP 93/43
[2018-04-09] MEDS: CARVEDILOL 6.25 MG TABLET. PO SCH (08:00)
[2018-04-09] MEDS: SENNOSIDES/DOCUSATE 8.6/50MG TABLET. PO SCH ×2 (09:00→20:40)
[2018-04-09] MEDS: DOCUSATE SODIUM 100 MG CAPSULE. PO SCH ×2 (09:00→20:39)
[2018-04-09] MEDS: POLYETHYLENE GLYCOL 3350 17 GM PACKET. PO SCH ×2 (09:00→20:39)
[2018-04-09] MEDS: BUDESONIDE 0.5 MG/2 ML NEBU. NEB SCH ×2 (09:03→22:33)
[2018-04-09] MEDS: ALBUTEROL SULFATE 2.5 MG/3 ML NEBU. NEB SCH ×4 (09:03→22:33)
[2018-04-09] MEDS: PANTOPRAZOLE 40 MG TABLET.DR. PO SCH (09:13)
[2018-04-09] MEDS: CLOPIDOGREL BISULFATE 75 MG TABLET PO SCH (09:14)
[2018-04-09] MEDS: GABAPENTIN 300 MG CAPSULE. PO SCH ×3 (09:14→20:37)
[2018-04-09] MEDS: CITALOPRAM 20 MG TABLET. PO SCH (09:14)
[2018-04-09] MEDS: FUROSEMIDE 40 MG TABLET. PO SCH (09:14)
[2018-04-09] MEDS: LACTOBACILLUS RHAMNOSUS GG 1 CAPSULE. PO SCH ×2 (09:15→20:37)
[2018-04-09] MEDS: LIOTHYRONINE 5 MCG TABLET. PO SCH (09:16)
[2018-04-09 11:00] VITALS: BP 91/46
--- NOTE | 2018-04-09 13:50 | PDOC ---
PROGRESS NOTES Chief Complaint Chief Complaint Acute heart failure systolic EF 20% AMS, with hypoglycemia wo dm history, hypothyroidism NSTEMI with chf JAIDEN vasomotor, atn Sepsis? HTN Anemia Hypoglycemia REcent shingles h/o CAD hypomagnesemia ICD NON COMpliance? pancytopenia with splemegaly with CHF? h/o DVT, PE, off AC with h/o gib h/o aortic bypass abd pain 2/2 constipation possibly hyperkalemia Plan: fu with card, MPI intermediate risk increase synthroid to 150mcg daily, add t3, repeat labs every 2 ds cont current meds, decrease coreg to 3.25mg bid, lasix daily, plavix, dc clonidine given low BP pTOT recommend SNF dvt ppx EF 20% abx dced as per id onco consulted SW for snf, but pt has [place] medicaid, but pt said has medicare too, asked SW to double check remove doll, repeat all labs tmr ,check cortisol normal. given pt has no insurance here, no pcp TO [facility], not safe to dc given still low t3, t4. dc K , on lasix daily History of Present Illness History of Present Illness talkes slow, mild confusion hypoglycemia sometime, eats ok, no dm2 severe hypothyroidism, but pt said she is taking home meds c/o abd pain. gi on board has BM today high K better Vitals Vitals Vital Signs Date Time Temp Pulse Resp B/P (MAP) Pulse Ox O2 Delivery O2 Flow Rate FiO2 04/09/18 12:42 94 Nasal Cannula 1.0 04/09/18 11:00 98.0 82 18 91/46 (61) 98.0 Physical Exam Physical Exam GENERAL: Propped up in bed, alert, eating LUNGS: Decreased in the bases. HEART: S1, S2. Pacemaker ICD ABDOMEN: Soft, nontender, no guarding. : Doll in place. EXTREMITIES: No gross edema or cyanosis SKIN: Without signs of rash. NEUROLOGIC: Alert, responds appropriately RIJ clean General: Alert, Oriented X3 Heart: Normal S1, Normal S2 Abdomen: Normal bowel sounds (obese abdomen), Soft Extremities: No clubbing, Normal pulses, Other (trace edema) Skin: No rashes, No significant lesion Labs LABS Laboratory Tests Test 04/08/18 20:38 04/09/18 03:45 04/09/18 07:28 Glucose (Fingerstick) 103 mg/dL (70-99) 90 mg/dL (70-99) White Blood Count 5.0 x10^3/uL (4.0-11.0) Red Blood Count 2.87 x10^6/uL (3.50-5.40) Hemoglobin 8.8 g/dL (12.0-15.5) Hematocrit 26.1 % (36.0-47.0) Mean Corpuscular Volume 91 fL (79-100) Mean Corpuscular Hemoglobin 31 pg (25-35) Mean Corpuscular Hemoglobin Concent 34 g/dL (31-37) Red Cell Distribution Width 29.0 % (11.5-14.5) Platelet Count 121 x10^3/uL (140-400) Neutrophils (%) (Auto) 45 % (31-73) Lymphocytes (%) (Auto) 44 % (24-48) Monocytes (%) (Auto) 9 % (0-9) Eosinophils (%) (Auto) 1 % (0-3) Basophils (%) (Auto) 1 % (0-3) Neutrophils # (Auto) 2.3 x10^3uL (1.8-7.7) Lymphocytes # (Auto) 2.2 x10^3/uL (1.0-4.8) Monocytes # (Auto) 0.5 x10^3/uL (0.0-1.1) Eosinophils # (Auto) 0.1 x10^3/uL (0.0-0.7) Basophils # (Auto) 0.0 x10^3/uL (0.0-0.2) Sodium Level 142 mmol/L (136-145) Potassium Level 4.8 mmol/L (3.5-5.1) Chloride Level 97 mmol/L (98-107) Carbon Dioxide Level 39 mmol/L (21-32) Anion Gap 6 (6-14) Blood Urea Nitrogen 51 mg/dL (7-20) Creatinine 1.7 mg/dL (0.6-1.0) Estimated GFR (Cockcroft-Gault) 35.9 Glucose Level 78 mg/dL (70-99) Calcium Level 9.2 mg/dL (8.5-10.1) Free Thyroxine 0.61 ng/dL (0.76-1.46) Free Triiodothyronine (T3) pg/mL 1.32 pg/mL (2.18-3.98) Assessment and Plan Assessmemt and Plan Problems Medical Problems: (1) Acute exacerbation of CHF (congestive heart failure) Status: Acute (2) Elevated troponin I level Status: Acute (3) Hypoglycemia Status: Acute (4) Hypoxia Status: Acute (5) Lactic acidosis Status: Acute (6) Renal insufficiency Status: Acute Comment Review of Relevant I have reviewed the following items madeline (where applicable) has been applied. Labs Laboratory Tests Test 04/07/18 19:58 04/08/18 04:30 04/08/18 08:14 04/08/18 12:16 Glucose (Fingerstick) 119 mg/dL (70-99) 80 mg/dL (70-99) 103 mg/dL (70-99) White Blood Count 3.8 x10^3/uL (4.0-11.0) Red Blood Count 2.84 x10^6/uL (3.50-5.40) Hemoglobin 8.8 g/dL (12.0-15.5) Hematocrit 25.8 % (36.0-47.0) Mean Corpuscular Volume 91 fL (79-100) Mean Corpuscular Hemoglobin 31 pg (25-35) Mean Corpuscular Hemoglobin Concent 34 g/dL (31-37) Red Cell Distribution Width 29.5 % (11.5-14.5) Platelet Count 103 x10^3/uL (140-400) Neutrophils (%) (Auto) 68 % (31-73) Lymphocytes (%) (Auto) 11 % (24-48) Monocytes (%) (Auto) 18 % (0-9) Eosinophils (%) (Auto) 2 % (0-3) Basophils (%) (Auto) 2 % (0-3) Neutrophils # (Auto) 2.6 x10^3uL (1.8-7.7) Lymphocytes # (Auto) 0.4 x10^3/uL (1.0-4.8) Monocytes # (Auto) 0.7 x10^3/uL (0.0-1.1) Eosinophils # (Auto) 0.1 x10^3/uL (0.0-0.7) Basophils # (Auto) 0.1 x10^3/uL (0.0-0.2) Sodium Level 136 mmol/L (136-145) Potassium Level 5.6 mmol/L (3.5-5.1) Chloride Level 97 mmol/L (98-107) Carbon Dioxide Level 32 mmol/L (21-32) Anion Gap 7 (6-14) Blood Urea Nitrogen 50 mg/dL (7-20) Creatinine 1.8 mg/dL (0.6-1.0) Estimated GFR (Cockcroft-Gault) 33.6 Glucose Level 105 mg/dL (70-99) Calcium Level 9.5 mg/dL (8.5-10.1) Test 04/08/18 20:38 04/09/18 03:45 04/09/18 07:28 Glucose (Fingerstick) 103 mg/dL (70-99) 90 mg/dL (70-99) White Blood Count 5.0 x10^3/uL (4.0-11.0) Red Blood Count 2.87 x10^6/uL (3.50-5.40) Hemoglobin 8.8 g/dL (12.0-15.5) Hematocrit 26.1 % (36.0-47.0) Mean Corpuscular Volume 91 fL (79-100) Mean Corpuscular Hemoglobin 31 pg (25-35) Mean Corpuscular Hemoglobin Concent 34 g/dL (31-37) Red Cell Distribution Width 29.0 % (11.5-14.5) Platelet Count 121 x10^3/uL (140-400) Neutrophils (%) (Auto) 45 % (31-73) Lymphocytes (%) (Auto) 44 % (24-48) Monocytes (%) (Auto) 9 % (0-9) Eosinophils (%) (Auto) 1 % (0-3) Basophils (%) (Auto) 1 % (0-3) Neutrophils # (Auto) 2.3 x10^3uL (1.8-7.7) Lymphocytes # (Auto) 2.2 x10^3/uL (1.0-4.8) Monocytes # (Auto) 0.5 x10^3/uL (0.0-1.1) Eosinophils # (Auto) 0.1 x10^3/uL (0.0-0.7) Basophils # (Auto) 0.0 x10^3/uL (0.0-0.2) Sodium Level 142 mmol/L (136-145) Potassium Level 4.8 mmol/L (3.5-5.1) Chloride Level 97 mmol/L (98-107) Carbon Dioxide Level 39 mmol/L (21-32) Anion Gap 6 (6-14) Blood Urea Nitrogen 51 mg/dL (7-20) Creatinine 1.7 mg/dL (0.6-1.0) Estimated GFR (Cockcroft-Gault) 35.9 Glucose Level 78 mg/dL (70-99) Calcium Level 9.2 mg/dL (8.5-10.1) Free Thyroxine 0.61 ng/dL (0.76-1.46) Free Triiodothyronine (T3) pg/mL 1.32 pg/mL (2.18-3.98) Laboratory Tests Test 04/08/18 20:38 04/09/18 03:45 04/09/18 07:28 Glucose (Fingerstick) 103 mg/dL (70-99) 90 mg/dL (70-99) White Blood Count 5.0 x10^3/uL (4.0-11.0) Red Blood Count 2.87 x10^6/uL (3.50-5.40) Hemoglobin 8.8 g/dL (12.0-15.5) Hematocrit 26.1 % (36.0-47.0) Mean Corpuscular Volume 91 fL (79-100) Mean Corpuscular Hemoglobin 31 pg (25-35) Mean Corpuscular Hemoglobin Concent 34 g/dL (31-37) Red Cell Distribution Width 29.0 % (11.5-14.5) Platelet Count 121 x10^3/uL (140-400) Neutrophils (%) (Auto) 45 % (31-73) Lymphocytes (%) (Auto) 44 % (24-48) Monocytes (%) (Auto) 9 % (0-9) Eosinophils (%) (Auto) 1 % (0-3) Basophils (%) (Auto) 1 % (0-3) Neutrophils # (Auto) 2.3 x10^3uL (1.8-7.7) Lymphocytes # (Auto) 2.2 x10^3/uL (1.0-4.8) Monocytes # (Auto) 0.5 x10^3/uL (0.0-1.1) Eosinophils # (Auto) 0.1 x10^3/uL (0.0-0.7) Basophils # (Auto) 0.0 x10^3/uL (0.0-0.2) Sodium Level 142 mmol/L (136-145) Potassium Level 4.8 mmol/L (3.5-5.1) Chloride Level 97 mmol/L (98-107) Carbon Dioxide Level 39 mmol/L (21-32) Anion Gap 6 (6-14) Blood Urea Nitrogen 51 mg/dL (7-20) Creatinine 1.7 mg/dL (0.6-1.0) Estimated GFR (Cockcroft-Gault) 35.9 Glucose Level 78 mg/dL (70-99) Calcium Level 9.2 mg/dL (8.5-10.1) Free Thyroxine 0.61 ng/dL (0.76-1.46) Free Triiodothyronine (T3) pg/mL 1.32 pg/mL (2.18-3.98) Microbiology 03/31/18 Blood Culture - Final, Complete NO GROWTH AFTER 5 DAYS Medications Current Medications Aspirin (Karen Aspirin) 325 mg 1X ONCE PO Last administered on 03/31/18at 01:16 ; Start 03/30/18 at 23:30; Stop 03/30/18 at 23:31; Status DC Fentanyl Citrate (Fentanyl 2ml Vial) 50 mcg 1X ONCE IV ; Start 03/30/18 at 23: 30; Stop 03/30/18 at 23:31; Status DC Dextrose (Dextrose 50%-Water Syringe) 25 gm 1X ONCE IV Last administered on at 23:10; Start 03/30/18 at 23:30; Stop 03/30/18 at 23:31; Status DC Dextrose (Dextrose 50%-Water Syringe) 25 gm STK-MED ONCE IV ; Start 03/30/18 at 23:05; Stop 03/30/18 at 23:06; Status DC Glucose (Insta-Glucose) 15 gm STK-MED ONCE .ROUTE ; Start 03/30/18 at 23:05; Stop 03/30/18 at 23:06; Status DC Ondansetron HCl (Zofran) 4 mg 1X ONCE IV Last administered on 03/31/18at 01:18 ; Start 03/30/18 at 23:30; Stop 03/30/18 at 23:31; Status DC Glucose (Insta-Glucose) 15 gm 1X ONCE PO Last administered on 03/30/18at 23:07 ; Start 03/30/18 at 23:30; Stop 03/30/18 at 23:31; Status DC Nitroglycerin (Nitro-Bid Oint) 1 inch 1X ONCE TP Last administered on at 01:19; Start 03/31/18 at 01:00; Stop 03/31/18 at 01:01; Status DC Bumetanide (Bumex) 0.5 mg 1X ONCE IV Last administered on 03/31/18at 01:11; Start 03/31/18 at 01:00; Stop 03/31/18 at 01:01; Status DC Ondansetron HCl (Zofran) 4 mg PRN Q8HRS PRN IV NAUSEA/VOMITING 1ST CHOICE; Start 03/31/18 at 00:45; Stop 04/01/18 at 00:44; Status DC Dextrose (Dextrose 50%-Water Syringe) 12.5 gm PRN Q15MIN PRN IV SEE COMMENTS; Start 03/31/18 at 00:45 Lidocaine HCl 20 ml 1X ONCE IJ Last administered on 03/31/18at 03:00; Start at 03:00; Stop 03/31/18 at 03:01; Status DC Lidocaine HCl (Xylocaine-Mpf 2% Vial) 2 ml STK-MED ONCE .ROUTE ; Start 03/31/18 at 02:31; Stop 03/31/18 at 02:33; Status DC Pantoprazole Sodium (Protonix) 40 mg DAILYAC PO Last administered on 04/09/18at 09:13; Start 03/31/18 at 11:30 Levothyroxine Sodium 100 mcg/ Sodium Chloride 5 ml @ 100 mls/hr DAILY IVP ; Start 04/01/18 at 09:00; Status UNV Levothyroxine Sodium 50 mcg/ Sodium Chloride 5 ml @ 100 mls/hr DAILY IVP Last administered on 04/04/18at 08:52; Start 03/31/18 at 14:00; Stop 04/04/18 at 16:37 ; Status DC Furosemide 100 mg/ Sodium Chloride 100 ml @ 5 mls/hr CONT PRN IV DIURESIS Last administered on 03/31/18at 12:59; Start 03/31/18 at 11:45; Stop 03/31/18 at 22:16 ; Status DC Ceftriaxone Sodium 2 gm/ Dextrose 100 ml @ 200 mls/hr Q24H IV Last administered on 04/03/18at 14:30; Start 03/31/18 at 13:00; Stop 04/04/18 at 08:49 ; Status DC Azithromycin 500 mg/Sodium Chloride 250 ml @ 250 mls/hr 1X ONCE IV Last administered on 03/31/18at 13:04; Start 03/31/18 at 12:30; Stop 03/31/18 at 13:29 ; Status DC Furosemide 100 mg/ Sodium Chloride 100 ml @ 0 mls/hr CONT PRN IV DIURESIS Last administered on 04/01/18at 01:34; Start 03/31/18 at 22:30; Stop 04/01/18 at 12:56 ; Status DC Lactobacillus Rhamnosus (Culturelle) 1 cap BID PO Last administered on at 09:15; Start 04/01/18 at 21:00 Azithromycin 500 mg/Sodium Chloride 250 ml @ 250 mls/hr Q24H IV Last administered on 04/03/18at 14:31; Start 04/01/18 at 14:00; Stop 04/04/18 at 08:49 ; Status DC Milrinone Lactate/ Dextrose 100 ml @ 2.96 mls/hr CONT PRN IV SEE I/O RECORD Last administered on 04/03/18at 17:04; Start 04/02/18 at 13:00; Stop 04/04/18 at 12:47; Status DC Acetaminophen/ Codeine Phosphate (Tylenol #3) 1 tab PRN Q6HRS PRN PO MODERATE PAIN Last administered on 04/07/18at 20:51; Start 04/02/18 at 13:30 Ondansetron HCl (Zofran) 4 mg PRN Q6HRS PRN IV NAUSEA/VOMITING Last administered on 04/02/18at 15:37; Start 04/02/18 at 15:45 Furosemide (Lasix) 40 mg DAILY PO Last administered on 04/09/18at 09:14; Start 04/03/18 at 11:30 Potassium Chloride (Klor-Con) 20 meq 1X ONCE PO Last administered on at 12:17; Start 04/03/18 at 11:30; Stop 04/03/18 at 11:31; Status DC Simethicone (Gas-X) 80 mg PRN AFTMEALHC PRN PO GAS / BLOATING; Start 04/03/18 at 17:45 Polyethylene Glycol (miraLAX PACKET) 17 gm PRN DAILY PRN PO CONSTIPATION Last administered on 04/08/18at 09:49; Start 04/04/18 at 12:00; Stop 04/08/18 at 15:48 ; Status DC Atorvastatin Calcium (Lipitor) 20 mg QHS PO Last administered on 04/08/18at 20: 40; Start 04/04/18 at 21:00 Clonidine HCl (Catapres) 0.2 mg BID PO Last administered on 04/04/18at 13:45; Start 04/04/18 at 13:00; Stop 04/05/18 at 09:59; Status DC Clopidogrel Bisulfate (Plavix) 75 mg DAILY PO Last administered on 04/09/18at 09 :14; Start 04/04/18 at 13:00 Metoprolol Tartrate (Lopressor) 25 mg BID PO Last administered on 04/04/18at 13: 47; Start 04/04/18 at 13:00; Stop 04/04/18 at 13:58; Status DC Potassium Chloride (Klor-Con) 20 meq DAILY PO Last administered on 04/07/18at 08 :39; Start 04/04/18 at 13:00; Stop 04/08/18 at 10:27; Status DC Celecoxib (CeleBREX) 200 mg BID PO ; Start 04/04/18 at 13:00; Stop 04/04/18 at 13:53; Status DC Citalopram Hydrobromide (CeleXA) 40 mg DAILY PO Last administered on 04/09/18at 09:14; Start 04/04/18 at 13:00 Non-Formulary Medication (Fluticasone/ Salmeterol (Advair 250-50 Diskus)) 1 inh BID IH ; Start 04/04/18 at 21:00; Status UNV Gabapentin (Neurontin) 600 mg TID PO Last administered on 04/09/18at 09:14; Start 04/04/18 at 14:00 Non-Formulary Medication (Omeprazole ) 40 mg DAILY PO ; Start 04/05/18 at 09:00 ; Status UNV Verapamil HCl (Calan Sr) 120 mg BID PO Last administered on 04/04/18at 13:50; Start 04/04/18 at 13:00; Stop 04/05/18 at 10:47; Status DC Magnesium Sulfate 50 ml @ 25 mls/hr 1X ONCE IV Last administered on 04/04/18at 13:52; Start 04/04/18 at 13:00; Stop 04/04/18 at 14:59; Status DC Budesonide (Pulmicort) 0.5 mg RTBID NEB Last administered on 04/09/18at 09:03; Start 04/04/18 at 13:00 Albuterol Sulfate (Ventolin Neb Soln) 2.5 mg RTQID NEB Last administered on 04/09/18at 12:41; Start 04/04/18 at 13:00 Carvedilol (Coreg) 12.5 mg BIDWMEALS PO Last administered on 04/04/18at 18:13; Start 04/04/18 at 17:00; Stop 04/05/18 at 14:57; Status DC Levothyroxine Sodium (Synthroid) 100 mcg DAILY06 PO Last administered on at 05:24; Start 04/05/18 at 06:00; Stop 04/05/18 at 10:47; Status DC Regadenoson (Lexiscan) 0.4 mg 1X ONCE IV Last administered on 04/05/18at 10:00 ; Start 04/05/18 at 08:00; Stop 04/05/18 at 08:11; Status DC Levothyroxine Sodium (Synthroid) 150 mcg DAILY06 PO Last administered on at 06:39; Start 04/06/18 at 06:00 Liothyronine Sodium (Cytomel) 10 mcg DAILY PO Last administered on 04/09/18at 09 :16; Start 04/05/18 at 11:00 Carvedilol (Coreg) 6.25 mg BIDWMEALS PO Last administered on 04/08/18at 18:10; Start 04/05/18 at 17:00; Stop 04/09/18 at 10:13; Status DC Tramadol HCl (Ultram) 50 mg PRN Q6HRS PRN PO MILD PAIN Last administered on 04/06/18at 20:47; Start 04/05/18 at 15:15 Acetaminophen (Tylenol) 650 mg PRN Q6HRS PRN PO HEADACHE Last administered on 04/08/18at 20:39; Start 04/07/18 at 10:45 Senna/Docusate Sodium (Senna Plus) 1 tab BID PO Last administered on 04/08/18 20:39; Start 04/07/18 at 21:00 Docusate Sodium (Colace) 100 mg BID PO Last administered on 04/08/18at 20:39; Start 04/07/18 at 21:00 Magnesium Hydroxide (Milk Of Magnesia) 2,400 mg PRN Q12HR PRN PO CONSTIPATION; Start 04/07/18 at 11:45 Lactulose (Lactulose) 20 gm PRN Q12HR PRN PO CONSTIPATION; Start 04/07/18 at 11 :45 Bisacodyl (Dulcolax Supp) 10 mg PRN DAILY PRN ME CONSTIPATION; Start 04/07/18 at 11:45 Sodium Polystyrene Sulfonate (Kayexalate) 15 gm 1X ONCE PO Last administered on 04/07/18at 15:15; Start 04/07/18 at 15:00; Stop 04/07/18 at 15:01; Status DC Sodium Polystyrene Sulfonate (Kayexalate) 15 gm 1X ONCE PO Last administered on 04/08/18at 14:51; Start 04/08/18 at 11:00; Stop 04/08/18 at 11:01; Status DC Polyethylene Glycol (miraLAX PACKET) 17 gm BID PO Last administered on at 20:40; Start 04/08/18 at 21:00 Carvedilol (Coreg) 3.125 mg BIDWMEALS PO ; Start 04/09/18 at 17:00 Active Scripts Active Reported Allopurinol 100 Mg Tablet 1 Tab PO DAILY Mag-Oxide (Magnesium Oxide) 400 Mg Tablet 400 Mg PO TID Addy 5-325 Tablet (Acetaminophen/Hydrocodone Bitart) 1 Each Tablet 1 Tab PO PRN Q6HRS PRN Isosorbide Mononitrate Er (Isosorbide Mononitrate) 30 Mg Tab.er.24h 1 Tab PO DAILY Uloric (Febuxostat) 40 Mg Tablet 1 Tab PO DAILY Meclizine Hcl 25 Mg Tablet 1 Tab PO PRN TID PRN Synthroid (Levothyroxine Sodium) 150 Mcg Tablet 1 Tab PO DAILY Lisinopril 40 Mg Tablet 1 Tab PO DAILY Symbicort 160-4.5 Mcg Inhaler (Budesonide/Formoterol Fumarate) 10.2 Gm Hfa.aer.ad 2 Puff IH BID Citalopram Hbr (Citalopram Hydrobromide) 20 Mg Tablet 1 Tab PO DAILY Aspirin Ec (Aspirin) 325 Mg Tablet.dr 1 Tab PO DAILY Nitrostat (Nitroglycerin) 0.4 Mg Tab.subl 0.4 Mg SL PRN Q5MIN PRN Flonase Allergy Relief (Fluticasone Propionate) 9.9 Ml Stanley.susp 2 Sprays NS DAILY Proair Hfa Inhaler (Albuterol Sulfate) 8.5 Gm Hfa.aer.ad 2 Puff INH PRN Q4-6HRS PRN Triamcinolone Acetonide 0.1% Cream (Triamcinolone Acetonide) 15 Gm Cream..g. 15 Gm TP Celexa (Citalopram Hydrobromide) 40 Mg Tablet 40 Mg PO DAILY Gabapentin 600 Mg Tablet 600 Mg PO BID Atorvastatin Calcium 20 Mg Tablet 20 Mg PO QHS Celebrex (Celecoxib) 200 Mg Capsule 200 Mg PO BID 30 Days Furosemide 20 Mg Tablet 40 Mg PO BID Metoprolol Tartrate 25 Mg Tablet 50 Mg PO BID Omeprazole 40 Mg Capsule.dr 40 Mg PO DAILY Clonidine Hcl 0.2 Mg Tablet 0.2 Mg PO BID Colcrys (Colchicine) 0.6 Mg Tablet 0.6 Mg PO BID Lorazepam 1 Mg Tablet 1 Mg PO BID Klor-Con M20 (Potassium Chloride) 20 Meq Tab.er.prt 10 Meq PO DAILY Verapamil Hcl 120 Mg Tablet 120 Mg PO BID Advair 250-50 Diskus (Fluticasone/Salmeterol) 1 Each Disk.w.dev 1 Inh IH BID Iron (Ferrous Sulfate) 325 Mg Capsule.er 325 Mg PO Clopidogrel (Clopidogrel Bisulfate) 75 Mg Tablet 75 Mg PO DAILY Vitals/I & O Vital Sign - Last 24 Hours 04/08/18 04/08/18 04/08/18 04/08/18 15:00 17:07 17:30 18:10 Pulse 74 83 83 Resp 18 B/P (MAP) 96/58 (71) 118/63 (81) Pulse Ox 96 O2 Delivery Nasal Cannula Nasal Cannula O2 Flow Rate 1.0 1.0 04/08/18 04/08/18 04/08/18 04/08/18 19:20 19:21 19:23 19:25 Temp 98.1 98.1 Pulse 87 Resp 20 B/P (MAP) 126/60 (82) Pulse Ox 88 89 94 O2 Delivery Room Air Nasal Cannula Nasal Cannula Nasal Cannula O2 Flow Rate 1.0 2.0 2.0 04/08/18 04/08/18 04/09/18 04/09/18 19:51 23:00 03:29 07:00 Temp 98.1 98.0 98.1 98.1 98.0 98.1 Pulse 77 74 79 Resp 20 20 18 B/P (MAP) 104/53 (70) 103/58 (73) 93/43 (60) Pulse Ox 98 98 99 O2 Delivery Nasal Cannula Nasal Cannula Nasal Cannula Nasal Cannula O2 Flow Rate 1.0 2.0 2.0 2.0 04/09/18 04/09/18 04/09/18 04/09/18 07:40 08:00 09:05 09:06 Pulse 79 B/P (MAP) 93/43 Pulse Ox 98 98 O2 Delivery Nasal Cannula Nasal Cannula Nasal Cannula O2 Flow Rate 1.0 1.0 1.0 04/09/18 04/09/18 11:00 12:42 Temp 98.0 98.0 Pulse 82 Resp 18 B/P (MAP) 91/46 (61) Pulse Ox 94 94 O2 Delivery Room Air Nasal Cannula O2 Flow Rate 1.0 Intake and Output 04/08/18 04/08/18 04/09/18 15:00 23:00 07:00 Intake Total 650 ml 500 ml Output Total 300 ml Balance 650 ml 200 ml PETRA WHITLEY MD Apr 09, 2018 13:50
[2018-04-09 15:00] VITALS: BP 151/53
[2018-04-09] MEDS: ACETAMINOPHEN 325 MG TABLET. PO PRN (15:01)
[2018-04-09] MEDS: CARVEDILOL 3.125 MG TABLET. PO SCH (17:50)
[2018-04-09 19:55] VITALS: BP 114/58
[2018-04-09] MEDS: ATORVASTATIN CALCIUM 20 MG TABLET PO SCH (20:37)
[2018-04-09] MEDS: ACETAMINOPHEN/CODEINE 300/30MG TABLET. PO PRN (20:38)
[2018-04-09 23:07] VITALS: BP 109/71
[2018-04-10 02:50] VITALS: BP 132/59
[2018-04-10] MEDS: ACETAMINOPHEN/CODEINE 300/30MG TABLET. PO PRN ×3 (02:50→20:35)
[2018-04-10 04:46] LABS: BASO # 0.1 x10^3/uL (0.0-0.2); BASO % 2 % (0-3); EOS # 0.1 x10^3/uL (0.0-0.7); EOS % 1 % (0-3); HEMATOCRIT 25.7 % (36.0-47.0); HEMOGLOBIN 8.8 g/dL (12.0-15.5); LYMPH # 0.3 x10^3/uL (1.0-4.8); LYMPH % 6 % (24-48); MEAN CORPUSCULAR HEMOGLOBIN 31 pg (25-35); MEAN CORPUSCULAR HGB CONC 34 g/dL (31-37); MEAN CORPUSCULAR VOLUME 90 fL (79-100); MONO % 23 % (0-9); NEUT # 2.8 x10^3uL (1.8-7.7); NEUT % 68 % (31-73); PLATELET COUNT 126 x10^3/uL (140-400); RED BLOOD COUNT 2.85 x10^6/uL (3.50-5.40); RED CELL DISTRIBUTION WIDTH 29.4 % (11.5-14.5); WHITE BLOOD COUNT 4.2 x10^3/uL (4.0-11.0)
[2018-04-10] MEDS: LEVOTHYROXINE 150 MCG TABLET PO SCH (06:40)
[2018-04-10 07:00] VITALS: BP 116/68
[2018-04-10] MEDS: BUDESONIDE 0.5 MG/2 ML NEBU. NEB SCH ×2 (07:26→19:36)
[2018-04-10] MEDS: ALBUTEROL SULFATE 2.5 MG/3 ML NEBU. NEB SCH ×4 (07:26→19:36)
[2018-04-10] MEDS: PANTOPRAZOLE 40 MG TABLET.DR. PO SCH (07:34)
[2018-04-10 08:30] LABS: CREATININE 1.6 mg/dL (0.6-1.0); GFR 38.4; POTASSIUM 5.5 mmol/L (3.5-5.1)
[2018-04-10] MEDS: LIOTHYRONINE 5 MCG TABLET. PO SCH (08:43)
[2018-04-10] MEDS: DOCUSATE SODIUM 100 MG CAPSULE. PO SCH ×2 (08:43→20:34)
[2018-04-10] MEDS: GABAPENTIN 300 MG CAPSULE. PO SCH ×3 (08:43→20:33)
[2018-04-10] MEDS: CITALOPRAM 20 MG TABLET. PO SCH (08:43)
[2018-04-10] MEDS: FUROSEMIDE 40 MG TABLET. PO SCH (08:43)
[2018-04-10] MEDS: CLOPIDOGREL BISULFATE 75 MG TABLET PO SCH (08:43)
[2018-04-10] MEDS: CARVEDILOL 3.125 MG TABLET. PO SCH ×2 (08:44→17:31)
[2018-04-10] MEDS: LACTOBACILLUS RHAMNOSUS GG 1 CAPSULE. PO SCH ×2 (08:44→20:33)
[2018-04-10] MEDS: SENNOSIDES/DOCUSATE 8.6/50MG TABLET. PO SCH ×2 (08:47→20:34)
[2018-04-10] MEDS: POLYETHYLENE GLYCOL 3350 17 GM PACKET. PO SCH ×2 (08:47→20:34)
[2018-04-10] MEDS ORDERED: SODIUM POLYSTYRENE SULFONATE 15 GM/60 ML ORAL.SUSP. PO ONE (10:00)
[2018-04-10 11:00] VITALS: BP 115/76
--- NOTE | 2018-04-10 13:33 | PDOC ---
PROGRESS NOTES Chief Complaint Chief Complaint Acute heart failure systolic EF 20% AMS, with hypoglycemia wo dm history, hypothyroidism NSTEMI with chf JAIDEN vasomotor, atn Sepsis? HTN Anemia Hypoglycemia REcent shingles h/o CAD hypomagnesemia ICD NON COMpliance? pancytopenia with splemegaly with CHF? h/o DVT, PE, off AC with h/o gib h/o aortic bypass abd pain 2/2 constipation possibly hyperkalemia Plan: fu with card, MPI intermediate risk increase synthroid to 150mcg daily, add t3, repeat labs every 2 ds cont current meds, decrease coreg to 3.25mg bid, lasix daily, plavix, dc clonidine given low BP pTOT recommend SNF dvt ppx EF 20% abx dced as per id onco consulted SW for snf, but pt has [place] medicaid, but pt said has medicare too, asked SW to double check remove doll, repeat all labs tmr ,check cortisol normal. given pt has no insurance here, no pcp TO Fu, not safe to dc given still low t3, t4. dc K , on lasix daily , kayexalate as needed. fu with sw, hope dc to rehab tmr History of Present Illness History of Present Illness talkes slow, mild confusion hypoglycemia sometime, eats ok, no dm2 severe hypothyroidism, but pt said she is taking home meds c/o abd pain. gi on board has BM high K again today Vitals Vitals Vital Signs Date Time Temp Pulse Resp B/P (MAP) Pulse Ox O2 Delivery O2 Flow Rate FiO2 04/10/18 11:09 Room Air 04/10/18 11:00 98.4 80 18 115/76 (89) 93 98.4 04/09/18 12:43 1.0 Physical Exam Physical Exam GENERAL: Propped up in bed, alert, eating LUNGS: Decreased in the bases. HEART: S1, S2. Pacemaker ICD ABDOMEN: Soft, nontender, no guarding. : Doll in place. EXTREMITIES: No gross edema or cyanosis SKIN: Without signs of rash. NEUROLOGIC: Alert, responds appropriately RIJ clean General: Alert, Oriented X3 Heart: Normal S1, Normal S2 Abdomen: Normal bowel sounds (obese abdomen), Soft Extremities: No clubbing, Normal pulses, Other (trace edema) Skin: No rashes, No significant lesion Labs LABS Laboratory Tests Test 04/09/18 17:48 10/6/18 20:34 04/10/18 03:30 04/10/18 07:50 Glucose (Fingerstick) 117 mg/dL (70-99) 161 mg/dL (70-99) White Blood Count 4.2 x10^3/uL (4.0-11.0) Red Blood Count 2.85 x10^6/uL (3.50-5.40) Hemoglobin 8.8 g/dL (12.0-15.5) Hematocrit 25.7 % (36.0-47.0) Mean Corpuscular Volume 90 fL (79-100) Mean Corpuscular Hemoglobin 31 pg (25-35) Mean Corpuscular Hemoglobin Concent 34 g/dL (31-37) Red Cell Distribution Width 29.4 % (11.5-14.5) Platelet Count 126 x10^3/uL (140-400) Neutrophils (%) (Auto) 68 % (31-73) Lymphocytes (%) (Auto) 6 % (24-48) Monocytes (%) (Auto) 23 % (0-9) Eosinophils (%) (Auto) 1 % (0-3) Basophils (%) (Auto) 2 % (0-3) Neutrophils # (Auto) 2.8 x10^3uL (1.8-7.7) Lymphocytes # (Auto) 0.3 x10^3/uL (1.0-4.8) Monocytes # (Auto) 1.0 x10^3/uL (0.0-1.1) Eosinophils # (Auto) 0.1 x10^3/uL (0.0-0.7) Basophils # (Auto) 0.1 x10^3/uL (0.0-0.2) Sodium Level 137 mmol/L (136-145) Potassium Level 5.5 mmol/L (3.5-5.1) Chloride Level 95 mmol/L (98-107) Carbon Dioxide Level 38 mmol/L (21-32) Anion Gap 4 (6-14) Blood Urea Nitrogen 44 mg/dL (7-20) Creatinine 1.6 mg/dL (0.6-1.0) Estimated GFR (Cockcroft-Gault) 38.4 Glucose Level 79 mg/dL (70-99) Calcium Level 9.0 mg/dL (8.5-10.1) Test 04/10/18 08:13 04/10/18 12:18 Glucose (Fingerstick) 77 mg/dL (70-99) 62 mg/dL (70-99) Assessment and Plan Assessmemt and Plan Problems Medical Problems: (1) Acute exacerbation of CHF (congestive heart failure) Status: Acute (2) Elevated troponin I level Status: Acute (3) Hypoglycemia Status: Acute (4) Hypoxia Status: Acute (5) Lactic acidosis Status: Acute (6) Renal insufficiency Status: Acute Comment Review of Relevant I have reviewed the following items madeline (where applicable) has been applied. Labs Laboratory Tests Test 04/08/18 20:38 04/09/18 03:45 04/09/18 07:28 04/09/18 17:48 Glucose (Fingerstick) 103 mg/dL (70-99) 90 mg/dL (70-99) 117 mg/dL (70-99) White Blood Count 5.0 x10^3/uL (4.0-11.0) Red Blood Count 2.87 x10^6/uL (3.50-5.40) Hemoglobin 8.8 g/dL (12.0-15.5) Hematocrit 26.1 % (36.0-47.0) Mean Corpuscular Volume 91 fL (79-100) Mean Corpuscular Hemoglobin 31 pg (25-35) Mean Corpuscular Hemoglobin Concent 34 g/dL (31-37) Red Cell Distribution Width 29.0 % (11.5-14.5) Platelet Count 121 x10^3/uL (140-400) Neutrophils (%) (Auto) 45 % (31-73) Lymphocytes (%) (Auto) 44 % (24-48) Monocytes (%) (Auto) 9 % (0-9) Eosinophils (%) (Auto) 1 % (0-3) Basophils (%) (Auto) 1 % (0-3) Neutrophils # (Auto) 2.3 x10^3uL (1.8-7.7) Lymphocytes # (Auto) 2.2 x10^3/uL (1.0-4.8) Monocytes # (Auto) 0.5 x10^3/uL (0.0-1.1) Eosinophils # (Auto) 0.1 x10^3/uL (0.0-0.7) Basophils # (Auto) 0.0 x10^3/uL (0.0-0.2) Sodium Level 142 mmol/L (136-145) Potassium Level 4.8 mmol/L (3.5-5.1) Chloride Level 97 mmol/L (98-107) Carbon Dioxide Level 39 mmol/L (21-32) Anion Gap 6 (6-14) Blood Urea Nitrogen 51 mg/dL (7-20) Creatinine 1.7 mg/dL (0.6-1.0) Estimated GFR (Cockcroft-Gault) 35.9 Glucose Level 78 mg/dL (70-99) Calcium Level 9.2 mg/dL (8.5-10.1) Free Thyroxine 0.61 ng/dL (0.76-1.46) Free Triiodothyronine (T3) pg/mL 1.32 pg/mL (2.18-3.98) Test 04/09/18 20:34 04/10/18 03:30 04/10/18 07:50 04/10/18 08:13 Glucose (Fingerstick) 161 mg/dL (70-99) 77 mg/dL (70-99) White Blood Count 4.2 x10^3/uL (4.0-11.0) Red Blood Count 2.85 x10^6/uL (3.50-5.40) Hemoglobin 8.8 g/dL (12.0-15.5) Hematocrit 25.7 % (36.0-47.0) Mean Corpuscular Volume 90 fL (79-100) Mean Corpuscular Hemoglobin 31 pg (25-35) Mean Corpuscular Hemoglobin Concent 34 g/dL (31-37) Red Cell Distribution Width 29.4 % (11.5-14.5) Platelet Count 126 x10^3/uL (140-400) Neutrophils (%) (Auto) 68 % (31-73) Lymphocytes (%) (Auto) 6 % (24-48) Monocytes (%) (Auto) 23 % (0-9) Eosinophils (%) (Auto) 1 % (0-3) Basophils (%) (Auto) 2 % (0-3) Neutrophils # (Auto) 2.8 x10^3uL (1.8-7.7) Lymphocytes # (Auto) 0.3 x10^3/uL (1.0-4.8) Monocytes # (Auto) 1.0 x10^3/uL (0.0-1.1) Eosinophils # (Auto) 0.1 x10^3/uL (0.0-0.7) Basophils # (Auto) 0.1 x10^3/uL (0.0-0.2) Sodium Level 137 mmol/L (136-145) Potassium Level 5.5 mmol/L (3.5-5.1) Chloride Level 95 mmol/L (98-107) Carbon Dioxide Level 38 mmol/L (21-32) Anion Gap 4 (6-14) Blood Urea Nitrogen 44 mg/dL (7-20) Creatinine 1.6 mg/dL (0.6-1.0) Estimated GFR (Cockcroft-Gault) 38.4 Glucose Level 79 mg/dL (70-99) Calcium Level 9.0 mg/dL (8.5-10.1) Test 04/10/18 12:18 Glucose (Fingerstick) 62 mg/dL (70-99) Laboratory Tests Test 04/09/18 17:48 04/09/18 20:34 04/10/18 03:30 04/10/18 07:50 Glucose (Fingerstick) 117 mg/dL (70-99) 161 mg/dL (70-99) White Blood Count 4.2 x10^3/uL (4.0-11.0) Red Blood Count 2.85 x10^6/uL (3.50-5.40) Hemoglobin 8.8 g/dL (12.0-15.5) Hematocrit 25.7 % (36.0-47.0) Mean Corpuscular Volume 90 fL (79-100) Mean Corpuscular Hemoglobin 31 pg (25-35) Mean Corpuscular Hemoglobin Concent 34 g/dL (31-37) Red Cell Distribution Width 29.4 % (11.5-14.5) Platelet Count 126 x10^3/uL (140-400) Neutrophils (%) (Auto) 68 % (31-73) Lymphocytes (%) (Auto) 6 % (24-48) Monocytes (%) (Auto) 23 % (0-9) Eosinophils (%) (Auto) 1 % (0-3) Basophils (%) (Auto) 2 % (0-3) Neutrophils # (Auto) 2.8 x10^3uL (1.8-7.7) Lymphocytes # (Auto) 0.3 x10^3/uL (1.0-4.8) Monocytes # (Auto) 1.0 x10^3/uL (0.0-1.1) Eosinophils # (Auto) 0.1 x10^3/uL (0.0-0.7) Basophils # (Auto) 0.1 x10^3/uL (0.0-0.2) Sodium Level 137 mmol/L (136-145) Potassium Level 5.5 mmol/L (3.5-5.1) Chloride Level 95 mmol/L (98-107) Carbon Dioxide Level 38 mmol/L (21-32) Anion Gap 4 (6-14) Blood Urea Nitrogen 44 mg/dL (7-20) Creatinine 1.6 mg/dL (0.6-1.0) Estimated GFR (Cockcroft-Gault) 38.4 Glucose Level 79 mg/dL (70-99) Calcium Level 9.0 mg/dL (8.5-10.1) Test 04/10/18 08:13 04/10/18 12:18 Glucose (Fingerstick) 77 mg/dL (70-99) 62 mg/dL (70-99) Microbiology 03/31/18 Blood Culture - Final, Complete NO GROWTH AFTER 5 DAYS Medications Current Medications Aspirin (Karen Aspirin) 325 mg 1X ONCE PO Last administered on 03/31/18at 01:16 ; Start 03/30/18 at 23:30; Stop 03/30/18 at 23:31; Status DC Fentanyl Citrate (Fentanyl 2ml Vial) 50 mcg 1X ONCE IV ; Start 03/30/18 at 23: 30; Stop 03/30/18 at 23:31; Status DC Dextrose (Dextrose 50%-Water Syringe) 25 gm 1X ONCE IV Last administered on at 23:10; Start 03/30/18 at 23:30; Stop 03/30/18 at 23:31; Status DC Dextrose (Dextrose 50%-Water Syringe) 25 gm STK-MED ONCE IV ; Start 03/30/18 at 23:05; Stop 03/30/18 at 23:06; Status DC Glucose (Insta-Glucose) 15 gm STK-MED ONCE .ROUTE ; Start 03/30/18 at 23:05; Stop 03/30/18 at 23:06; Status DC Ondansetron HCl (Zofran) 4 mg 1X ONCE IV Last administered on 03/31/18at 01:18 ; Start 03/30/18 at 23:30; Stop 03/30/18 at 23:31; Status DC Glucose (Insta-Glucose) 15 gm 1X ONCE PO Last administered on 03/30/18at 23:07 ; Start 03/30/18 at 23:30; Stop 03/30/18 at 23:31; Status DC Nitroglycerin (Nitro-Bid Oint) 1 inch 1X ONCE TP Last administered on at 01:19; Start 03/31/18 at 01:00; Stop 03/31/18 at 01:01; Status DC Bumetanide (Bumex) 0.5 mg 1X ONCE IV Last administered on 03/31/18at 01:11; Start 03/31/18 at 01:00; Stop 03/31/18 at 01:01; Status DC Ondansetron HCl (Zofran) 4 mg PRN Q8HRS PRN IV NAUSEA/VOMITING 1ST CHOICE; Start 03/31/18 at 00:45; Stop 04/01/18 at 00:44; Status DC Dextrose (Dextrose 50%-Water Syringe) 12.5 gm PRN Q15MIN PRN IV SEE COMMENTS; Start 03/31/18 at 00:45 Lidocaine HCl 20 ml 1X ONCE IJ Last administered on 03/31/18at 03:00; Start at 03:00; Stop 03/31/18 at 03:01; Status DC Lidocaine HCl (Xylocaine-Mpf 2% Vial) 2 ml STK-MED ONCE .ROUTE ; Start 03/31/18 at 02:31; Stop 03/31/18 at 02:33; Status DC Pantoprazole Sodium (Protonix) 40 mg DAILYAC PO Last administered on 04/10/18at 07:34; Start 03/31/18 at 11:30 Levothyroxine Sodium 100 mcg/ Sodium Chloride 5 ml @ 100 mls/hr DAILY IVP ; Start 04/01/18 at 09:00; Status UNV Levothyroxine Sodium 50 mcg/ Sodium Chloride 5 ml @ 100 mls/hr DAILY IVP Last administered on 04/04/18at 08:52; Start 03/31/18 at 14:00; Stop 04/04/18 at 16:37 ; Status DC Furosemide 100 mg/ Sodium Chloride 100 ml @ 5 mls/hr CONT PRN IV DIURESIS Last administered on 03/31/18at 12:59; Start 03/31/18 at 11:45; Stop 03/31/18 at 22:16 ; Status DC Ceftriaxone Sodium 2 gm/ Dextrose 100 ml @ 200 mls/hr Q24H IV Last administered on 04/03/18at 14:30; Start 03/31/18 at 13:00; Stop 04/04/18 at 08:49 ; Status DC Azithromycin 500 mg/Sodium Chloride 250 ml @ 250 mls/hr 1X ONCE IV Last administered on 03/31/18at 13:04; Start 03/31/18 at 12:30; Stop 03/31/18 at 13:29 ; Status DC Furosemide 100 mg/ Sodium Chloride 100 ml @ 0 mls/hr CONT PRN IV DIURESIS Last administered on 04/01/18at 01:34; Start 03/31/18 at 22:30; Stop 04/01/18 at 12:56 ; Status DC Lactobacillus Rhamnosus (Culturelle) 1 cap BID PO Last administered on at 08:44; Start 04/01/18 at 21:00 Azithromycin 500 mg/Sodium Chloride 250 ml @ 250 mls/hr Q24H IV Last administered on 04/03/18at 14:31; Start 04/01/18 at 14:00; Stop 04/04/18 at 08:49 ; Status DC Milrinone Lactate/ Dextrose 100 ml @ 2.96 mls/hr CONT PRN IV SEE I/O RECORD Last administered on 04/03/18at 17:04; Start 04/02/18 at 13:00; Stop 04/04/18 at 12:47; Status DC Acetaminophen/ Codeine Phosphate (Tylenol #3) 1 tab PRN Q6HRS PRN PO MODERATE TO SEVERE PAIN Last administered on 04/10/18at 09:22; Start 04/02/18 at 13:30 Ondansetron HCl (Zofran) 4 mg PRN Q6HRS PRN IV NAUSEA/VOMITING Last administered on 04/02/18at 15:37; Start 04/02/18 at 15:45 Furosemide (Lasix) 40 mg DAILY PO Last administered on 04/10/18at 08:43; Start 04/03/18 at 11:30 Potassium Chloride (Klor-Con) 20 meq 1X ONCE PO Last administered on at 12:17; Start 04/03/18 at 11:30; Stop 04/03/18 at 11:31; Status DC Simethicone (Gas-X) 80 mg PRN AFTMEALHC PRN PO GAS / BLOATING; Start 04/03/18 at 17:45 Polyethylene Glycol (miraLAX PACKET) 17 gm PRN DAILY PRN PO CONSTIPATION Last administered on 04/08/18 09:49; Start 04/04/18 at 12:00; Stop 04/08/18 at 15:48 ; Status DC Atorvastatin Calcium (Lipitor) 20 mg QHS PO Last administered on 04/09/18at 20: 37; Start 04/04/18 at 21:00 Clonidine HCl (Catapres) 0.2 mg BID PO Last administered on 04/04/18at 13:45; Start 04/04/18 at 13:00; Stop 04/05/18 at 09:59; Status DC Clopidogrel Bisulfate (Plavix) 75 mg DAILY PO Last administered on 04/10/18 08 :43; Start 04/04/18 at 13:00 Metoprolol Tartrate (Lopressor) 25 mg BID PO Last administered on 04/04/18at 13: 47; Start 04/04/18 at 13:00; Stop 04/04/18 at 13:58; Status DC Potassium Chloride (Klor-Con) 20 meq DAILY PO Last administered on 04/07/18 08 :39; Start 04/04/18 at 13:00; Stop 04/08/18 at 10:27; Status DC Celecoxib (CeleBREX) 200 mg BID PO ; Start 04/04/18 at 13:00; Stop 04/04/18 at 13:53; Status DC Citalopram Hydrobromide (CeleXA) 40 mg DAILY PO Last administered on 04/10/18at 08:43; Start 04/04/18 at 13:00 Non-Formulary Medication (Fluticasone/ Salmeterol (Advair 250-50 Diskus)) 1 inh BID IH ; Start 04/04/18 at 21:00; Status UNV Gabapentin (Neurontin) 600 mg TID PO Last administered on 04/10/18at 08:43; Start 04/04/18 at 14:00 Non-Formulary Medication (Omeprazole ) 40 mg DAILY PO ; Start 04/05/18 at 09:00 ; Status UNV Verapamil HCl (Calan Sr) 120 mg BID PO Last administered on 04/04/18at 13:50; Start 04/04/18 at 13:00; Stop 04/05/18 at 10:47; Status DC Magnesium Sulfate 50 ml @ 25 mls/hr 1X ONCE IV Last administered on 04/04/18at 13:52; Start 04/04/18 at 13:00; Stop 04/04/18 at 14:59; Status DC Budesonide (Pulmicort) 0.5 mg RTBID NEB Last administered on 04/10/18at 07:26; Start 04/04/18 at 13:00 Albuterol Sulfate (Ventolin Neb Soln) 2.5 mg RTQID NEB Last administered on 04/10/18at 11:08; Start 04/04/18 at 13:00 Carvedilol (Coreg) 12.5 mg BIDWMEALS PO Last administered on 04/04/18at 18:13; Start 04/04/18 at 17:00; Stop 04/05/18 at 14:57; Status DC Levothyroxine Sodium (Synthroid) 100 mcg DAILY06 PO Last administered on at 05:24; Start 04/05/18 at 06:00; Stop 04/05/18 at 10:47; Status DC Regadenoson (Lexiscan) 0.4 mg 1X ONCE IV Last administered on 04/05/18at 10:00 ; Start 04/05/18 at 08:00; Stop 04/05/18 at 08:11; Status DC Levothyroxine Sodium (Synthroid) 150 mcg DAILY06 PO Last administered on at 06:40; Start 04/06/18 at 06:00 Liothyronine Sodium (Cytomel) 10 mcg DAILY PO Last administered on 04/10/18at 08 :43; Start 04/05/18 at 11:00 Carvedilol (Coreg) 6.25 mg BIDWMEALS PO Last administered on 04/08/18 18:10; Start 04/05/18 at 17:00; Stop 04/09/18 at 10:13; Status DC Tramadol HCl (Ultram) 50 mg PRN Q6HRS PRN PO MILD PAIN Last administered on 20:47; Start 04/05/18 at 15:15 Acetaminophen (Tylenol) 650 mg PRN Q6HRS PRN PO HEADACHE Last administered on 04/09/18 15:01; Start 04/07/18 at 10:45 Senna/Docusate Sodium (Senna Plus) 1 tab BID PO Last administered on 04/08/18 20:39; Start 04/07/18 at 21:00 Docusate Sodium (Colace) 100 mg BID PO Last administered on 04/10/18at 08:43; Start 04/07/18 at 21:00 Magnesium Hydroxide (Milk Of Magnesia) 2,400 mg PRN Q12HR PRN PO CONSTIPATION 2ND CHOICE; Start 04/07/18 at 11:45 Lactulose (Lactulose) 20 gm PRN Q12HR PRN PO CONSTIPATION 1ST CHOICE; Start at 11:45 Bisacodyl (Dulcolax Supp) 10 mg PRN DAILY PRN RI CONSTIPATION; Start 04/07/18 at 11:45 Sodium Polystyrene Sulfonate (Kayexalate) 15 gm 1X ONCE PO Last administered on 04/07/18at 15:15; Start 04/07/18 at 15:00; Stop 04/07/18 at 15:01; Status DC Sodium Polystyrene Sulfonate (Kayexalate) 15 gm 1X ONCE PO Last administered on 04/08/18 14:51; Start 04/08/18 at 11:00; Stop 04/08/18 at 11:01; Status DC Polyethylene Glycol (miraLAX PACKET) 17 gm BID PO Last administered on at 20:40; Start 04/08/18 at 21:00 Carvedilol (Coreg) 3.125 mg BIDWMEALS PO Last administered on 04/10/18at 08:44; Start 04/09/18 at 17:00 Sodium Polystyrene Sulfonate (Kayexalate) 15 gm 1X ONCE PO Last administered on 04/10/18at 10:10; Start 04/10/18 at 10:00; Stop 04/10/18 at 10:01; Status DC Active Scripts Active Reported Allopurinol 100 Mg Tablet 1 Tab PO DAILY Mag-Oxide (Magnesium Oxide) 400 Mg Tablet 400 Mg PO TID Erin 5-325 Tablet (Acetaminophen/Hydrocodone Bitart) 1 Each Tablet 1 Tab PO PRN Q6HRS PRN Isosorbide Mononitrate Er (Isosorbide Mononitrate) 30 Mg Tab.er.24h 1 Tab PO DAILY Uloric (Febuxostat) 40 Mg Tablet 1 Tab PO DAILY Meclizine Hcl 25 Mg Tablet 1 Tab PO PRN TID PRN Synthroid (Levothyroxine Sodium) 150 Mcg Tablet 1 Tab PO DAILY Lisinopril 40 Mg Tablet 1 Tab PO DAILY Symbicort 160-4.5 Mcg Inhaler (Budesonide/Formoterol Fumarate) 10.2 Gm Hfa.aer.ad 2 Puff IH BID Citalopram Hbr (Citalopram Hydrobromide) 20 Mg Tablet 1 Tab PO DAILY Aspirin Ec (Aspirin) 325 Mg Tablet.dr 1 Tab PO DAILY Nitrostat (Nitroglycerin) 0.4 Mg Tab.subl 0.4 Mg SL PRN Q5MIN PRN Flonase Allergy Relief (Fluticasone Propionate) 9.9 Ml [place].susp 2 Sprays NS DAILY Proair Hfa Inhaler (Albuterol Sulfate) 8.5 Gm Hfa.aer.ad 2 Puff INH PRN Q4-6HRS PRN Triamcinolone Acetonide 0.1% Cream (Triamcinolone Acetonide) 15 Gm Cream..g. 15 Gm TP Celexa (Citalopram Hydrobromide) 40 Mg Tablet 40 Mg PO DAILY Gabapentin 600 Mg Tablet 600 Mg PO BID Atorvastatin Calcium 20 Mg Tablet 20 Mg PO QHS Celebrex (Celecoxib) 200 Mg Capsule 200 Mg PO BID 30 Days Furosemide 20 Mg Tablet 40 Mg PO BID Metoprolol Tartrate 25 Mg Tablet 50 Mg PO BID Omeprazole 40 Mg Capsule.dr 40 Mg PO DAILY Clonidine Hcl 0.2 Mg Tablet 0.2 Mg PO BID Colcrys (Colchicine) 0.6 Mg Tablet 0.6 Mg PO BID Lorazepam 1 Mg Tablet 1 Mg PO BID Klor-Con M20 (Potassium Chloride) 20 Meq Tab.er.prt 10 Meq PO DAILY Verapamil Hcl 120 Mg Tablet 120 Mg PO BID Advair 250-50 Diskus (Fluticasone/Salmeterol) 1 Each Disk.w.dev 1 Inh IH BID Iron (Ferrous Sulfate) 325 Mg Capsule.er 325 Mg PO Clopidogrel (Clopidogrel Bisulfate) 75 Mg Tablet 75 Mg PO DAILY Vitals/I & O Vital Sign - Last 24 Hours 04/09/18 04/09/18 04/09/18 04/09/18 15:00 15:45 17:50 19:55 Temp 98.5 98.5 98.5 98.5 Pulse 84 84 81 Resp 18 20 B/P (MAP) 151/53 (85) 151/53 114/58 (76) Pulse Ox 97 94 96 O2 Delivery Room Air Room Air 04/09/18 04/09/18 04/09/18 04/09/18 20:00 20:38 22:35 22:35 Resp 20 Pulse Ox 94 93 93 O2 Delivery Room Air Room Air Room Air Room Air 04/09/18 04/10/18 04/10/18 04/10/18 23:07 02:50 02:50 03:50 Temp 98.5 98.4 98.5 98.4 Pulse 85 82 Resp 18 18 18 18 B/P (MAP) 109/71 (84) 132/59 (83) Pulse Ox 95 95 96 95 O2 Delivery Room Air Room Air Room Air 04/10/18 04/10/18 04/10/18 04/10/18 07:00 07:29 07:30 08:44 Temp 97.7 97.7 Pulse 78 78 Resp 16 B/P (MAP) 116/68 (84) 116/68 Pulse Ox 16 96 O2 Delivery Room Air Room Air Room Air 04/10/18 04/10/18 04/10/18 04/10/18 09:22 10:14 11:00 11:09 Temp 98.4 98.4 Pulse 80 Resp 18 B/P (MAP) 115/76 (89) Pulse Ox 93 O2 Delivery Room Air Room Air Room Air Room Air Intake and Output 04/09/18 04/09/18 04/10/18 15:00 23:00 07:00 Intake Total 640 ml 450 ml Balance 640 ml 450 ml PETRA WHITLEY MD Apr 10, 2018 13:32
[2018-04-10 15:00] VITALS: BP 112/69
[2018-04-10 19:05] VITALS: BP 114/61
[2018-04-10] MEDS: ATORVASTATIN CALCIUM 20 MG TABLET PO SCH (20:34)
[2018-04-10 22:22] VITALS: BP 140/74
[2018-04-11 02:44] VITALS: BP 120/66
[2018-04-11] MEDS: LEVOTHYROXINE 150 MCG TABLET PO SCH (05:39)
[2018-04-11 07:00] VITALS: BP 110/56
[2018-04-11 08:07] LABS: BASO % 1 % (0-3); EOS % 1 % (0-3); HEMATOCRIT 26.7 % (36.0-47.0); LYMPH # 2.4 x10^3/uL (1.0-4.8); LYMPH % 48 % (24-48); MEAN CORPUSCULAR HEMOGLOBIN 31 pg (25-35); MEAN CORPUSCULAR HGB CONC 34 g/dL (31-37); MEAN CORPUSCULAR VOLUME 90 fL (79-100); MONO # 0.3 x10^3/uL (0.0-1.1); MONO % 6 % (0-9); NEUT # 2.2 x10^3uL (1.8-7.7); NEUT % 44 % (31-73); PLATELET COUNT 151 x10^3/uL (140-400); RED BLOOD COUNT 2.95 x10^6/uL (3.50-5.40); RED CELL DISTRIBUTION WIDTH 29.5 % (11.5-14.5)
[2018-04-11] MEDS: ALBUTEROL SULFATE 2.5 MG/3 ML NEBU. NEB SCH ×3 (08:08→15:44)
[2018-04-11] MEDS: BUDESONIDE 0.5 MG/2 ML NEBU. NEB SCH (08:08)
[2018-04-11 08:20] LABS: CALCIUM 8.8 mg/dL (8.5-10.1); CREATININE 1.6 mg/dL (0.6-1.0); GFR 38.4; POTASSIUM 4.5 mmol/L (3.5-5.1)
[2018-04-11] MEDS ORDERED: LACT20SO PO (08:33)
[2018-04-11] MEDS ORDERED: BUDE0.5A NEB (08:33)
[2018-04-11] MEDS ORDERED: CARV3.122 PO (08:33)
[2018-04-11 08:41] LABS: FREE T4 0.72 ng/dL (0.76-1.46)
[2018-04-11] MEDS: LACTOBACILLUS RHAMNOSUS GG 1 CAPSULE. PO SCH (08:45)
[2018-04-11] MEDS: LIOTHYRONINE 5 MCG TABLET. PO SCH (08:46)
[2018-04-11] MEDS: DOCUSATE SODIUM 100 MG CAPSULE. PO SCH (08:46)
[2018-04-11] MEDS: FUROSEMIDE 40 MG TABLET. PO SCH (08:46)
[2018-04-11] MEDS: CARVEDILOL 3.125 MG TABLET. PO SCH (08:47)
[2018-04-11] MEDS: GABAPENTIN 300 MG CAPSULE. PO SCH ×2 (08:48→14:18)
[2018-04-11] MEDS: CITALOPRAM 20 MG TABLET. PO SCH (08:48)
[2018-04-11] MEDS: PANTOPRAZOLE 40 MG TABLET.DR. PO SCH (08:48)
[2018-04-11] MEDS: CLOPIDOGREL BISULFATE 75 MG TABLET PO SCH (08:49)
[2018-04-11] MEDS: SENNOSIDES/DOCUSATE 8.6/50MG TABLET. PO SCH (08:51)
[2018-04-11] MEDS: POLYETHYLENE GLYCOL 3350 17 GM PACKET. PO SCH (08:51)
--- NOTE | 2018-04-11 09:02 | PDOC ---
PROGRESS NOTES Subjective Subjective HPI - f/u of pancytopenia Objective Objective Vital Signs Date Time Temp Pulse Resp B/P (MAP) Pulse Ox O2 Delivery O2 Flow Rate FiO2 04/11/18 08:47 84 110/56 04/11/18 08:11 93 Room Air 04/11/18 07:00 98.4 98.4 04/11/18 02:44 20 04/09/18 12:43 1.0 Intake and Output 04/11/18 07:00 Intake Total 1880 ml Output Total 1 ml Balance 1879 ml Intake Oral 1880 ml Output Urine Total 1 ml # Voids 1 # Bowel Movements 1 Physical Exam Heart: Normal S1, Normal S2 General: Alert, Oriented X3 Lungs: Clear to auscultation Neuro: Normal speech Psych/Mental Status: Mental status NL Assessment Assessment Problems Medical Problems: (1) Acute exacerbation of CHF (congestive heart failure) Status: Acute (2) Elevated troponin I level Status: Acute (3) Hypoglycemia Status: Acute (4) Hypoxia Status: Acute (5) Lactic acidosis Status: Acute (6) Renal insufficiency Status: Acute IMPRESSION AND PLAN: 1. Normochromic normocytic anemia. Peripheral smear does not reveal any evidence of immature white cells. Reticulocyte count is 2.2. I do not suspect hemolysis. There is no evidence of bleeding. I suspect that the etiology of anemia is chronic kidney disease. Iron studies are suggestive of anemia due to chronic disease and B12 level is normal. I will continue to monitor. Hb stable at 8.8 2. Leukopenia. She had a normal WBC count at the time of admission and worsening WBC count later on. I suspect that this is due to splenic congestion/hypersplenism due to congestive heart failure. I would expect the WBC count to improve and I will continue to monitor. Peripheral smear does not reveal any evidence of immature white cells and hence I do not suspect leukemia. WBC now 4.2 3. 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 I will continue to monitor. Platelet count was normal on 04/04/2018 at 145. It is unlikely that she has a primary bone marrow disorder and I will continue to monitor. Plt now 126 4. Chronic kidney disease. Management per Nephrology. 5. [id number]-[id number]-[id number] congestive heart failure, biventricular with the left ventricular ejection fraction of only 20% and BNP more than 35,000. Appreciate Cardiology management. Comment Review of Relevant I have reviewed the following items madeline (where applicable) has been applied. Labs Laboratory Tests Test 04/09/18 17:48 04/09/18 20:34 04/10/18 03:30 04/10/18 07:50 Glucose (Fingerstick) 117 mg/dL (70-99) 161 mg/dL (70-99) White Blood Count 4.2 x10^3/uL (4.0-11.0) Red Blood Count 2.85 x10^6/uL (3.50-5.40) Hemoglobin 8.8 g/dL (12.0-15.5) Hematocrit 25.7 % (36.0-47.0) Mean Corpuscular Volume 90 fL (79-100) Mean Corpuscular Hemoglobin 31 pg (25-35) Mean Corpuscular Hemoglobin Concent 34 g/dL (31-37) Red Cell Distribution Width 29.4 % (11.5-14.5) Platelet Count 126 x10^3/uL (140-400) Neutrophils (%) (Auto) 68 % (31-73) Lymphocytes (%) (Auto) 6 % (24-48) Monocytes (%) (Auto) 23 % (0-9) Eosinophils (%) (Auto) 1 % (0-3) Basophils (%) (Auto) 2 % (0-3) Neutrophils # (Auto) 2.8 x10^3uL (1.8-7.7) Lymphocytes # (Auto) 0.3 x10^3/uL (1.0-4.8) Monocytes # (Auto) 1.0 x10^3/uL (0.0-1.1) Eosinophils # (Auto) 0.1 x10^3/uL (0.0-0.7) Basophils # (Auto) 0.1 x10^3/uL (0.0-0.2) Sodium Level 137 mmol/L (136-145) Potassium Level 5.5 mmol/L (3.5-5.1) Chloride Level 95 mmol/L (98-107) Carbon Dioxide Level 38 mmol/L (21-32) Anion Gap 4 (6-14) Blood Urea Nitrogen 44 mg/dL (7-20) Creatinine 1.6 mg/dL (0.6-1.0) Estimated GFR (Cockcroft-Gault) 38.4 Glucose Level 79 mg/dL (70-99) Calcium Level 9.0 mg/dL (8.5-10.1) Test 04/10/18 08:13 04/10/18 12:18 04/10/18 17:09 04/10/18 20:32 Glucose (Fingerstick) 77 mg/dL (70-99) 62 mg/dL (70-99) 111 mg/dL (70-99) 85 mg/dL (70-99) Test 04/11/18 06:45 04/11/18 07:41 White Blood Count 5.0 x10^3/uL (4.0-11.0) Red Blood Count 2.95 x10^6/uL (3.50-5.40) Hemoglobin 9.0 g/dL (12.0-15.5) Hematocrit 26.7 % (36.0-47.0) Mean Corpuscular Volume 90 fL (79-100) Mean Corpuscular Hemoglobin 31 pg (25-35) Mean Corpuscular Hemoglobin Concent 34 g/dL (31-37) Red Cell Distribution Width 29.5 % (11.5-14.5) Platelet Count 151 x10^3/uL (140-400) Neutrophils (%) (Auto) 44 % (31-73) Lymphocytes (%) (Auto) 48 % (24-48) Monocytes (%) (Auto) 6 % (0-9) Eosinophils (%) (Auto) 1 % (0-3) Basophils (%) (Auto) 1 % (0-3) Neutrophils # (Auto) 2.2 x10^3uL (1.8-7.7) Lymphocytes # (Auto) 2.4 x10^3/uL (1.0-4.8) Monocytes # (Auto) 0.3 x10^3/uL (0.0-1.1) Eosinophils # (Auto) 0.0 x10^3/uL (0.0-0.7) Basophils # (Auto) 0.0 x10^3/uL (0.0-0.2) Sodium Level 137 mmol/L (136-145) Potassium Level 4.5 mmol/L (3.5-5.1) Chloride Level 95 mmol/L (98-107) Carbon Dioxide Level 37 mmol/L (21-32) Anion Gap 5 (6-14) Blood Urea Nitrogen 41 mg/dL (7-20) Creatinine 1.6 mg/dL (0.6-1.0) Estimated GFR (Cockcroft-Gault) 38.4 Glucose Level 103 mg/dL (70-99) Calcium Level 8.8 mg/dL (8.5-10.1) Glucose (Fingerstick) 103 mg/dL (70-99) Laboratory Tests Test 04/10/18 12:18 04/10/18 17:09 04/10/18 20:32 04/11/18 06:45 Glucose (Fingerstick) 62 mg/dL (70-99) 111 mg/dL (70-99) 85 mg/dL (70-99) White Blood Count 5.0 x10^3/uL (4.0-11.0) Red Blood Count 2.95 x10^6/uL (3.50-5.40) Hemoglobin 9.0 g/dL (12.0-15.5) Hematocrit 26.7 % (36.0-47.0) Mean Corpuscular Volume 90 fL (79-100) Mean Corpuscular Hemoglobin 31 pg (25-35) Mean Corpuscular Hemoglobin Concent 34 g/dL (31-37) Red Cell Distribution Width 29.5 % (11.5-14.5) Platelet Count 151 x10^3/uL (140-400) Neutrophils (%) (Auto) 44 % (31-73) Lymphocytes (%) (Auto) 48 % (24-48) Monocytes (%) (Auto) 6 % (0-9) Eosinophils (%) (Auto) 1 % (0-3) Basophils (%) (Auto) 1 % (0-3) Neutrophils # (Auto) 2.2 x10^3uL (1.8-7.7) Lymphocytes # (Auto) 2.4 x10^3/uL (1.0-4.8) Monocytes # (Auto) 0.3 x10^3/uL (0.0-1.1) Eosinophils # (Auto) 0.0 x10^3/uL (0.0-0.7) Basophils # (Auto) 0.0 x10^3/uL (0.0-0.2) Sodium Level 137 mmol/L (136-145) Potassium Level 4.5 mmol/L (3.5-5.1) Chloride Level 95 mmol/L (98-107) Carbon Dioxide Level 37 mmol/L (21-32) Anion Gap 5 (6-14) Blood Urea Nitrogen 41 mg/dL (7-20) Creatinine 1.6 mg/dL (0.6-1.0) Estimated GFR (Cockcroft-Gault) 38.4 Glucose Level 103 mg/dL (70-99) Calcium Level 8.8 mg/dL (8.5-10.1) Test 04/11/18 07:41 Glucose (Fingerstick) 103 mg/dL (70-99) Microbiology 03/31/18 Blood Culture - Final, Complete NO GROWTH AFTER 5 DAYS Medications Current Medications Aspirin (Karen Aspirin) 325 mg 1X ONCE PO Last administered on 03/31/18at 01:16 ; Start 03/30/18 at 23:30; Stop 03/30/18 at 23:31; Status DC Fentanyl Citrate (Fentanyl 2ml Vial) 50 mcg 1X ONCE IV ; Start 03/30/18 at 23: 30; Stop 03/30/18 at 23:31; Status DC Dextrose (Dextrose 50%-Water Syringe) 25 gm 1X ONCE IV Last administered on at 23:10; Start 03/30/18 at 23:30; Stop 03/30/18 at 23:31; Status DC Dextrose (Dextrose 50%-Water Syringe) 25 gm STK-MED ONCE IV ; Start 03/30/18 at 23:05; Stop 03/30/18 at 23:06; Status DC Glucose (Insta-Glucose) 15 gm STK-MED ONCE .ROUTE ; Start 03/30/18 at 23:05; Stop 03/30/18 at 23:06; Status DC Ondansetron HCl (Zofran) 4 mg 1X ONCE IV Last administered on 03/31/18at 01:18 ; Start 03/30/18 at 23:30; Stop 03/30/18 at 23:31; Status DC Glucose (Insta-Glucose) 15 gm 1X ONCE PO Last administered on 03/30/18at 23:07 ; Start 03/30/18 at 23:30; Stop 03/30/18 at 23:31; Status DC Nitroglycerin (Nitro-Bid Oint) 1 inch 1X ONCE TP Last administered on at 01:19; Start 03/31/18 at 01:00; Stop 03/31/18 at 01:01; Status DC Bumetanide (Bumex) 0.5 mg 1X ONCE IV Last administered on 03/31/18at 01:11; Start 03/31/18 at 01:00; Stop 03/31/18 at 01:01; Status DC Ondansetron HCl (Zofran) 4 mg PRN Q8HRS PRN IV NAUSEA/VOMITING 1ST CHOICE; Start 03/31/18 at 00:45; Stop 04/01/18 at 00:44; Status DC Dextrose (Dextrose 50%-Water Syringe) 12.5 gm PRN Q15MIN PRN IV SEE COMMENTS; Start 03/31/18 at 00:45 Lidocaine HCl 20 ml 1X ONCE IJ Last administered on 03/31/18at 03:00; Start at 03:00; Stop 03/31/18 at 03:01; Status DC Lidocaine HCl (Xylocaine-Mpf 2% Vial) 2 ml STK-MED ONCE .ROUTE ; Start 03/31/18 at 02:31; Stop 03/31/18 at 02:33; Status DC Pantoprazole Sodium (Protonix) 40 mg DAILYAC PO Last administered on 04/11/18at 08:48; Start 03/31/18 at 11:30 Levothyroxine Sodium 100 mcg/ Sodium Chloride 5 ml @ 100 mls/hr DAILY IVP ; Start 04/01/18 at 09:00; Status UNV Levothyroxine Sodium 50 mcg/ Sodium Chloride 5 ml @ 100 mls/hr DAILY IVP Last administered on 04/04/18at 08:52; Start 03/31/18 at 14:00; Stop 04/04/18 at 16:37 ; Status DC Furosemide 100 mg/ Sodium Chloride 100 ml @ 5 mls/hr CONT PRN IV DIURESIS Last administered on 03/31/18at 12:59; Start 03/31/18 at 11:45; Stop 03/31/18 at 22:16 ; Status DC Ceftriaxone Sodium 2 gm/ Dextrose 100 ml @ 200 mls/hr Q24H IV Last administered on 04/03/18at 14:30; Start 03/31/18 at 13:00; Stop 04/04/18 at 08:49 ; Status DC Azithromycin 500 mg/Sodium Chloride 250 ml @ 250 mls/hr 1X ONCE IV Last administered on 03/31/18at 13:04; Start 03/31/18 at 12:30; Stop 03/31/18 at 13:29 ; Status DC Furosemide 100 mg/ Sodium Chloride 100 ml @ 0 mls/hr CONT PRN IV DIURESIS Last administered on 04/01/18at 01:34; Start 03/31/18 at 22:30; Stop 04/01/18 at 12:56 ; Status DC Lactobacillus Rhamnosus (Culturelle) 1 cap BID PO Last administered on at 08:45; Start 04/01/18 at 21:00 Azithromycin 500 mg/Sodium Chloride 250 ml @ 250 mls/hr Q24H IV Last administered on 04/03/18at 14:31; Start 04/01/18 at 14:00; Stop 04/04/18 at 08:49 ; Status DC Milrinone Lactate/ Dextrose 100 ml @ 2.96 mls/hr CONT PRN IV SEE I/O RECORD Last administered on 04/03/18at 17:04; Start 04/02/18 at 13:00; Stop 04/04/18 at 12:47; Status DC Acetaminophen/ Codeine Phosphate (Tylenol #3) 1 tab PRN Q6HRS PRN PO MODERATE TO SEVERE PAIN Last administered on 04/10/18at 20:35; Start 04/02/18 at 13:30 Ondansetron HCl (Zofran) 4 mg PRN Q6HRS PRN IV NAUSEA/VOMITING Last administered on 04/02/18at 15:37; Start 04/02/18 at 15:45 Furosemide (Lasix) 40 mg DAILY PO Last administered on 04/11/18 08:46; Start 04/03/18 at 11:30 Potassium Chloride (Klor-Con) 20 meq 1X ONCE PO Last administered on at 12:17; Start 04/03/18 at 11:30; Stop 04/03/18 at 11:31; Status DC Simethicone (Gas-X) 80 mg PRN AFTMEALHC PRN PO GAS / BLOATING; Start 04/03/18 at 17:45 Polyethylene Glycol (miraLAX PACKET) 17 gm PRN DAILY PRN PO CONSTIPATION Last administered on 04/08/18 09:49; Start 04/04/18 at 12:00; Stop 04/08/18 at 15:48 ; Status DC Atorvastatin Calcium (Lipitor) 20 mg QHS PO Last administered on 04/10/18at 20: 34; Start 04/04/18 at 21:00 Clonidine HCl (Catapres) 0.2 mg BID PO Last administered on 04/04/18at 13:45; Start 04/04/18 at 13:00; Stop 04/05/18 at 09:59; Status DC Clopidogrel Bisulfate (Plavix) 75 mg DAILY PO Last administered on 04/11/18 08 :49; Start 04/04/18 at 13:00 Metoprolol Tartrate (Lopressor) 25 mg BID PO Last administered on 04/04/18at 13: 47; Start 04/04/18 at 13:00; Stop 04/04/18 at 13:58; Status DC Potassium Chloride (Klor-Con) 20 meq DAILY PO Last administered on 04/07/18at 08 :39; Start 04/04/18 at 13:00; Stop 04/08/18 at 10:27; Status DC Celecoxib (CeleBREX) 200 mg BID PO ; Start 04/04/18 at 13:00; Stop 04/04/18 at 13:53; Status DC Citalopram Hydrobromide (CeleXA) 40 mg DAILY PO Last administered on 04/11/18at 08:48; Start 04/04/18 at 13:00 Non-Formulary Medication (Fluticasone/ Salmeterol (Advair 250-50 Diskus)) 1 inh BID IH ; Start 04/04/18 at 21:00; Status UNV Gabapentin (Neurontin) 600 mg TID PO Last administered on 04/11/18at 08:48; Start 04/04/18 at 14:00 Non-Formulary Medication (Omeprazole ) 40 mg DAILY PO ; Start 04/05/18 at 09:00 ; Status UNV Verapamil HCl (Calan Sr) 120 mg BID PO Last administered on 04/04/18at 13:50; Start 04/04/18 at 13:00; Stop 04/05/18 at 10:47; Status DC Magnesium Sulfate 50 ml @ 25 mls/hr 1X ONCE IV Last administered on 04/04/18at 13:52; Start 04/04/18 at 13:00; Stop 04/04/18 at 14:59; Status DC Budesonide (Pulmicort) 0.5 mg RTBID NEB Last administered on 04/11/18at 08:08; Start 04/04/18 at 13:00 Albuterol Sulfate (Ventolin Neb Soln) 2.5 mg RTQID NEB Last administered on 04/11/18at 08:08; Start 04/04/18 at 13:00 Carvedilol (Coreg) 12.5 mg BIDWMEALS PO Last administered on 04/04/18at 18:13; Start 04/04/18 at 17:00; Stop 04/05/18 at 14:57; Status DC Levothyroxine Sodium (Synthroid) 100 mcg DAILY06 PO Last administered on at 05:24; Start 04/05/18 at 06:00; Stop 04/05/18 at 10:47; Status DC Regadenoson (Lexiscan) 0.4 mg 1X ONCE IV Last administered on 04/05/18at 10:00 ; Start 04/05/18 at 08:00; Stop 04/05/18 at 08:11; Status DC Levothyroxine Sodium (Synthroid) 150 mcg DAILY06 PO Last administered on at 05:39; Start 04/06/18 at 06:00 Liothyronine Sodium (Cytomel) 10 mcg DAILY PO Last administered on 04/11/18at 08 :46; Start 04/05/18 at 11:00 Carvedilol (Coreg) 6.25 mg BIDWMEALS PO Last administered on 04/08/18at 18:10; Start 04/05/18 at 17:00; Stop 04/09/18 at 10:13; Status DC Tramadol HCl (Ultram) 50 mg PRN Q6HRS PRN PO MILD PAIN Last administered on 04/06/18at 20:47; Start 04/05/18 at 15:15 Acetaminophen (Tylenol) 650 mg PRN Q6HRS PRN PO HEADACHE Last administered on 04/09/18at 15:01; Start 04/07/18 at 10:45 Senna/Docusate Sodium (Senna Plus) 1 tab BID PO Last administered on 04/08/18at 20:39; Start 04/07/18 at 21:00 Docusate Sodium (Colace) 100 mg BID PO Last administered on 04/11/18at 08:46; Start 04/07/18 at 21:00 Magnesium Hydroxide (Milk Of Magnesia) 2,400 mg PRN Q12HR PRN PO CONSTIPATION 2ND CHOICE; Start 04/07/18 at 11:45 Lactulose (Lactulose) 20 gm PRN Q12HR PRN PO CONSTIPATION 1ST CHOICE; Start at 11:45 Bisacodyl (Dulcolax Supp) 10 mg PRN DAILY PRN MT CONSTIPATION; Start 04/07/18 at 11:45 Sodium Polystyrene Sulfonate (Kayexalate) 15 gm 1X ONCE PO Last administered on 04/07/18at 15:15; Start 04/07/18 at 15:00; Stop 04/07/18 at 15:01; Status DC Sodium Polystyrene Sulfonate (Kayexalate) 15 gm 1X ONCE PO Last administered on 04/08/18at 14:51; Start 04/08/18 at 11:00; Stop 04/08/18 at 11:01; Status DC Polyethylene Glycol (miraLAX PACKET) 17 gm BID PO Last administered on at 20:40; Start 04/08/18 at 21:00 Carvedilol (Coreg) 3.125 mg BIDWMEALS PO Last administered on 04/11/18at 08:47; Start 04/09/18 at 17:00 Sodium Polystyrene Sulfonate (Kayexalate) 15 gm 1X ONCE PO Last administered on 04/10/18at 10:10; Start 04/10/18 at 10:00; Stop 04/10/18 at 10:01; Status DC Active Scripts Active Lactulose 20 Gm/30 Ml Solution 20 Gm PO PRN Q12HR PRN 10 Days Budesonide 0.5 Mg/2 Ml Ampul.neb 0.5 Mg NEB RTBID 14 Days Carvedilol 3.125 Mg Tablet 3.125 Mg PO BIDWMEALS 30 Days Reported Allopurinol 100 Mg Tablet 1 Tab PO DAILY Mag-Oxide (Magnesium Oxide) 400 Mg Tablet 400 Mg PO TID Hedrick 5-325 Tablet (Acetaminophen/Hydrocodone Bitart) 1 Each Tablet 1 Tab PO PRN Q6HRS PRN Isosorbide Mononitrate Er (Isosorbide Mononitrate) 30 Mg Tab.er.24h 1 Tab PO DAILY Uloric (Febuxostat) 40 Mg Tablet 1 Tab PO DAILY Meclizine Hcl 25 Mg Tablet 1 Tab PO PRN TID PRN Synthroid (Levothyroxine Sodium) 150 Mcg Tablet 1 Tab PO DAILY Lisinopril 40 Mg Tablet 1 Tab PO DAILY Symbicort 160-4.5 Mcg Inhaler (Budesonide/Formoterol Fumarate) 10.2 Gm Hfa.aer.ad 2 Puff IH BID Citalopram Hbr (Citalopram Hydrobromide) 20 Mg Tablet 1 Tab PO DAILY Aspirin Ec (Aspirin) 325 Mg Tablet.dr 1 Tab PO DAILY Nitrostat (Nitroglycerin) 0.4 Mg Tab.subl 0.4 Mg SL PRN Q5MIN PRN Flonase Allergy Relief (Fluticasone Propionate) 9.9 Ml [place].susp 2 Sprays NS DAILY Proair Hfa Inhaler (Albuterol Sulfate) 8.5 Gm Hfa.aer.ad 2 Puff INH PRN Q4-6HRS PRN Triamcinolone Acetonide 0.1% Cream (Triamcinolone Acetonide) 15 Gm Cream..g. 15 Gm TP Celexa (Citalopram Hydrobromide) 40 Mg Tablet 40 Mg PO DAILY Gabapentin 600 Mg Tablet 600 Mg PO BID Atorvastatin Calcium 20 Mg Tablet 20 Mg PO QHS Celebrex (Celecoxib) 200 Mg Capsule 200 Mg PO BID 30 Days Furosemide 20 Mg Tablet 40 Mg PO BID Metoprolol Tartrate 25 Mg Tablet 50 Mg PO BID Omeprazole 40 Mg Capsule.dr 40 Mg PO DAILY Clonidine Hcl 0.2 Mg Tablet 0.2 Mg PO BID Colcrys (Colchicine) 0.6 Mg Tablet 0.6 Mg PO BID Lorazepam 1 Mg Tablet 1 Mg PO BID Klor-Con M20 (Potassium Chloride) 20 Meq Tab.er.prt 10 Meq PO DAILY Verapamil Hcl 120 Mg Tablet 120 Mg PO BID Advair 250-50 Diskus (Fluticasone/Salmeterol) 1 Each Disk.w.dev 1 Inh IH BID Iron (Ferrous Sulfate) 325 Mg Capsule.er 325 Mg PO Clopidogrel (Clopidogrel Bisulfate) 75 Mg Tablet 75 Mg PO DAILY Vitals/I & O Vital Sign - Last 24 Hours 04/10/18 04/10/18 04/10/18 04/10/18 09:22 10:14 11:00 11:09 Temp 98.4 98.4 Pulse 80 Resp 18 B/P (MAP) 115/76 (89) Pulse Ox 93 O2 Delivery Room Air Room Air Room Air Room Air 04/10/18 04/10/18 04/10/18 04/10/18 15:00 15:43 17:31 19:05 Temp 98.7 98.1 98.7 98.1 Pulse 85 85 88 Resp 18 20 B/P (MAP) 112/69 (83) 112/69 114/61 (78) Pulse Ox 95 O2 Delivery Room Air Room Air Room Air 04/10/18 04/10/18 04/10/18 04/10/18 19:37 19:38 20:00 20:35 Resp 20 O2 Delivery Room Air Room Air Room Air 04/10/18 04/10/18 04/11/18 04/11/18 21:35 22:22 02:44 07:00 Temp 98.6 98.3 98.4 98.6 98.3 98.4 Pulse 83 84 Resp 20 20 20 B/P (MAP) 140/74 (96) 120/66 (84) 110/56 (74) Pulse Ox 95 92 95 O2 Delivery Room Air Room Air Room Air 04/11/18 04/11/18 04/11/18 08:09 08:11 08:47 Pulse 84 B/P (MAP) 110/56 Pulse Ox 93 93 O2 Delivery Room Air Room Air Intake and Output 04/10/18 04/10/18 04/11/18 15:00 23:00 07:00 Intake Total 430 ml 1050 ml 400 ml Output Total 1 ml Balance 430 ml 1050 ml 399 ml CLAY ARTEAGA MD Apr 11, 2018 09:02
[2018-04-11 09:20] LABS: THYROID STIM HORMONE (TSH) 128.006 uIU/mL (0.358-3.74)
--- NOTE | 2018-04-11 10:09 | DISCH ---
DISCHARGE WITH HOME HEALTH DISCHARGE INFORMATION: Final Diagnosis: Problems Medical Problems: (1) Acute exacerbation of CHF (congestive heart failure) Status: Acute (2) Elevated troponin I level Status: Acute (3) Hypoglycemia Status: Acute (4) Hypoxia Status: Acute (5) Lactic acidosis Status: Acute (6) Renal insufficiency Status: Acute Condition on Discharge: Stable CODE STATUS: Code Status: Full HOME HEALTH: Face to Face: I certify this patient is under my care and that I, or a nurse practitioner or physician's assistant manager airside operations working with me, had a face to face encounter that meets the physician face to face encounter requirements with this patient on []. Medical Complications: CHF Alf For: Assess Cardiopulm Status, Assess & Educate Safety, Medication Management Physical Therapy For: Evalulation/Treatment Occupational Therapy For: Evaluation/Treatment Home Health Aide For: Self-care Pt Meets Homebound Status: Unsteady balance w/ amb, POST DISCHARGE ORDERS: DIET AFTER DISCHARGE: Cardiac CHECKS AFTER DISCHARGE: Checks after discharge: Check blood press - daily TREATMENT/EQUIPMENT ORDERS: Adaptive Equipment Issued: None CERTIFICATION STATEMENT: Certification Statement: Certification Statement: Based on the above finding, I certify that this patient is confined to the home and needs intermittent usp care, physical therapy and/or speech therapy, or continues to need occupational therapy.~ This patient is under my care, and I have initiated the establishment of the plan of care.~ This patient will be followed by myself or a community physician who will periodically review the plan of care. Home Meds Active Scripts Lactulose (LACTULOSE) 20 Gm/30 Ml Solution, 20 GM PO PRN Q12HR PRN for CONSTIPATION 1ST CHOICE for 10 Days, MISC Prov:CLEVELAND VICTOR MD 04/11/18 Budesonide (BUDESONIDE) 0.5 Mg/2 Ml Ampul.neb, 0.5 MG NEB RTBID for 14 Days, EACH Prov:CLEVELAND VICTOR MD 04/11/18 Carvedilol (CARVEDILOL) 3.125 Mg Tablet, 3.125 MG PO BIDWMEALS for 30 Days, #60 TAB Prov:CLEVELAND VICTOR MD 04/11/18 Reported Medications Allopurinol (ALLOPURINOL) 100 Mg Tablet, 1 TAB PO DAILY, #30 TAB 5 Refills 04/05/18 Magnesium Oxide (MAG-OXIDE) 400 Mg Tablet, 400 MG PO TID, TAB 04/05/18 Hydrocodone/Apap 5-325 (NORCO 5-325 TABLET) 1 Each Tablet, 1 TAB PO PRN Q6HRS PRN for PAIN, TAB 0 Refills 04/05/18 Isosorbide Mononitrate (ISOSORBIDE MONONITRATE ER) 30 Mg Tab.er.24h, 1 TAB PO DAILY, #30 TAB 5 Refills 04/05/18 Febuxostat (ULORIC) 40 Mg Tablet, 1 TAB PO DAILY, #90 TAB 1 Refill 04/05/18 Meclizine Hcl (MECLIZINE HCL) 25 Mg Tablet, 1 TAB PO PRN TID PRN for DIZZINESS, #30 TAB 04/05/18 Levothyroxine Sodium (SYNTHROID) 150 Mcg Tablet, 1 TAB PO DAILY, #30 TAB 5 Refills 04/05/18 Lisinopril (LISINOPRIL) 40 Mg Tablet, 1 TAB PO DAILY, #30 TAB 5 Refills 04/05/18 Budesonide/Formoterol Fumarate (SYMBICORT 160-4.5 MCG INHALER) 10.2 Gm Hfa.aer.ad, 2 PUFF IH BID, #10.6 GM 3 Refills 04/05/18 Citalopram Hydrobromide (CITALOPRAM HBR) 20 Mg Tablet, 1 TAB PO DAILY, #30 TAB 5 Refills 04/05/18 Aspirin (ASPIRIN EC) 325 Mg Tablet.dr, 1 TAB PO DAILY, #30 TAB 5 Refills 04/05/18 Nitroglycerin (NITROSTAT) 0.4 Mg Tab.subl, 0.4 MG SL PRN Q5MIN PRN for CHEST PAIN, BOTTLE 04/05/18 Fluticasone Propionate (Flonase Allergy Relief) 9.9 Ml [place].susp, 2 SPRAYS NS DAILY, BOTTLE 04/05/18 Albuterol Sulfate (PROAIR HFA INHALER) 8.5 Gm Hfa.aer.ad, 2 PUFF INH PRN Q4- 6HRS PRN for SHORTNESS OF BREATH, INHALER 0 Refills 04/05/18 Triamcinolone Acetonide (TRIAMCINOLONE ACETONIDE 0.1% CREAM) 15 Gm Cream..g., 15 GM TP 12/13/13 Citalopram Hydrobromide (CELEXA) 40 Mg Tablet, 40 MG PO DAILY, TAB 12/13/13 Gabapentin (GABAPENTIN) 600 Mg Tablet, 600 MG PO BID, CAP 12/13/13 Atorvastatin Calcium (ATORVASTATIN CALCIUM) 20 Mg Tablet, 20 MG PO QHS for FOR CHOLESTEROL, #30 TAB 0 Refills 12/13/13 Celecoxib (CELEBREX) 200 Mg Capsule, 200 MG PO BID for 30 Days, CAP 0 Refills 12/13/13 Furosemide (FUROSEMIDE) 20 Mg Tablet, 40 MG PO BID, TAB 12/13/13 Metoprolol Tartrate (METOPROLOL TARTRATE) 25 Mg Tablet, 50 MG PO BID for FOR HYPERTENSION, #60 TAB 0 Refills 12/13/13 Omeprazole (OMEPRAZOLE) 40 Mg Capsule.dr, 40 MG PO DAILY, CAP 12/13/13 Clonidine Hcl (CLONIDINE HCL) 0.2 Mg Tablet, 0.2 MG PO BID, TAB 12/13/13 Colchicine (COLCRYS) 0.6 Mg Tablet, 0.6 MG PO BID 12/13/13 Lorazepam (LORAZEPAM) 1 Mg Tablet, 1 MG PO BID, TAB 12/13/13 Potassium Chloride (KLOR-CON M20) 20 Meq Tab.er.prt, 10 MEQ PO DAILY, TAB.SR 12/13/13 Verapamil Hcl (VERAPAMIL HCL) 120 Mg Tablet, 120 MG PO BID, TAB 12/13/13 Fluticasone/Salmeterol (ADVAIR 250-50 DISKUS) 1 Each Disk.w.dev, 1 INH IH BID, INHALER 12/13/13 Ferrous Sulfate (IRON) 325 Mg Capsule.er, 325 MG PO 12/13/13 Clopidogrel Bisulfate (CLOPIDOGREL) 75 Mg Tablet, 75 MG PO DAILY for TO PREVENT BLOOD CLOTS, #30 TAB 0 Refills 12/13/13 CLEVELAND VICTOR MD Apr 11, 2018 10:08
--- NOTE | 2018-04-11 10:17 | PDOC3 ---
Discharge Summary Visit Information Date of Admission: Mar 31, 2018 Date of Discharge: Apr 11, 2018 Admitting Diagnosis Comment: Acute heart failure systolic EF 20% AMS, with hypoglycemia wo dm history, hypothyroidism NSTEMI with chf JAIDEN vasomotor, atn Sepsis? HTN Anemia Hypoglycemia REcent shingles h/o CAD hypomagnesemia ICD NON COMpliance? pancytopenia with splemegaly with CHF? h/o DVT, PE, off AC with h/o gib h/o aortic bypass abd pain 2/2 constipation possibly hyperkalemia Final Diagnosis Problems Medical Problems: (1) Acute exacerbation of CHF (congestive heart failure) Status: Acute (2) Elevated troponin I level Status: Acute (3) Hypoglycemia Status: Acute (4) Hypoxia Status: Acute (5) Lactic acidosis Status: Acute (6) Renal insufficiency Status: Acute Brief Hospital Course Allergies Allergies Coded Allergies Type Severity Reaction Last Updated Verified iodine Allergy Severe 03/30/18 Yes Sulfa (Sulfonamide Antibiotics) Allergy Intermediate 03/30/18 Yes doxycycline Allergy Intermediate 03/30/18 Yes metronidazole Allergy Intermediate HIVES 03/31/18 Yes quinine Allergy Intermediate 03/30/18 Yes Vital Signs Vital Signs Date Time Temp Pulse Resp B/P (MAP) Pulse Ox O2 Delivery O2 Flow Rate FiO2 04/11/18 09:13 Room Air 04/11/18 08:47 84 110/56 04/11/18 08:11 93 04/11/18 07:00 98.4 98.4 04/11/18 02:44 20 Lab Results Laboratory Tests Test 04/09/18 17:48 04/09/18 20:34 04/10/18 03:30 04/10/18 07:50 Glucose (Fingerstick) 117 mg/dL (70-99) 161 mg/dL (70-99) White Blood Count 4.2 x10^3/uL (4.0-11.0) Red Blood Count 2.85 x10^6/uL (3.50-5.40) Hemoglobin 8.8 g/dL (12.0-15.5) Hematocrit 25.7 % (36.0-47.0) Mean Corpuscular Volume 90 fL (79-100) Mean Corpuscular Hemoglobin 31 pg (25-35) Mean Corpuscular Hemoglobin Concent 34 g/dL (31-37) Red Cell Distribution Width 29.4 % (11.5-14.5) Platelet Count 126 x10^3/uL (140-400) Neutrophils (%) (Auto) 68 % (31-73) Lymphocytes (%) (Auto) 6 % (24-48) Monocytes (%) (Auto) 23 % (0-9) Eosinophils (%) (Auto) 1 % (0-3) Basophils (%) (Auto) 2 % (0-3) Neutrophils # (Auto) 2.8 x10^3uL (1.8-7.7) Lymphocytes # (Auto) 0.3 x10^3/uL (1.0-4.8) Monocytes # (Auto) 1.0 x10^3/uL (0.0-1.1) Eosinophils # (Auto) 0.1 x10^3/uL (0.0-0.7) Basophils # (Auto) 0.1 x10^3/uL (0.0-0.2) Sodium Level 137 mmol/L (136-145) Potassium Level 5.5 mmol/L (3.5-5.1) Chloride Level 95 mmol/L (98-107) Carbon Dioxide Level 38 mmol/L (21-32) Anion Gap 4 (6-14) Blood Urea Nitrogen 44 mg/dL (7-20) Creatinine 1.6 mg/dL (0.6-1.0) Estimated GFR (Cockcroft-Gault) 38.4 Glucose Level 79 mg/dL (70-99) Calcium Level 9.0 mg/dL (8.5-10.1) Test 04/10/18 08:13 04/10/18 12:18 04/10/18 17:09 04/10/18 20:32 Glucose (Fingerstick) 77 mg/dL (70-99) 62 mg/dL (70-99) 111 mg/dL (70-99) 85 mg/dL (70-99) Test 04/11/18 06:45 04/11/18 07:41 White Blood Count 5.0 x10^3/uL (4.0-11.0) Red Blood Count 2.95 x10^6/uL (3.50-5.40) Hemoglobin 9.0 g/dL (12.0-15.5) Hematocrit 26.7 % (36.0-47.0) Mean Corpuscular Volume 90 fL (79-100) Mean Corpuscular Hemoglobin 31 pg (25-35) Mean Corpuscular Hemoglobin Concent 34 g/dL (31-37) Red Cell Distribution Width 29.5 % (11.5-14.5) Platelet Count 151 x10^3/uL (140-400) Neutrophils (%) (Auto) 44 % (31-73) Lymphocytes (%) (Auto) 48 % (24-48) Monocytes (%) (Auto) 6 % (0-9) Eosinophils (%) (Auto) 1 % (0-3) Basophils (%) (Auto) 1 % (0-3) Neutrophils # (Auto) 2.2 x10^3uL (1.8-7.7) Lymphocytes # (Auto) 2.4 x10^3/uL (1.0-4.8) Monocytes # (Auto) 0.3 x10^3/uL (0.0-1.1) Eosinophils # (Auto) 0.0 x10^3/uL (0.0-0.7) Basophils # (Auto) 0.0 x10^3/uL (0.0-0.2) Sodium Level 137 mmol/L (136-145) Potassium Level 4.5 mmol/L (3.5-5.1) Chloride Level 95 mmol/L (98-107) Carbon Dioxide Level 37 mmol/L (21-32) Anion Gap 5 (6-14) Blood Urea Nitrogen 41 mg/dL (7-20) Creatinine 1.6 mg/dL (0.6-1.0) Estimated GFR (Cockcroft-Gault) 38.4 Glucose Level 103 mg/dL (70-99) Calcium Level 8.8 mg/dL (8.5-10.1) Thyroid Stimulating Hormone (TSH) 128.006 uIU/mL (0.358-3.74) Free Thyroxine 0.72 ng/dL (0.76-1.46) Free Triiodothyronine (T3) pg/mL 1.84 pg/mL (2.18-3.98) Glucose (Fingerstick) 103 mg/dL (70-99) Laboratory Tests Test 04/10/18 12:18 04/10/18 17:09 04/10/18 20:32 04/11/18 06:45 Glucose (Fingerstick) 62 mg/dL (70-99) 111 mg/dL (70-99) 85 mg/dL (70-99) White Blood Count 5.0 x10^3/uL (4.0-11.0) Red Blood Count 2.95 x10^6/uL (3.50-5.40) Hemoglobin 9.0 g/dL (12.0-15.5) Hematocrit 26.7 % (36.0-47.0) Mean Corpuscular Volume 90 fL (79-100) Mean Corpuscular Hemoglobin 31 pg (25-35) Mean Corpuscular Hemoglobin Concent 34 g/dL (31-37) Red Cell Distribution Width 29.5 % (11.5-14.5) Platelet Count 151 x10^3/uL (140-400) Neutrophils (%) (Auto) 44 % (31-73) Lymphocytes (%) (Auto) 48 % (24-48) Monocytes (%) (Auto) 6 % (0-9) Eosinophils (%) (Auto) 1 % (0-3) Basophils (%) (Auto) 1 % (0-3) Neutrophils # (Auto) 2.2 x10^3uL (1.8-7.7) Lymphocytes # (Auto) 2.4 x10^3/uL (1.0-4.8) Monocytes # (Auto) 0.3 x10^3/uL (0.0-1.1) Eosinophils # (Auto) 0.0 x10^3/uL (0.0-0.7) Basophils # (Auto) 0.0 x10^3/uL (0.0-0.2) Sodium Level 137 mmol/L (136-145) Potassium Level 4.5 mmol/L (3.5-5.1) Chloride Level 95 mmol/L (98-107) Carbon Dioxide Level 37 mmol/L (21-32) Anion Gap 5 (6-14) Blood Urea Nitrogen 41 mg/dL (7-20) Creatinine 1.6 mg/dL (0.6-1.0) Estimated GFR (Cockcroft-Gault) 38.4 Glucose Level 103 mg/dL (70-99) Calcium Level 8.8 mg/dL (8.5-10.1) Thyroid Stimulating Hormone (TSH) 128.006 uIU/mL (0.358-3.74) Free Thyroxine 0.72 ng/dL (0.76-1.46) Free Triiodothyronine (T3) pg/mL 1.84 pg/mL (2.18-3.98) Test 04/11/18 07:41 Glucose (Fingerstick) 103 mg/dL (70-99) Brief Hospital Course Ms. Kaur is a 72 old[[place] female who lives at home, admitted because of S OA when was found to have a systolic EF of 20%. Comanage with cardiology on the CVC. Floor. Course remarkable for some anemia hypertension hypoglycemia. Recent shingles. Comanage with heme onc. Also TSH was 128. Started on Synthroid 150 by colleague, also started on Cytomel which I have continued by Colleague- Dr WHITLEY We'll go home with home health, physical therapy needs not enough for [facility] Multiple Rx on chart, I had to refill. Including a statin, Lasix 40 twice a day along with potassium supplements, Synthroid, Cytomel, statin, Plavix, DuoNeb' s. SSRI etc Consults performed cardiology Procedure performed multiple, echocardiogram 20% EF Discharge Information Condition at Discharge: Improved, Stable Disposition/Orders: D/C to Home w/ HH Scheduled Allopurinol (Allopurinol) 100 Mg Tablet, 1 TAB PO DAILY, #30 Ref 5 (Reported) Entered as Reported by: LIZBETH WOODS on 04/05/18921 Last Action: New Order on 04/05/18921 by LIZBETH WOODS Aspirin (Aspirin Ec) 325 Mg Tablet., 1 TAB PO DAILY, #30 Ref 5 (Reported) Entered as Reported by: LIZBETH WOODS on 04/05/18910 Last Action: New Order on 04/05/18910 by LIZBETH WOODS Atorvastatin Calcium (Atorvastatin Calcium) 20 Mg Tablet, 20 MG PO QHS for FOR CHOLESTEROL, #30 Ref 0 (Reported) Entered as Reported by: Arcelia Clark on 12/13/13 1234 Last Action: Edited on 04/05/18910 by LIZBETH WOODS Budesonide (Budesonide) 0.5 Mg/2 Ml Ampul.neb, 0.5 MG NEB RTBID for 14 Days Prescribed by: CLEVELAND VICTOR on 04/11/18832 Budesonide/Formoterol Fumarate (Symbicort 160-4.5 Mcg Inhaler) 10.2 Gm Hfa.aer.ad, 2 PUFF IH BID, #10.6 Ref 3 (Reported) Entered as Reported by: LIZBETH WOODS on 04/05/18910 Last Action: New Order on 04/05/18910 by LIZBETH WOODS Carvedilol (Carvedilol) 3.125 Mg Tablet, 3.125 MG PO BIDWMEALS for 30 Days, #60 Prescribed by: CLEVELAND VICTOR on 04/11/18832 Celecoxib (Celebrex) 200 Mg Capsule, 200 MG PO BID for 30 Days, Ref 0 (Reported) Entered as Reported by: Arcelia Clark on 12/13/13 1234 Last Action: Converted on 04/04/181218 by PETRA WHITLEY MD Citalopram Hydrobromide (Celexa) 40 Mg Tablet, 40 MG PO DAILY, (Reported) Entered as Reported by: Arcelia Clark on 12/13/13 1234 Last Action: Converted on 04/04/181218 by PETRA WHITLEY MD Citalopram Hydrobromide (Citalopram Hbr) 20 Mg Tablet, 1 TAB PO DAILY, #30 Ref 5 (Reported) Entered as Reported by: LIZBETH WOODS on 04/05/18910 Last Action: New Order on 04/05/18910 by LIZBETH WOODS Clonidine Hcl (Clonidine Hcl) 0.2 Mg Tablet, 0.2 MG PO BID, (Reported) Entered as Reported by: Arcelia Clark on 12/13/13 1234 Last Action: Continued on 04/04/181218 by PETRA WHITLEY MD Clopidogrel Bisulfate (Clopidogrel) 75 Mg Tablet, 75 MG PO DAILY for TO PREVENT BLOOD CLOTS, #30 Ref 0 (Reported) Entered as Reported by: Arcelia Clark on 12/13/13 1234 Last Action: Reviewed on 04/05/18910 by LIZBETH WOODS Colchicine (Colcrys) 0.6 Mg Tablet, 0.6 MG PO BID, (Reported) Entered as Reported by: Arcelia Clark on 12/13/13 1234 Last Action: Edited on 04/05/18910 by LIZBETHSA WOODS Febuxostat (Uloric) 40 Mg Tablet, 1 TAB PO DAILY, #90 Ref 1 (Reported) Entered as Reported by: LIZBETH WOODS on 04/05/18910 Last Action: New Order on 04/05/18910 by LIZBETHSA WOODS Fluticasone Propionate (Flonase Allergy Relief) 9.9 Ml [place].susp, 2 SPRAYS NS DAILY, (Reported) Entered as Reported by: LIZBETH WOODS on 04/05/18910 Last Action: New Order on 04/05/18910 by LIZBETH FEVROSSY Fluticasone/Salmeterol (Advair 250-50 Diskus) 1 Each Disk.w.dev, 1 INH IH BID, ( Reported) Entered as Reported by: Arcelia Clark on 12/13/131233 Last Action: Converted on 04/04/181218 by PETRA WHITLEY MD Furosemide (Furosemide) 20 Mg Tablet, 40 MG PO BID, (Reported) Entered as Reported by: Arcelia Clark on 12/13/131233 Last Action: Edited on 04/05/18921 by LIZBETH WOODS Gabapentin (Gabapentin) 600 Mg Tablet, 600 MG PO BID, (Reported) Entered as Reported by: Arcelia Clark on 12/13/131233 Last Action: Edited on 04/05/18921 by LIZBETH WOODS Isosorbide Mononitrate (Isosorbide Mononitrate Er) 30 Mg Tab.er.24h, 1 TAB PO DAILY, #30 Ref 5 (Reported) Entered as Reported by: LIZBETH WOODS on 04/05/18921 Last Action: New Order on 04/05/18921 by LIZBETHSA WOODS Levothyroxine Sodium (Synthroid) 150 Mcg Tablet, 1 TAB PO DAILY, #30 Ref 5 ( Reported) Entered as Reported by: LIZBETH WOODS on 04/05/18910 Last Action: New Order on 04/05/18910 by LIZBETHSA WOODS Lisinopril (Lisinopril) 40 Mg Tablet, 1 TAB PO DAILY, #30 Ref 5 (Reported) Entered as Reported by: LIZBETH WOODS on 04/05/18910 Last Action: New Order on 04/05/18910 by LIZBETH WOODS Lorazepam (Lorazepam) 1 Mg Tablet, 1 MG PO BID, (Reported) Entered as Reported by: Arcelia Clark on 12/13/131233 Last Action: HELD on 04/04/181218 by PETRA WHITLEY MD Magnesium Oxide (Mag-Oxide) 400 Mg Tablet, 400 MG PO TID, (Reported) Entered as Reported by: LIZBETH WOODS on 04/05/18921 Last Action: New Order on 04/05/18921 by LIZBETH WOODS Metoprolol Tartrate (Metoprolol Tartrate) 25 Mg Tablet, 50 MG PO BID for FOR HYPERTENSION, #60 Ref 0 (Reported) Entered as Reported by: Arcelia Clark on 12/13/131233 Last Action: Reviewed on 04/05/181047 by PETRA WHITLEY MD Omeprazole (Omeprazole) 40 Mg Capsule.dr, 40 MG PO DAILY, (Reported) Entered as Reported by: Arcelia Clark on 12/13/131233 Last Action: Reviewed on 04/05/18910 by LIZBETH WOODS Potassium Chloride (Klor-Con M20) 20 Meq Tab.er.prt, 10 MEQ PO DAILY, (Reported) Entered as Reported by: Arcelia Clark on 12/13/131233 Last Action: Edited on 04/05/18921 by LIZBETH WOODS Verapamil Hcl (Verapamil Hcl) 120 Mg Tablet, 120 MG PO BID, (Reported) Entered as Reported by: Arcelia Clark on 12/13/131233 Last Action: Converted on 04/04/181218 by PETRA WHITLEY MD Scheduled PRN Albuterol Sulfate (Proair Hfa Inhaler) 8.5 Gm Hfa.aer.ad, 2 PUFF INH PRN Q4- 6HRS PRN for SHORTNESS OF BREATH, Ref 0 (Reported) Entered as Reported by: LIZBETH WOODS on 04/05/18910 Last Action: New Order on 04/05/18910 by LIZBETH WOODS Hydrocodone/Apap 5-325 ([place] 5-325 Tablet) 1 Each Tablet, 1 TAB PO PRN Q6HRS PRN for PAIN, Ref 0 (Reported) Entered as Reported by: LIZBETH WOODS on 04/05/18921 Last Action: New Order on 04/05/18921 by LIZBETH WOODS Lactulose (Lactulose) 20 Gm/30 Ml Solution, 20 GM PO PRN Q12HR PRN for CONSTIPATION 1ST CHOICE for 10 Days Prescribed by: CLEVELAND VICTOR on 04/11/18832 Meclizine Hcl (Meclizine Hcl) 25 Mg Tablet, 1 TAB PO PRN TID PRN for DIZZINESS, #30 (Reported) Entered as Reported by: LIZBETH WOODS on 04/05/18910 Last Action: New Order on 04/05/18910 by LIZBETH WOODS Nitroglycerin (Nitrostat) 0.4 Mg Tab.subl, 0.4 MG SL PRN Q5MIN PRN for CHEST PAIN, (Reported) Entered as Reported by: LIZBETH WOODS on 04/05/18910 Last Action: New Order on 04/05/18910 by LIZBETH WOODS Miscellaneous Medications Ferrous Sulfate (Iron) 325 Mg Capsule.er, 325 MG PO, (Reported) Entered as Reported by: Arcelia Clark on 12/13/13 1234 Last Action: Reviewed on 03/31/18639 by TULIO CASAS Triamcinolone Acetonide (Triamcinolone Acetonide 0.1% Cream) 15 Gm Cream..g., 15 GM TP, (Reported) Entered as Reported by: Arcelia Clark on 12/13/13 1234 Last Action: Reviewed on 03/31/18639 by CLEVELAND MEYERS MD Apr 11, 2018 10:17
--- NOTE | 2018-04-11 10:35 | PDOC ---
Subjective: Subjective: Denies GI complaints. Objective: Objective: Probable DC today w/ HH per RN. Stooled yesterday, ate a lot yesterday. Vital Signs: Vital Signs Date Time Temp Pulse Resp B/P (MAP) Pulse Ox O2 Delivery O2 Flow Rate FiO2 04/11/18 09:13 Room Air 04/11/18 08:47 84 110/56 04/11/18 08:11 93 04/11/18 07:00 98.4 98.4 04/11/18 02:44 20 Labs: Laboratory Tests Test 04/10/18 12:18 04/10/18 17:09 04/10/18 20:32 04/11/18 06:45 Glucose (Fingerstick) 62 mg/dL 111 mg/dL 85 mg/dL White Blood Count 5.0 x10^3/uL Red Blood Count 2.95 x10^6/uL Hemoglobin 9.0 g/dL Hematocrit 26.7 % Mean Corpuscular Volume 90 fL Mean Corpuscular Hemoglobin 31 pg Mean Corpuscular Hemoglobin Concent 34 g/dL Red Cell Distribution Width 29.5 % Platelet Count 151 x10^3/uL Neutrophils (%) (Auto) 44 % Lymphocytes (%) (Auto) 48 % Monocytes (%) (Auto) 6 % Eosinophils (%) (Auto) 1 % Basophils (%) (Auto) 1 % Neutrophils # (Auto) 2.2 x10^3uL Lymphocytes # (Auto) 2.4 x10^3/uL Monocytes # (Auto) 0.3 x10^3/uL Eosinophils # (Auto) 0.0 x10^3/uL Basophils # (Auto) 0.0 x10^3/uL Platelet Estimate Pending Sodium Level 137 mmol/L Potassium Level 4.5 mmol/L Chloride Level 95 mmol/L Carbon Dioxide Level 37 mmol/L Anion Gap 5 Blood Urea Nitrogen 41 mg/dL Creatinine 1.6 mg/dL Estimated GFR (Cockcroft-Gault) 38.4 Glucose Level 103 mg/dL Calcium Level 8.8 mg/dL Thyroid Stimulating Hormone (TSH) 128.006 uIU/mL Free Thyroxine 0.72 ng/dL Free Triiodothyronine (T3) pg/mL 1.84 pg/mL Test 04/11/18 07:41 Glucose (Fingerstick) 103 mg/dL PE: GEN: NAD LUNGS: clear HEART: RRR ABD: S/ND/NT NEURO/PSYCH: confused? 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 NEEL WILLIAMSON Apr 11, 2018 10:35
[2018-04-11] MEDS: ACETAMINOPHEN/CODEINE 300/30MG TABLET. PO PRN (10:53)
[2018-04-11 11:00] VITALS: BP 110/60
[2018-04-11 11:25] LABS: % BANDS 3 % (0-9); % BASOS 2 % (0-3); % LYMPHS 31 % (24-48); % MONOS 13 % (0-10); % SEGS 51 % (35-66); PLT ESTIMATE ADEQUATE (ADEQUATE)
[2018-04-11 11:26] LABS: ANISOCYTOSIS PRESENT; TARGET CELLS PRESENT
[2018-04-11 11:27] LABS: SCHISTOCYTES FEW
--- NOTE | 2018-04-11 14:26 | PDOC ---
Renal-Progress Notes Subjective Notes Notes LESS SOB History of Present Illness Hx of present illness STABLE Vitals Vitals Vital Signs Date Time Temp Pulse Resp B/P (MAP) Pulse Ox O2 Delivery O2 Flow Rate FiO2 04/11/18 14:18 Room Air 04/11/18 11:33 92 04/11/18 11:00 98.8 80 18 110/60 (77) 98.8 Weight Weight [ ] I.O. Intake and Output Intake and Output 04/11/18 06:59 Intake Total 1880 ml Output Total 1 ml Balance 1879 ml Intake Oral 1880 ml Output Urine Total 1 ml # Voids 1 # Bowel Movements 1 Labs Labs Laboratory Tests Test 04/10/18 17:09 04/10/18 20:32 04/11/18 06:45 04/11/18 07:41 Glucose (Fingerstick) 111 mg/dL (70-99) 85 mg/dL (70-99) 103 mg/dL (70-99) White Blood Count 5.0 x10^3/uL (4.0-11.0) Red Blood Count 2.95 x10^6/uL (3.50-5.40) Hemoglobin 9.0 g/dL (12.0-15.5) Hematocrit 26.7 % (36.0-47.0) Mean Corpuscular Volume 90 fL (79-100) Mean Corpuscular Hemoglobin 31 pg (25-35) Mean Corpuscular Hemoglobin Concent 34 g/dL (31-37) Red Cell Distribution Width 29.5 % (11.5-14.5) Platelet Count 151 x10^3/uL (140-400) Neutrophils (%) (Auto) 44 % (31-73) Lymphocytes (%) (Auto) 48 % (24-48) Monocytes (%) (Auto) 6 % (0-9) Eosinophils (%) (Auto) 1 % (0-3) Basophils (%) (Auto) 1 % (0-3) Neutrophils # (Auto) 2.2 x10^3uL (1.8-7.7) Lymphocytes # (Auto) 2.4 x10^3/uL (1.0-4.8) Monocytes # (Auto) 0.3 x10^3/uL (0.0-1.1) Eosinophils # (Auto) 0.0 x10^3/uL (0.0-0.7) Basophils # (Auto) 0.0 x10^3/uL (0.0-0.2) Segmented Neutrophils % 51 % (35-66) Band Neutrophils % 3 % (0-9) Lymphocytes % 31 % (24-48) Monocytes % 13 % (0-10) Basophils % 2 % (0-3) Platelet Estimate Adequate (ADEQUATE) Anisocytosis Present Target Cells Present Schistocytes Few Sodium Level 137 mmol/L (136-145) Potassium Level 4.5 mmol/L (3.5-5.1) Chloride Level 95 mmol/L (98-107) Carbon Dioxide Level 37 mmol/L (21-32) Anion Gap 5 (6-14) Blood Urea Nitrogen 41 mg/dL (7-20) Creatinine 1.6 mg/dL (0.6-1.0) Estimated GFR (Cockcroft-Gault) 38.4 Glucose Level 103 mg/dL (70-99) Calcium Level 8.8 mg/dL (8.5-10.1) Thyroid Stimulating Hormone (TSH) 128.006 uIU/mL (0.358-3.74) Free Thyroxine 0.72 ng/dL (0.76-1.46) Free Triiodothyronine (T3) pg/mL 1.84 pg/mL (2.18-3.98) Test 04/11/18 13:33 Glucose (Fingerstick) 78 mg/dL (70-99) Micro Micro Microbiology 03/31/18 Blood Culture - Final, Complete NO GROWTH AFTER 5 DAYS Review of Systems Constitutional: yes: weakness, alert, oriented Pulmonary: Yes dyspnea Physical Exam General Appearance: no apparent distress Skin: warm Respiratory: decreased breath sounds Heart: S1S2 Abdomen: soft, bowel sounds present Genitourinary: bladder flat Extremities: pulses present Neurology: alert, follow commands Assessment Assessment IMP CHF-APPEARS COMPENSATED-CM WITH EF OF 20% CKD STAGE 3-BASELINE PROB 2.0 MILD JAIDEN AFTER DIURETICS - RESOLVED WITH CR NOW OF 1.6 FROM 3.2 LOW K-CORRECTED PLAN PO LASIX ENC COMPLIANCE CHECK MAG LABS IN AM MATIAS FLOWER MD Apr 11, 2018 14:26
[2018-04-11 15:29] VITALS: BP 128/69
== END 2018-04-11 16:45 | disposition home health service (06) | DRG 871 ==
LOC: ER 22:26 → 1 WEST ICU 03-31 00:50 → 2 SOUTH 04-01 13:41
PROVIDERS: ADMIT Internal Medicine; ATTEND Internal Medicine
PROC: 02HV33Z Insertion of Infusion Device into Superior Vena Cava, Percutaneous Approach (ICD-10-PCS; principal; 2018-03-31)
PROC: B548ZZA Ultrasonography of Superior Vena Cava, Guidance (ICD-10-PCS; 2018-03-31)
PROC: 4B02XSZ Measurement of Cardiac Pacemaker, External Approach (ICD-10-PCS; 2018-04-04)
DX: A41.9 Sepsis, unspecified organism (principal); I21.4 Non-ST elevation (NSTEMI) myocardial infarction; I50.43 Acute on chronic combined systolic (congestive) and diastolic (congestive) heart failure; N17.0 Acute kidney failure with tubular necrosis; G93.40 Encephalopathy, unspecified; D61.818 Other pancytopenia; I13.0 Hypertensive heart and chronic kidney disease with heart failure and stage 1 through stage 4 chronic kidney disease, or unspecified chronic kidney disease; D68.9 Coagulation defect, unspecified; I47.2 Ventricular tachycardia; E03.9 Hypothyroidism, unspecified; I73.9 Peripheral vascular disease, unspecified; E16.2 Hypoglycemia, unspecified; E78.5 Hyperlipidemia, unspecified; E83.42 Hypomagnesemia; E87.5 Hyperkalemia; F17.210 Nicotine dependence, cigarettes, uncomplicated; F41.9 Anxiety disorder, unspecified; I25.10 Atherosclerotic heart disease of native coronary artery without angina pectoris; I25.5 Ischemic cardiomyopathy; I48.91 Unspecified atrial fibrillation; J44.9 Chronic obstructive pulmonary disease, unspecified; K21.9 Gastro-esophageal reflux disease without esophagitis; K22.70 Barrett's esophagus without dysplasia; K57.90 Diverticulosis of intestine, part unspecified, without perforation or abscess without bleeding; K59.00 Constipation, unspecified; K76.0 Fatty (change of) liver, not elsewhere classified; E66.9 Obesity, unspecified; F32.9 Major depressive disorder, single episode, unspecified; M19.90 Unspecified osteoarthritis, unspecified site; D63.8 Anemia in other chronic diseases classified elsewhere; N18.3 Chronic kidney disease, stage 3 (moderate); R09.02 Hypoxemia; Z80.3 Family history of malignant neoplasm of breast; Z82.49 Family history of ischemic heart disease and other diseases of the circulatory system; Z86.718 Personal history of other venous thrombosis and embolism; Z95.0 Presence of cardiac pacemaker; Z95.1 Presence of aortocoronary bypass graft; Z95.5 Presence of coronary angioplasty implant and graft; Z88.1 Allergy status to other antibiotic agents; Z90.49 Acquired absence of other specified parts of digestive tract; Z68.31 Body mass index [BMI] 31.0-31.9, adult; Z88.2 Allergy status to sulfonamides; Z88.8 Allergy status to other drugs, medicaments and biological substances; Z91.041 Radiographic dye allergy status; Z79.02 Long term (current) use of antithrombotics/antiplatelets; Z79.899 Other long term (current) drug therapy; Z79.82 Long term (current) use of aspirin; Z79.51 Long term (current) use of inhaled steroids; Z91.19 Patient's noncompliance with other medical treatment and regimen; Z86.711 Personal history of pulmonary embolism
CPT/HCPCS: 36415; 36556; 36600; 51702; 71045; 74018; 76700; 78452; 80048; 80053; 80061; 80069; 80076; 81001; 82140; 82248; 82533; 82550; 82607; 82728; 82805; 82962; 83540; 83550; 83605; 83690; 83735; 83880; 84439; 84443; 84481; 84484; 85007; 85025; 85027; 85045; 85610; 86803; 87040; 87340; 87641; 93005; 93017; 93306; 94640; 94760; 96374; 96375; 96376; A9500; J0456; J0696; J1940; J2001; J2260; J2405; J2785; J3475; J3490; J7042; J7050; J7613; J7626; 97110; 97116; 97530; 97535; 99291-25; J7030

== ENCOUNTER 2018-06-15 17:27 | Emergency (ER) | payer MEDICARE, MEDICAID ==
[~2018-06-15] VITALS: Ht 160 cm; Wt 72.6 kg
[~2018-06-15 17:27] MED LIST changes: +ALLO100T PO; +ASPI325T11 PO; +BUDE0.5A NEB; +BUDE10.2 IH; +CARV3.1210 PO; +CITA20TA6 PO; +FEBU40TA PO; +FLUT9.9S NS; +HYDR-3164 PO; +ISOS30TA4 PO; +LACT20SO PO; +LEVO150T PO; +LISI-130 PO; +MAGN400T22 PO; +MECL25TA3 PO; +NITR0.4T SL; +PROAIR HFA8.5 GM INH
[2018-06-15 17:58] VITALS: BP 143/75
--- NOTE | 2018-06-15 18:49 | RAD ---
Indication: Pain and swelling TECHNIQUE: 3 views of the right wrist COMPARISON: None Findings/ impression: Diffuse osteopenia. No acute fracture or dislocation. Wrist soft tissue swelling noted. Mild intercarpal joint and radiocarpal joint arthritis. Electronically signed by: Long Tucker DO (06/15/2018 6:45 PM) [facility]
--- NOTE | 2018-06-15 19:00 | PHYS DOC ---
Past Medical History Past Medical History: CHF, Hypertension, HI Past Surgical History: Cholecystectomy, Other Additional Past Surgical Histo: pacemaker Alcohol Use: None Drug Use: None Adult General Chief Complaint Chief Complaint: WRIST PAIN HPI HPI Patient is a 73 year old female who presents with anterior right wrist dollar coin-sized raised mass that is soft and feels like a cyst. Range of motion is not intact in the wrist due to pain because of the cysts. Patient states is been there since Wednesday. Denies fever denies injury it is aching. Review of Systems Review of Systems Constitutional: Denies fever or chills [] Eyes: Denies change in visual acuity, redness, or eye pain [] HENT: Denies nasal congestion or sore throat [] Respiratory: Denies cough or shortness of breath [] Cardiovascular: No additional information not addressed in HPI [] GI: Denies abdominal pain, nausea, vomiting, bloody stools or diarrhea [] : Denies dysuria or hematuria [] Musculoskeletal: Denies back pain or joint pain [] Integument: Anterior wrist cyst. Denies rash or skin lesions [] Neurologic: Denies headache, focal weakness or sensory changes [] Endocrine: Denies polyuria or polydipsia [] All other systems were reviewed and found to be within normal limits, except as documented in this note. Allergies Allergies Allergies Coded Allergies Type Severity Reaction Last Updated Verified iodine Allergy Severe 03/30/18 Yes Sulfa (Sulfonamide Antibiotics) Allergy Intermediate 03/30/18 Yes doxycycline Allergy Intermediate 03/30/18 Yes metronidazole Allergy Intermediate HIVES 03/31/18 Yes quinine Allergy Intermediate 03/30/18 Yes Physical Exam Physical Exam Constitutional: Well developed, well nourished, no acute distress, non-toxic appearance. [] HENT: Normocephalic, atraumatic, bilateral external ears normal, oropharynx moist, no oral exudates, nose normal. [] Eyes: PERRLA, EOMI, conjunctiva normal, no discharge. [] Neck: Normal range of motion, no tenderness, supple, no stridor. [] Cardiovascular:Heart rate regular rhythm, no murmur [] Lungs & Thorax: Bilateral breath sounds clear to auscultation [] Abdomen: Bowel sounds normal, soft, no tenderness, no masses, no pulsatile masses. [] Skin: Warm, dry, no erythema, no rash. [] Back: No tenderness, no CVA tenderness. [] Extremities: Anterior raised dollar coin-sized cyst with tenderness, no cyanosis , no clubbing, Right wrist ROM not intact, no edema. [] Neurologic: Alert and oriented X 3, normal motor function, normal sensory function, no focal deficits noted. [] Psychologic: Affect normal, judgement normal, mood normal. [] Current Patient Data Vital Signs Vital Signs Date Time Temp Pulse Resp B/P (MAP) Pulse Ox O2 Delivery O2 Flow Rate FiO2 06/15/18 17:58 98.7 74 16 143/75 (97) 97 Room Air 98.7 EKG EKG [] Radiology/Procedures Radiology/Procedures [] Impressions: [facility] [address] [place], [place] [id number] IMAGING REPORT Signed PATIENT: ELMIRA PEREZ ACCOUNT: [id number] : 1945 LOCATION: ER AGE: 73 SEX: F EXAM STATUS: REG ER ORD. PHYSICIAN: ADELSO CUEVAS APRN REASON: PAIN, SWELLING PROCEDURE: WRIST 3V RIGHT Indication: Pain and swelling TECHNIQUE: 3 views of the right wrist COMPARISON: None Findings/ impression: Diffuse osteopenia. No acute fracture or dislocation. Wrist soft tissue swelling noted. Mild intercarpal joint and radiocarpal joint arthritis. Electronically signed by: Long Tucker DO (06/15/2018 6:45 PM) [facility] DICTATED and SIGNED BY: LONG TUCKER DO DATE: 06/15/18 1844 Course & Med Decision Making Course & Med Decision Making Patient is a 73 year old female who presents with anterior right wrist dollar coin-sized raised mass that is soft and feels like a cyst. Range of motion is not intact in the wrist due to pain because of the cysts. Patient states is been there since Wednesday. Denies fever denies injury it is aching. Alert and oriented. Denies injury. Radial pulses present and strong. There is no other deformity, swelling or cellulitis or redness and there is no head or drainage from the area. X-ray shows arthritis but no other infection or spur. Patient is told to call her primary care doctor in the morning and follow-up with him and continue taking all of her medications as prescribed. She Tylenol for pain. Dragon Disclaimer Dragon Disclaimer This electronic medical record was generated, in whole or in part, using a voice recognition dictation system. Departure Departure Impression: Primary Impression: Cyst Disposition: HOME, SELF-CARE Condition: STABLE Referrals: NO PCP (PCP) XOCHITL PAUL MD Patient Instructions: Arthritis, Degenerative-Brief, Arthritis, Nonspecific, Tanner's Cyst Additional Instructions: Called Dr. Paul orthopedic tomorrow for a follow-up or go to your primary care doctor. Continue taking her medications. ADELSO CUEVAS APRN Jun 15, 2018 19:00
== END 2018-06-15 19:19 | disposition home or self-care (01) ==
LOC: ER 17:27
DX: R22.31 Localized swelling, mass and lump, right upper limb (principal); M13.831 Other specified arthritis, right wrist; M85.841 Other specified disorders of bone density and structure, right hand; Z88.2 Allergy status to sulfonamides; Z91.041 Radiographic dye allergy status; Z88.8 Allergy status to other drugs, medicaments and biological substances; I25.2 Old myocardial infarction; I11.0 Hypertensive heart disease with heart failure; I50.9 Heart failure, unspecified; Z90.49 Acquired absence of other specified parts of digestive tract; Z95.0 Presence of cardiac pacemaker
CPT/HCPCS: 73110; 99283